=== PATIENT | female | born 1955 | race Caucasian/White ===

== ENCOUNTER → 2017-03-31 | Outpatient (CLI) | payer MEDICARE, MEDICAID ==
[~2017-03-31] MED LIST: ALBUTEROL-200 PUFFS/; CITALOPRAM20 MG PO; CLONAZEPAM0.5 M1 PO; COMPLETE MULTI1 TA1 PO; FLONASE 50 MCG16 GM; LASIX40 MG PO; LORTAB 5/500 501 TAB PO; POTASSIUM CHLO10 ME3 PO; PREDNISONE20 MG PO; ROBITUSSIN DM S10 ML PO; TYLENOL 325MG325 MG PO; TYLENOL W/CODEI1 TA2 PO; VALIUM5 MG PO; ZYPREXA 2.5MG2.5 MG PO
--- NOTE | 2017-03-31 10:07 | RADIOLOGY REPORT PS360 ---
EXAM: LUMBAR SPINE 5 VIEWS HISTORY: Low back pain following injury INJURY OF RT SHOULDER,LUMBAT PAIN,RT HIP PAIN ORDERING PHYSICIAN: Lisa ABRAHAM PATIENT AGE: 61 years COMPARISON: 08/03/2012 FINDINGS: Grade 1 spondylolisthesis L4 on L5 of 6 mm. There is moderate wedging of T12 unchanged with degenerative disc disease at T11-T12 and mild degenerative disc disease at L5-S1. Facet arthritic change with sclerosis is noted involving L2-S1. No acute fracture or dislocation. No lytic or blastic change. Incidental atherosclerotic calcification of the aorta. IMPRESSION: 1. No change with no acute finding. 2. Chronic wedging of T12 3. Lumbar spondylosis as detailed above
--- NOTE | 2017-03-31 10:08 | RADIOLOGY REPORT PS360 ---
[id number] VIEWS HISTORY: Post traumatic pain INJURY OF RT SHOULDER,LUMBAT PAIN,RT HIP PAIN ORDERING PHYSICIAN: Lisa ABRAHAM PATIENT AGE: 61 years COMPARISON: 01/16/2012 FINDINGS: No fracture or dislocation. No lytic or blastic change. There is normal mineralization. Mild osteoarthritic changes involve the glenohumeral joint. IMPRESSION: Mild osteoarthritic change glenohumeral joint, no acute fracture or dislocation apparent
--- NOTE | 2017-03-31 10:10 | RADIOLOGY REPORT PS360 ---
HIP LT 2-3V W/PELVIS IF PERFOR HISTORY: Left hip pain INJURY OF RT SHOULDER,LUMBAT PAIN,RT HIP PAIN ORDERING PHYSICIAN: Lisa ABRAHAM PATIENT AGE: 61 years COMPARISON: None FINDINGS: Minimal osteoarthritic changes are present at the left hip. No acute fracture or dislocation. No lytic or blastic change. IMPRESSION: Minimal osteoarthritic change otherwise negative
--- NOTE | 2017-03-31 10:11 | RADIOLOGY REPORT PS360 ---
[id number] VIEWS HISTORY: LT SHOULDER PAIN ORDERING PHYSICIAN: Lisa ABRAHAM PATIENT AGE: 61 years COMPARISON: None FINDINGS: No fracture or dislocation. No lytic or blastic change. There is normal mineralization. The joint spaces are well-preserved. No significant degenerative/arthritic changes. No erosive changes evident. IMPRESSION: Negative left shoulder, no acute finding
== END ==
LOC: RAD 09:06
DX: S49.91XA Unspecified injury of right shoulder and upper arm, initial encounter (principal); M54.5 Low back pain; M25.551 Pain in right hip; M25.552 Pain in left hip

== ENCOUNTER → 2017-08-16 | Outpatient (CLI) | payer MEDICARE, MEDICAID ==
[~2017-08-16] MED LIST changes: +ASPIRIN 81MG TA81 MG PO; +BREO ELLIPTA1 POW IH; +BRILINTA90 M1 PO; +CLARITIN 10MG T10 MG PO; +LEVALBUTER1.25 MG/3 IH; +LEVAQUIN750 MG PO; +LIPITOR20 MG PO; +LOPRESSOR 25MG.25 MG PO; +MELOXICAM7.5 MG PO; +PREVACID 30MG C30 M1 PO; +PROTONIX 40MG T40 MG PO; +TYLENOL325 MG PO; +ZYPREXA 5MG TAB5 MG PO
== END ==
LOC: SL 20:02
DX: G47.33 Obstructive sleep apnea (adult) (pediatric) (principal); G47.10 Hypersomnia, unspecified; R06.83 Snoring; E66.9 Obesity, unspecified

== ENCOUNTER 2017-08-25 10:07 | Inpatient (IN) | payer MEDICARE, MEDICAID ==
[2017-08-25] VITALS (7 sets, daily range): BP systolic 120–151; BP diastolic 53–82
[~2017-08-25] VITALS: Ht 170.2 cm; Wt 97.1 kg
[~2017-08-25 10:07] MED LIST changes: -ASPIRIN 81MG TA81 MG PO; -BREO ELLIPTA1 POW IH; -BRILINTA90 M1 PO; -CLARITIN 10MG T10 MG PO; -LEVALBUTER1.25 MG/3 IH; -LEVAQUIN750 MG PO; -LIPITOR20 MG PO; -LOPRESSOR 25MG.25 MG PO; -MELOXICAM7.5 MG PO; -PREVACID 30MG C30 M1 PO; -PROTONIX 40MG T40 MG PO; -TYLENOL325 MG PO; -ZYPREXA 5MG TAB5 MG PO
--- NOTE | 2017-08-25 10:40 | Emergency Room Report ---
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 N Clinical Suspician of Infection? N Mental Status: 1 - Regular (Normal Baseline) Sepsis Risk:Low Sepsis Risk Have you (or family members/close friends) recently traveled outside the [place]? N If Yes, where/when: Have you had exposure to infectious disease within the past month? TB? Other? Specify: Patient states she's been having shortness of breath for 3 weeks she states she has been having cough productive of green and yellow phlegm she denies any fevers or chills she denies any nausea or vomiting. He denies any leg swelling she states she uses home oxygen at home has a history of chronic obstructive pulmonary disease and recently over the past couple days has been having to use it during the day as well. He states he is ALLERGIC to albuterol. She states that she has chronic obstructive pulmonary disease as well as history of congestive heart failure. He denies any leg swelling. Denies headache chest pain abdominal pain denies pain of any type. Does state she has some whole body ache but states this really isn't the pain to her, has malaise and fatigue. ALLERGIES Coded Allergies: Penicillins (08/16/16) aripiprazole (From ABILIFY) (08/16/16) haloperidol (From HALDOL) (08/16/16) hydrocodone (08/16/16) hydroxyzine (08/16/16) ibuprofen (08/16/16) paroxetine (From PAXIL) (08/16/16) promethazine (From PHENERGAN) (08/16/16) risperidone (From RISPERDAL) (08/16/16) ziprasidone (From GEODON) (08/16/16) Home Medications Active Scripts Prednisone (Prednisone 20MG Tab) 20 MG PO BID #6 TAB Prov: 08/16/16 Reported Medications Acetaminophen (Tylenol 325MG) 650 MG PO PRN Olanzapine (Zyprexa 2.5MG) 2.5 MG PO QHS Dextromethorphan-Gg (Guaifenesin Dm Syrup) 10 ML PO Q6HP Furosemide (Lasix) 40 MG PO DAILY Fluticasone Propionate (Flonase 50 Mcg Nasal [place]) 1 SPRAY NA BID #1 BOT Albuterol (Albuterol-Hfa Inhaler) POTASSIUM CHL (Potassium Chloride) 595 MG PO DAILY Diazepam (Valium) 5 MG PO TID History Medical History General CAD? No Angina: No IN: No Hypertension? No Hyperlipidemia? No CHF? No DVT? No PE? No COPD? Yes Asthma? No Anemia? No GERD? No Gastric ulcers? No GI Bleed? No Hernia? No Thyroid Problems? No Hypothyroidism? No CVA? No Seizures? Yes Diabetes? No Renal Insuffiency? No End Stage Renal Disease? No UTI? No Stones? No BPH? No GB Disease: No Nephritic Syndrome? No Asplenia? No Hepatitis? No Sickle Cell Disease? No Arthritis? No Migraines? No Cataracts? No Glaucoma? No MRSA? No HIV? No TB? No Anxiety? No Depression? No Cancer? No More? Yes Additional hx: EMPHYZEMA Immunization Hx Ped.Immunizations UTD Yes DT/Tetanus UNKNOWN Flu 2015-17FSN Pneumonia Received In Past Surgical Hx Previous Surgery?Y TUBAL LIGATION Social History Smoking Hx Smoker: Current Every Day Smoker Tobacco: Yes Type Cigarettes Packs/day 1 1/2 - 2 Packs Alcohol Alcohol: No Review of Systems All Other Systems Reviewed and Negative Physical Exam Vital Signs Vital Signs Date Time Temp Pulse Resp B/P Pulse O2 O2 Flow FiO2 Ox Delivery Rate 08/25 1041 72 20 143/74 97 3 08/25 1009 97.8 76 18 120/75 78 General Appearance: Nontoxic Head: Normocephalic, without obvious abnormality, atraumatic. Eyes: conjunctiva/corneas clear ENT: Mucous membranes moist. Neck: No jugular venous distention. Cardiac: regular rate and rhythm Lungs: diminished rhonchi auscultation bilaterally Abdomen: Nontender, Nondistended, positive bowel sounds, no rebound : No CVA tenderness Extremities: no edema No Homans sign No calf tenderness No swelling in legs Musculoskeletal: No chest wall tenderness Skin: No rashes or lesions to exposed skin. Neurologic: Alert. No gross focal deficits Psychiatric: Normal affect (Satish KRUGER, Anil) General Appearance normal appearance Respiratory Status Yes: trachea midline. Cardiovascular normal exam Neurologic alert Medical Decision Making LABS/Meds/Orders Pt receiving controlled substance in ED? No Comment [id number] bnp back, call out to PMD for admission Results/Orders Laboratory Tests 08/25/17 1035: Influenza Type A Ag NOT DETECTED, Influenza Type B Ag NOT DETECTED 08/25/17 1025: Lactic Acid 0.7 08/25/17 1025: Sodium 138, Potassium 3.7, Chloride 101, Carbon Dioxide 36 H, BUN 17, Creatinine 0.8, Estimated Creat Clear 107, Estimated GFR (MDRD) 73, Glucose 98, Calcium 8.9, Total Bilirubin 0.3, AST 21, ALT 27, Alkaline Phosphatase 108, Troponin I < 0.02, B-Natriuretic Peptide 21, Total Protein 7.5, Albumin 3.5, Globulin 4.0 H, Albumin/Globulin Ratio 0.9 L, WBC 12.2 H, RBC 4.31, Hgb 13.5, Hct 41.5, MCV 96.2, RDW 13.5, Plt Count 305, MPV 7.8, Gran % 65.7, Gran # 8.0 H , Lymphocytes % 24.5, Monocytes % 5.0, Eosinophils % 4.6, Basophils % 0.2, Lymphocytes # 3.0, Monocytes # 0.6, Eosinophils # 0.6 H, Basophils # 0.0, PUBS MCHC 32.6, MCH 31.4 H Current Medication Orders Sig/Brian Start time Last Medication Dose Route Stop Time Status Admin Levofloxacin/Dextrose 150 ML ONCE ONE 08/25 1130 CKDr IV 08/25 1259 Methylprednisolone 125 MG ONCE ONE 08/25 1045 DC 08/25 Sodium Succinate IV 08/25 1046 1039 Methylprednisolone 0 .STK-MED ONE 08/25 1038 DC Sodium Succinate .ROUTE Methylprednisolone 125 MG 08/25 1030 CAN Sodium Succinate IV Sodium Chloride 10 ML PRN PRN 08/25 1030 AC IV 08/26 1019 Orders Procedure Date/time Status RESP THERAPY REQUEST (GENERAL) 08/25 1121 Active RT REQUEST ATROVENT NEB 08/25 1121 Active IV SALINE LOCK 08/25 1019 Active CULTURE, BLOOD 08/25 1019 Active LACTIC ACID 08/25 1019 Complete ARTERIAL BLOOD GAS REQUEST 08/25 1018 Active CHEST(2 VIEWS-NOT PORTABLE) 08/25 1018 Active URINALYSIS/COMPLETE 08/25 1018 Active TROPONIN I 08/25 1018 Complete INFLUENZA A&B ANTIGENS 08/25 1018 Complete CBC WITH AUTO DIFF 08/25 1018 Complete CHEM 12 PROFILE 08/25 1018 Complete BRAIN NATRIURETIC PEPTIDE 08/25 1018 Complete CM/EKG CM/medicine technologist Rhythm Normal Sinus Rhythm Rate 68 Ectopy No Comments Left axis deviation nonspecific electrocardiogram XRAY/CT/US XRAY/CT/US XRAY chest XR interpretation by reviewed by me Xray Results LEFT lower lobe infiltrate Departure Departure Time of Disposition 1123 Disposition Still a Patient Clinical Impression Primary Impression: Pneumonia Qualifiers: Pneumonia type: due to unspecified organism Laterality: left Lung location: lower lobe of lung Qualified Code: J18.1 - Lobar pneumonia, unspecified organism Secondary Impressions: Chronic obstructive pulmonary disease with (acute) exacerbation, CO2 retention Condition STABLE Referrals Lisa Carlos (Family) ED Critical Care Critical Care Yes (bipap) Time spent 30-74 min Vital system(s) involved: Respiratory Failure I was present at bedside for Coordinating pt's care, Interpreting EKGs/Strips , During my initial exam, Reviewing lab results, Reviewing old records, Discussing pt condition, For re-examinations, Examining radiographs at 1150
[2017-08-25 10:47] LABS: HEMOGLOBIN 13.5 g/dL (12.2-16.2); LYMPH % 24.5 % (10-50.0)
[2017-08-25 10:58] LABS: BUN 17 mg/dL (7-18)
[2017-08-25 11:00] LABS: GFR (ESTIMATED) 73 ML/MIN (59-)
--- NOTE | 2017-08-25 12:23 | RADIOLOGY REPORT PS360 ---
CHEST(2 VIEWS-NOT PORTABLE) HISTORY: cough ORDERING PHYSICIAN: Anil Covarrubias MD PATIENT AGE: 61 years COMPARISON: FINDINGS: Unremarkable cardiovascular structures. Patchy density is present in the left lung base and may be due to an area of atelectasis or infiltrate. Small effusion noted with blunting of posterior costophrenic sulcus which may be on the right side. No acute bony anomalies. There is mild chronic wedging involving T12 IMPRESSION: 1. Atelectasis or infiltrate in the left lung base. 2. Small right effusion
[2017-08-25 12:31] LABS: ARTERIAL ABE 6.6 MMOL/L (-2.4-+2.3); ARTERIAL PO2 79.4 MMHG (80-100); ARTERIAL TCO2 34.2 MMOL/L (23-27)
[2017-08-25 12:32] LABS: ALLEN'S TEST ACCEPTABLE; OXYGEN ROOM AIR
[2017-08-25 12:43] LABS: URINE BILIRUBIN - DIPSTICK NEGATIVE (NEG); URINE BLOOD NEGATIVE (NEG)
[2017-08-25 12:55] LABS: URINE SQUAMOUS CELLS 20-50 #/hpf (0-5)
[2017-08-25] MEDS ORDERED: MELOXICAM7.5 MG PO (14:16)
[2017-08-25] MEDS ORDERED: TYLENOL325 MG PO (14:17)
[2017-08-25] MEDS ORDERED: CLARITIN 10MG T10 MG PO (14:17)
[2017-08-25] MEDS ORDERED: ZYPREXA 5MG TAB5 MG PO (14:19)
[2017-08-25] MEDS ORDERED: LOPRESSOR 25MG.25 MG PO (14:20)
[2017-08-25] MEDS ORDERED: ASPIRIN 81MG TA81 MG PO (14:20)
[2017-08-25] MEDS ORDERED: LIPITOR20 MG PO (14:22)
[2017-08-25] MEDS ORDERED: PREVACID 30MG C30 M1 PO (14:22)
[2017-08-25] MEDS ORDERED: PROTONIX 40MG T40 MG PO (14:23)
[2017-08-25] MEDS ORDERED: BRILINTA90 M1 PO (14:23)
[2017-08-25] MEDS ORDERED: BREO ELLIPTA1 POW IH (14:24)
--- NOTE | 2017-08-25 16:19 | HISTORY AND PHYSICAL REPORT ---
Demographics: Admit date: 08/25/17 Chief complaint: Shortness of breath PRIMARY DIAGNOSIS: pneumonia Allergies: Coded Allergies: Penicillins (08/16/16) albuterol (I-RASH 08/25/17) aripiprazole (From ABILIFY) (08/16/16) haloperidol (From HALDOL) (08/16/16) hydrocodone (08/16/16) hydroxyzine (08/16/16) ibuprofen (08/16/16) ipratropium (I-RASH 08/25/17) paroxetine (From PAXIL) (08/16/16) promethazine (From PHENERGAN) (08/16/16) risperidone (From RISPERDAL) (08/16/16) ziprasidone (From GEODON) (08/16/16) History of present illness: History of present illness: 61-year-old female with congestive heart failure and chronic obstructive pulmonary disease who continues to smoke presented to the emergency department today with a 5 day history of increasing dyspnea that was requiring her to use her nocturnal oxygen 24 hours a day, cough, subjective fevers, scant sputum production. Patient presented to the emergency department and was found to have a LEFT lower lobe infiltrate and has been admitted for treatment of community- acquired pneumonia. Past medical history: Family HX Family Hx Insignificant No Diabetes Yes CAD Yes Hypertension Yes Hyperlipidemia Yes Cancer Yes TB No Immunization HX Ped.Immunizations UTD Yes DT/Tetanus UNKNOWN Flu 2015-FSN Pneumonia Received In Past TB Test in last year No General CAD? No Angina: Yes OK: No Hypertension? No Hyperlipidemia? Yes CHF? Yes DVT? No PE? No COPD? Yes Asthma? No Anemia? No GERD? Yes Gastric ulcers? No GI Bleed? No Hernia? No Thyroid Problems? No Hypothyroidism? No CVA? No Seizures? Yes Diabetes? No Renal Insuffiency? No UTI? No Stones? No BPH? No GB Disease: No Nephritic Syndrome? No Asplenia? No Hepatitis? No Sickle Cell Disease? No Arthritis? No Migraines? No Cataracts? No Glaucoma? No MRSA? No HIV? No TB? No Anxiety? No Depression? No Cancer? No More? Yes Additional hx: EMPHYZEMA STENTS X4 Past Surgical HX Previous Surgery?Y TUBAL LIGATION STENTS X4 Current home meds: Reported Medications Fluticasone Propionate (Flonase 50 Mcg Nasal [place]) 2 SPRAY NA DAILY #1 BOT Meloxicam (Meloxicam 7.5MG) 7.5 MG PO DAILY #30 Acetaminophen (Tylenol) 2 TAB PO Q6HR Loratadine (Claritin 10MG) 10 MG PO DAILY Olanzapine (Zyprexa 5MG) 2 TAB PO QHS ASPIRIN (Aspirin) 81 MG PO DAILY Metoprolol Succinate Xl (Metoprolol ER 50MG) 50 MG PO BID Atorvastatin Calcium (Lipitor 20MG) 20 MG PO QHS Lansoprazole (Prevacid) 30 MG PO DAILY Pantoprazole Sodium (Protonix 40MG TAB) 40 MG PO DAILY Ticagrelor (Brilinta) 90 MG PO BID FLUTICASONE/VILANTEROL (Breo Ellipta 100-25 Mcg INH) 1 POW IH DAILY Social Hx: Smoking HX Tobacco Yes Type Cigarettes Packs/day 1 1/2 - 2 PACKS Are you/the child exposed to second-hand smoke: No Alcohol Alcohol: No Hx of Drug Use Drug Use? No Patient's support system is fair Review of systems: Constitutional see HPI. Respiratory see HPI. Cardiovascular no symptoms reported Gastrointestinal/Abdominal no symptoms reported Genitourinary no symptoms reported. Musculoskeletal no symptoms reported. Neurological Yes: no symptoms reported. Exam: Lab data for last 24 hours: Laboratory Tests 08/25/17 1240: Urine Color DARK YELLOW, Urine Appearance Sl Cloudy, Urine pH 6.0, Ur Specific [place] 1.015, Urine Protein NEGATIVE, Urine Ketones NEGATIVE, Urine Blood NEGATIVE, Urine Nitrate NEGATIVE, Urine Bilirubin NEGATIVE, Urine Urobilinogen 0.2, Ur Leukocyte Esterase NEGATIVE, Urine RBC OCC, Urine WBC OCC, Ur Squamous Epith Cells 20-50, Urine Bacteria 1+, Urine Glucose NEGATIVE 08/25/17 1035: Influenza Type A Ag NOT DETECTED, Influenza Type B Ag NOT DETECTED 08/25/17 1030: ABG pH 7.35, ABG pCO2 (Temp Corrct 60.6 H, ABG pO2 (Temp Correct 79.4 L, ABG HCO3 32.3 H, ABG Total CO2 34.2 H, ABG O2 Sat (Calculated) 95, ABG Base Excess 6.6 H, Maik Test ACCEPTABLE, Blood Gas Comments RIGHT RADIAL 08/25/17 1025: Lactic Acid 0.7 08/25/17 1025: Sodium 138, Potassium 3.7, Chloride 101, Carbon Dioxide 36 H, BUN 17, Creatinine 0.8, Estimated Creat Clear 107, Estimated GFR (MDRD) 73, Glucose 98, Calcium 8.9, Total Bilirubin 0.3, AST 21, ALT 27, Alkaline Phosphatase 108, Troponin I < 0.02, B-Natriuretic Peptide 21, Total Protein 7.5, Albumin 3.5, Globulin 4.0 H, Albumin/Globulin Ratio 0.9 L, WBC 12.2 H, RBC 4.31, Hgb 13.5, Hct 41.5, MCV 96.2, RDW 13.5, Plt Count 305, MPV 7.8, Gran % 65.7, Gran # 8.0 H , Lymphocytes % 24.5, Monocytes % 5.0, Eosinophils % 4.6, Basophils % 0.2, Lymphocytes # 3.0, Monocytes # 0.6, Eosinophils # 0.6 H, Basophils # 0.0, PUBS MCHC 32.6, MCH 31.4 H Microbiology 08/25 1025 BLOOD: Anaerobic Blood Culture - RECD 08/25 1025 BLOOD: Aerobic Blood Culture - RECD 08/25 1025 BLOOD: Anaerobic Blood Culture - RECD 08/25 102 BLOOD: Aerobic Blood Culture - RECD Admission vital signs: 1ST Vital Signs Result Date Time Pulse Ox 78 08/25 1009 B/P 120/75 08/25 1009 Temp 97.8 08/25 1009 Pulse 76 08/25 1009 Resp 18 08/25 1009 O2 Flow Rate 3 08/25 1041 O2 Delivery OXYGEN 08/25 1427 Additional information: At present she appears in no respiratory distress and is comfortable with nasal cannula in place. Oropharynx is moist. Lungs are distant with poor aeration and expiratory wheezes only heard anteriorly. Heart has a regular rate and rhythm. Neurologically patient moves all extremities area extremities had no edema Plan: Problem List 1. CO2 retention 2. Pneumonia 3. Chronic obstructive pulmonary disease with (acute) exacerbation Plan: Admit patient for treatment of community-acquired pneumonia with Levaquin. She claims an ALLERGY to albuterol which causes rashes so we will use levalbuterol. Patient also claims an ALLERGY to ipratropium but this was used in the emergency department and she did not have any reaction. Continue home medications. No IV fluids to avoid congestive heart failure.
[2017-08-26 04:00] VITALS: BP 154/75
[2017-08-26 05:23] LABS: LYMPH # 1.4 K/mm3 (0.7-4.5); LYMPH % 9.8 % (10-50.0)
[2017-08-26 05:40] LABS: NEUTROPHILS 76 % (42-76)
--- NOTE | 2017-08-26 07:14 | ACUTE CARE PROGRESS NOTE (QUA) ---
Progress Notes Subjective Date 08/26/17 Time 0711 Note Patient is sleeping very soundly this morning. Nursing staff reports having to place a bed alarm on the patient due to noncompliance with ALLERGIC nurse when she needed to be out of bed. O2 sats with supplemental oxygen and been in the 90s. Room air sats dropped into the 80s. Patient is sleeping soundly. She is not showing any sign of respiratory distress. Nasal cannula is in place. Lungs have improved aeration since yesterday with more prominent expiratory wheezes. Heart has a regular rate and rhythm. Continue steroids and IV antibiotics. Objective Findings Last VS-Temp:97.7 B/P:154/75 Pulse:83 Resp:20 SaO2:78 OXYGEN Last weight lbs:212 oz:6 K.333 Method:Bed Scales Laboratory Tests 08/26/17 0500: Sodium 140, Potassium 4.8, Chloride 102, Carbon Dioxide 34 H, BUN 18, Creatinine 0.7, Estimated Creat Clear 130, Estimated GFR (MDRD) 85, Glucose 160 H, Calcium 8.8, WBC 14.2 H, RBC 4.47, Hgb 14.0, Hct 45.0, MCV 100.8 H, RDW 13.4, Plt Count 282, MPV 7.8, Gran % 85.8 H, Gran # 12.2 H, Total Counted 100, Lymphocytes % 9.8 L, Monocytes % 3.6, Eosinophils % 0.6, Basophils % 0.2, Neutrophils 76, Band Neutrophils 8, Lymphocytes (Manual) 15, Lymphocytes # 1.4, Monocytes (Manual) 1 L, Monocytes # 0.5, Eosinophils # 0.1, Basophils # 0.0, Platelet Estimate NORMAL, Polychromasia 1+, PUBS MCHC 31.1 L, MCH 31.4 H 08/25/17 1240: Urine Color DARK YELLOW, Urine Appearance Sl Cloudy, Urine pH 6.0, Ur Specific [place] 1.015, Urine Protein NEGATIVE, Urine Ketones NEGATIVE, Urine Blood NEGATIVE, Urine Nitrate NEGATIVE, Urine Bilirubin NEGATIVE, Urine Urobilinogen 0.2, Ur Leukocyte Esterase NEGATIVE, Urine RBC OCC, Urine WBC OCC, Ur Squamous Epith Cells 20-50, Urine Bacteria 1+, Urine Glucose NEGATIVE 08/25/17 1035: Influenza Type A Ag NOT DETECTED, Influenza Type B Ag NOT DETECTED 08/25/17 1030: ABG pH 7.35, ABG pCO2 (Temp Corrct 60.6 H, ABG pO2 (Temp Correct 79.4 L, ABG HCO3 32.3 H, ABG Total CO2 34.2 H, ABG O2 Sat (Calculated) 95, ABG Base Excess 6.6 H, Maik Test ACCEPTABLE, Blood Gas Comments RIGHT RADIAL 08/25/17 1025: Lactic Acid 0.7 08/25/17 1025: Sodium 138, Potassium 3.7, Chloride 101, Carbon Dioxide 36 H, BUN 17, Creatinine 0.8, Estimated Creat Clear 107, Estimated GFR (MDRD) 73, Glucose 98, Calcium 8.9, Total Bilirubin 0.3, AST 21, ALT 27, Alkaline Phosphatase 108, Troponin I < 0.02, B-Natriuretic Peptide 21, Total Protein 7.5, Albumin 3.5, Globulin 4.0 H, Albumin/Globulin Ratio 0.9 L, WBC 12.2 H, RBC 4.31, Hgb 13.5, Hct 41.5, MCV 96.2, RDW 13.5, Plt Count 305, MPV 7.8, Gran % 65.7, Gran # 8.0 H , Lymphocytes % 24.5, Monocytes % 5.0, Eosinophils % 4.6, Basophils % 0.2, Lymphocytes # 3.0, Monocytes # 0.6, Eosinophils # 0.6 H, Basophils # 0.0, PUBS MCHC 32.6, MCH 31.4 H Microbiology 08/25 1720 SPUTUM: Sputum Culture - RES 08/25 1720 SPUTUM: Gram Stain - RES 08/25 1025 BLOOD: Anaerobic Blood Culture - RECD 08/25 1025 BLOOD: Aerobic Blood Culture - RECD 08/25 1025 BLOOD: Anaerobic Blood Culture - RECD 08/25 1025 BLOOD: Aerobic Blood Culture - RECD Assessment/Plan Problem List 1. Pneumonia Qualifiers: Pneumonia type: due to unspecified organism Laterality: left Lung location: lower lobe of lung Qualified Code: J18.1 - Lobar pneumonia, unspecified organism 2. CO2 retention 3. Chronic obstructive pulmonary disease with (acute) exacerbation 4. Coronary artery disease 5. History of congestive heart failure 6. Obstructive sleep apnea 7. Schizophrenia Patient condition Stable This inpt stay is expected to cross 2 MNs from start of care Yes at 0714
[2017-08-26 08:12] VITALS: BP 120/66
--- NOTE | 2017-08-26 11:31 | PHARMACY CLINIC NOTE ---
Patient Demographics Patient Demographics Admission date: 08/25/17 Date: 08/26/17 Time: 1130 Allergies Coded Allergies: Penicillins (08/16/16) albuterol (I-RASH 08/25/17) aripiprazole (From ABILIFY) (08/16/16) haloperidol (From HALDOL) (08/16/16) hydrocodone (08/16/16) hydroxyzine (08/16/16) ibuprofen (08/16/16) ipratropium (I-RASH 08/25/17) paroxetine (From PAXIL) (08/16/16) promethazine (From PHENERGAN) (08/16/16) risperidone (From RISPERDAL) (08/16/16) ziprasidone (From GEODON) (08/16/16) HEIGHT- FT: 5 IN: 7.00 K.125 VTE General Information Labs: Laboratory Tests 08/26 0500 Hematology Hgb (12.2 - 16.2 g/dL) 14.0 Hct (37.0 - 47.0 %) 45.0 Plt Count (142 - 424 K/mm3) 282 Disclaimer The following section includes nursing documentation that has been pulled in for pharmacy review. Patient's VTE score: 5 Patient's VTE Risk: LOW RISK Clinical trial participant? No VTE prophylaxis [id number] VTE prophylaxis ordered? Yes Type of prophylaxis/treatment: BETH at 1130
[2017-08-26 12:26] VITALS: BP 136/62
[2017-08-26 15:38] VITALS: BP 142/59
[2017-08-26 19:31] VITALS: BP 134/77
[2017-08-26 21:15] VITALS: BP 134/77
[2017-08-27 00:37] VITALS: BP 126/76
[2017-08-27 04:14] VITALS: BP 112/66
[2017-08-27 07:00] VITALS: BP 150/80
[2017-08-27 07:34] VITALS: BP 150/80
--- NOTE | 2017-08-27 08:03 | ACUTE CARE PROGRESS NOTE (QUA) ---
Progress Notes Subjective Date 08/27/17 Time 0801 Note Patient complains of hallucinations. She has schizophrenia and is aware that hallucinations or component of this. Staff reports that she saw Hortencia Madrigal yesterday evening. In regards to her respiratory status the patient reports improvement in her shortness of breath. Energy level is better. Cough is better. Patient looks well and is sitting up in bed eating breakfast. Lungs have improved aeration. I do not hear rales in the lung bases. Heart has a regular rate and rhythm. Abdomen is soft. Patient will be discharged home today. She will have to use oxygen 24 hours per day which she is aware of. She will continue antibiotics and steroids as an outpatient. Xopenex nebs will be continued to be used. Assessment/Plan Problem List 1. Pneumonia Qualifiers: Pneumonia type: due to unspecified organism Laterality: left Lung location: lower lobe of lung Qualified Code: J18.1 - Lobar pneumonia, unspecified organism 2. CO2 retention 3. Chronic obstructive pulmonary disease with (acute) exacerbation 4. Coronary artery disease 5. History of congestive heart failure 6. Obstructive sleep apnea 7. Schizophrenia Patient condition Improving Plan: initiate discharge plan This inpt stay is expected to cross 2 MNs from start of care Yes at 0804
[2017-08-27] MEDS ORDERED: LEVAQUIN750 MG PO (08:07)
--- NOTE | 2017-08-27 08:07 | Discharge Summary ---
Demographics Admit date: 08/25/17 Discharge date: 08/27/17 Discharge diagnoses Problem List 1. Pneumonia 2. CO2 retention 3. Chronic obstructive pulmonary disease with (acute) exacerbation 4. Coronary artery disease 5. History of congestive heart failure 6. Obstructive sleep apnea 7. Schizophrenia History of present illness History of present illness 61-year-old female with congestive heart failure and chronic obstructive pulmonary disease who continues to smoke presented to the emergency department today with a 5 day history of increasing dyspnea that was requiring her to use her nocturnal oxygen 24 hours a day, cough, subjective fevers, scant sputum production. Patient presented to the emergency department and was found to have a LEFT lower lobe infiltrate and has been admitted for treatment of community- acquired pneumonia. Patient was initially admitted on BiPAP but only required BiPAP for a few hours and was transitioned to nasal cannula oxygen at 3 L/m which was then weaned to 2 L/m with in 24 hours of her hospitalization. Patient uses oxygen at night at home. Room air sats would drop down into the mid 80s during the day if oxygen was not in use. Patient's cough improved. She was started on steroids in addition to antibiotics as she was having a concurrent chronic obstructive pulmonary disease exacerbation. Lung exam revealed rather tight lungs with poor aeration initially but over the course of 48 hours aeration improved and wheezing became present and then resolved. On August 27 patient was still requiring supplemental oxygen via nasal cannula at 2 L/m but felt improvement in strength and was eating well. Discussion was had about safety at home and she felt safe and strong enough. Patient was discharged home. She will continue oxygen use 24 hours per day. Finish a course of antibiotics and steroids. Patient claims an ALLERGY to albuterol also was given Xopenex nebs during hospitalization which she tolerated without problem and this will be continued at discharge as well. Medications Medications: Discharge meds are as noted. Follow up Follow up in office in: 2 WEEKS with: Lisa Carlos at 0806
[2017-08-27] MEDS ORDERED: PREDNISONE20 MG PO (08:08)
[2017-08-27] MEDS ORDERED: LEVALBUTER1.25 MG/3 IH (08:09)
[2017-08-27 11:31] VITALS: BP 149/73
== END 2017-08-27 11:55 | disposition home or self-care (01) | DRG 190 ==
LOC: ER 10:07 → 2ND 12:09
PROVIDERS: Emergency Medicine; Family Medicine
DX: J44.1 Chronic obstructive pulmonary disease with (acute) exacerbation (principal); J18.9 Pneumonia, unspecified organism; I50.9 Heart failure, unspecified; F20.89 Other schizophrenia; Z72.0 Tobacco use; Z95.5 Presence of coronary angioplasty implant and graft; Z99.81 Dependence on supplemental oxygen; G47.33 Obstructive sleep apnea (adult) (pediatric); I25.10 Atherosclerotic heart disease of native coronary artery without angina pectoris; R44.1 Visual hallucinations

== ENCOUNTER 2017-09-13 11:23 | Emergency (ER) | payer MEDICARE, MEDICAID ==
[~2017-09-13] VITALS: Ht 170.2 cm; Wt 99.8 kg
[~2017-09-13 11:23] MED LIST changes: +ASPIRIN 81MG TA81 MG PO; +BREO ELLIPTA1 POW IH; +BRILINTA90 M1 PO; +CLARITIN 10MG T10 MG PO; +LEVALBUTER1.25 MG/3 IH; +LEVAQUIN750 MG PO; +LIPITOR20 MG PO; +LOPRESSOR 25MG.25 MG PO; +MELOXICAM7.5 MG PO; +PREVACID 30MG C30 M1 PO; +PROTONIX 40MG T40 MG PO; +TYLENOL325 MG PO; +ZYPREXA 5MG TAB5 MG PO
--- NOTE | 2017-09-13 11:40 | Emergency Room Report ---
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 N Clinical Suspician of Infection? N Mental Status: 1 - Regular (Normal Baseline) Sepsis Risk:Low Sepsis Risk Have you (or family members/close friends) recently traveled outside the [place]? N If Yes, where/when: Have you had exposure to infectious disease within the past month? N TB? Other? Specify: Comment The patient complains of LEFT lower back pain going into her LEFT lower quadrant since Monday 3 days ago. Pain increases with movement, but she recalls no injury. She says that yesterday she had numerous bowel movements, initially formed but then becoming watery. A small amount of blood when she wiped, but no blood in the stool. Denies fever or vomiting. She says that she started Levaquin yesterday, which was called in by her primary care provider for bronchitis. She says she has a prior history of diverticulitis and is concerned because she ate dill pickles on Monday. Just finished steroids for bronchitis on Monday 3 days ago. ALLERGIES Coded Allergies: Penicillins (08/16/16) albuterol (I-RASH 08/25/17) aripiprazole (From ABILIFY) (08/16/16) haloperidol (From HALDOL) (08/16/16) hydrocodone (08/16/16) hydroxyzine (08/16/16) ibuprofen (08/16/16) ipratropium (I-RASH 08/25/17) paroxetine (From PAXIL) (08/16/16) promethazine (From PHENERGAN) (08/16/16) risperidone (From RISPERDAL) (08/16/16) ziprasidone (From GEODON) (08/16/16) Home Medications Active Scripts Levofloxacin (Levaquin 750MG Tab) 750 MG PO DAILY #5 TAB Prov: 08/27/17 Prednisone (Prednisone 20MG Tab) 20 MG PO DAILY #21 TAB Prov: 08/27/17 Levalbuterol Hydrochloride (Levalbuterol 1.25MG/3ML) 1.25 MG IH TID #60 NEB Ref 1 Prov: 08/27/17 Reported Medications Fluticasone Propionate (Flonase 50 Mcg Nasal [place]) 2 SPRAY NA DAILY #1 BOT Meloxicam (Meloxicam 7.5MG) 7.5 MG PO DAILY #30 TAB Acetaminophen (Tylenol) 650 MG PO Q6HP PRN MILD PAIN/FEVER Loratadine (Claritin 10MG) 10 MG PO DAILY Olanzapine (Zyprexa 5MG) 5 MG PO QHS ASPIRIN (Aspirin) 81 MG PO DAILY Metoprolol Tartrate (Lopressor) 25 MG PO BID Atorvastatin Calcium (Lipitor 20MG) 20 MG PO QHS Lansoprazole (Prevacid) 30 MG PO DAILY Pantoprazole Sodium (Protonix 40MG TAB) 40 MG PO DAILY Ticagrelor (Brilinta) 90 MG PO BID FLUTICASONE/VILANTEROL (Breo Ellipta 100-25 Mcg INH) 1 POW IH DAILY History Medical History General CAD? No Angina: Yes [place]: No Hypertension? No Hyperlipidemia? Yes CHF? Yes DVT? No PE? No COPD? Yes Asthma? No Anemia? No GERD? Yes Gastric ulcers? No GI Bleed? No Hernia? No Thyroid Problems? No Hypothyroidism? No CVA? No Seizures? Yes Diabetes? No Renal Insuffiency? No End Stage Renal Disease? No UTI? No Stones? No BPH? No GB Disease: No Nephritic Syndrome? No Asplenia? No Hepatitis? No Sickle Cell Disease? No Arthritis? No Migraines? No Cataracts? No Glaucoma? No MRSA? No HIV? No TB? No Anxiety? No Depression? No Cancer? No More? Yes Additional hx: EMPHYZEMA STENTS X4 Immunization Hx DT/Tetanus UNKNOWN Flu Refused Pneumonia Received In Past Surgical Hx Previous Surgery?Y TUBAL LIGATION STENTS X4 Family History Family Hx Diabetes Yes CAD Yes Hypertension Yes Hyperlipidemia Yes Cancer Yes TB No Social History Smoking Hx Smoker: Current Every Day Smoker Tobacco: Yes Type Cigarettes Packs/day 1 1/2 - 2 Packs Alcohol Alcohol: No Review of Systems All Other Systems Reviewed and Negative Constitutional denies fever Gastrointestinal abdominal pain, diarrhea, denies vomiting Genitourinary denies: dysuria, frequency. Musculoskeletal back pain Physical Exam Vital Signs Vital Signs Date Time Temp Pulse Resp B/P Pulse O2 O2 Flow FiO2 Ox Delivery Rate 09/13 1401 97.9 78 20 127/62 97 09/13 1334 97.9 78 20 127/62 97 09/13 1130 97.9 78 20 127/53 97 General Appearance no apparent distress, sitting in chair Eye Exam - bilateral eye normal exam, bilateral eye PERRL, bilateral eye EOMI Ear, Nose, Throat hearing grossly normal, normal ENT inspection Neck normal inspection, non-tender, supple, full range of motion Respiratory Status Yes: trachea midline, chest symmetrical, non tender chest. No: respiratory distress. Lung Sounds bilateral: normal breath sounds, lungs clear. Cardiovascular normal exam, regular rate/rhythm, no peripheral edema, no gallop, no JVD, no murmur, no rub, normal peripheral pulses Peripheral Pulses Pulses normal Yes Gastrointestinal normal bowel sounds, soft, no organomegaly, no guarding, no rebound, tenderness (mild LLQ), obese. Very soft. Umbilical hernia, very soft and reducible, not tender. Back normal inspection, no CVA tenderness, no vertebral tenderness Extremities non-tender, normal range of motion, normal inspection Neurologic alert Mental status normal mood/affect Skin intact, normal color, warm/dry Medical Decision Making LABS/Meds/Orders Pt receiving controlled substance in ED? No Cesar was queried for this patient? Yes Comment [id number] 2 rxs. last rx 18 percocet 7.5mg on 07/04/17. Results/Orders Laboratory Tests 09/13/17 1230: Urine Color YELLOW, Urine Appearance CLEAR, Urine pH 7.0, Ur Specific Dugger <= 1.005, Urine Protein NEGATIVE, Urine Ketones NEGATIVE, Urine Blood NEGATIVE, Urine Nitrate NEGATIVE, Urine Bilirubin NEGATIVE, Urine Urobilinogen 0.2, Ur Leukocyte Esterase NEGATIVE, Urine RBC NONE, Urine WBC NONE, Ur Squamous Epith Cells OCC, Urine Bacteria NONE, Urine Glucose NEGATIVE 09/13/17 1150: Lipase 133 09/13/17 1150: Sodium 136, Potassium 3.7, Chloride 100, Carbon Dioxide 29, BUN 14, Creatinine 0.8, Estimated Creat Clear 118, Estimated GFR (MDRD) 73, Glucose 91, Calcium 8.7 , Total Bilirubin 0.4, AST 43 H, ALT 50, Alkaline Phosphatase 84, Total Protein 6.7, Albumin 3.3 L, Globulin 3.4 H, Albumin/Globulin Ratio 1.0 L, WBC 14.7 H , RBC 4.42, Hgb 13.9, Hct 43.4, MCV 98.3 H, RDW 14.6, Plt Count 305, MPV 7.5, Gran % 74.6, Gran # 11.0 H, Lymphocytes % 16.1, Monocytes % 3.3, Eosinophils % 5.8, Basophils % 0.2, Lymphocytes # 2.4, Monocytes # 0.5, Eosinophils # 0.9 H, Basophils # 0.0, PUBS MCHC 31.9, MCH 31.4 H Current Medication Orders Sig/Brian Start time Last Medication Dose Route Stop Time Status Admin Sodium Chloride 10 ML PRN PRN 09/13 1145 DCD IV 09/14 1144 Orders Procedure Date/time Status DIET-NOTHING BY MOUTH 09/[address] ABD/PELVIS REQ 09/13 1157 Active LIPASE 09/13 1157 Complete IV SALINE LOCK 09/13 1144 Active URINALYSIS/COMPLETE 09/13 1144 Complete CBC WITH AUTO DIFF 09/13 1144 Complete CHEM 12 PROFILE 09/13 1144 Complete Progress - 1:50 PM: Discussed results with patient. She says she has been taking Tylenol for pain and it does not help, she requests something stronger for pain. Departure Departure Disposition DC Home or Self Care(routine) Clinical Impression Primary Impression: Flank pain Condition STABLE Referrals Ignacio Tai MD (PCP/Family) Patient Instructions DI for Flank Pain Additional Instructions Additional instructions for BACK PAIN: See your physician as soon as possible for further evaluation. Return immediately if back pain becomes intolerable, or if fever, numbness or weakness of your legs, loss of control of your bowels or bladder. Prescriptions Current Visit Scripts ACETAMINOPHEN WITH CODEINE (Tylenol With Codeine #3 Tablet) 1 TAB PO Q4HP PRN pain #10 TAB ED Critical Care Critical Care No at 1557
[2017-09-13 12:01] LABS: HEMOGLOBIN 13.9 g/dL (12.2-16.2); LYMPH # 2.4 K/mm3 (0.7-4.5); LYMPH % 16.1 % (10-50.0)
--- OUTSIDE RECORDS SUMMARY | 2017-09-13 12:24 | External Medical Summary Rpt | Continuity of Care Document ---
Author Author Organization Address Unknown Phone Unavailable Care Team Providers Care Sales Apprentice Name Role Phone , Unavailable Unavailable EMS Current Medications Section EMS Allergies and Adverse Reactions EMS Past Medical History Medications Administered Section EMS Procedures Performed EMS Vital Signs EMS Patient Care Report Narrative [facility] UN[facility] AND ALS UNIT 20 WAS DISPATCHED TO ADDRESS ABOVE FOR A 61 Y/O F PT C/O SOA. UPON EMS ARRIVAL PT WAS FOUND UP WALKING PT STATED THAT SHE HAD BEEN SICK FOR ABOUT A MONTH HAD BEEN TREATED AT DR OFFICE FOR BRONCHITIS WITH MEDS NOT WORKING. PT STATED SHE HAD FELT BETTER THEN SUN PT STARTED TO GET SICK AGAIN. PT STATED SHE HAD A DR APPT THIS DATE BUT WAS UNABLE TO GET A RIDE. PT STATED THAT SHE WAS HAVING SOA. DIAMOND FINISHING SUPERVISOR AYANA DID AN ALS ASSESSMENT ON THE PT AND FELT THE PT CONDITION WAS STABLE TO BE TRANSPORTED TO [facility]. PT VITALS WERE MONITORED WHILE EN ROUTE AND WERE NOTED IN ABOVE REPORT. PT WAS PLACED ON O2 @ 4 LPM VIA N/C AFTER A SPO2 OF 87% PT SPO2 AFTER O2 THEN CAME UP TO 97%. PT HAD NO OTHER COMPLAINTS WHILE EN ROUTE. PT WAS TRANSPORTED TO [facility] WITHOUT INCIDENT AND CARE OF PT WAS TRANSFERRED OVER TO THE NURSING STAFF. END REPORT [facility] [id number].......................
--- OUTSIDE RECORDS SUMMARY | 2017-09-13 12:24 | External Medical Summary Rpt | Continuity of Care Document ---
Author Author Organization Address Unknown Phone Unavailable Care Team Providers Care Fish Conservationist Name Role Phone , Unavailable Unavailable EMS [...] PT STATED THAT SHE WAS HAVING SOA. CARDIAC REHABILITATION PROGRAM DIRECTOR AYANA DID AN ALS ASSESSMENT ON THE PT AND FELT THE PT CONDITION WAS STABLE TO BE TRANSPORTED TO [facility]. PT VITALS WERE MONITORED WHILE EN ROUTE AND WERE NOTED IN ABOVE REPORT. PT WAS PLACED ON O2 @ 4 LPM VIA N/C AFTER A SPO2 OF 87% PT SPO2 AFTER O2 THEN CAME UP TO 97%. PT HAD NO OTHER COMPLAINTS WHILE EN ROUTE. PT WAS TRANSPORTED TO [facility] WITHOUT INCIDENT AND CARE OF PT WAS TRANSFERRED OVER TO THE NURSING STAFF. END REPORT [facility] [id number].......................
--- OUTSIDE RECORDS SUMMARY | 2017-09-13 12:24 | External Medical Summary Rpt | Continuity of Care Document ---
Author Author Organization Address Unknown Phone Unavailable Care Team Providers Care Dehydration Unit Operator Name Role Phone , Unavailable Unavailable EMS [...] PT STATED THAT SHE WAS HAVING SOA. SECURITY CHECKER AYANA DID AN ALS ASSESSMENT ON THE PT AND FELT THE PT CONDITION WAS STABLE TO BE TRANSPORTED TO [facility]. PT VITALS WERE MONITORED WHILE EN ROUTE AND WERE NOTED IN ABOVE REPORT. PT WAS PLACED ON O2 @ 4 LPM VIA N/C AFTER A SPO2 OF 87% PT SPO2 AFTER O2 THEN CAME UP TO 97%. PT HAD NO OTHER COMPLAINTS WHILE EN ROUTE. PT WAS TRANSPORTED TO [facility] WITHOUT INCIDENT AND CARE OF PT WAS TRANSFERRED OVER TO THE NURSING STAFF. END REPORT [facility] [id number].......................
--- OUTSIDE RECORDS SUMMARY | 2017-09-13 12:24 | External Medical Summary Rpt | Continuity of Care Document ---
Author Author Organization Address Unknown Phone Unavailable Care Team Providers Care Teacher [employer] Name Role Phone , Unavailable Unavailable EMS [...] PT STATED THAT SHE WAS HAVING SOA. SPECIAL INSPECTOR AYANA DID AN ALS ASSESSMENT ON THE PT AND FELT THE PT CONDITION WAS STABLE TO BE TRANSPORTED TO [facility]. PT VITALS WERE MONITORED WHILE EN ROUTE AND WERE NOTED IN ABOVE REPORT. PT WAS PLACED ON O2 @ 4 LPM VIA N/C AFTER A SPO2 OF 87% PT SPO2 AFTER O2 THEN CAME UP TO 97%. PT HAD NO OTHER COMPLAINTS WHILE EN ROUTE. PT WAS TRANSPORTED TO [facility] WITHOUT INCIDENT AND CARE OF PT WAS TRANSFERRED OVER TO THE NURSING STAFF. END REPORT [facility] [id number].......................
--- OUTSIDE RECORDS SUMMARY | 2017-09-13 12:32 | External Medical Summary Rpt | CCD ---
Author Author , ERNA Goldsmith ERNA Address Unknown Phone [email or web address] Providers Care Back End Engineer Name Role Phone A Yobany FONG MD PSC, Ritchie Unavailable Unavailable Yobany FONG MD PSC MEÑO WILDER JR, JR Unavailable Unavailable BEINEKE, BEINEKE Unavailable Unavailable [facility] Unavailable Unavailable [facility], [facility] VIVIEN, VIVIEN Unavailable Unavailable [facility] Unavailable Unavailable EMS ANDRE JERRI, ANDRE Unavailable Unavailable [facility] Unavailable Unavailable THE [facility], [facility], [facility] Unavailable Unavailable INC, [facility] Unavailable Unavailable INC, [facility] KELY CASPER, Unavailable Unavailable KELY CASPER GAGE, Unavailable Unavailable COURTADE GAGE COURTADE GAGE, Unavailable Unavailable COURTADE GAGE SARAHI, SARAHI Unavailable Unavailable MACHO, MACHO Unavailable Unavailable MACHO LORETTA, Unavailable Unavailable MACHO LORETTA MACHO LORETTA, Unavailable Unavailable MACHO LORETTA [facility] # [id number], Unavailable Unavailable [facility] # [id number] [id number], Unavailable Unavailable [id number], JOHANN Unavailable Unavailable 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 KIR, DOERGER Unavailable Unavailable KIR DOERGER KIR, DOERGER Unavailable Unavailable KIR JAZ L.P., JAZ L.P. Unavailable Unavailable JAZ L.P., JAZ L.P. Unavailable Unavailable JONAH JOLIE, JONAH Unavailable Unavailable JOLIE SARGENT, SARGENT Unavailable Unavailable HEART EMMANUEL, HEART EMMANUEL Unavailable Unavailable HEART EMMANUEL, HEART EMMANUEL Unavailable Unavailable BRAXTON ZARATE E, Unavailable Unavailable ELLIOT, BRAXTON E [facility] Un[facility] Unavailable INC, [facility] Unavailable Unavailable HOSPITAL P, [facility] HOSPITAL P [facility], Unavailable Unavailable [facility] MARIA DEL CARMEN SHELBY, Unavailable Unavailable MARIA DEL CARMEN SHELBY HURST JERRI, HURST JERRI Unavailable Unavailable JARKANI HERNESTO, JARKANI Unavailable Unavailable HERNESTO JARKANI HERNESTO, JARKANI Unavailable Unavailable HERNESTO EVARISTO MICHELLE, LOERA, Unavailable Unavailable MICHELLE TABBY, YVONNE, Unavailable Unavailable TABBY, YVONNE [facility] Unavailable Unavailable [facility], [facility] YAP NIV, YAP NIV Unavailable Unavailable KUPER LENA, KUPER LENA Unavailable Unavailable KUPER LENA, KUPER LENA Unavailable Unavailable KUSHMAN MARIVEL, KUSHMAN Unavailable Unavailable MARIVEL KUSHMAN MARIVEL, KUSHMAN Unavailable Unavailable MARIVEL [facility], Unavailable Unavailable [facility] LAIB EMANI, LAIB EMANI Unavailable Unavailable LAIB EMANI, LAIB EMANI Unavailable Unavailable RAMÍREZ, RAMÍREZ Unavailable Unavailable DOUGLAS JR DWI, DOUGLAS Unavailable Unavailable JR DWI [facility] Unavailable Unavailable [facility], [facility] Unavailable Unavailable 9, [facility] 9 [facility] Unavailable Unavailable SERVICES, [facility] JONAH, JAYRO, Unavailable Unavailable JONAH, JAYRO [facility] Unavailable Unavailable MEDICAL, [facility] Unavailable Unavailable [facility]ENTER, [facility] MCNULTY DAYANA, MCNULTY Unavailable Unavailable DAYANA MCNULTY DAYANA, MCNULTY Unavailable Unavailable DAYANA JOAO, MILTON, JOAO, Unavailable Unavailable MILTON MARSH ZAID, MARSH ZAID Unavailable Unavailable MARSH ZAID, MARSH ZAID Unavailable Unavailable [facility] Unavailable [facility] Unavailable [facility]available [facility], [facility]available Unavailable [id number], Unavailable Unavailable [id number] CARMELINA SCHWARTZ JR, Unavailable Unavailable CARMELINA SCHWARTZ JR [facility] Unavailable Unavailable [facility], [facility] Unavailable [facility]available [facility], [facility] CYNTHIA JOLIE, CYNTHIA Unavailable Unavailable JOLIE CYNTHIA JOLIE, CYNTHIA Unavailable Unavailable JOLIE SHARP GIOVANNA, SHARP GIOVANNA Unavailable Unavailable ANJALI, ANJALI Unavailable Unavailable [facility] Unavailable Unavailable [facility], [facility] Unavailable Unavailable [facility], [facility] SOWDEN MARIANNA, SOWDEN Unavailable Unavailable MARIANNA ALEGRE, Unavailable Unavailable [facility] Unavailable Unavailable PHYSICIANS, DAMIAN NAVARRETE, Unavailable Unavailable DAMIAN VIEIRA JEFFREY C, Unavailable Unavailable LUBNA JIMENEZ, Unavailable Unavailable SOLITARIO STACY, Unavailable Unavailable SOLITARIO LYON, NOELLE Unavailable Unavailable SONALI WEHRMAN III SUZAN, Unavailable Unavailable WEHRMAN III SUZAN WEHRMAN III SUZAN, Unavailable Unavailable WEHRMAN III SUZAN SU HEL, SU HEL Unavailable Unavailable SU HEL, SU HEL Unavailable Unavailable ALYSSA DE LA TORRE, Unavailable Unavailable ALYSSA DE LA TORRE [facility], Unavailable [facility], Unavailable Unavailable [facility] Purpose Continuity of Care Document - 12-27-2007 through 2016 Problems Code Diagnosis DOS Provider Status [id number] [facility] 07-05-2017 [facility] CORONARY PHYSICIANS ARTERY W/O GROUP ANGINA PECTORIS [id number] ASHD L[place]TT[place] 07-05-2017 [facility] W/UNS INC ANGINA PECTORIS I6502 OCCLUSION 07-05-2017 [facility] STENOSIS OF INC LEFT VERTEBRAL ARTERY I6521 OCCLUSION 07-05-2017 [facility] STENOSIS OF INC RIGHT CAROTID ARTERY I6529 OCCLUSION & 07-05-2017 [facility] STENOSIS PHYSICIANS UNSPECIFIED GROUP CAROTID ARTERY I700 ATHEROSCLER 07-05-2017 [facility] OSIS OF [facility] AORTA INC [id number] ATHEROSCLER 07-05-2017 [facility] [place] ART [facility] EXT INC INTERMIT ABDOUL BILAT R0989 OT SPEC SX 07-05-2017 [facility] & SIGNS PHYSICIANS INVLV THE GROUP CIRC & RESP SYS R9439 ABNORMAL 07-05-2017 [facility] RESULT OT PHYSICIANS CARDIOVASCU GROUP LR FUNCTION STUDY Z720 TOBACCO USE 07-05-2017 [facility] INC 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 EQUIPME E785 HYPERLIPIDE 06-29-2017 [facility] ELIER PHYSICIANS UNSPECIFIED GROUP G4733 OBSTRUCTIVE 06-29-2017 [facility] SLEEP PHYSICIANS APNEA ADULT GROUP PEDIATRIC I10 ESSENTIAL 06-29-2017 [facility] PRIMARY PHYSICIANS HYPERTENSIO GROUP N I208 OTHER FORMS 06-29-2017 [facility] OF ANGINA PHYSICIANS PECTORIS GROUP I209 ANGINA 06-29-2017 [facility] PECTORIS PHYSICIANS UNSPECIFIED GROUP I6523 OCCLUSION & 06-29-2017 [facility] STENOSIS [facility] BILATERAL INC CAROTID ARTERIES R002 PALPITATION 06-29-2017 [facility] S [facility] INC [id number] ENCOUNTER 06-29-2017 [facility] FOR OTHER [facility] PREPROCEDUR INC AL EXAMINATION R69 ILLNESS 06-26-2017 [place] UNSPECIFIED [facility] 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 E069 THYROIDITIS 06-15-2017 [facility] PHYSICIANS UNSPECIFIED GROUP R221 LOCALIZED 06-12-2017 [facility] LUMP NECK R609 EDEMA 06-12-2017 [facility] UNSPECIFIED PHYSICIANS GROUP L089 LOCAL INF 06-02-2017 A Yobany FONG [facility] SUBCUTANEOU S TISSUE UNS E46418 OTHER 06-02-2017 A Yobany FONG MUSCLE [facility] SPASM D649 ANEMIA 06-01-2017 [facility] UNSPECIFIED PHYSICIANS GROUP R1310 DYSPHAGIA 06-01-2017 [facility] UNSPECIFIED PHYSICIANS GROUP K439 VENTRAL 05-22-2017 [facility] HERNIA PHYSICIANS WITHOUT GROUP OBSTRUCTION OR GANGRENE K429 UMBILICAL 05-19-2017 [place] [facility] MEDICAL WITHOUT IMAGING ASS OBSTRUCTION OR GANGRENE K469 UNS 05-19-2017 [facility] ABDOMINAL [facility] HERNIA W/O INC OBSTRUCTION OR GANGRENE K6389 OTHER 05-19-2017 [place] SPECIFIED MEDICAL DISEASES OF IMAGING ASS INTESTINE E538 DEFICIENCY 04-27-2017 A Yobany FONG OF OTHER [facility] SPECIFIED B GROUP VITAMINS K279 PEPTIC ULCR 04-27-2017 A Yobany FONG SITE UNS [facility] UNS AC/CHRN W/O HEM/PERF B370 CANDIDAL 04-13-2017 A Yobany FONG STOMATITIS [facility] J029 ACUTE 04-13-2017 A Yobany FONG PHARYNGITIS [facility] UNSPECIFIED M545 LOW BACK 04-13-2017 A Yobany FONG PAIN [facility] M1612 UNILATERAL 03-31-2017 [place] PRIMARY [facility]ICAL OSTEOARTHRI IMAGING ASS TIS LEFT HIP D08545 PRIMARY 03-31-2017 [place] OSTEOARTHRI MEDICAL TIS RIGHT IMAGING ASS SHOULDER Z85014 PAIN IN 03-31-2017 [place] RIGHT MEDICAL SHOULDER IMAGING ASS M93868 PAIN IN 03-31-2017 [place] LEFT MEDICAL SHOULDER IMAGING ASS X63154 PAIN IN 03-31-2017 [facility] RIGHT HIP [facility] INC Z29888 PAIN IN 03-31-2017 [place] LEFT HIP MEDICAL IMAGING ASS H92364 SPONDYLOSIS 03-31-2017 [place] W/O MEDICAL MYELOPATH/R IMAGING ASS ADICULOPATH Y LUMB RGN D3386DG UNSPECIFIED 03-31-2017 [place] INJURY MEDICAL LOWER BACK IMAGING ASS INITIAL ENCOUNTER N2780JT UNS INJURY 03-31-2017 [place] RT SHOULDER [facility] UPPER ARM INC INITIAL ENCNTR J0100 ACUTE 03-13-2017 A Yobany FONG MAXILLARY PSC SINUSITIS UNSPECIFIED J440 COPD WITH 03-13-2017 A Yobany FONG ACUTE LOWER PSC RESPIRATORY INFECTION B9689 OTH SPEC 10-19-2016 BACTERIAL [facility] AGNT CAUSE PHYSICIANS DZ CLASSIFIED ELSW E119 TYPE 2 10-19-2016 [facility]US PHYSICIANS WITHOUT COMPLICATIO NS J0190 ACUTE 10-19-2016 SINUSITIS [facility] UNSPECIFIED PHYSICIANS R05 COUGH 10-19-2016 [facility] PHYSICIANS Z6832 BODY MASS 10-19-2016 INDEX BMI [facility] 32.0-32.9 PHYSICIANS ADULT R0602 SHORTNESS 09-23-2016 [facility] OF BREATH CO [facility] R0789 OTHER CHEST 09-23-2016 [place] [facility]IN [facility] R079 CHEST PAIN 09-23-2016 [facility] UNSPECIFIED CO AMBULANCE [facility]AX[facility] J441 CHRONIC 08-16-2016 [facility] P DZ W/EXACERBAT ION 496 CHRONIC 08-17-2015 [facility] NEC 64764 08-17-2015 [facility] CAC INC REGION 9 V061 NEED PROPH 04-30-2015 ST VAC W/COMB [facility] DIPHTH-TETA PHYSICIANS NUS-PERTUSS VAC 2724 OTHER AND 10-04-2013 [place] JOLIE UNSPECIFIED HYPERLIPIDE [place] 26618 ESOPHAGEAL 10-04-2013 [place] JOLIE REFLUX 7851 PALPITATION 10-04-2013 [place] JOLEI S 37710 OBSTRUCTIVE 03-21-2013 LILIBETH HERNESTO CHRONIC BRONCHITIS WITH EXACERBATIO N 4659 ACUTE URIS 03-19-2013 SU HEL OF UNSPECIFIED SITE 486 PNEUMONIA, 03-19-2013 SU HEL ORGANISM UNSPECIFIED 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 SANDHYA MARIVEL HAGEAL FISTULA 7804 DIZZINESS 03-19-2013 [facility] AND CO GIDDINESS [facility]ANCE [facility] 74921 SHORTNESS 03-19-2013 DOERGER KIR OF BREATH 96793 OTHER 03-19-2013 SU HEL DYSPNEA AND RESPIRATORY ABNORMALITI ES V1259 PERS HX, 03-19-2013 LILIBETH HERNESTO OTHER DISEASES OF CIRCULATORY SYSTEM 7993 UNSPECIFIED 12-25-2012 [facility] 89549 CORONARY 12-18-2012 COURT[facility] KATHLEEN MUSA [place] CORONARY ARTERY 94544 UNSPECIFIED 12-18-2012 [facility] OF ARTHROPATHY [place]THER[place] SITE [place] UNSPECIFIED 7226 DEGENERATIO 12-17-2012 LAIB EMANI N INTERVERTEB RAL DISC SITE UNSPEC 84092 CHEST PAIN 12-17-2012 MCNULTY DAYANA UNSPECIFIED 67117 OTH 12-17-2012 LAIB EMANI NONSPECIFIC ABNORM CV SYSTEM FUNCTION STUDY 5225 PERIAPICAL 12-15-2012 KUPER LENA ABSCESS WITHOUT SINUS 30881 LEUKOCYTOSI 12-14-2012 SHARP GIOVANNA S UNSPECIFIED 5259 UNSPECIFIED 12-14-2012 SHARP GIOVANNA DISORDER TEETH&SUPPO RTING STRUCTURES 7212 THORACIC 08-10-2012 [facility] SPONDYLOSIS DON WITHOUT MYELOPATHY 7242 LUMBAGO 08-10-2012 J[facility] DON 83071 DEGEN 08-03-2012 MACHO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 7245 UNSPECIFIED 08-03-2012 [facility] BACKACHE CO AMBULANCE TAXIN 68817 PATHOLOGIC 08-03-2012 WEHRMAN III FRACTURE OF SUZAN VERTEBRAE 82949 GASTR ULCR 07-23-2012 [facility] UNS ACUT/CHRN W/O HEMOR PERF/OBST 54279 ABDOMINAL 07-23-2012 [facility] PAIN RIGHT UPPER QUADRANT 16384 ABDOMINAL 07-23-2012 [facility] PAIN, LEFT [facility]OS[facility] UPPER INC QUADRANT 95503 ABDOMINAL 07-23-2012 MARSH ZAID PAIN, LEFT LOWER QUADRANT 2114 BENIGN 07-09-2012 [facility] 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 66907 ACUTE 07-09-2012 [facility] GASTRITIS WITHOUT MENTION OF HEMORRHAGE 54125 DUODENITIS 07-09-2012 [facility] WITHOUT MENTION OF HEMORRHAGE 5589 OTH&UNSPEC 07-09-2012 [facility] Z[facility] NONINFECTIO US GASTROENTER ITIS&COLITI S 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 INC 5690 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 [facility] RECTAL POLYP 83104 ABDOMINAL 07-09-2012 COMMUNITY PAIN, ANESTH OF UNSPECIFIED THE BLUE SITE V160 FM HX 07-09-2012 [facility]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 V7651 SPECIAL 07-09-2012 [facility] SCREENING FOR MALIGNANT NEOPLASMS COLON 01644 OVERWEIGHT 06-05-2012 J[facility]Z DON 7823 EDEMA 06-05-2012 J[facility] DON V5869 LONG-TERM 06-05-2012 [facility] (CURRENT) [facility] USE OF INC OTHER MEDICATIONS 5758 OTHER 05-23-2012 [facility] SPECIFIED [facility] DISORDER OF INC GALLBLADDER 7934 NONSPECIFIC 05-21-2012 [facility] ABN FINDING RAD & OTH EXAM GI TRACT 4011 ESSENTIAL 03-30-2012 [facility] HYPERTENSIO DON N, BENIGN 2768 HYPOPOTASSE 03-16-2012 [facility] INC 82633 OTHER CHEST 03-16-2012 [facility] PAIN DON V7231 ROUTINE 02-28-2012 [facility] GYNECOLOGIC DON AL EXAMINATION V7612 OTHER 02-28-2012 [facility] SCREENING [facility]OS[facility] MAMMOGRAM INC V5832 ENCOUNTER 02-15-2012 J[facility] FOR REMOVAL DON OF SUTURES 88735 OTHER 02-14-2012 M[facility] SPECIFIED [place] DISORDER OF INTESTINES 5920 CALCULUS OF 02-14-2012 [facility] KIDNEY [place] 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 UNSPECIFIED 58261 PAINFUL 07-07-2011 [facility] 96270 ABDOMINAL 07-07-2011 [facility] TENDERNESS, [facility] P 44495 ABNORMAL 08-20-2009 [facility] U SMEAR OF CERVIX 55782 PAP SMER 08-20-2009 [facility] W/ATYPICAL MEDICALCENT SQUAMOUS ER CELLS UNDET 2599 UNSPECIFIED 06-11-2009 [facility] 29116 FLUSHING 05-14-2009 [facility] 94766 HYPOXEMIA 10-22-2008 [facility] INC 4019 UNSPECIFIED 10-18-2008 [facility] OF ESSENTIAL [facility] HYPERTENSIO INC N 61307 ACUTE 10-18-2008 [facility] OF RESPIRATORY [facility] FAILURE INC 81645 ATRIAL 10-15-2008 [facility] INC 5070 PNEUMONITIS 10-15-2008 [facility] DUE TO [facility]HALATION [facility]OC[facility], OF FOOD OR INC. VOMITUS 9779 POISONING 10-15-2008 [facility] UNSPECIFIED [facility]ULMON[facility] ASSOCIATES, DRUG/MEDICI INC. NAL SUBSTANCE 7931 NONSPEC 10-14-2008 [facility] FIND RAD L RADIOLOGY OTH EXAM INC. BODY STRUCT LUNG FIELD V5881 FITTING AND 10-14-2008 PROFESSION[facility] ADJUSTMENT L RADIOLOGY OF INC. VASCULAR CATHETER V5882 ENCOUNTER 10-14-2008 PROFESSION[facility] FITTING&ADJ L RADIOLOGY INC. NON-VASCULA R CATHETER NEC 5641 IRRITABLE 12-27-2007 [facility] SYNDROME 7291 UNSPECIFIED 12-27-2007 [facility], [employer]. 7808 GENERALIZED 12-27-2007 [facility] HYPERHIDROS FAMILY IS [employer], [employer]. E01.0 IODINE-DEFI CIENCY RELATED DIFFUSE (ENDEMIC) GOITER E87.2 ACIDOSIS F41.9 ANXIETY DISORDER, UNSPECIFIED I20.0 UNSTABLE ANGINA I20.9 ANGINA PECTORIS, UNSPECIFIED I65.23 OCCLUSION AND STENOSIS OF BILATERAL CAROTID ARTERIES J18.9 PNEUMONIA, UNSPECIFIED ORGANISM J44.1 CHRONIC OBSTRUCTIVE PULMONARY DISEASE W (ACUTE) EXACERBATIO N R06.00 DYSPNEA, UNSPECIFIED R42 DIZZINESS AND GIDDINESS Allergies, Adverse Reactions, Alerts Clinical Alert Notifications Alert Diabetes: no A1C in the last 6 months Diabetes: no eye exam in the last 365 days Diabetes: no influenza vaccine in the last 365 days Diabetes: no lipid panel in the last 365 days Diabetes: no urine protein screening in the last 365 days Medications Na ND Rx Da Fi Fi Am Da Di Ph RX Ph St me C No te ll ll ou ys ag ar # ys at rm s nt no ma ic us Or Da si cy ia de te s n re d RA 11 08 06 24 30 00 RI Ac 82 -0 -0 0. 00 TE ti AT 23 4- 6- 00 01 ve HE 17 20 20 0 19 AI NO 64 17 17 78 D L 0 05 PH 32 AR 5 MA MG CY TA #3 BL 93 ET 8 RA 11 09 24 30 00 RI Ac 82 -0 -0 0. 00 TE ti AT 23 4- 8- 00 01 ve HE 17 20 20 0 18 AI NO 64 17 17 23 D L 0 36 PH 32 AR 5 MA MG CY TA #3 BL 93 ET 8 RA 11 08 24 30 00 RI Ac 82 -3 -0 0. 00 TE ti AT 23 0- 4- 00 01 ve HE 17 20 20 0 18 AI NO 64 17 17 23 D L 0 36 PH 32 AR 5 MA MG CY TA #3 BL 93 ET 8 RA 11 07 24 30 00 RI Ac 82 -0 -0 0. 00 TE ti AT 23 2- 7- 00 01 ve HE 17 20 20 0 18 AI NO 64 17 17 23 D L 0 36 PH 32 AR 5 MA MG CY TA #3 BL 93 ET 8 RA 11 04 01 24 30 00 RI Ac 82 -0 -0 0. 00 TE ti AT 23 4- 9- 00 01 ve HE 17 20 20 0 18 AI NO 64 17 17 23 D L 0 36 PH 32 AR 5 MA MG CY TA #3 BL 93 ET 8 CV 50 04 05 24 30 00 KE Ac S 42 -0 -0 0. 00 NT ti AC 83 3- 5- 00 00 UC ve ET 01 20 20 0 87 [place] AM 42 17 17 60 IN 4 36 CV OP S HE PH N AR 32 MA 5 CY MG LL TA C, B DB A CV S PH AR MA CY #0 54 37 CV 50 03 04 24 30 00 KE Ac S 42 -0 -0 0. 00 NT ti AC 83 3- 7- 00 00 UC ve ET 01 20 20 0 87 [place] AM 42 17 17 60 IN 4 36 CV OP S HE PH N AR 32 MA 5 CY MG LL TA C, B DB A CV S PH AR MA CY #0 54 37 CV 50 02 03 12 30 00 KE Ac S 42 -0 -1 0. 00 NT ti AC 83 3- 0- 00 00 UC ve ET 01 20 20 0 80 [place] AM 42 17 17 51 IN 4 97 CV OP S HE PH N AR 32 MA 5 CY MG LL TA C, B DB A CV S PH AR MA CY #0 54 37 CV 50 01 02 12 30 00 KE Ac S 42 -0 -0 0. 00 NT ti AC 83 2- 3- 00 00 UC ve ET 01 20 20 0 80 [place] AM 42 17 17 51 IN 4 97 CV OP S HE PH N AR 32 MA 5 CY MG LL TA C, B DB A CV S PH AR MA CY #0 54 37 CV 50 12 01 12 30 00 KE Ac S 42 -0 -0 0. 00 NT ti AC 83 2- 9- 00 00 UC ve ET 01 20 20 0 80 [place] AM 42 16 17 51 IN 4 97 CV OP S HE PH N AR 32 MA 5 CY MG LL TA C, B DB A CV S PH AR MA CY #0 54 37 ZY 00 08 10 3 30 30 CV 58 GR Ac OK 00 -0 -1 .0 S 03 OS ti EX 24 8- 3- 00 PH 64 S ve A 11 20 20 AR LA 2. 23 11 11 MA RR 5 0 CY Y MG # TA 05 BL 43 ET 7 CI 13 08 10 3 45 30 CV 58 GR Ac TA 66 -0 -0 .0 S 03 OS ti LO 80 8- 6- 00 PH 60 S ve OK 01 20 20 AR LA AM 10 11 11 MA RR 5 CY Y HB # R 40 05 43 MG 7 TA BL ET CL 00 08 10 3 30 30 CV 58 GR Ac ON 09 -0 -0 .0 S 03 OS ti AZ 30 8- 6- 00 PH 62 S ve EP 83 20 20 AR LA AM 20 11 11 MA RR 1 CY Y 0. # 5 MG 05 43 TA 7 BL ET ZY 00 08 09 3 30 30 CV 58 GR Ac OK 00 -0 -1 .0 S 03 OS ti EX 24 8- 2- 00 PH 64 S ve A 11 20 20 AR LA 2. 23 11 11 MA RR 5 0 CY Y MG # TA 05 BL 43 ET 7 CI 13 08 09 3 45 30 CV 58 GR Ac TA 66 -0 -0 .0 S 03 OS ti LO 80 8- 7- 00 PH 60 S ve OK 01 20 20 AR LA AM 10 11 11 MA RR 5 CY Y HB # R 40 05 43 MG 7 TA BL ET CL 00 08 09 3 30 30 CV 58 GR Ac ON 09 -0 -0 .0 S 03 OS ti AZ 30 8- 7- 00 PH 62 S ve EP 83 20 20 AR LA AM 20 11 11 MA RR 1 CY Y 0. # 5 MG 05 43 TA 7 BL ET ZY 00 06 08 2 30 30 CV 57 GR Ac OK 00 -1 -1 .0 S 49 OS ti EX 24 3- 5- 00 PH 67 S ve A 11 20 20 AR LA 2. 23 11 11 MA RR 5 0 CY Y MG # TA 05 BL 43 ET 7 CI 13 08 08 3 45 30 CV 58 GR Ac TA 66 -0 -0 .0 S 03 OS ti LO 80 8- 8- 00 PH 60 S ve OK 01 20 20 AR LA AM 10 11 11 MA RR 5 CY Y HB # R 40 05 43 MG 7 TA BL ET CL 00 08 08 3 30 30 CV 58 GR Ac ON 09 -0 -0 .0 S 03 OS ti AZ 30 8- 8- 00 PH 62 S ve EP 83 20 20 AR LA AM 20 11 11 MA RR 1 CY Y 0. # 5 MG 05 43 TA 7 BL ET ZY 00 06 07 2 30 30 CV 57 GR Ac OK 00 -1 -1 .0 S 49 OS ti EX 24 3- 4- 00 PH 67 S ve A 11 20 20 AR LA 2. 23 11 11 MA RR 5 0 CY Y MG # TA 05 BL 43 ET 7 CI 13 03 07 3 45 30 CV 56 GR Ac TA 66 -1 -0 .0 S 51 OS ti LO 80 4- 7- 00 PH 38 S ve OK 01 20 20 AR LA AM 10 11 11 MA RR 5 CY Y HB # R 40 05 43 MG 7 TA BL ET CL 00 03 07 3 30 30 CV 56 GR Ac ON 09 -1 -0 .0 S 51 OS ti AZ 30 4- 7- 00 PH 40 S ve EP 83 20 20 AR LA AM 20 11 11 MA RR 1 CY Y 0. # 5 MG 05 43 TA 7 BL ET ZY 00 06 06 2 30 30 CV 57 GR Ac OK 00 -1 -1 .0 S 49 OS ti EX 24 3- 6- 00 PH 67 S ve A 11 20 20 AR LA 2. 23 11 11 MA RR 5 0 CY Y MG # TA 05 BL 43 ET 7 CI 13 03 06 3 45 30 CV 56 GR Ac TA 66 -1 -0 .0 S 51 OS ti LO 80 4- 8- 00 PH 38 S ve OK 01 20 20 AR LA AM 10 11 11 MA RR 5 CY Y HB # R 40 05 43 MG 7 TA BL ET CL 00 03 06 3 30 30 CV 56 GR Ac ON 09 -1 -0 .0 S 51 OS ti AZ 30 4- 8- 00 PH 40 S ve EP 83 20 20 AR LA AM 20 11 11 MA RR 1 CY Y 0. # 5 MG 05 43 TA 7 BL ET ZY 00 03 05 3 30 30 CV 56 GR Ac OK 00 -1 -2 .0 S 51 OS ti EX 24 4- 0- 00 PH 39 S ve A 11 20 20 AR LA 5 53 11 11 MA RR MG 0 CY Y # TA BL 05 ET 43 7 CI 13 03 05 3 45 30 CV 56 GR Ac TA 66 -1 -0 .0 S 51 OS ti LO 80 4- 8- 00 PH 38 S ve OK 01 20 20 AR LA AM 10 11 11 MA RR 5 CY Y HB # R 40 05 43 MG 7 TA BL ET CL 00 03 05 3 30 30 CV 56 GR Ac ON 09 -1 -0 .0 S 51 OS ti AZ 30 4- 8- 00 PH 40 S ve EP 83 20 20 AR LA AM 20 11 11 MA RR 1 CY Y 0. # 5 MG 05 43 TA 7 BL ET ZY 00 03 04 3 30 30 CV 56 GR Ac OK 00 -1 -1 .0 S 51 OS ti EX 24 4- 9- 00 PH 39 S ve A 11 20 20 AR LA 5 53 11 11 MA RR MG 0 CY Y # TA BL 05 ET 43 7 00 04 04 0 15 4 CV 56 VE Ac 40 -1 -1 .0 S 85 RA ti 60 8- 8- 00 PH 69 X ve 35 20 20 AR II 80 11 11 MA I 5 CY WI # LL IA 05 M 43 J 7 CL 63 04 04 0 21 7 CV 56 VE Ac IN 30 -1 -1 .0 S 85 RA ti DA 40 8- 8- 00 PH 70 X ve MY 69 20 20 AR II CI 30 11 11 MA I N 1 CY WI HC # LL L IA 30 05 M 0 43 J MG 7 CA PS UL E CI 13 03 04 3 45 30 CV 56 GR Ac TA 66 -1 -0 .0 S 51 OS ti LO 80 4- 8- 00 PH 38 S ve OK 01 20 20 AR LA AM 10 11 11 MA RR 5 CY Y HB # R 40 05 43 MG 7 TA BL ET CL 00 03 04 3 30 30 CV 56 GR Ac ON 09 -1 -0 .0 S 51 OS ti AZ 30 4- 8- 00 PH 40 S ve EP 83 20 20 AR LA AM 20 11 11 MA RR 1 CY Y 0. # 5 MG 05 43 TA 7 BL ET ZY 00 01 03 2 30 30 CV 55 GR Ac OK 00 -1 -2 .0 S 67 OS ti EX 24 0- 1- 00 PH 78 S ve A 11 20 20 AR LA 5 53 11 11 MA RR MG 0 CY Y # TA BL 05 ET 43 7 CI 13 01 03 2 45 30 CV 55 GR Ac TA 66 -1 -1 .0 S 67 OS ti LO 80 0- 0- 00 PH 76 S ve OK 01 20 20 AR LA AM 10 11 11 MA RR 5 CY Y HB # R 40 05 43 MG 7 TA BL ET CL 00 01 03 2 30 30 CV 55 GR Ac ON 09 -1 -1 .0 S 67 OS ti AZ 30 0- 0- 00 PH 77 S ve EP 83 20 20 AR LA AM 20 11 11 MA RR 1 CY Y 0. # 5 MG 05 43 TA 7 BL ET ZY 00 01 02 2 30 30 CV 55 GR Ac OK 00 -1 -1 .0 S 67 OS ti EX 24 0- 7- 00 PH 78 S ve A 11 20 20 AR LA 5 53 11 11 MA RR MG 0 CY Y # TA BL 05 ET 43 7 CI 13 01 02 2 45 30 CV 55 GR Ac TA 66 -1 -0 .0 S 67 OS ti LO 80 0- 9- 00 PH 76 S ve OK 01 20 20 AR LA AM 10 11 11 MA RR 5 CY Y HB # R 40 05 43 MG 7 TA BL ET CL 00 01 02 2 30 30 CV 55 GR Ac ON 09 -1 -0 .0 S 67 OS ti AZ 30 0- 9- 00 PH 77 S ve EP 83 20 20 AR LA AM 20 11 11 MA RR 1 CY Y 0. # 5 MG 05 43 TA 7 BL ET ZY 00 11 01 2 30 30 CV 55 GR Ac OK 00 -0 -1 .0 S 12 OS ti EX 24 8- 7- 00 PH 39 S ve A 11 20 20 AR LA 5 53 10 11 MA RR MG 0 CY Y # TA BL 05 ET 43 7 CI 13 01 01 2 45 30 CV 55 GR Ac TA 66 -1 -1 .0 S 67 OS ti LO 80 0- 0- 00 PH 76 S ve OK 01 20 20 AR LA AM 10 11 11 MA RR 5 CY Y HB # R 40 05 43 MG 7 TA BL ET CL 00 01 01 2 30 30 CV 55 GR Ac ON 09 -1 -1 .0 S 67 OS ti AZ 30 0- 0- 00 PH 77 S ve EP 83 20 20 AR LA AM 20 11 11 MA RR 1 CY Y 0. # 5 MG 05 43 TA 7 BL ET ZY 00 11 12 2 30 30 CV 55 GR Ac OK 00 -0 -1 .0 S 12 OS ti EX 24 8- 8- 00 PH 39 S ve A 11 20 20 AR LA 5 53 10 10 MA RR MG 0 CY Y # TA BL 05 ET 43 7 CI 13 11 12 2 45 30 CV 54 GR Ac TA 66 -0 -0 .0 S 96 OS ti LO 80 8- 7- 00 PH 49 S ve OK 01 20 20 AR LA AM 10 10 10 MA RR 5 CY Y HB # R 40 05 43 MG 7 TA BL ET CL 00 11 12 2 30 30 CV 54 GR Ac ON 09 -0 -0 .0 S 96 OS ti AZ 30 8- 7- 00 PH 52 S ve EP 83 20 20 AR LA AM 20 10 10 MA RR 1 CY Y 0. # 5 MG 05 43 TA 7 BL ET ZY 00 11 11 2 30 30 CV 55 GR Ac OK 00 -0 -2 .0 S 12 OS ti EX 24 8- 0- 00 PH 39 S ve A 11 20 20 AR LA 5 53 10 10 MA RR MG 0 CY Y # TA BL 05 ET 43 7 CI 13 11 11 2 45 30 CV 54 GR Ac TA 66 -0 -0 .0 S 96 OS ti LO 80 8- 8- 00 PH 49 S ve OK 01 20 20 AR LA AM 10 10 10 MA RR 5 CY Y HB # R 40 05 43 MG 7 TA BL ET CL 00 11 11 2 30 30 CV 54 GR Ac ON 09 -0 -0 .0 S 96 OS ti AZ 30 8- 8- 00 PH 52 S ve EP 83 20 20 AR LA AM 20 10 10 MA RR 1 CY Y 0. # 5 MG 05 43 TA 7 BL ET ZY 00 09 10 2 30 30 CV 54 GR Ac OK 00 -1 -1 .0 S 35 OS ti EX 24 3- 1- 00 PH 72 S ve A 11 20 20 AR LA 2. 23 10 10 MA RR 5 0 CY Y MG # TA 05 BL 43 ET 7 CI 13 09 10 2 45 30 CV 54 GR Ac TA 66 -1 -1 .0 S 35 OS ti LO 80 3- 1- 00 PH 71 S ve OK 01 20 20 AR LA AM 10 10 10 MA RR 5 CY Y HB # R 40 05 43 MG 7 TA BL ET CL 00 09 09 2 30 30 CV 54 GR Ac ON 09 -1 -1 .0 S 35 OS ti AZ 30 3- 3- 00 PH 70 S ve EP 83 20 20 AR LA AM 20 10 10 MA RR 1 CY Y 0. # 5 MG 05 43 TA 7 BL ET CI 13 09 09 2 45 30 CV 54 GR Ac TA 66 -1 -1 .0 S 35 OS ti LO 80 3- 3- 00 PH 71 S ve OK 01 20 20 AR LA AM 10 10 10 MA RR 5 CY Y HB # R 40 05 43 MG 7 TA BL ET ZY 00 09 09 2 30 30 CV 54 GR Ac OK 00 -1 -1 .0 S 35 OS ti EX 24 3- 3- 00 PH 72 S ve A 11 20 20 AR LA 2. 23 10 10 MA RR 5 0 CY Y MG # TA 05 BL 43 ET 7 CL 00 07 08 2 30 30 CV 53 GR Ac ON 09 -1 -1 .0 S 72 OS ti AZ 30 2- 2- 00 PH 65 S ve EP 83 20 20 AR LA AM 20 10 10 MA RR 1 CY Y 0. # 5 MG 05 43 TA 7 BL ET CI 13 07 08 2 45 30 CV 53 GR Ac TA 66 -1 -1 .0 S 72 OS ti LO 80 2- 2- 00 PH 96 S ve OK 01 20 20 AR LA AM 10 10 10 MA RR 5 CY Y HB # R 40 05 43 MG 7 TA BL ET ZY 00 07 08 2 30 30 CV 53 GR Ac OK 00 -1 -1 .0 S 72 OS ti EX 24 2- 2- 00 PH 97 S ve A 11 20 20 AR LA 5 53 10 10 MA RR MG 0 CY Y # TA BL 05 ET 43 7 CI 13 05 07 2 45 30 CV 53 GR Ac TA 66 -1 -1 .0 S 42 OS ti LO 80 0- 2- 00 PH 90 S ve OK 01 20 20 AR LA AM 10 10 10 MA RR 5 CY Y HB # R 40 05 43 MG 7 TA BL ET ZY 00 05 07 2 30 30 CV 53 GR Ac OK 00 -1 -1 .0 S 42 OS ti EX 24 0- 2- 00 PH 91 S ve A 11 20 20 AR LA 5 53 10 10 MA RR MG 0 CY Y # TA BL 05 ET 43 7 CL 00 07 07 2 30 30 CV 53 GR Ac ON 09 -1 -1 .0 S 72 OS ti AZ 30 2- 2- 00 PH 65 S ve EP 83 20 20 AR LA AM 20 10 10 MA RR 1 CY Y 0. # 5 MG 05 43 TA 7 BL ET CI 13 05 06 2 45 30 CV 53 GR Ac TA 66 -1 -1 .0 S 42 OS ti LO 80 0- 2- 00 PH 90 S ve OK 01 20 20 AR LA AM 10 10 10 MA RR 5 CY Y HB # R 40 05 43 MG 7 TA BL ET ZY 00 05 06 2 30 30 CV 53 GR Ac OK 00 -1 -1 .0 S 42 OS ti EX 24 0- 2- 00 PH 91 S ve A 11 20 20 AR LA 5 53 10 10 MA RR MG 0 CY Y # TA BL 05 ET 43 7 CL 00 05 06 2 45 30 CV 53 GR Ac ON -1 .0 S 42 OS ti AZ 30 0- 2- 00 PH 92 S ve EP 83 20 20 AR LA AM 30 10 10 MA RR 1 1 CY Y # MG 05 TA 43 BL 7 ET CL 00 04 05 1 45 30 CV 52 GR Ac ON -1 .0 S 78 OS ti AZ 30 2- 2- 00 PH 29 S ve EP 83 20 20 AR LA AM 30 10 10 MA RR 1 1 CY Y # MG 05 TA 43 BL 7 ET ZY 00 04 05 1 30 30 CV 52 GR Ac OK 00 -1 -1 .0 S 78 OS ti EX 24 2- 2- 00 PH 30 S ve A 11 20 20 AR LA 5 53 10 10 MA RR MG 0 CY Y # TA BL 05 ET 43 7 CI 00 04 05 1 45 30 CV 52 GR Ac TA 90 -1 -1 .0 S 78 OS ti LO 46 2- 2- 00 PH 31 S ve OK 08 20 20 AR LA AM 66 10 10 MA RR 1 CY Y HB # R 40 05 43 MG 7 TA BL ET CL 00 04 04 1 45 30 CV 52 GR Ac ON -1 .0 S 78 OS ti AZ 30 2- 2- 00 PH 29 S ve EP 83 20 20 AR LA AM 30 10 10 MA RR 1 1 CY Y # MG 05 TA 43 BL 7 ET ZY 00 04 04 1 30 30 CV 52 GR Ac OK 00 -1 -1 .0 S 78 OS ti EX 24 2- 2- 00 PH 30 S ve A 11 20 20 AR LA 5 53 10 10 MA RR MG 0 CY Y # TA BL 05 ET 43 7 CI 13 04 04 1 45 30 CV 52 GR Ac TA 66 -1 -1 .0 S 78 OS ti LO 80 2- 2- 00 PH 31 S ve OK 01 20 20 AR LA AM 10 10 10 MA RR 5 CY Y HB # R 40 05 43 MG 7 TA BL ET ZY 00 02 03 2 30 30 CV 52 GR Ac OK 00 -0 -1 .0 S 13 OS ti EX 24 8- 1- 00 PH 27 S ve A 11 20 20 AR LA 5 53 10 10 MA RR MG 0 CY Y # TA BL 05 ET 43 7 CI 13 02 03 2 45 30 CV 52 GR Ac TA 66 -0 -1 .0 S 45 OS ti LO 80 8- 1- 00 PH 16 S ve OK 01 20 20 AR LA AM 10 10 10 MA RR 5 CY Y HB # R 40 05 43 MG 7 TA BL ET CL 00 02 03 2 60 30 CV 52 GR Ac ON 09 -0 -1 .0 S 45 OS ti AZ 30 8- 1- 00 PH 17 S ve EP 83 20 20 AR LA AM 30 10 10 MA RR 1 1 CY Y # MG 05 TA 43 BL 7 ET CI 13 01 02 01 45 30 CV 51 No Ac TA 66 -1 -2 .0 S 82 t ti LO 80 1- 6- 00 PH 78 Av ve OK 01 20 20 AR ai AM 10 10 10 MA la 5 CY bl HB e R #5 40 43 7 MG TA BL ET CL 00 01 02 01 60 30 CV 51 No Ac ON 09 -1 -2 .0 S 82 t ti AZ 30 1- 6- 00 PH 77 Av ve EP 83 20 20 AR ai AM 30 10 10 MA la 1 1 CY bl e MG #5 43 TA 7 BL ET ZY 00 02 02 00 30 30 CV 52 No Ac OK 00 -0 -2 .0 S 13 t ti EX 24 8- 6- 00 PH 27 Av ve A 11 20 20 AR ai 5 53 10 10 MA la MG 0 CY bl e TA #5 BL 43 ET 7 CI 13 01 01 00 45 30 CV 51 No Ac TA 66 -1 -2 .0 S 82 t ti LO 80 1- 8- 00 PH 78 Av ve OK 01 20 20 AR ai AM 10 10 10 MA la 5 CY bl HB e R #5 40 43 7 MG TA BL ET CL 00 01 01 00 60 30 CV 51 No Ac ON 09 -1 -2 .0 S 82 t ti AZ 30 1- 8- 00 PH 77 Av ve EP 83 20 20 AR ai AM 30 10 10 MA la 1 1 CY bl e MG #5 43 TA 7 BL ET CL 00 10 12 02 60 30 CV 50 No Ac ON 09 -1 -3 .0 S 89 t ti AZ 30 3- 1- 00 PH 10 Av ve EP 83 20 20 AR ai AM 30 09 09 MA la 1 1 CY bl e MG #5 43 TA 7 BL ET CI 13 10 12 02 45 30 CV 50 No Ac TA 66 -1 -3 .0 S 89 t ti LO 80 3- 1- 00 PH 04 Av ve OK 01 20 20 AR ai AM 10 09 09 MA la 5 CY bl HB e R #5 40 43 7 MG TA BL ET NO 00 10 12 02 30 30 CV 50 No Ac RT -1 .0 S 89 t ti RI 30 3- 7- 00 PH 11 Av ve PT 81 20 20 AR ai YL 10 09 09 MA la IN 1 CY bl E e HC #5 L 43 25 7 MG CA P CL 00 10 11 01 60 30 CV 50 No Ac ON -1 .0 S 89 t ti AZ 30 3- 9- 00 PH 10 Av ve EP 83 20 20 AR ai AM 30 09 09 MA la 1 1 CY bl e MG #5 43 TA 7 BL ET CI 13 10 11 01 45 30 CV 50 No Ac TA 66 -1 -1 .0 S 89 t ti LO 80 3- 9- 00 PH 04 Av ve OK 01 20 20 AR ai AM 10 09 09 MA la 5 CY bl HB e R #5 40 43 7 MG TA BL ET NO 00 10 11 01 30 30 CV 50 No Ac RT -1 -1 .0 S 89 t ti RI 30 3- 9- 00 PH 11 Av ve PT 81 20 20 AR ai YL 10 09 09 MA la IN 1 CY bl E e HC #5 L 43 25 7 MG CA P CL 00 10 10 00 60 30 CV 50 No Ac ON 09 -1 -2 .0 S 89 t ti AZ 30 3- 2- 00 PH 10 Av ve EP 83 20 20 AR ai AM 30 09 09 MA la 1 1 CY bl e MG #5 43 TA 7 BL ET CI 13 10 10 00 45 30 CV 50 No Ac TA 66 -1 -2 .0 S 89 t ti LO 80 3- 2- 00 PH 04 Av ve OK 01 20 20 AR ai AM 10 09 09 MA la 5 CY bl HB e R #5 40 43 7 MG TA BL ET NO 00 10 10 00 30 30 CV 50 No Ac RT 09 -1 -2 .0 S 89 t ti RI 30 3- 2- 00 PH 11 Av ve PT 81 20 20 AR ai YL 10 09 09 MA la IN 1 CY bl E e HC #5 L 43 25 7 MG CA P CI 13 07 10 02 30 20 CV 50 GE Ac TA 66 -0 -0 .0 S 21 NT ti LO 80 6- 8- 00 PH 21 RY ve OK 01 20 20 AR AM 10 09 09 MA LI 5 CY ND HB A R #5 40 43 7 MG TA BL ET CL 00 09 09 00 60 30 CV 50 No Ac ON 09 -1 -2 .0 S 56 t ti AZ 30 4- 4- 00 PH 85 Av ve EP 83 20 20 AR ai AM 30 09 09 MA la 1 1 CY bl e MG #5 43 TA 7 BL ET 00 07 09 01 28 28 CV 50 CELIO Ac 04 -1 -2 .0 S 21 NE ti 60 6- 4- 00 PH 20 S ve 93 20 20 AR JI 81 09 09 MA LL 8 CY S #5 43 7 CI 13 07 09 01 30 20 CV 50 GE Ac TA 66 -0 -1 .0 S 21 NT ti LO 80 6- 0- 00 PH 21 RY ve OK 01 20 20 AR AM 10 09 09 MA LI 5 CY ND HB A R #5 40 43 7 MG TA BL ET 00 07 08 00 28 28 CV 50 CELIO Ac 04 -1 -2 .0 S 21 NE ti 60 6- 7- 00 PH 20 S ve 93 20 20 AR JI 81 09 09 MA LL 8 CY S #5 43 7 CI 13 07 08 00 30 20 CV 50 GE Ac TA 66 -0 -2 .0 S 21 NT ti LO 80 6- 7- 00 PH 21 RY ve OK 01 20 20 AR AM 10 09 09 MA LI 5 CY ND HB A R #5 40 43 7 MG TA BL ET CL 00 07 08 01 60 30 CV 49 No Ac ON 09 -0 -1 .0 S 92 t ti AZ 30 2- 3- 00 PH 22 Av ve EP 83 20 20 AR ai AM 30 09 09 MA la 1 1 CY bl e MG #5 43 TA 7 BL ET 00 06 07 01 28 28 CV 49 CELIO Ac 04 -1 -3 .0 S 72 NE ti 60 8- 0- 00 PH 50 S ve 93 20 20 AR JI 80 09 09 MA LL 9 CY S #5 43 7 CI 13 07 07 00 30 30 CV 49 GE Ac TA 66 -0 -1 .0 S 92 NT ti LO 80 9- 6- 00 PH 07 RY ve OK 01 20 20 AR AM 10 09 09 MA LI 5 CY ND HB A R #5 40 43 7 MG TA BL ET CL 00 07 07 00 60 30 CV 49 No Ac ON 09 -0 -1 .0 S 92 t ti AZ 30 2- 6- 00 PH 22 Av ve EP 83 20 20 AR ai AM 30 09 09 MA la 1 1 CY bl e MG #5 43 TA 7 BL ET 00 06 07 00 28 28 CV 49 CELIO Ac 04 -1 -0 .0 S 72 NE ti 60 8- 2- 00 PH 50 S ve 93 20 20 AR JI 80 09 09 MA LL 9 CY S #5 43 7 CI 13 06 06 00 30 30 CV 49 GE Ac TA 66 -0 -1 .0 S 59 NT ti LO 80 5- 8- 00 PH 88 RY ve OK 01 20 20 AR AM 10 09 09 MA LI 5 CY ND HB A R #5 40 43 7 MG TA BL ET CL 00 06 06 00 60 30 CV 49 No Ac ON 09 -1 -1 .0 S 67 t ti AZ 30 2- 8- 00 PH 32 Av ve EP 83 20 20 AR ai AM 30 09 09 MA la 1 1 CY bl e MG #5 43 TA 7 BL ET CI 13 05 05 00 15 30 CV 49 GE Ac TA 66 -1 -2 .0 S 39 NT ti LO 80 5- 1- 00 PH 52 RY ve OK 01 20 20 AR AM 10 09 09 MA LI 5 CY ND HB A R #5 40 43 7 MG TA BL ET CL 00 05 05 00 60 30 CV 49 No Ac ON 09 -1 -2 .0 S 39 t ti AZ 30 5- 1- 00 PH 56 Av ve EP 83 20 20 AR ai AM 30 09 09 MA la 1 1 CY bl e MG #5 43 TA 7 BL ET CL 00 04 05 00 60 30 DE 40 No Ac ON 09 -2 -0 .0 AN 58 t ti AZ 30 1- 7- 00 S 60 Av ve EP 83 20 20 PH 4 ai AM 30 09 09 AR la 1 1 MA bl CY e MG TA BL ET CL 00 03 04 00 60 30 DE 40 No Ac ON 09 -2 -0 .0 AN 58 t ti AZ 30 4- 9- 00 S 43 Av ve EP 83 20 20 PH 3 ai AM 20 09 09 AR la 1 MA bl 0. CY e 5 MG TA BL ET CL 00 03 03 00 30 30 DE 40 No Ac ON 09 -0 -1 .0 AN 58 t ti AZ 30 3- 2- 00 S 29 Av ve EP 83 20 20 PH 6 ai AM 20 09 09 AR la 1 MA bl 0. CY e 5 MG TA BL ET 49 01 02 01 30 30 DE 63 No Ac 88 -0 -1 .0 AN 75 t ti 40 6- 2- 00 S 11 Av ve 16 20 20 PH 0 ai 50 09 09 AR la 1 MA bl CY e RI 50 02 02 00 30 30 DE 63 No Ac SP 45 -0 -1 .0 AN 76 t ti ER 80 3- 2- 00 S 02 Av ve ID 59 20 20 PH 5 ai ON 26 09 09 AR la E 0 MA bl 1 CY e MG TA BL ET 49 01 01 00 30 30 DE 63 No Ac 88 -0 -1 .0 AN 75 t ti 40 6- 5- 00 S 11 Av ve 16 20 20 PH 0 ai 50 09 09 AR la 1 MA bl CY e RI 55 12 01 01 30 30 DE 63 No Ac SP 11 -0 -1 .0 AN 74 t ti ER 10 9- 5- 00 S 02 Av ve ID 20 20 20 PH 1 ai ON 66 08 09 AR la E 0 MA bl 4 CY e MG TA BL ET RI 50 12 12 00 30 30 DE 63 No Ac SP 45 -0 -1 .0 AN 74 t ti ER 80 9- 8- 00 S 02 Av ve DA 35 20 20 PH 1 ai L 00 08 08 AR la 4 6 MA bl MG CY e TA BL ET SE 00 07 07 00 30 30 DE 63 No Ac RO 31 -0 -1 .0 AN 68 t ti QU 00 8- 7- 00 S 06 Av ve EL 27 20 20 PH 8 ai 51 08 08 AR la 25 0 MA bl CY e MG TA BL ET BU 00 07 07 00 30 30 DE 63 No Ac SP 59 -0 -1 .0 AN 68 t ti IR 10 8- 7- 00 S 06 Av ve ON 65 20 20 PH 7 ai E 70 08 08 AR la HC 1 MA bl L CY e 5 MG TA BL ET SE 00 04 06 01 30 30 DE 63 No Ac RO 31 -0 -1 .0 AN 65 t ti QU 00 8- 2- 00 S 72 Av ve EL 27 20 20 PH 9 ai 51 08 08 AR la 25 0 MA bl CY e MG TA BL ET CI 55 04 06 01 15 30 DE 63 No Ac TA 11 -0 -1 .0 AN 65 t ti LO 10 8- 2- 00 S 73 Av ve OK 34 20 20 PH 0 ai AM 40 08 08 AR la 1 MA bl HB CY e R 40 MG TA BL ET CI 55 04 05 00 15 30 DE 63 No Ac TA 11 -0 -2 .0 AN 65 t ti LO 10 8- 2- 00 S 73 Av ve OK 34 20 20 PH 0 ai AM 40 08 08 AR la 1 MA bl HB CY e R 40 MG TA BL ET SE 00 04 05 00 30 30 DE 63 No Ac RO 31 -0 -2 .0 AN 65 t ti QU 00 8- 2- 00 S 72 Av ve EL 27 20 20 PH 9 ai 51 08 08 AR la 25 0 MA bl CY e MG TA BL ET CE 00 03 04 00 20 10 DE 63 No Ac PH 09 -1 -1 .0 AN 62 t ti AL 33 4- 7- 00 S 92 Av ve EX 14 20 20 PH 7 ai IN 70 08 08 AR la 5 MA bl 50 CY e 0 MG CA PS UL E CI 60 01 04 01 30 30 RI 59 No Ac TA 50 -1 -1 .0 TE 39 t ti LO 52 0- 0- 00 89 Av ve OK 52 20 20 AI ai AM 00 08 08 D la 1 PH bl HB AR e R M 40 #3 92 MG 0 TA BL ET DI 00 01 04 00 90 25 RI 59 No Ac CY 37 -3 -0 .0 TE 40 t ti CL 81 1- 7- 00 24 Av ve OM 61 20 20 AI ai IN 00 08 08 D la E 1 PH bl 10 AR e M MG #3 92 CA 0 PS UL E SE 00 01 04 00 60 30 RI 59 No Ac RO 31 -1 -0 .0 TE 39 t ti QU 00 0- 7- 00 88 Av ve EL 27 20 20 AI ai 51 08 08 D la 25 0 PH bl AR e MG M #3 TA 92 BL 0 ET CI 60 01 04 00 30 30 RI 59 No Ac TA 50 -1 -0 .0 TE 39 t ti LO 52 0- 7- 00 89 Av ve OK 52 20 20 AI ai AM 00 08 08 D la 1 PH bl HB AR e R M 40 #3 92 MG 0 TA BL ET SE 00 10 03 01 64 32 RI 58 No Ac RO 31 -0 -2 .0 TE 12 t ti QU 00 4- 6- 00 28 Av ve EL 27 20 20 AI ai 51 07 08 D la 25 0 PH bl AR e MG M #3 TA 92 BL 0 ET DI 00 01 03 00 90 23 DE 63 No Ac CY 59 -3 -2 .0 AN 60 t ti CL 10 1- 6- 00 S 55 Av ve OM 79 20 20 PH 4 ai IN 40 08 08 AR la E 1 MA bl 10 CY e MG CA PS UL E CI 60 11 03 01 45 30 RI 58 No Ac TA 50 -1 -2 .0 TE 12 t ti LO 52 5- 5- 00 27 Av ve OK 52 20 20 AI ai AM 00 07 08 D la 1 PH bl HB AR e R M 40 #3 92 MG 0 TA BL ET DI 00 11 03 01 90 30 RI 57 No Ac CY 37 -0 -2 .0 TE 89 t ti CL 81 8- 4- 00 17 Av ve OM 61 20 20 AI ai IN 00 07 08 D la E 1 PH bl 10 AR e M MG #3 92 CA 0 PS UL E Immunization Name Date Rout CVX Reac Dose Comm Prov Is Faci e tion ent ider Refu lity Give sed n TDAP 06-[address] 4-20 AMELIA ELO VACC 15 JOLIE ABET INE H 7 PHYS YRS/ ICIA > IM NS Results Labs Lab Lab Date Result Refere Interp Status Commen Order Detail nces retati t Range on Differential panel, method unspecified - (08-26-2017 05:00) LYMPH 15 % 10% - Normal complet 017 50% ed 05:00 Platele NORMAL complet ts 017 ed [Presen 05:00 ce] in Blood by Light microsc opy Polychr 1+ complet omasia 017 ed [Presen 05:00 ce] in Blood by Light microsc opy Urinalysis dipstick W Reflex Microscopic panel in Urine (08-25-2017 12:40) Bacteri 1+ O complet a 017 ed [Presen 12:40 ce] in Urine sedimen t by Light microsc opy Erythro OCC 0 complet cytes 017 ed [Presen 12:40 ce] in Urine sedimen t by Light microsc opy Epithel 20-50 0#/hp complet ial 017 f - ed cells.s 12:40 5#/hp quamous f [Presen ce] in Urine sedimen t by Microsc opy high power field Urinalysis dipstick W Reflex Microscopic panel in Urine (08-25-2017 12:40) Appeara Sl CLEAR complet nce of 017 Cloudy ed Urine 12:40 Bilirub NEGATIV NEG complet in 017 E ed [Presen 12:40 ce] in Urine by Test strip Erythro NEGATIV NEG complet cytes 017 E ed [Presen 12:40 ce] in Urine Color DARK YELLOW complet of 017 YELLOW ed Urine 12:40 Ketones NEGATIV NEG complet 017 E ed [Presen 12:40 ce] in Urine by Automat ed test strip Mucus NEGATIV NEG complet [Presen 017 E ed ce] in 12:40 Urine sedimen t by Light microsc opy Nitrite NEGATIV NEG complet 017 E ed [Presen 12:40 ce] in Urine by Test strip Urobili 0.2 NEG complet nogen 017 ed [Presen 12:40 ce] in Urine by Test strip Influenza virus A+B Ag [Presence] in Unspecified specimen (08-25-2017 10:35) Influen NOT NOT complet za 017 DETECTE DETECTD ed virus A 10:35 D Ag [Presen ce] in Unspeci fied specime n Influen NOT NOT complet za 017 DETECTE DETECTD ed virus B 10:35 D Ag [Presen ce] in Unspeci fied specime n Gas panel in Arterial blood (08-25-2017 10:30) Arteria ACCEPTA complet l 017 BLE ed patency 10:30 Wrist artery --pre arteria l punctur e SOURCE RIGHT complet 017 RADIAL ed 10:30 Procedures Procedure DOS Code Location Performer Comment CLOSURE [id number] HIREN MARADIAGA DEVICE 7 [facility] VASCULAR INC INC INTRDUCR/ C1894 HIREN MARADIAGA SHEATH 7 [facility] NOT GUID INC INC INTRACARD EP NON-LASR SLCTV 16624 HIREN MARADIAGA CATH 7 [facility] VERTEBRAL INC INC ART ANGIO VERTEBRAL ARTERY SLCTV [address] [facility] CATHJ EA 7 PHYSICIAN 1ST ORD S GROUP ABDL PEL/LXTR ART BRNCH REVSC 08950 [facility] ANJALI OPN/PRQ 7 PHYSICIAN FEM/POP S GROUP W/STNT/AN GIOP SM VSL OPEN/PERQ 29592 [facility] ANJALI 7 PHYSICIAN PLACEMENT S GROUP INTRAVASC ULAR STENT INITIAL AORTOGRAP 94979 [facility] 7 PHYSICIAN ABDOMINAL S GROUP SERIALOGR APHY RS&I INJECTION J0153 HIREN MARADIAGA 7 [facility] ADENOSINE INC INC 1 MG BLOOD 16623 HIREN MARADIAGA COUNT 7 [facility] COMPLETE INC INC AUTO&AUTO DIFRNTL WBC MOD SED 53873 HIREN MARADIAGA SAME 7 [facility] PHYS/QHP INC INC INITIAL 15 MINS <5 YRS INTRDUCR/ C1766 HIREN MARADIAGA SHEATH 7 [facility] GUID INC INC INTRACARD EP NOT [place] CATHETER C1725 HIREN MARADIAGA TRANSLUMI 7 [facility] NAL INC INC ANGIOPLAS TY NON-LASER GUIDE C1769 HIREN MARADIAGA WIRE 7 [facility] INC INC STENT C1876 HIREN MARADIAGA NON-COATE 7 [facility] D/NON-COV INC INC ERED W/DELIVER Y SYSTEM ANGIOGRAP 68534 [facility] HY PELVIC 7 PHYSICIAN PHYSICIAN S GROUP S GROUP SLCTV/SUP RASLCTV RS&I BASIC 22847 HIREN MARADIAGA METABOLIC 7 [facility] PANEL INC INC CALCIUM TOTAL CATH PLMT 50652 HIREN Garcia HRT & [address] [facility] ARTS INC INC W/NJX & ANGIO IMG S&I IV DOP 48213 HIREN MARADIAGA EUGENIA&/OR [address] [facility] PRESS INC INC C/JOSE RSRV NYDIA 1ST VSL INJECTION J1644 HIREN MARADIAGA HEPARIN [address] [facility] SODIUM INC INC PER 1000 UNITS SLCTV 27875 HIREN MARADIAGA CATH [address] [facility] INTRNL INC INC CAROTID ART ANGIO INTRCRNL ART REVSC 72278 HIREN MARADIAGA OPN/PRQ [address] [facility] ILIAC ART INC INC W/STNT PLMT & ANGIOPLST Y LOCM Q9966 HIREN MARADIAGA [phone] [facility] MG/ML INC INC IODINE CONCENTRA TION PER ML LOCM Q9967 HIREN MARADIAGA [phone] 7 [facility] MG/ML INC INC IODINE CONCENTRA TION PER ML PRQ 04769 HIREN MARADIAGA TRLUML [address] [facility] CORONARY INC INC STENT W/ANGIO ONE ART/BRNCH COAGULATI 31401 HIREN MARADIAGA ON TIME [address] [facility] ACTIVATED INC INC O2 CONC 1 E1390 PRIYANKA MATHEW DEL PORT 7 HOME HOME 85%/>02 MEDICAL MEDICAL CONC AT EQUIPME EQUIPME PRSC FLW RATE PRTBLE E0431 PRIYANKA MATHEW GASEOUS 7 HOME HOME O2 SYS MEDICAL MEDICAL RENT; EQUIPME EQUIPME FLWMTR HUMIDFR&M ASK ECHO 44804 HIREN MARADIAGA TTHRC R-T 7 [facility] 2D INC INC W/WOM-MOD E COMPL SPEC&COLR D MYOCARDIA 32969 HIREN Garcia SPECT [address] [facility] MULTIPLE INC INC STUDIES CT HEART 66395 HIREN MARADIAGA NO [address] [facility] [facility] CONTRAST INC INC QUANT EVAL CORONRY CALCIUM CV STRS 49401 HIREN MARADIAGA TST [address] [facility] XERS&/OR INC INC RX CONT ECG TRCG ONLY INJECTION J2785 HIREN MARADIAGA 7 [facility] REGADENOS INC INC ON 0.1 MG TECHNETIU A9502 HIREN Francisco TC-99M 7 [facility] TETROFOSM INC INC IN DX PER STUDY DOSE DUPLEX 92330 HIREN MARADIAGA SCAN 7 [facility] EXTRACRAN INC INC IAL ART COMPL BI STUDY NONEMERG A0120 [facility]NSPRT: [facility]OTH SYS NONEMERG A0120 [facility] TRNSPRT: [facility] ARE[facility]/OTH SYS NONEMERG A0120 [facility] TRNSPRT: [facility]OTH SYS ECG 40995 HIREN MARADIAGA ROUTINE 7 [facility] ECG INC INC W/LEAST 12 LDS TRCG ONLY W/O I&R NATRIURET 43283 HIREN MARADIAGA IC 7 [facility] PEPTIDE INC INC XTRNL ECG 63828 HIREN MARADIAGA & 48 HR 7 [facility] RECORDING INC INC COLLECTIO 92099 HIREN MARADIAGA N VENOUS 7 [facility] BLOOD INC INC VENIPUNCT URE BASIC 24420 HIREN MARADIAGA METABOLIC 7 [facility] PANEL INC INC CALCIUM TOTAL US SOFT 60270 HIREN MARADIAGA TISSUE 7 [facility] HEAD & INC INC NECK REAL TIME IMGE DOCM COLLECTIO 98820 Ritchie SARGENT N VENOUS 7 [facility] BLOOD PSC VENIPUNCT URE NONEMERG A0120 [place] TRNSPRT: 7 [facility] MTN ACT ACT AREA/OTH SYS NONEMERG A0120 [place] TRNSPRT: [facility] ACT AREA/OTH SYS NONEMERG A0120 [facility] TRNSPRT: [facility] ACT AREA/OTH SYS NONEMERG A0120 [facility] TRNSPRT: [facility] [address] HUSSEIN MACHO ABDOMEN & 7 MEDICAL PELVIS IMAGING W/CONTRAS ASS T MATERIAL COLLECTIO 76382 HIREN MARADIAGA N VENOUS 7 [facility] BLOOD INC INC VENIPUNCT URE CREATININ 19029 HIREN MARADIAGA E BLOOD 7 [facility] INC INC LOCM Q9967 HIREN MARADIAGA [phone] 7 [facility] MG/ML INC INC [place] [address] HIREN MARADIAGA UREA 7 [facility] NITROGEN INC INC QUANTITAT KAYLAH NONEMERG A0120 [facility] [facility] TRNSPRT: [facility]OTH SYS NONEMERG A0120 [place] TRNSPRT: 7 [facility] MTN ACT ACT AREA/OTH SYS NONEMERG A0120 [facility] TRNSPRT: [facility]OTH SYS NONEMERG A0120 [facility] TRNSPRT: [facility]/OTH SYS PRTBLE E0431 PRIYANKA MATHEW GASEOUS 7 HOME HOME O2 SYS MEDICAL MED[facility] RENT; [facility]M ASK O2 CONC 1 E1390 PRIYANKA JEAN PORT 7 HOME HOME 85%/>02 MEDICAL MEDICAL CONC AT [facility] FLW RATE THERAPEUT 34562 Ritchie SARGENT IC 7 [facility] PROPHYLAC PSC TIC/DX INJECTION SUBQ/IM INJECTION J3420 Ritchie SARGENT VIT B-12 7 [facility] PSC CYANOCOBA SHAVON TO 1000 MCG NONEMERG A0120 [facility]NS[facility] SYS NONEMERG A0120 LICKING LICK[facility] TRNSPRT: [facility]OTH SYS NONEMERG A0120 LICKING LICKING TRNSPRT: 7 [facility] MTN ACT ACT AREA/OTH SYS INJECTION J3420 Ritchie C A C VIT B-12 7 AJIT FONG MD PSC PSC CYANOCOBA SHAVON TO 1000 MCG THERAPEUT 12084 Ritchie SARGENT IC 7 AJIT KRUGER PROPHYLAC PSC TIC/DX INJECTION SUBQ/IM RADEX 16827 HIREN HIREN SPINE 7 [facility] LUMBOSACR INC INC AL MINIMUM 4 VIEWS NONEMERG A0120 LICKING LICKING TRNSPRT: 7 [facility] MTN ACT ACT AREA/OTH SYS RADEX 78531 HIREN HIREN SHOULDER 7 [facility] COMPLETE INC INC MINIMUM 2 VIEWS RADEX HIP 21369 HIREN MARADIAGA 7 [facility] UNILATERA INC INC L WITH PELVIS 2-3 VIEWS PRTBLE E0431 PRIYANKA MATHEW GASEOUS 7 HOME HOME O2 SYS MEDICAL MEDICAL RENT; EQUIPME EQUIPME FLWMTR HUMIDFR&M ASK O2 CONC 1 E1390 PRIYANKA ENGLISHRELL DEL PORT 7 HOME HOME 85%/>02 MEDICAL MEDICAL CONC AT EQUIPSC EQUIPSC PRS FLW RATE IPRATROPI J7644 YOUR YOUR UM 7 PHARMACY PHARMACY BROMIDE [employer] INHAL NON-CP U DOSE PER MG ADMN SET A7005 YOUR YOUR W/SM VOL 7 PHARMACY PHARMACY NONFILTR [employer] NEBULIZR NON-DISPB L PRTBLE E0431 PRIYANKA MATHEW GASEOUS 7 HOME HOME O2 SYS MEDICAL MEDICAL RENT; EQUIPME EQUIPME FLWMTR HUMIDFR&M ASK O2 CONC 1 E1390 PRIYANKA ENGLSIHRELL DEL PORT 7 HOME HOME 85%/>02 MEDICAL MEDICAL CONC AT EQUIPME EQUIPME PRSC FLW RATE NONEMERGE A0100 LKLP CAC BENNETTS NCY 7 INC TRANSPORT TRANSPORT REGION 9 ATION CO ATION; L TAXI O2 CONC 1 E1390 PRIYANKA ENGLISHRELL DEL PORT 7 HOME HOME 85%/>02 MEDICAL MEDICAL CONC AT EQUIPME EQUIPME PRSC FLW RATE PRTBLE E0431 PRIYANKA PRIYANKA GASEOUS 7 HOME HOME O2 SYS MEDICAL MEDICAL RENT; EQUIPME EQUIPME FLWMTR HUMIDFR&M ASK NONEMERGE A0100 LKLP CAC BENNETTS NCY 7 INC TRANSPORT TRANSPORT REGION 9 ATION CO ATION; L TAXI O2 CONC 1 E1390 PRIYANKA MATHEW DEL PORT 7 HOME HOME 85%/>02 MEDICAL MEDICAL CONC AT EQUIPME EQUIPME PRSC FLW RATE PRTBLE E0431 PRIYANKA ENGLISHRELL GASEOUS 7 HOME HOME O2 SYS MEDICAL MEDICAL RENT; EQUIPME EQUIPME FLWMTR HUMIDFR&M ASK PRTBLE E0431 PRIYANKA PRIYANKA GASEOUS 7 HOME HOME O2 SYS MEDICAL MEDICAL RENT; EQUIPME EQUIPME FLWMTR HUMIDFR&M ASK O2 CONC 1 E1390 PRIYANKA MATHEW DEL PORT 7 HOME HOME 85%/>02 MEDICAL MEDICAL CONC AT EQUIPME EQUIPME PRSC FLW RATE NONEMERGE A0100 LKLP CAC BENNETTS NCY 6 INC TRANSPORT TRANSPORT REGION 9 ATION CO ATION; L TAXI NONEMERGE A0100 LKLP CAC BENNETTS NCY 6 INC TRANSPORT TRANSPORT REGION 9 ATION CO ATION; L TAXI US SOFT 43077 RADIOLOGY SARAHI TISSUE 6 HEAD & ASSOCIATE NECK REAL S OF NOTH TIME IMGE DOCM O2 CONC 1 E1390 PRIYANKA MATHEW DEL PORT 6 HOME HOME 85%/>02 MEDICAL MEDICAL CONC AT EQUIPME EQUIPME PRSC FLW RATE PRTBLE E0431 PRIYANKA MATHEW GASEOUS 6 HOME HOME O2 SYS MEDICAL MEDICAL RENT; EQUIPME EQUIPME FLWMTR HUMIDFR&M ASK INJECTION J1030 ST VIVIEN 6 ADA METHYLPRE DNISOLONE PHYSICIAN ACETATE S [address] VIVIEN IC 6 ADA PROPHYLAC TIC/DX PHYSICIAN INJECTION S SUBQ/IM NONEMERGE A0100 LKLP CAC BENNETTS NCY 6 INC TRANSPORT TRANSPORT REGION 9 ATION CO ATION; L TAXI O2 CONC 1 E1390 PRIYANKA MATHEW DEL PORT 6 HOME HOME 85%/>02 MEDICAL MEDICAL CONC AT EQUIPME EQUIPME PRSC FLW RATE PRTBLE E0431 PRIYANKA PRIYANKA GASEOUS 6 HOME HOME O2 SYS MEDICAL MEDICAL RENT; EQUIPME EQUIPME FLWMTR HUMIDFR&M ASK GROUND A0425 REBECCA REBECCA MILEAGE 6 CO CO PER AMBULANCE AMBULANCE STATUTE TAXIN TAXIN MILE RADIOLOGI 60776 [place] [facility] 6 MEDICAL EXAMINATI IMAGING ON CHEST ASS SINGLE VIEW FRONTAL AMB A0427 REBECCA REBECCA SERVICE 6 CO CO ALS AMBULANCE AMBULANCE EMERGENCY TAXIN TAXIN TRANSPORT LEVEL 1 NONEMERGE A0100 LKLP CAC BENNETTS NCY 6 INC TRANSPORT TRANSPORT REGION 9 ATION CO ATION; L TAXI NONEMERGE A0100 LKLP CAC BENNETTS NCY 6 INC TRANSPORT TRANSPORT REGION 9 ATION CO ATION; L TAXI O2 CONC 1 E1390 PRIYANKA MATHEW DEL PORT 6 HOME HOME 85%/>02 MEDICAL MEDICAL CONC AT EQUIPME EQUIPME PRSC FLW RATE PRTBLE E0431 PRIYANKA ENGLISHRELL GASEOUS 6 HOME HOME O2 SYS MEDICAL MEDICAL RENT; EQUIPME EQUIPME FLWMTR HUMIDFR&M ASK ECG 51793 HIREN COLE JR ROUTINE 6 [facility] W/LEAST P 12 LDS I&R ONLY PRESSURIZ 95449 HIREN MARADIAGA ED/NONPRE 6 [facility] SSURIZED INC INC INHALATIO N TREATMENT RADIOLOGI 14829 HIREN MARADIAGA C EXAM 6 [facility] CHEST 2 INC INC VIEWS FRONTAL&L ATERAL GROUND A0425 REBECCA REBECCA MILEAGE 6 CO CO PER AMBULANCE AMBULANCE [place] [address] HIREN MARADIAGA TROPONIN 6 [facility] QUANTITAT INC INC KAYLAH BLOOD 93786 HIREN MARADAIGA COUNT 6 [facility] COMPLETE INC INC AUTO&AUTO DIFRNTL WBC ECG 96917 HIREN MARADIAGA ROUTINE 6 [facility] ECG INC INC W/LEAST 12 LDS TRCG ONLY W/O I&R AMB A0427 REBECCA CAVAZOSLETON SERVICE 6 CO CO ALS AMBULANCE AMBULANCE EMERGENCY TAXIN TAXIN TRANSPORT LEVEL 1 COMPREHEN 06009 HIREN MARADIAGA SIVE 6 [facility] METABOLIC INC INC PANEL THER 38815 HIREN MARADIAGA PROPH/DX 6 [facility] NJX IV INC INC PUSH SINGLE/1S T SBST/DRUG NONEMERGE A0100 LKLP CAC [facility]ENNETTS NCY 6 INC TRANSPORT TRANSPORT REGION 9 ATION CO ATION; L TAXI NONEMERGE A0100 LKLP CAC [facility]EN[place]TS NCY 6 INC TRANSPORT TRANSPORT REGION 9 ATION CO ATION; L TAXI O2 CONC 1 E1390 PRIYANKA ENGLISHRELL DEL PORT 6 HOME HOME 85%/>02 MEDICAL MEDICAL CONC AT EQUIPME EQUIPME PRSC FLW RATE PRTBLE E0431 PRIYANKA PRIYANKA GASEOUS 6 HOME HOME O2 SYS MEDICAL MEDICAL RENT; EQUIPME EQUIPME FLWMTR HUMIDFR&M ASK NONEMERGE A0100 LKLP CAC [facility]ENNETTS NCY 6 INC TRANSPORT TRANSPORT REGION 9 ATION CO ATION; L TAXI ALBUTEROL J7620 YOUR ANDRE TO 2.5 6 [facility]ARM[facility]Y [facility] IPRATROPI UM BROM TO 0.5 MG PHRM Q0513 YOUR ANDRE DISPENSIN 6 [facility]ARMACY [facility] INHALATIO N RX; PER 30 DAYS ADMN SET A7005 YOUR ANDRE W/SM VOL 6 PHARMACY JERRI NONFILTR LLC NEBULIZR NON-DISPB L NONEMERGE A0100 LKLP CAC BENNETTS NCY 6 INC TRANSPORT TRANSPORT REGION 9 ATION CO ATION; L TAXI O2 CONC 1 E1390 PRIYANKA SOWDEN DEL PORT 6 HOME MARIANNA 85%/>02 MEDICAL CONC AT EQUIPME PRSC FLW RATE PRTBLE E0431 PRIYANKA SOWDEN GASEOUS 6 HOME MARIANNA O2 SYS MEDICAL RENT; EQUIPME FLWMTR HUMIDFR&M ASK NONEMERGE A0100 LKLP CAC BENNETTS NCY 6 INC TRANSPORT TRANSPORT REGION 9 ATION CO ATION; L TAXI NONEMERGE A0100 LKLP CAC BENNETTS NCY 6 INC TRANSPORT TRANSPORT REGION 9 ATION CO ATION; L TAXI O2 CONC 1 E1390 PRIYANKA MATHEW DEL PORT 6 HOME HOME 85%/>02 MEDICAL MEDICAL CONC AT EQUIPME EQUIPME PRSC FLW RATE PRTBLE E0431 PRIYANKA PRIYANKA GASEOUS 6 HOME HOME O2 SYS MEDICAL MEDICAL RENT; EQUIPME EQUIPME FLWMTR HUMIDFR&M ASK NONEMERGE A0100 LKLP CAC BENNETTS NCY 6 INC TRANSPORT TRANSPORT REGION 9 ATION CO ATION; L TAXI NONEMERGE A0100 LKLP CAC BENNETTS NCY 6 INC TRANSPORT TRANSPORT REGION 9 ATION CO ATION; L TAXI NONEMERGE A0100 LKLP CAC BENNETTS NCY 6 INC TRANSPORT TRANSPORT REGION 9 ATION CO ATION; L TAXI O2 CONC 1 E1390 PRIYANKA MATHEW DEL PORT 6 HOME HOME 85%/>02 MEDICAL MEDICAL CONC AT EQUIPME EQUIPME PRSC FLW RATE PRTBLE E0431 PRIYANKAMANUEL MATHEW GASEOUS 6 HOME HOME O2 SYS MEDICAL MEDICAL RENT; EQUIPME EQUIPME FLWSCR HUMIDFR&M ASK NONEMERGE A0100 LKLP CAC BENNETTS NCY 6 INC TRANSPORT TRANSPORT REGION 9 ATION CO ATION; L TAXI ALBUTEROL J7620 YOUR YOUR TO 2.5 6 PHARMACY PHARMACY [facility] [employer] LLC IPRATROPI UM BROM TO 0.5 MG PHRM Q0513 YOUR YOUR DISPENSIN 6 PHARMACY PHARMACY [facility] LLC INHALATIO N RX; PER 30 DAYS NONEMERGE A0100 LKLP CAC BENNETTS NCY 6 INC TRANSPORT TRANSPORT REGION 9 ATION CO ATION; L TAXI NONEMERGE A0100 LKLP CAC BENNETTS NCY 6 INC TRANSPORT TRANSPORT REGION 9 ATION CO ATION; L TAXI NEBULIZER E0570 PRIYANKA ENGLISHRELL WITH 6 HOME HOME COMPRESSO MEDICAL MEDICAL R EQUIPME EQUIPME O2 CONC 1 E1390 PRIYANKA JEAN PORT 6 HOME HOME 85%/>02 MEDICAL MEDICAL CONC AT EQUIPME EQUIPME PRSC FLW RATE PRTBLE E0431 PRIYANKA MATHEW GASEOUS 6 HOME HOME O2 SYS MEDICAL MEDICAL RENT; EQUIPME EQUIPME FLWMTR HUMIDFR&M ASK PRTBLE E0431 PRIYANKA MATHEW GASEOUS 6 HOME HOME O2 SYS MEDICAL MEDICAL RENT; EQUIPME EQUIPME FLWMTR HUMIDFR&M ASK O2 CONC 1 E1390 PRIYANKA JEAN PORT 6 HOME HOME 85%/>02 MEDICAL MEDICAL CONC AT EQUIPME EQUIPME PRSC FLW RATE O2 CONC 1 E1390 PRIYANKA JEAN PORT 6 HOME HOME 85%/>02 MEDICAL MEDICAL CONC AT EQUIPME EQUIPME PRSC FLW RATE PRTBLE E0431 PRIYANKA MATHEW GASEOUS 6 HOME HOME O2 SYS MEDICAL MEDICAL RENT; EQUIPME EQUIPME FLWMTR HUMIDFR&M ASK PRTBLE E0431 PRIYANKA MATHEW GASEOUS 6 HOME HOME O2 SYS MEDICAL MEDICAL RENT; EQUIPME EQUIPME FLWMTR HUMIDFR&M ASK O2 CONC 1 E1390 PRIYANKA JEAN PORT 6 HOME HOME 85%/>02 MEDICAL MEDICAL CONC AT EQUIPME EQUIPME PRSC FLW RATE NONEMERGE A0100 LKLP CAC KAROLINES NCY 6 [facility] TRANSPORT TRANSPORT REGION 9 ATION CO ATION; L TAXI PHRM Q0513 YOUR YOUR DISPENSIN 6 PHARMACY PHARMACY G FEE [employer] INHALATIO N RX; PER 30 DAYS ADMN SET A7005 YOUR YOUR W/SM VOL 6 PHARMACY PHARMACY NONFILTR [employer] NEBULIZR NON-DISPB L PRTBLE E0431 PRIYANKA MATHEW GASEOUS 6 HOME HOME O2 SYS MEDICAL MEDICAL RENT; EQUIPME EQUIPME FLWMTR HUMIDFR&M ASK O2 CONC 1 E1390 PRIYANKA JEAN PORT 6 HOME HOME 85%/>02 MEDICAL MEDICAL CONC AT EQUIPME EQUIPME PRSC FLW RATE NONEMERGE A0100 LKLP CAC BENNETTS NCY 5 INC TRANSPORT TRANSPORT REGION 9 ATION CO ATION; L TAXI O2 CONC 1 E1390 PRIYANKA MATHEW DEL PORT 5 HOME HOME 85%/>02 MEDICAL MEDICAL CONC AT EQUIPME EQUIPME PRSC FLW RATE PRTBLE E0431 PRIYANKA PRIYANKA GASEOUS 5 HOME HOME O2 SYS MEDICAL MEDICAL RENT; EQUIPME EQUIPME FLWMTR HUMIDFR&M ASK IPRATROPI J7644 YOUR YOUR UM 5 PHARMACY PHARMACY [facility] LLC INHAL NON-CP U DOSE PER MG PHRM Q0513 YOUR YOUR DISPENSIN 5 PHARMACY PHARMACY G [facility]EE LLC LLC INHALATIO N RX; PER 30 DAYS ALBUTEROL J7613 YOUR YOUR INHAL 5 PHARMACY PHARMACY NON-CP LLC LLC PROD THRU DME U DOSE 1 MG O2 CONC 1 E1390 PRIYANKA MATHEW DEL PORT 5 HOME HOME 85%/>02 MEDICAL MEDICAL CONC AT EQUIPME EQUIPME PRSC FLW RATE PRTBLE E0431 PRIYANKA PRIYANKA GASEOUS 5 HOME HOME O2 SYS MEDICAL MEDICAL RENT; EQUIPME EQUIPME FLWMTR HUMIDFR&M ASK IPRATROPI J7644 YOUR YOUR UM 5 PHARMACY PHARMACY [employer] [facility] LLC INHAL NON-CP U DOSE PER MG PHRM Q0513 YOUR YOUR DISPENSIN 5 PHARMACY PHARMACY G [facility] LLC LLC INHALATIO N RX; PER 30 DAYS ALBUTEROL J7613 YOUR YOUR INHAL 5 PHARMACY PHARMACY NON-CP LLC LLC PROD THRU DME U DOSE 1 MG ALBUTEROL J7613 YOUR YOUR INHAL 5 PHARMACY PHARMACY NON-CP LLC LLC PROD THRU DME U DOSE 1 MG NONEMERGE A0100 LKLP CAC [employer]S NCY 5 INC TRANSPORT TRANSPORT REGION 9 ATION CO ATION; L TAXI PHRM Q0513 YOUR YOUR DISPENSIN 5 PHARMACY PHARMACY [facility] LLC INHALATIO N RX; PER 30 DAYS IPRATROPI J7644 YOUR YOUR UM 5 PHARMACY PHARMACY [employer] LLC INHAL NON-CP U DOSE PER MG NONEMERGE A0100 LKLP CAC BENNETTS NCY 5 INC TRANSPORT TRANSPORT REGION 9 ATION CO ATION; L TAXI ALBUTEROL J7613 YOUR YOUR INHAL 5 PHARMACY PHARMACY NON-CP LLC LLC PROD THRU DME U DOSE 1 MG IPRATROPI J7644 YOUR YOUR UM 5 PHARMACY PHARMACY [employer] LLC INHAL NON-CP U DOSE PER MG PHRM Q0513 YOUR YOUR DISPENSIN 5 PHARMACY PHARMACY G [facility] LLC LLC INHALATIO N RX; PER 30 DAYS NONEMERGE A0100 LKLP CAC BENNETTS NCY 5 INC TRANSPORT TRANSPORT REGION 9 ATION CO ATION; L TAXI O2 CONC 1 E1390 PRIYANKA MATHEW DEL PORT 5 HOME HOME 85%/>02 MEDICAL MEDICAL CONC AT EQUIPME EQUIPME PRSC FLW RATE PRTBLE E0431 PRIYANKA PRIYANKA GASEOUS 5 HOME HOME O2 SYS MEDICAL MEDICAL RENT; EQUIPME EQUIPME FLWMTR HUMIDFR&M ASK NONEMERGE A0100 LKLP CAC BENNETTS NCY 5 INC TRANSPORT TRANSPORT REGION 9 ATION CO ATION; L TAXI ALBUTEROL J7613 YOUR YOUR INHAL 5 PHARMACY PHARMACY NON-CP LLC LLC PROD THRU DME U DOSE 1 MG PHARM G0333 YOUR YOUR DISPEN 5 PHARMACY PHARMACY FEE INHAL LLC LLC RX; INITIAL 30-DAY SUPPLY IPRATROPI J7644 YOUR YOUR UM 5 PHARMACY PHARMACY [facility] LLC INHAL NON-CP U DOSE PER MG TDAP 33281 [facility] 7 5 ADA JOLIE YRS/> IM PHYSICIAN S NONEMERGE A0100 LKLP CAC BENNETTS NCY 5 INC TRANSPORT TRANSPORT REGION 9 ATION CO ATION; L TAXI NONEMERGE A0100 LKLP CAC BENNETTS NCY 5 INC TRANSPORT TRANSPORT REGION 9 ATION CO ATION; L TAXI NONEMERGE A0100 LKLP CAC BENNETTS NCY 4 INC TRANSPORT TRANSPORT REGION 9 ATION CO ATION; L TAXI ECG 53258 [facility] ROUTINE 3 JOLIE JOLIE ECG W/LEAST 12 LDS [facility] 81818 JARKANI JARKANI DISCHARGE 3 HERNESTO HERNESTO DAY MANAGEMEN T 30 MIN/< SBSQ 43754 [facility] 3 HERNESTO HERNESTO CARE/DAY 25 MINUTES AMB A0427 REBECCA REBECCA SERVICE 3 CO CO ALS AMBULANCE AMBULANCE EMERGENCY TAXIN TAXIN TRANSPORT LEVEL 1 INITIAL 60837 [facility] 3 HERNESTO HERNESTO CARE/DAY 50 MINUTES GROUND A0425 REBECCA REBECCA MILEAGE 3 CO CO PER AMBULANCE AMBULANCE STATUTE TAXIN TAXIN MILE RADIOLOGI 47905 DOERGER DOERGER C EXAM 3 KIR KIR CHEST 2 VIEWS FRONTAL&L ATERAL SEAT E0156 [facility] ATTACHMEN 3 SERVICES SERVICES [place] WALKER [employer] WALKER E0143 [facility] FOLDING 3 SERVICES SERVICES WHEELED [employer] ADJUSTABL E/FIXED HEIGHT AMB A0426 [facility] SERVICE 3 [facility] NCY TRANSPORT LEVEL 1 [address] 3 GAGE ALMONTE & ODN CORONARY ART ANGIO IMG S&I HOSPITAL 00659 LAIB EMANI LAIB EMANI DISCHARGE 3 DAY MANAGEMEN T > 30 MIN [address]UMIN [address] AL 3 GAGE ALMONTE CORONARY IVUS OCT I&R INITIAL VESSEL GROUND A0425 [facility] MILEAGE 3 [facility] MILE ALS A0398 [facility] R[facility]INE 3 [facility] SUPPLIES CV STRS 61013 [facility] TST 3 SHELBY SHELBY XERS&/OR RX CONT ECG W/O I&R MYOCARDIA 53811 PRICILA Garcia SPECT 3 DAYANA DAYANA MULTIPLE STUDIES SBSQ 83433 [facility] 3 SHELBY SHELBY CARE/DAY 25 MINUTES CATH PLMT 99441 MARIA DEL CARMEN MARIA DEL CARMEN L HRT & 3 SHELBY SHELBY ARTS W/NJX & ANGIO IMG S&I CV STRS 49734 [facility] TST 3 SHELBY SHELBY XERS&/OR RX CONT ECG I&R ONLY INITIAL 49938 MARIA DEL CARMEN JOYCE INPATIENT 3 SHELBY SHELBY CONSULT NEW/ESTAB PT 80 MIN SBSQ 23248 [facility] 3 CARE/DAY 25 MINUTES INITIAL 11920 [facility] 3 CARE/DAY 70 MINUTES ECG 40877 YAP NIV YAP NIV ROUTINE 3 ECG W/LEAST 12 LDS I&R ONLY ECG 09213 YAP NIV YAP NIV ROUTINE 3 ECG W/LEAST 12 LDS I&R ONLY RADIOLOGI 99420 HURST JERRI HURST JERRI C 3 EXAMINATI ON CHEST SINGLE VIEW FRONTAL INJ J0702 CYNTHIA MARIE BETAMETHA 2 JOLIE JOLIE SONE ACETATE & PHOSPHATE 3 MG THERAPEUT 27324 CYNTHIA MARIE IC 2 JOLIE JOLIE PROPHYLAC TIC/DX INJECTION SUBQ/IM RADEX 25272 HIREN MARADIAGA SPINE [address] [facility] LUMBOSACR INC INC AL MINIMUM 4 VIEWS AMBULANCE A0429 REBECCA REBECCA SERVICE 2 CO CO BLS AMBULANCE AMBULANCE EMERGENCY TAXIN TAXIN TRANSPORT GROUND A0425 REBECCA REBECCA MILEAGE 2 CO CO PER AMBULANCE AMBULANCE STATUTE TAXIN TAXIN MILE URNLS DIP [address] [facility] STICK/TAB INC INC LET REAGENT AUTO MICROSCOP Y URNLS DIP [address] [facility] STICK/TAB INC INC LET REAGENT AUTO MICROSCOP Y COLONOSCO 52552 MARSH ZAID MARSH ZAID PY 2 W/BIOPSY SINGLE/MU LTIPLE EGD 54070 MARSH ZAID MARSH ZAID TRANSORAL 2 BIOPSY SINGLE/[place] [address] HIREN MARADIAGA INFUSION [address] [facility] THERAPY/P INC INC ROPHYLAXI S /DX 1ST TO 1 [place] [address] HIREN MARADIAGA INFUSION 2 [facility] THERAPY INC INC PROPHYLAX IS/DX EA HOUR ANES 91879 [facility] 2 ANESTH SONALI INTESTINE OF THE BLUE ENDOSCOPY DISTAL DUODENUM RENAL 55487 HIREN MARADIAGA FUNCTION [address] [facility] PANEL INC INC LIPID 88784 HIREN MARADIAGA PANEL [address] [facility] INC INC BLOOD 87837 HIREN MARADIAGA COUNT 2 [facility] COMPLETE INC INC AUTO&AUTO DIFRNTL WBC TECHNETIU A9537 HIREN MARADIAGA M TC-99M 2 [facility]OS[facility] MEBROFENI INC INC N DX UP TO 15 MCI HEPATOBIL 58115 [place] MACHO SYST 2 MEDICAL [place] IMAG INC IMAGING GB ASS W/[place] [address] HIREN MARADIAGA LIPASE 2 [facility] INC INC COMPREHEN 74421 HIREN MARADIAGA SIVE 2 [facility] METABOLIC INC INC PANEL BASIC 84343 HIREN MARADIAGA METABOLIC 2 [facility] PANEL INC INC CALCIUM TOTAL RADIOLOGI 29092 JEREZ JEREZ C 2 DON DON EXAMINATI ON CHEST SINGLE VIEW FRONTAL ECG 26332 JEREZ JEREZ ROUTINE 2 DON DON ECG W/LEAST 12 LDS W/I&R COMPUTER- 82564 HIREN MARADIAGA AIDED 2 [facility]OS[facility] DETECTION INC INC SCREENING MAMMOGRAP HY CYTP C/V 05585 [facility] AUTO THIN 2 DIAGNOSTI DIAGNOSTI LYR CS CS PREPJ SCR MNL RESCR PHYS BLOOD 00055 JEREZ JEREZ OCCULT 2 DON DON PEROXIDAS E ACTV QUAL FECES 1 DETER SCREENING G0202 HIREN MARADIAGA 2 [facility] MAMMOGRAP INC INC HY STEPHANIE INCL CAD WHEN PERFORMD GROUND A0425 REBECCA REBECCA MILEAGE 2 CO CO PER AMBULANCE AMBULANCE STATUTE TAXIN TAXIN MILE AMBULANCE A0429 REBECCA RBEECCA SERVICE 2 CO CO BLS AMBULANCE AMBULANCE EMERGENCY TAXIN TAXIN TRANSPORT BLOOD 65859 HIREN MARADIAGA COUNT [address] [facility] COMPLETE INC INC AUTO&[place] [address] HIREN MARADIAGA TROPONIN 2 [facility] QUANTITAT INC INC KAYLAH ECG 30592 HIREN MARADIAGA ROUTINE [address] [facility] ECG INC INC W/LEAST 12 LDS TRCG ONLY W/O I&[place] [address] MACHO MACHO ABDOMEN & 2 [place] PELVIS W/CONTRAS T MATERIAL ECG 24927 GINA MCKENZIE ROUTINE 2 EMERGENCY JOLIE ECG SERVICES W/LEAST 12 LDS I&[place] [address] HIREN MARADIAGA INFUSION 2 [facility] THERAPY/P INC INC ROPHYLAXI S /DX 1ST TO 1 HR THERAPEUT 40133 HIREN MARADIAGA IC 2 [facility] INJECTION INC INC IV PUSH EACH NEW DRUG 3D 53207 HIREN MARADIAGA RENDERING 2 [facility] INC INC W/INTERP& POSTPROC DIFF WORK STATION COMPREHEN 10392 HIREN MARADIAGA SIVE 2 [facility] [place] [address] HIREN MARADIAGA AMYLASE [address] [facility] INC INC CREATINE 56749 HIREN HIREN KINASE MB 2 [facility] [place] [address] [address]IP[address] [facility] INC INC INJECTION J0595 HIREN MARADIAGA 2 [facility] BUTORPHAN INC INC OL TARTRATE 1 MG CREATINE 83684 HIREN HIREN KINASE 2 [facility] [place] [address] HIREN MARADIAGA INFUSION 2 [facility] HYDRATION INC INC EACH ADDITIONA L HOUR INJECTION J2405 HIREN MARADIAGA 2 [facility] ONDANSETR INC INC ON HCL PER 1 MG SLINGS A4565 JAZ L.P. JAZ L.P. 2 RADEX 70987 MACHO MACHO HUMERUS 2 [place] MINIMUM 2 VIEWS RADEX 59780 MACHO MACHO SHOULDER 2 [place] COMPLETE MINIMUM 2 [place] [address] HUSSEIN MACHO ABDOMINAL 2 [facility] [place] REAL IMAGING TIME ASS W/IMAGE LIMITED RADIOLOGI 36009 JEREZROCKY JEREZ C 2 DON DON EXAMINATI ON CHEST SINGLE VIEW FRONTAL CREATINE 47466 HIREN MARADIAGA KINASE 1 [facility] TOTAL INC INC CREATINE 76717 HIREN MARADIAGA KINASE MB 1 [facility] FRACTION INC INC ONLY COMPREHEN 60703 HIREN MARADIAGA SIVE 1 [facility]OS[facility] METABOLIC INC INC PANEL ECG 52708 GINA CHRISTIAN ROUTINE 1 EMERGENCY III SUZAN ECG SERVICES W/LEAST 12 LDS I&R ONLY RADIOLOGI 58637 HIREN MARADIAGA C EXAM 1 [facility] CHEST 2 INC INC VIEWS FRONTAL&L ATERAL ECG 21753 HIREN MARADIAGA ROUTINE 1 [facility] ECG INC INC W/LEAST 12 LDS TRCG ONLY W/O I&[place] [address] HIREN MARADIAGA TROPONIN 1 [facility]OS[facility] QUANTITAT INC INC KAYLAH BLOOD 78894 HIREN MARADIAGA COUNT 1 [facility] COMPLETE INC INC AUTO&AUTO DIFRNTL WBC URNLS DIP 46147 HIREN MARADIAGA 1 [facility] STICK/TAB INC INC LET REAGENT AUTO MICROSCOP Y CULTURE 85734 HIREN MARADIAGA BACTERIAL 1 [facility] INC INC QUANTTATI VE COLONY COUNT URINE RENAL 95317 MEADOWVIE MEADOWVIE FUNCTION 1 W W [facility] LIPID 93222 MEADOWVIE MEADOWVIE PANEL 1 W W [facility] COLLECTIO 48658 MEADOWVIE MEADOWVIE N VENOUS 1 W W BLOOD [facility] URE RENAL 41674 HIREN HIREN FUNCTION 0 [facility]OS[facility] PANEL INC INC RENAL 32348 MEADOWVIE MEADOWVIE FUNCTION 0 W W [facility] CENTER COLLECTIO 97251 MEADOWVIE MEADOWVIE N VENOUS 0 W W BLOOD [facility]ENTER CENTER CYTP C/V [address] AUTO THIN 9 ADAOLIVER CABALLERO LYR PREPJ SCR MEDICALCE MEDICALCE MNL NTER NTER RESCR PHYS BLOOD [address] COUNT 9 ADA ADA COMPLETE AUTO&AUTO MEDICALCE MEDICALCE DIFRNTL NTER NTER WBC IADNA [address] [place] 9 [facility] MEDICALCE MEDICALCE AMPLIFIED NTER NTER PROBE TQ CYTP C/V [address] [facility] 9 [facility] L[facility] PREPJ SCR MEDICALCE MEDICALCE MNL NTER NTER RESCR PHYS DEHYDROEP [address] IANDROSTE 9 ADA ADA RONA-SULF [place]E [place] [address] TESTOSTER 9 ADA ADA ONE TOTAL MEDICALCE MEDICALCE NTER NTER COLLECTIO 35634 ST LOERA, N VENOUS 9 LAFOURCHE, [facility] BLOOD MED CTR VENIPUNCT URE BILIRUBIN [address] DIRECT 9 ADA ADA MEDICALCE MEDICALCE NTER NTER GONADOTRO [address] PIN 9 ADA ADA LUTEINIZI NG MEDICALCE [place] [address] PHOSPHORU 9 ADA ADA S INORGANIC MEDICALCE MEDICALCE NTER NTER COMPREHEN [address] SIVE 9 [facility] PANEL [place] [address] PROGESTER 9 ADA ADA [place] [address] ESTRADIOL 9 ADA ADA MEDICALCE MEDICALCE NTER NTER GONADOTRO [address] PIN 9 ADA ADA FOLLICLE STIMULATI MEDICALCE [place]ICAL[place] [address] THYROID 9 ADA ADA STIMULATI NG MEDICALCE MEDICALCE HORMONE NTER NTER TSH SBSQ [address]/DAY HETAL ER M 25 INC MINUTES SBSQ 13121 [facility] C[facility]/DAY HETAL 25 INC MINUTES SBSQ 38157 [facility] CARE/DAY HETAL 25 INC MINUTES RADIOLOGI 27915 Yobany WORRELL 8 NAL LUBNA EXAMINATI RADIOLOGY C ON CHEST INC. SINGLE VIEW FRONTAL SBSQ [address] CARE/DAY PULMONARY 35 MINUTES ASSOCIATE S, INC. RADIOLOGI 10475 Yobany SAMANIEGO 8 NAL KELY Up EXAMINATI RADIOLOGY ON CHEST INC. SINGLE VIEW FRONTAL CRITICAL 33743 [facility] 8 [facility] ILL/INJUR PULMONARY ED PATIENT ASSOCIATE INIT S, INC. 30-74 MIN CRITICAL 98888 [facility] ILL/INJUR PULMONARY ED PATIENT ASSOCIATE INIT S, INC. 30-74 MIN RADIOLOGI 90411 Yobany BERNARD 8 NAL [place] EXAMINATI RADIOLOGY ON CHEST INC. SINGLE VIEW FRONTAL DOP 88944 [facility] [place] JONAH, ECHOCARD 8 [facility] W/SPECTRA INC L F-UP/LMTD STD ECHO 01390 [facility] [place] J[facility], TRANSTHOR 8 [facility] AC R-T 2D VASCULAR W/WO CENTER M-MODE INC REC COMP DOP 84317 [facility] [place] [facility], ECHOCARD 8 [facility] COLOR VASCULAR FLOW CENTER VELOCITY INC MAPPING RADIOLOGI 18045 Yobany GUILLEN JR 8 NAL CARMELINA EXAMINATI RADIOLOGY ON CHEST INC. SINGLE VIEW FRONTAL BASIC 99491 [facility] METABOLIC 8 [facility] PANEL CALCIUM TOTAL GONADOTRO 91693 [facility] PIN 8 [facility] [place] [address] [facility] THYROID 8 [facility] [place] [address] [facility] MAGNESIUM 8 [facility] GONADOTRO 48324 [facility] PIN 8 [facility] LUTEINIZI NG HORMONE COLLECTIO 14301 [facility] V[facility] 8 [place] [place] [facility] SEDIMENTA 35183 [facility] TION RATE 8 [facility] RBC AUTOMATED BLOOD 67953 [facility] COUNT 8 [facility] COMPLETE AUTO&AUTO DIFRNTL WBC Encounters Encounter Start End Date Code Location Performer Type Date HOSPITAL HIREN - 7 7 [facility] OUTPATIEN [facility] HIREN - 7 7 [facility] OUTPATIEN [facility] T OFFICE 72566 [facility] ANJALI OUTPATIEN 7 7 PHYSICIAN T VISIT S GROUP 40 MINUTES OFFICE 75752 [facility] RAMÍREZ OUTPATIBIANKA 7 7 PHYSICIAN T VISIT S GROUP 15 MINUTES HOSPITAL HIREN - 7 7 [facility] OUTPATIEN [facility] T OFFICE 08668 [facility] SRIVASTAV OUTPATIEN 7 7 PHYSICIAN A T NEW 60 S GROUP MINUTES OFFICE 83938 Ritchie SARGENT OUTPATIEN 7 7 AJIT KRUGER T VISIT PSC 15 MINUTES OFFICE 39908 [facility] DARRELL OUTMATRIN 7 7 PHYSICIAN T NEW 10 S GROUP MINUTES OFFICE 67213 [facility] MEÑO JR OUTPATIEN 7 7 PHYSICIAN T NEW 20 S GROUP MINUTES HOSPITAL HIREN - 7 7 [facility] OUTPATIEN [facility] T OFFICE 91908 Ritchie MONSALVE 7 7 AJIT KRUGER T VISIT PSC 15 MINUTES OFFICE 78357 Ritchie MONSALVE 7 7 AJIT KRUGER T VISIT PSC 15 MINUTES HOSPITAL HIREN - 7 7 [facility] OUTPATIEN [facility] T OFFICE 63893 A Yobany SARGENT OUTPATIEN 7 7 AJIT KRUGER T NEW 30 PSC MINUTES OFFICE [address]890 [facility] OUTPATIEN 6 6 ADA T VISIT 15 PHYSICIAN MINUTES [facility] HIREN - 6 6 [facility] T EMERGENCY [address]IR[address] [facility] DEPARTMEN INC T VISIT MODERATE SEVERITY OFFICE 06476 SU HEL SU HEL OUTPATIEN 3 3 T VISIT 15 MINUTES EMERGENCY 40788 SANDHYA LAMBSHMAN DEPT 3 3 MARIVEL MARIVEL VISIT HIGH SEVERITY& THREAT FUN EMERGENCY 63602 CARLOS HEREDIA DEPT 3 3 VISIT HIGH SEVERITY& THREAT FUN OFFICE 40200 CYNTHIA COREAFER OUTPATIEN 2 2 JOLIE JOLIE T VISIT 15 MINUTES OFFICE 54390 SOLITARIO JEREZ OUTPATIEN 2 2 DON DON T VISIT 15 MINUTES EMERGENCY [address] [facility] DEPARTMEN [facility] T VISIT LOW/MODER SEVERITY EMERGENCY 87114 ANAHI CHRISTIAN 2 2 III SUZAN III [facility] T VISIT HIGH/URGE NT SEVERITY HOSPITAL HIREN - 2 2 [facility] HIREN - 2 2 [facility] T OFFICE 30405 MARSH ZAID MARSH ZAID OUTPATIEN 2 2 T VISIT 15 MINUTES HOSPITAL HIREN - 2 2 [facility] HIREN - 2 2 [facility] INC T OFFICE 54571 SOLITARIO JEREZ OUTPATIEN 2 2 DON DON T VISIT 15 MINUTES HOSPITAL HIREN - 2 2 [facility] OUTPATIEN INC T OFFICE 41656 MARSH ZAID MARSH ZA[facility] CONSULTAT 2 2 ION NEW/ESTAB PATIENT 80 MIN OFFICE 43417 SOLITARIO HARRISS OUTPATIEN 2 2 DON DON T VISIT 15 MINUTES OFFICE 09639 SOLITARIO HARRISS OUTPATIEN 2 2 DON DON T VISIT 25 MINUTES HOSPITAL HIREN - [address] [facility] [facility]EN - 2 2 [facility] OUT[facility]IEN INC T PERIODIC [id number] JEREZ PREVENTIV 2 2 DON E MED EST PATIENT 40-64YRS OFFICE 26491 SOLITARIO HARRISS OUTPATIEN 2 2 DON DON T VISIT 15 MINUTES HOSPITAL HIREN - [address] [facility]PATIEN [facility] EMERGENCY 38661 GINA MCKENZIE DEPT 2 2 EMERGENCY JOLIE VISIT SERVICES HIGH SEVERITY& THREAT FUNJ EMERGENCY [address] [facility] T VISIT HIGH/URGE NT SEVERITY EMERGENCY 96274 HIREN CULP CO [address] [facility] EMS [facility] T VISIT [facility]OW/MODER SEVERITY HOSPITAL HIREN - [address] [facility] 02744 HEART EMMANUEL HEART EMMANUEL 2 2 [facility] T VISIT MODERATE SEVERITY HOSPITAL HIREN - [address] [facility] OUTPATIEN [facility] OFFICE 43872 JEREZ JEREZ OUTPATIEN 2 2 DON DON T VISIT 15 MINUTES OFFICE 04393 SOLITARIO HARRISS OUTPATIEN 2 2 DON DON T VISIT 25 MINUTES EMERGENCY [address] [facility] T VISIT MODERATE [facility]VERITY HOSPITAL HIREN - [address] [facility] OUTPATIEN INC T EMERGENCY 72232 GINA CHRISTIAN DEPT 1 1 EMERGENCY III SUZAN VISIT SERVICES HIGH SEVERITY& THREAT [facility] JUS - 1 1 [facility] 0 [facility] JUS - 0 0 W [facility] ST - 9 9 [facility] OFF[facility] 27585 GRICEL MCKINNEY 9 9 [facility] 10 MINUTES OFFICE 23118 GRICEL MCKINNEY 9 9 [facility] 10 MINUTES OFFICE 61939 GRICEL MCKINNEY 9 9 [facility] [address] LOER[facility] PREVENTIV 9 9 ADA MARTINE[facility] E [facility] MEDICINE NEW PATIENT 40-64YRS [facility] - [address] [facility] ARUN NTER OFFICE 83558 [facility] GRICEL ZARATE 8 8 [place] T VISIT FAMILY [address] [place] [address], [facility]
--- OUTSIDE RECORDS SUMMARY | 2017-09-13 12:32 | External Medical Summary Rpt | CCD ---
Author Author , ERNA Goldsmith ERNA Address Unknown Phone [email or web address] Care Team Providers Care Textile Converter Name Role Phone A Yobany FONG MD PSC, Ritchie Unavailable Unavailable Yobany FONG MD PSC MEÑO WILDER JR, JR Unavailable Unavailable BEINEKE, BEINEKE Unavailable Unavailable [facility] Unavailable Unavailable [facility], [facility] VIVIEN, VIVIEN Unavailable Unavailable [facility] Unavailable Unavailable EMS ANDRE JERRI, ANDRE Unavailable Unavailable [facility] Unavailable Unavailable THE [facility], [facility] Unavailable Unavailable INC, [facility] Unavailable Unavailable INC, [facility] KELY CASPER, Unavailable Unavailable KELY CASPER GAGE, Unavailable Unavailable COURTADE GAGE COURTADE GAGE, Unavailable Unavailable COURTADE GAGE SARAHI, SARAHI Unavailable Unavailable MACHO, MACHO Unavailable Unavailable MACHO LORETTA, Unavailable Unavailable MACHO LORETTA MACHO LORETTA, Unavailable Unavailable MACHO LORETTA [id number], Unavailable Unavailable [facility] # [id number] [id number], Unavailable Unavailable [id number], [facility]ANN Unavailable Unavailable 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 KIR, [...] Unavailable Unavailable INC, [facility] Un[facility] P, [facility], Unavailable Unavailable [facility] MARIA DEL CARMEN SHELBY, Unavailable Unavailable MARIA DEL CARMEN SHELBY HURST JERRI, HURST JERRI Unavailable Unavailable JARKANI HERNESTO, JARKANI Unavailable Unavailable HERNESTO JARKANI HERNESTO, JARKANI Unavailable Unavailable HERNESTO EVARISTO MICHELLE, LOERA, Unavailable Unavailable MICHELLE TABBY, YVONNE, Unavailable Unavailable TABBY, YVONNE [facility] Un[facility] Un[facility], [facility] YAP NIV, YAP NIV Unavailable Unavailable KUPER LENA, KUPER LENA Unavailable Unavailable KUPER LENA, KUPER LENA Unavailable Unavailable KUSHMAN MARIVEL, KUSHMAN Unavailable Unavailable MARIVEL KUSHMAN MARIVEL, KUSHMAN Unavailable Unavailable MARIVEL [facility], Unavailable Unavailable [facility] LAIB EMANI, LAIB EMANI Unavailable Unavailable LAIB EMANI, LAIB EMANI Unavailable Unavailable RAMÍREZ, RAMÍREZ Unavailable Unavailable DOUGLAS JR DWI, DOUGLAS Unavailable Unavailable JR DWI [place] Unavailable Unavailable [facility], [facility] Unavailable Unavailable 9, [facility] 9 [facility] Unavailable Unavailable SERVICES, [facility] JONAH, JAYRO, Unavailable Unavailable JONAH, JAYRO [facility] Unavailable Unavailable MEDICAL, [facility] Unavailable Unavailable [facility], [facility] MCNULTY DAYANA, MCNULTY Unavailable Unavailable DAYANA MCNULTY [...] #[id number], Unavailable Unavailable [id number] ACRMELINA SCHWARTZ JR, Unavailable Unavailable CARMELINA SCHWARTZ JR [facility] Unavailable Unavailable [facility] Unavailable Unavailable [facility], [facility] CYNTHIA JOLIE, CYNTHIA Unavailable Unavailable JOLIE CYNTHIA [...] Problems Code Diagnosis DOS Provider Status [id number] [facility] [place] 07-05-2017 [facility] CORONARY PHYSICIANS ARTERY W/O GROUP ANGINA PECTORIS [id number] ASHD [place] 07-05-2017 [facility] W/UNS INC ANGINA PECTORIS I6502 OCCLUSION 07-05-2017 [facility] STENOSIS OF INC LEFT VERTEBRAL ARTERY I6521 OCCLUSION 07-05-2017 [facility] STENOSIS OF INC RIGHT CAROTID ARTERY I6529 OCCLUSION & 07-05-2017 [facility] STENOSIS PHYSICIANS UNSPECIFIED GROUP CAROTID ARTERY I700 ATHEROSCLER 07-05-2017 [facility] OSIS OF [facility] AORTA INC [id number] ATHEROSCLER 07-05-2017 [facility] [place] ART [facility] EXT INC INTERMIT ABDOUL BILAT R0989 OT SPEC SX 07-05-2017 [facility] & SIGNS PHYSICIANS INVLV THE GROUP CIRC & RESP SYS R9439 ABNORMAL 07-05-2017 [facility] RESULT OT PHYSICIANS CARDIOVASCU GROUP LR FUNCTION STUDY Z720 TOBACCO USE 07-05-2017 [facility] INC 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 EQUIPME E785 HYPERLIPIDE 06-29-2017 [facility] ELIER PHYSICIANS UNSPECIFIED GROUP G4733 OBSTRUCTIVE 06-29-2017 [facility] SLEEP PHYSICIANS APNEA ADULT GROUP PEDIATRIC I10 ESSENTIAL 06-29-2017 [facility] PRIMARY PHYSICIANS HYPERTENSIO GROUP N I208 OTHER FORMS 06-29-2017 [facility] OF ANGINA PHYSICIANS PECTORIS GROUP I209 ANGINA 06-29-2017 [facility] PECTORIS PHYSICIANS UNSPECIFIED GROUP I6523 OCCLUSION & 06-29-2017 [facility] STENOSIS [facility] BILATERAL INC CAROTID ARTERIES R002 PALPITATION 06-29-2017 [facility] S [facility] INC U58074 ENCOUNTER 06-29-2017 [facility] FOR OTHER [facility] PREPROCEDUR INC AL EXAMINATION R69 ILLNESS 06-26-2017 [place] UNSPECIFIED [facility] 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 E069 THYROIDITIS 06-15-2017 [facility] PHYSICIANS UNSPECIFIED GROUP R221 LOCALIZED 06-12-2017 [place] S[facility]LLING [facility]ICAL MASS AND IMAGING ASS LUMP NECK R609 EDEMA 06-12-2017 [facility] UNSPECIFIED PHYSICIANS GROUP L089 LOCAL INF 06-02-2017 A Yobany FONG THE SKIN & [facility] SUBCUTANEOU S TISSUE UNS A42823 OTHER 06-02-2017 A Yobany FONG MUSCLE [facility] SPASM D649 ANEMIA 06-01-2017 [facility] UNSPECIFIED PHYSICIANS GROUP R1310 DYSPHAGIA 06-01-2017 [facility] UNSPECIFIED PHYSICIANS GROUP K439 VENTRAL 05-22-2017 [facility] HERNIA PHYSICIANS WITHOUT GROUP OBSTRUCTION OR GANGRENE K429 UMBILICAL 05-19-2017 [place] HERNIA MEDICAL WITHOUT IMAGING ASS OBSTRUCTION OR GANGRENE K469 UNS 05-19-2017 [facility] ABDOMINAL [facility] HERNIA W/O INC OBSTRUCTION OR GANGRENE K6389 OTHER 05-19-2017 [place] SPECIFIED MEDICAL DISEASES OF IMAGING ASS INTESTINE E538 DEFICIENCY 04-27-2017 A Yobany FONG OF OTHER [facility] SPECIFIED B GROUP VITAMINS K279 PEPTIC ULCR 04-27-2017 A Yobany FONG SITE UNS [facility] UNS AC/CHRN W/O HEM/PERF B370 CANDIDAL 04-13-2017 A Yobany FONG STOMATITIS [facility] J029 ACUTE 04-13-2017 A Yobany FONG PHARYNGITIS [facility] UNSPECIFIED M545 LOW BACK 04-13-2017 A Yobany FONG PAIN [facility] M1612 UNILATERAL 03-31-2017 [place] PRIMARY MEDICAL OSTEOARTHRI IMAGING ASS TIS LEFT HIP D81246 PRIMARY 03-31-2017 [place] OSTEOARTHRI MEDICAL TIS RIGHT IMAGING ASS SHOULDER G66645 PAIN IN 03-31-2017 [place] RIGHT MEDICAL SHOULDER IMAGING ASS P36043 PAIN IN 03-31-2017 [place] LEFT MEDICAL SHOULDER IMAGING ASS T30851 PAIN IN 03-31-2017 [facility] RIGHT HIP [facility] INC Z69357 PAIN IN 03-31-2017 [place] LEFT HIP MEDICAL IMAGING ASS C08389 SPONDYLOSIS 03-31-2017 [place] W/O MEDICAL MYELOPATH/R IMAGING ASS ADICULOPATH Y LUMB RGN L9201CP UNSPECIFIED 03-31-2017 [place] INJURY MEDICAL LOWER BACK IMAGING ASS INITIAL ENCOUNTER Z5106GA UNS INJURY 03-31-2017 [place] RT SHOULDER [facility] UPPER ARM INC INITIAL ENCNTR J0100 ACUTE 03-13-2017 A Yobany FONG MAXILLARY PSC SINUSITIS UNSPECIFIED J440 COPD WITH 03-13-2017 A Yobany FONG ACUTE LOWER PSC RESPIRATORY INFECTION B9689 OTH SPEC 10-19-2016 BACTERIAL ADA AGNT CAUSE PHYSICIANS DZ CLASSIFIED ELSW E119 TYPE 2 10-19-2016 DIABETES DWARF MELLITUS PHYSICIANS WITHOUT COMPLICATIO NS J0190 ACUTE 10-19-2016 SINUSITIS ADA UNSPECIFIED PHYSICIANS R05 COUGH 10-19-2016 ADA PHYSICIANS Z6832 BODY MASS 10-19-2016 INDEX BMI ADA 32.0-32.9 PHYSICIANS ADULT R0602 SHORTNESS 09-23-2016 [facility] OF BREATH CO AMBULANCE TAXIN R0789 OTHER CHEST 09-23-2016 [place] PAIN MEDICAL IMAGING ASS R079 CHEST PAIN 09-23-2016 [facility] UNSPECIFIED CO AMBULANCE TAXIN J441 CHRONIC 08-16-2016 [facility] P DZ W/EXACERBAT ION 496 CHRONIC 08-17-2015 [facility] NEC 74534 08-17-2015 [facility] CAC INC REGION 9 V061 NEED PROPH 04-30-2015 ST VAC W/COMB ADA DIPHTH-TETA PHYSICIANS NUS-PERTUSS VAC 2724 OTHER AND 10-04-2013 CYN[place]IA JOLIE UNSPECIFIED HYPERLIPIDE [place] 77937 ESOPHAGEAL 10-04-2013 [place] JOLIE REFLUX 7851 PALPITATION 10-04-2013 [place] JOLIE S 07086 OBSTRUCTIVE 03-21-2013 LILIBETH HERNESTO CHRONIC BRONCHITIS WITH EXACERBATIO N 4659 ACUTE URIS 03-19-2013 [facility] OF UNSPECIFIED SITE 486 PNEUMONIA, 03-19-2013 [facility] ORGANISM UNSPECIFIED 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 HAGEAL FISTULA 7804 DIZZINESS 03-19-2013 [facility] AND CO GIDDINESS AMBULANCE TAXIN 39934 SHORTNESS 03-19-2013 DOERGER KIR OF BREATH 95465 OTHER 03-19-2013 SU HEL DYSPNEA AND RESPIRATORY ABNORMALITI ES V1259 PERS HX, 03-19-2013 LILIBETH HERNESTO OTHER DISEASES OF CIRCULATORY SYSTEM 7993 UNSPECIFIED 12-25-2012 [facility] 00553 CORONARY 12-18-2012 [facility] KATHLEEN MUSA [place] CORONARY ARTERY 59276 UNSPECIFIED 12-18-2012 [facility] OF [facility]THROPATHY [place] UNSPECIFIED 7226 DEGENERATIO 12-17-2012 LAIB EMANI N INTERVERTEB RAL DISC SITE UNSPEC 73177 CHEST PAIN 12-17-2012 MCNULTY DAYANA UNSPECIFIED 08871 OTH 12-17-2012 LAIB EMANI NONSPECIFIC ABNORM CV SYSTEM FUNCTION STUDY 5225 PERIAPICAL 12-15-2012 KUPER LENA ABSCESS WITHOUT SINUS 54083 LEUKOCYTOSI 12-14-2012 [facility] UNSPECIFIED 5259 UNSPECIFIED 12-14-2012 [facility] DISORDER TEETH&SUPPO RTING STRUCTURES 7212 THORACIC 08-10-2012 [facility] SPONDYLOSIS DON WITHOUT MYELOPATHY 7242 LUMBAGO 08-10-2012 [facility] DON 04507 DEGEN 08-03-2012 [facility]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 7245 UNSPECIFIED 08-03-2012 [facility] BACKACHE CO AMBULANCE TAXIN 49496 PATHOLOGIC 08-03-2012 WEHRMAN III FRACTURE OF SUZAN VERTEBRAE 05741 GASTR ULCR 07-23-2012 [facility] UNS ACUT/CHRN W/O HEMOR PERF/OBST 63234 ABDOMINAL 07-23-2012 [facility] PAIN RIGHT UPPER QUADRANT 23190 ABDOMINAL 07-23-2012 [facility] PAIN, LEFT [facility] UPPER INC QUADRANT 45285 ABDOMINAL 07-23-2012 [facility] PAIN, LEFT LOWER QUADRANT 2114 BENIGN 07-09-2012 [facility] 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 00309 ACUTE 07-09-2012 [facility] GASTRITIS WITHOUT MENTION OF HEMORRHAGE 22057 DUODENITIS 07-09-2012 [facility] WITHOUT MENTION OF HEMORRHAGE 5589 OTH&UNSPEC 07-09-2012 [facility] NONINFECTIO US GASTROENTER ITIS&COLITI S 12751 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 INC 5690 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 [facility] RECTAL POLYP 19691 ABDOMINAL 07-09-2012 COMMUNITY PAIN, ANESTH OF UNSPECIFIED THE BLUE SITE V160 FM HX 07-09-2012 [facility]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 V7651 SPECIAL 07-09-2012 [facility] SCREENING FOR MALIGNANT NEOPLASMS COLON 22407 OVERWEIGHT 06-05-2012 [facility] DON 7823 EDEMA 06-05-2012 [facility] DON V5869 LONG-TERM 06-05-2012 [facility] (CURRENT) [facility] USE OF INC OTHER MEDICATIONS 5758 OTHER 05-23-2012 [facility] SPECIFIED [facility] DISORDER OF INC GALLBLADDER 7934 NONSPECIFIC 05-21-2012 [facility] ABN FINDING RAD & OTH EXAM GI TRACT 4011 ESSENTIAL 03-30-2012 [facility] HYPERTENSIO DON N, BENIGN 2768 HYPOPOTASSE 03-16-2012 [facility] EL[facility] INC 72790 OTHER CHEST 03-16-2012 [facility] PAIN DON V7231 ROUTINE 02-28-2012 [facility] GYNECOLOGIC DON AL EXAMINATION V7612 OTHER 02-28-2012 [facility] SCREENING [facility]OS[facility] MAMMOGRAM INC V5832 ENCOUNTER 02-15-2012 [facility] FOR REMOVAL DON OF SUTURES 46464 OTHER 02-14-2012 [facility] SPECIFIED [place] DISORDER OF INTESTINES 5920 CALCULUS OF 02-14-2012 [facility] KIDNEY [place] 5932 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 UNSPECIFIED 06634 PAINFUL 07-07-2011 [facility] 75080 ABDOMINAL 07-07-2011 [facility] TENDERNESS, [facility] P 64335 ABNORMAL 08-20-2009 [facility] U SMEAR OF CERVIX 40785 PAP SMER 08-20-2009 [facility] SQUAMOUS ER CELLS UNDET 2599 UNSPECIFIED 06-11-2009 [facility] 60388 FLUSHING 05-14-2009 [facility] CTR 03166 HYPOXEMIA 10-22-2008 [facility] INC 4019 UNSPECIFIED 10-18-2008 [facility] HYPERTENSIO INC N 63406 ACUTE 10-18-2008 [facility] FAILURE INC 57770 ATRIAL 10-15-2008 [facility] INC 5070 [...] NEC 5641 IRRITABLE 12-27-2007 [facility] SYNDROME 7291 UNSPECIFIED 12-27-2007 [facility], [employer]. 7808 GENERALIZED 12-27-2007 [facility] HYPERHIDROS FAMILY IS [facility], [employer]. E01.0 IODINE-DEFI CIENCY RELATED DIFFUSE (ENDEMIC) GOITER [...] 3 30 30 CV 58 GR Ac MT 00 -0 -1 .0 S 03 OS [...] 8- 6- 00 PH 60 S ve MT 01 20 20 AR LA AM 10 [...] 3 30 30 CV 58 GR Ac MT 00 -0 -1 .0 S 03 OS [...] 8- 7- 00 PH 60 S ve MT 01 20 20 AR LA AM 10 [...] 2 30 30 CV 57 GR Ac MT 00 -1 -1 .0 S 49 OS [...] 8- 8- 00 PH 60 S ve MT 01 20 20 AR LA AM 10 [...] 2 30 30 CV 57 GR Ac MT 00 -1 -1 .0 S 49 OS [...] 4- 7- 00 PH 38 S ve MT 01 20 20 AR LA AM 10 [...] 2 30 30 CV 57 GR Ac MT 00 -1 -1 .0 S 49 OS [...] 4- 8- 00 PH 38 S ve MT 01 20 20 AR LA AM 10 [...] 3 30 30 CV 56 GR Ac MT 00 -1 -2 .0 S 51 OS [...] 4- 8- 00 PH 38 S ve MT 01 20 20 AR LA AM 10 [...] 3 30 30 CV 56 GR Ac MT 00 -1 -1 .0 S 51 OS [...] 4- 8- 00 PH 38 S ve MT 01 20 20 AR LA AM 10 [...] 2 30 30 CV 55 GR Ac MT 00 -1 -2 .0 S 67 OS [...] 0- 0- 00 PH 76 S ve MT 01 20 20 AR LA AM 10 [...] 2 30 30 CV 55 GR Ac MT 00 -1 -1 .0 S 67 OS [...] 0- 9- 00 PH 76 S ve MT 01 20 20 AR LA AM 10 [...] 2 30 30 CV 55 GR Ac MT 00 -0 -1 .0 S 12 OS [...] 0- 0- 00 PH 76 S ve MT 01 20 20 AR LA AM 10 [...] 2 30 30 CV 55 GR Ac MT 00 -0 -1 .0 S 12 OS [...] 8- 7- 00 PH 49 S ve MT 01 20 20 AR LA AM 10 [...] 2 30 30 CV 55 GR Ac MT 00 -0 -2 .0 S 12 OS [...] 8- 8- 00 PH 49 S ve MT 01 20 20 AR LA AM 10 [...] 2 30 30 CV 54 GR Ac MT 00 -1 -1 .0 S 35 OS [...] 3- 1- 00 PH 71 S ve MT 01 20 20 AR LA AM 10 [...] 3- 3- 00 PH 71 S ve MT 01 20 20 AR LA AM 10 10 10 MA RR 5 CY Y HB # R 40 05 43 MG 7 TA BL ET ZY 00 09 09 2 30 30 CV 54 GR Ac MT 00 -1 -1 .0 S 35 OS [...] 2- 2- 00 PH 96 S ve MT 01 20 20 AR LA AM 10 10 10 MA RR 5 CY Y HB # R 40 05 43 MG 7 TA BL ET ZY 00 07 08 2 30 30 CV 53 GR Ac MT 00 -1 -1 .0 S 72 OS [...] 0- 2- 00 PH 90 S ve MT 01 20 20 AR LA AM 10 10 10 MA RR 5 CY Y HB # R 40 05 43 MG 7 TA BL ET ZY 00 05 07 2 30 30 CV 53 GR Ac MT 00 -1 -1 .0 S 42 OS [...] 0- 2- 00 PH 90 S ve MT 01 20 20 AR LA AM 10 10 10 MA RR 5 CY Y HB # R 40 05 43 MG 7 TA BL ET ZY 00 05 06 2 30 30 CV 53 GR Ac MT 00 -1 -1 .0 S 42 OS [...] 1 30 30 CV 52 GR Ac MT 00 -1 -1 .0 S 78 OS [...] 2- 2- 00 PH 31 S ve MT 08 20 20 AR LA AM 66 [...] 1 30 30 CV 52 GR Ac MT 00 -1 -1 .0 S 78 OS [...] 2- 2- 00 PH 31 S ve MT 01 20 20 AR LA AM 10 10 10 MA RR 5 CY Y HB # R 40 05 43 MG 7 TA BL ET ZY 00 02 03 2 30 30 CV 52 GR Ac MT 00 -0 -1 .0 S 13 OS [...] 8- 1- 00 PH 16 S ve MT 01 20 20 AR LA AM 10 [...] 1- 6- 00 PH 78 Av ve MT 01 20 20 AR ai AM 10 [...] 00 30 30 CV 52 No Ac MT 00 -0 -2 .0 S 13 t [...] 1- 8- 00 PH 78 Av ve MT 01 20 20 AR ai AM 10 [...] 3- 1- 00 PH 04 Av ve MT 01 20 20 AR ai AM 10 [...] 3- 9- 00 PH 04 Av ve MT 01 20 20 AR ai AM 10 [...] 3- 2- 00 PH 04 Av ve MT 01 20 20 AR ai AM 10 [...] 6- 8- 00 PH 21 RY ve MT 01 20 20 AR AM 10 09 [...] 6- 0- 00 PH 21 RY ve MT 01 20 20 AR AM 10 09 [...] 6- 7- 00 PH 21 RY ve MT 01 20 20 AR AM 10 09 [...] 9- 6- 00 PH 07 RY ve MT 01 20 20 AR AM 10 09 [...] 5- 8- 00 PH 88 RY ve MT 01 20 20 AR AM 10 09 [...] 5- 1- 00 PH 52 RY ve MT 01 20 20 AR AM 10 09 [...] 8- 2- 00 S 73 Av ve MT 34 20 20 PH 0 ai AM 40 08 08 AR la 1 MA bl HB CY e R 40 MG TA BL ET CI 55 04 05 00 15 30 DE 63 No Ac TA 11 -0 -2 .0 AN 65 t ti LO 10 8- 2- 00 S 73 Av ve MT 34 20 20 PH 0 ai AM [...] 52 0- 0- 00 89 Av ve MT 52 20 20 AI ai AM 00 [...] 52 0- 7- 00 89 Av ve MT 52 20 20 AI ai AM 00 [...] 52 5- 5- 00 27 Av ve MT 52 20 20 AI ai AM 00 [...] Comment CLOSURE C1760 [facility] MAR[facility] DEVICE 7 [facility] VASCULAR INC INC INTRDUCR/ C1894 [facility] SHEATH 7 [facility] NOT GUID INC INC INTRACARD EP NON-LASR SLCTV 50720 [facility] CATH 7 [facility] VERTEBRAL INC INC ART ANGIO VERTEBRAL ARTERY SLCTV 61406 [facility] CATHJ EA 7 PHYSICIAN 1ST ORD S GROUP ABDL PEL/LXTR ART BRNCH REVSC 42938 [facility] ANJALI OPN/PRQ 7 PHYSICIAN FEM/POP S GROUP W/STNT/AN GIOP SM VSL OPEN/PERQ 17484 [facility] ANJALI 7 PHYSICIAN PLACEMENT S GROUP INTRAVASC ULAR STENT INITIAL AORTOGRAP 68398 [facility] 7 PHYSICIAN ABDOMINAL S GROUP SERIALOGR APHY RS&I INJECTION J0153 [facility] MARADIAGA 7 [facility] ADENOSINE INC INC 1 MG BLOOD 60463 [facility] MAR[facility] COUNT 7 [facility]OS[facility] COMPLETE INC INC AUTO&AUTO DIFRNTL W[place] 07485 [facility] SAME 7 [facility] PHYS/QHP INC INC INITIAL 15 MINS <5 YRS INTRDUCR/ C1766 [facility] MARADIAGA SHEATH 7 [facility]OS[facility] GUID INC INC INTRACARD EP NOT PEEL-AWAY CATHETER C1725 [facility] MARADIAGA TRANSLUMI 7 [facility] NAL INC INC ANGIOPLAS TY NON-LASER GUIDE C1769 [facility] MAR[facility] WIRE 7 [facility] INC INC STENT C1876 [facility] NON-COATE 7 [facility] D/NON-COV INC INC ERED W/DELIVER Y SYSTEM ANGIOGRAP 34373 [facility] PELVIC 7 PHYSICIAN PHYSICIAN S GROUP S GROUP SLCTV/SUP RASLCTV RS&I BASIC 17213 [facility] MAR[facility] METABOLIC 7 [facility] PANEL INC INC CALCIUM TOTAL CATH PLMT 70402 [facility] Garcia HRT & 7 MEM H[facility] ARTS INC INC W/NJX & ANGIO IMG S&I IV DOP 50873 [facility] EUGENIA&/OR 7 [facility] PRESS INC INC C/JOSE RSRV NYDIA 1ST VSL INJECTION J1644 [facility] HEPARIN 7 [facility] SODIUM INC INC PER 1000 UNITS SLCTV 67750 [facility] MARADIAGA CATH 7 [facility] INTRNL INC INC CAROTID ART ANGIO INTRCRNL ART REVSC 90560 [facility] OPN/PRQ 7 [facility] ILIAC ART INC INC W/STNT PLMT & ANGIOPLST Y LOCM Q9966 [facility] MARADIAGA [phone] [facility]OS[facility] MG/ML INC INC IODINE CONCENTRA TION PER ML LOCM Q9967 [facility] MARADIAGA [phone] MEM HOSP [facility]OS[facility] MG/ML INC INC IODINE CONCENTRA TION PER ML PRQ 79373 [facility] TRLUML 7 [facility] CORONARY INC INC STENT W/ANGIO ONE ART/BRNCH COAGULATI 29211 [facility] MARADIAGA ON TIME 7 [facility] ACTIVATED INC INC O2 CONC 1 E1390 PRIYANKA MATHEW DEL PORT 7 HOME HOME 85%/>02 MEDICAL MEDICAL CONC AT EQUIPME EQUIPME PRSC FLW RATE PRTBLE E0431 PRIYANKA MATHEW GASEOUS 7 HOME HOME O2 SYS MEDICAL MEDICAL RENT; EQUIPME EQUIPME FLWMTR HUMIDFR&M ASK ECHO 77176 [facility] MARADI[facility] TTHRC R-T 7 [facility] 2D INC INC W/WOM-MOD E COMPL SPEC&COLR D MYOCARDIA 23898 [facility] Garcia SPECT 7 MEM H[facility] MULTIPLE INC INC STUDIES CT HEART 52635 [facility] MARADIAGA NO 7 [facility] CONTRAST INC INC QUANT EVAL CORONRY CALCIUM CV STRS 08203 [facility] TST 7 [facility] XERS&/OR INC INC RX CONT ECG TRCG ONLY INJECTION J2785 [facility] MARADIAGA 7 [facility] REGADENOS INC INC ON 0.1 MG TECHNETIU A9502 [facility] Francisco TC-99M 7 [facility] TETROFOSM INC INC IN DX PER STUDY DOSE DUPLEX 21515 [facility] SCAN 7 [facility] EXTRACRAN INC INC IAL ART COMPL BI STUDY NONEMERG A0120 [facility] TRNSPRT: [facility]OTH SYS NONEMERG A0120 [facility]NSPRT: [facility]/OTH SYS NONEMERG A0120 [facility] TRNSPRT: [facility] S[facility] ECG 04176 HIREN MARADIAGA ROUTINE 7 [facility] ECG INC INC W/LEAST 12 LDS TRCG ONLY W/O I&R NATRIURET 16856 HIREN [facility] IC 7 [facility] PEPTIDE INC INC XTRNL ECG 35874 HIREN MARADIAGA & 48 HR 7 [facility] RECORDING INC INC COLLECTIO 42632 HIREN [facility]AD[facility] N VENOUS 7 [facility] BLOOD INC INC VENIPUNCT URE BASIC 46362 HIREN MARADI[facility] METABOLIC 7 [facility] PANEL INC INC CALCIUM TOTAL US SOFT 54380 HIREN [facility] TISSUE 7 [facility] HEAD & INC INC NECK REAL TIME IMGE DOCM COLLECTIO 35061 Ritchie SARGENT N VENOUS 7 AJIT KRUGER BLOOD PSC VENIPUNCT URE NONEMERG A0120 LICKING LICKING TRNSPRT: 7 [facility] MTN ACT ACT AREA/OTH SYS NONEMERG A0120 LICKING LICKING TRNSPRT: [facility]OTH SYS NONEMERG A0120 LICKING LICKING TRNSPRT: [facility]OTH SYS NONEMERG A0120 LICKING LICKING TRNSPRT: [facility] [address] HUSSEIN MACHO ABDOMEN & 7 MEDICAL PELVIS IMAGING W/CONTRAS ASS T MATERIAL COLLECTIO 61219 HIREN MARADIAGA N VENOUS 7 [facility] BLOOD INC INC VENIPUNCT URE CREATININ 79808 HIREN MARADIAGA E BLOOD 7 [facility] INC INC LOCM Q9967 HIREN MARADIAGA [phone] 7 [facility] MG/ML INC INC [place] [address] HIREN MARADIAGA UREA 7 [facility] NITROGEN INC INC QUANTITAT KAYLAH NONEMERG A0120 LICKING LICKING TRNSPRT: [facility]OTH SYS NONEMERG A0120 LICKING LICKING TRNSPRT: 7 [facility] MTN ACT ACT AREA/OTH SYS NONEMERG A0120 LICKING LICKING TRNSPRT: 7 [facility]OTH SYS NONEMERG A0120 LICKING LICKING TRNSPRT: [facility]OTH SYS PRTBLE [id number] PRIYANKA MATHEW GASEOUS 7 HOME HOME O2 SYS MEDICAL MED[facility] RENT; [facility]M ASK O2 CONC 1 [id number] PRIYANKA JEAN PORT 7 HOME HOME 85%/>02 [facility] TH[facility] 86128 Ritchie SARGENT IC 7 [facility]IT KRUGER PROPHYLAC PSC TIC/DX INJECTION SUBQ/IM INJECTION J3420 Ritchie SARGENT VIT B-12 7 AJIT KRUGER PSC CYANOCOBA SHAVON TO 1000 MCG NONEMERG A0120 LICKING LICKING TRNSPRT: [facility]OTH SYS NONEMERG A0120 LICKING LICKING TRNSPRT: [facility]OTH SYS NONEMERG A0120 LICKING LICKING TRNSPRT: 7 [facility] MTN ACT ACT AREA/OTH SYS INJECTION J3420 Ritchie C A C VIT B-12 7 AJIT FONG MD PSC PSC CYANOCOBA SHAVON TO 1000 MCG THERAPEUT 65667 Ritchie SARGENT IC 7 AJIT KRUGER PROPHYLAC PSC TIC/DX INJECTION SUBQ/IM RADEX 67035 HIREN HIREN SPINE 7 [facility] LUMBOSACR INC INC AL MINIMUM 4 VIEWS NONEMERG A0120 LICKING LICKING TRNSPRT: 7 [facility] MTN ACT ACT AREA/OTH SYS RADEX 43821 HIREN HIREN SHOULDER 7 [facility] COMPLETE INC INC MINIMUM 2 VIEWS RADEX HIP 13097 HIREN [facility]ADIAGA 7 [facility] INC INC L WITH PELVIS 2-3 VIEWS PRTBLE E0431 PRIYANKA MATHEW GASEOUS 7 HOME HOME O2 SYS MEDICAL MEDICAL RENT; EQUIPME EQUIPME FLWMTR HUMIDFR&M ASK O2 CONC 1 E1390 PRIYANKA EGNLISHRELL DEL PORT 7 HOME HOME 85%/>02 MEDICAL MEDICAL CONC AT EQUIPND EQUIPND PRS FLW RATE IPRATROPI J7644 YOUR YOUR UM 7 PHARMACY PHARMACY BROMIDE [employer] INHAL NON-CP U DOSE PER MG ADMN SET A7005 YOUR YOUR W/SM VOL 7 PHARMACY PHARMACY NONFILTR [employer] NEBULIZR NON-DISPB L PRTBLE E0431 PRIYANKA [...] ATION CO ATION; L TAXI US SOFT 54519 RADIOLOGY SARAHI TISSUE 6 HEAD & ASSOCIATE [...] DNISOLONE PHYSICIAN ACETATE S [address] VIVIEN IC 6 ADA PROPHYLAC TIC/DX [...] AMBULANCE AMBULANCE STATUTE TAXIN TAXIN MILE RADIOLOGI 91410 [place] [facility] C 6 MEDICAL EXAMINATI IMAGING ON [...] RENT; EQUIPME EQUIPME FLWMTR HUMIDFR&M ASK ECG 56346 HIREN COLE JR ROUTINE 6 [facility] W/LEAST P 12 LDS I&R ONLY PRESSURIZ 57149 HIREN MARADIAGA ED/NONPRE 6 [facility] SSURIZED INC INC INHALATIO N TREATMENT RADIOLOGI 54287 HIREN MARADIAGA C EXAM 6 [facility] CHEST 2 INC INC VIEWS FRONTAL&L ATERAL GROUND A0425 REBECCA REBECCA MILEAGE 6 CO CO PER AMBULANCE AMBULANCE [place] [address] HIREN MARADIAGA TROPONIN 6 [facility] QUANTITAT INC INC KAYLAH BLOOD 47453 HIREN MARADIAGA COUNT 6 [facility] COMPLETE INC INC AUTO&AUTO DIFRNTL WBC ECG 16941 HIREN MARADIAGA ROUTINE 6 [facility] ECG INC INC W/LEAST 12 LDS TRCG ONLY W/O I&R AMB A0427 REBECCA CAVAZOSLETON SERVICE 6 CO CO ALS AMBULANCE AMBULANCE EMERGENCY TAXIN TAXIN TRANSPORT LEVEL 1 COMPREHEN 75430 HIREN MARADIAGA SIVE 6 [facility] METABOLIC INC INC PANEL THER 17892 HIREN MARADIAGA PROPH/DX 6 [facility] MEM [...] NONEMERGE A0100 LKLP CAC KAROLINES NCY 6 [facility] TRANSPORT TRANSPORT REGION 9 ATION CO ATION; L TAXI PHRM Q0513 YOUR YOUR DISPENSIN 6 PHARMACY PHARMACY G FEE [employer] INHALATIO N RX; PER 30 DAYS ADMN SET A7005 YOUR YOUR W/SM VOL 6 PHARMACY PHARMACY NONFILTR [employer] NEBULIZR NON-DISPB L PRTBLE E0431 PRIYANKA [...] DOSE 1 MG NONEMERGE A0100 LKLP CAC BENStratoscaleS NCY 5 INC TRANSPORT TRANSPORT REGION 9 [...] INHAL NON-CP U DOSE PER MG TDAP 55214 [facility] VACCINE 7 5 ADA JOLIE YRS/> IM PHYSICIAN S NONEMERGE A0100 LKLP CAC BENNETTS NCY 5 INC TRANSPORT TRANSPORT REGION 9 ATION CO ATION; L TAXI NONEMERGE A0100 LKLP CAC BENNETTS NCY 5 INC TRANSPORT TRANSPORT REGION 9 ATION CO ATION; L TAXI NONEMERGE A0100 LKLP CAC BENNETTS NCY 4 INC TRANSPORT TRANSPORT REGION 9 ATION CO ATION; L TAXI ECG 13010 [facility] ROUTINE 3 JOLIE JOLIE ECG W/LEAST 12 LDS [facility] 49164 JARKANI JARKANI DISCHARGE 3 HERNESTO HERNESTO DAY MANAGEMEN T 30 MIN/< SBSQ 86320 [facility] 3 HERNESTO HERNESTO CARE/DAY 25 MINUTES AMB A0427 REBECCA REBECCA SERVICE 3 CO CO ALS AMBULANCE AMBULANCE EMERGENCY TAXIN TAXIN TRANSPORT LEVEL 1 INITIAL 50936 [facility] 3 HERNESTO HERNESTO CARE/DAY 50 MINUTES GROUND A0425 REBECCA REBECCA MILEAGE 3 CO CO PER AMBULANCE AMBULANCE STATUTE TAXIN TAXIN MILE RADIOLOGI 42986 DOERGER DOERGER C EXAM 3 KIR KIR CHEST 2 VIEWS FRONTAL&L ATERAL SEAT E0156 [facility] ATTACHMEN 3 SERVICES SERVICES [employer] WALKER [employer] WALKER E0143 [facility] FOLDING 3 SERVICES SERVICES WHEELED [employer] ADJUSTABL E/FIXED HEIGHT AMB A0426 [facility] SERVICE 3 [facility] NCY TRANSPORT LEVEL 1 CATH [address] PLACEMENT 3 GAGE ALMONTE & DON CORONARY ART ANGIO IMG S&I HOSPITAL 19945 LAIB EMANI LAIB EMANI DISCHARGE 3 DAY MANAGEMEN T > 30 MIN ENDOLUMIN 29933 [address] COURTADE AL 3 GAGE ALMONTE CORONARY IVUS OCT I&R INITIAL VESSEL GROUND A0425 RURAL RURAL MILEAGE 3 [facility] MILE ALS A0398 [facility] ROUTINE 3 [facility] SUPPLIES CV STRS 59469 [facility] TST 3 SHELBY SHELBY XERS&/OR RX CONT ECG W/O I&R MYOCARDIA 29657 PRICILA Garcia SPECT 3 DAYANA DAYANA MULTIPLE STUDIES SBSQ 32667 [facility] 3 SHELBY SHELBY CARE/DAY 25 MINUTES CATH PLMT 47028 MARIA DEL CARMEN MARIA DEL CARMEN L HRT & 3 SHELBY SHELBY ARTS W/NJX & ANGIO IMG S&I CV STRS 76805 [facility] TST 3 SHELBY SHELBY XERS&/OR RX CONT ECG I&R ONLY INITIAL 87252 MARIA DEL CARMEN JOYCE INPATIENT 3 SHELBY SHELBY CONSULT NEW/ESTAB PT 80 MIN SBSQ [address] [facility] 3 CARE/DAY 25 MINUTES INITIAL [address] [facility] 3 CARE/DAY 70 MINUTES ECG 58754 YAP NIV YAP NIV ROUTINE 3 ECG W/LEAST 12 LDS I&R ONLY ECG 54322 YAP NIV YAP NIV ROUTINE 3 ECG W/LEAST 12 LDS I&R ONLY RADIOLOGI 70374 HURST JERRI HURST JERRI C 3 EXAMINATI ON CHEST SINGLE VIEW FRONTAL INJ J0702 CYNTHIA MARIE BETAMETHA 2 JOLIE JOLIE SONE ACETATE & PHOSPHATE 3 MG THERAPEUT 79394 CYNTHIA MARIE IC 2 JOLIE JOLIE PROPHYLAC TIC/DX INJECTION SUBQ/IM RADEX 74161 HIREN MARADIAGA SPINE 2 [facility] LUMBOSACR INC INC AL MINIMUM 4 VIEWS AMBULANCE A0429 REBECCA REBECCA SERVICE 2 CO CO BLS AMBULANCE AMBULANCE EMERGENCY TAXIN TAXIN TRANSPORT GROUND A0425 REBECCA REBECCA MILEAGE 2 CO CO PER AMBULANCE AMBULANCE STATUTE TAXIN TAXIN MILE URNLS DIP 62951 HIREN MARADIAGA 2 [facility] STICK/TAB INC INC LET REAGENT AUTO MICROSCOP Y URNLS DIP 80233 HIREN MARADIAGA 2 [facility] STICK/TAB INC INC LET REAGENT AUTO MICROSCOP Y COLONOSCO 36988 MARSH ZAID MARSH ZAID PY 2 W/BIOPSY SINGLE/MU LTIPLE EGD 44035 MARSH ZAID MARSH ZAID TRANSORAL 2 BIOPSY SINGLE/[place] [address] HIREN MARADIAGA INFUSION 2 [facility] THERAPY/P INC INC ROPHYLAXI S /DX 1ST TO 1 [place] [address] HIREN MARADIAGA INFUSION 2 [facility] THERAPY INC INC PROPHYLAX IS/DX EA HOUR ANES 88187 [facility] 2 ANESTH SONALI INTESTINE OF THE BLUE ENDOSCOPY DISTAL DUODENUM RENAL 75739 HIREN MARADIAGA FUNCTION 2 [facility] PANEL INC INC LIPID 36843 HIREN MARADIAGA PANEL 2 [facility] INC INC BLOOD 67215 HIREN MARADIAGA COUNT 2 [facility] COMPLETE INC INC AUTO&AUTO DIFRNTL WBC TECHNETIU A9537 HIREN MARADIAGA M TC-99M 2 [facility] MEBROFENI INC INC N DX UP TO 15 MCI HEPATOBIL 60296 [place] MACHO SYST 2 [facility] [place] IMAG INC IMAGING GB [place] [address] HIREN MARADIAGA LIPASE 2 [facility] INC INC COMPREHEN 50179 HIREN MARADIAGA SIVE 2 [facility] METABOLIC INC INC PANEL BASIC 96279 HIREN MARADIAGA METABOLIC 2 [facility] PANEL INC INC CALCIUM TOTAL RADIOLOGI 15028 JEREZ JEREZ C 2 DON DON EXAMINATI ON CHEST SINGLE VIEW FRONTAL ECG 10768 JEREZ JEREZ ROUTINE 2 DON DON ECG W/LEAST 12 LDS W/I&R COMPUTER- 11334 HIREN MARADIAGA AIDED 2 [facility]OSP DETECTION INC INC SCREENING MAMMOGRAP HY CYTP C/V 47386 [facility] AUTO THIN 2 DIAGNOSTI DIAGNOSTI LYR CS CS PREPJ SCR MNL RESCR PHYS BLOOD 50778 JEREZ JEREZ OCCULT 2 DON DON PEROXIDAS E ACTV QUAL FECES 1 DETER SCREENING G0202 HIREN MARADIAGA 2 [facility] MAMMOGRAP INC INC HY STEPHANIE INCL CAD WHEN PERFORMD GROUND A0425 REBECCA REBECCA MILEAGE 2 CO CO PER AMBULANCE AMBULANCE STATUTE TAXIN TAXIN MILE AMBULANCE A0429 REBECCA REBECCA SERVICE 2 CO CO BLS AMBULANCE AMBULANCE EMERGENCY TAXIN TAXIN TRANSPORT BLOOD 90896 HIREN MARADIAGA COUNT 2 [facility] COMPLETE INC INC AUTO&[place] [address] HIREN MARADIAGA TROPONIN 2 [facility] QUANTITAT INC INC KAYLAH ECG 69068 HIREN MARADIAGA ROUTINE 2 [facility] ECG INC INC W/LEAST 12 LDS TRCG ONLY W/O I&[place] [address] MACHO MACHO ABDOMEN & 2 [place] PELVIS W/CONTRAS T MATERIAL ECG 69941 GINA MCKENZIE ROUTINE 2 EMERGENCY JOLIE ECG SERVICES W/LEAST 12 LDS [place] [address] HIREN MARADIAGA INFUSION 2 [facility] THERAPY/P INC INC ROPHYLAXI S /DX 1ST TO 1 HR THERAPEUT 72934 HIREN MARADIAGA IC 2 [facility]OSP INJECTION INC INC IV PUSH EACH NEW DRUG 3D 10718 HIREN MARADIAGA RENDERING 2 [facility] INC INC W/INTERP& POSTPROC DIFF WORK STATION COMPREHEN 18930 HIREN MARADIAGA SIVE 2 [facility] HOSP [place] [address] HIREN MARADIAGA AMYLASE 2 [facility] INC INC CREATINE 92821 HIREN HIREN KINASE MB 2 [facility] [place] [address] HIREN HIREN LIPASE 2 [facility] INC INC INJECTION J0595 HIREN MARADIAGA 2 [facility] BUTORPHAN INC INC OL TARTRATE 1 MG CREATINE 29962 HIREN HIREN KINASE 2 [facility] [place] [address] HIREN MARADIAGA INFUSION 2 [facility] HYDRATION INC INC EACH ADDITIONA L HOUR INJECTION J2405 HIREN MARADIAGA 2 [facility] ONDANSETR INC INC ON HCL PER 1 MG SLINGS A4565 JAZ L.P. JAZ L.P. 2 RADEX 68195 MACHO MACHO HUMERUS 2 [place] MINIMUM 2 VIEWS RADEX 89807 MACHO MACHO SHOULDER 2 [place] COMPLETE MINIMUM 2 [place] [address] HUSSEIN MACHO ABDOMINAL 2 [facility] [place] REAL IMAGING TIME ASS W/IMAGE LIMITED RADIOLOGI 21407 JEREZROCKY JEREZ C 2 DON DON EXAMINATI ON CHEST SINGLE VIEW FRONTAL CREATINE 65492 HIREN MARADIAGA KINASE 1 [facility] TOTAL INC INC CREATINE 45459 HIREN MARADIAGA KINASE MB 1 [facility] FRACTION INC INC ONLY COMPREHEN 69612 HIREN MARADIAGA SIVE 1 [facility] METABOLIC INC INC PANEL ECG 31078 GINA CHRISTIAN ROUTINE 1 EMERGENCY III SUZAN ECG SERVICES W/LEAST 12 LDS I&R ONLY RADIOLOGI 61034 HIREN MARADIAGA C EXAM 1 [facility] CHEST 2 INC INC VIEWS FRONTAL&L ATERAL ECG 41384 HIREN MARADIAGA ROUTINE 1 [facility] ECG INC INC W/LEAST 12 LDS TRCG ONLY W/O I&[place] [address] HIREN MARADIAGA TROPONIN 1 [facility] QUANTITAT INC INC KAYLAH BLOOD 53376 HIREN MARADIAGA COUNT 1 [facility] COMPLETE INC INC AUTO&AUTO DIFRNTL WBC URNLS DIP 85790 HIREN MARADIAGA 1 [facility] STICK/TAB INC INC LET REAGENT AUTO MICROSCOP Y CULTURE 67939 HIREN MARADIAGA BACTERIAL 1 [facility] INC INC QUANTTATI VE COLONY COUNT URINE RENAL 16456 MEADOWVIE MEADOWVIE FUNCTION 1 W W [facility] LIP[facility] 36331 MEADOWVIE MEADOWVIE PANEL 1 W W [facility] COLLECTIO 47421 MEADOWVIE MEADOWVIE N VENOUS 1 W W BLOOD [facility] URE RENAL 74926 HIREN HIREN FUNCTION 0 [facility] PANEL INC INC RENAL 29181 MEADOWVIE MEADOWVIE FUNCTION 0 W W [facility] COLLECTIO 12669 MEADOWVIE MEADOWVIE N VENOUS 0 W W BLOOD [facility] URE CENTER CENTER CYTP C/V [address] AUTO THIN 9 ADAOLIVER CABALLERO LYR PREPJ SCR MEDICALCE MEDICALCE MNL NTER NTER RESCR PHYS BLOOD [address] COUNT 9 ADA ADA COMPLETE AUTO&AUTO MEDICALCE MEDICALCE DIFRNTL NTER NTER WBC IADNA [address] [facility] [facility] AMPLIFIED NTER NTER PROBE TQ CYTP C/V [address] [facility] L[facility] PREPJ SCR MEDICALCE MEDICALCE MNL NTER NTER RESCR PHYS DEHYDROEP [address] IANDROSTE 9 ADA ADA RONA-SULF ATE [place] [address] TESTOSTER 9 ADA ADA ONE TOTAL MEDICALCE MEDICALCE NTER NTER COLLECTIO [address]08[address] ST LOERA, N VENOUS [address] [facility] BLOOD MED CTR VENIPUNCT URE BILIRUBIN [address] DIRECT 9 ADA ADA MEDICALCE MEDICALCE NTER NTER GONADOTRO [address] PIN 9 ADA ADA LUTEINIZI NG MEDICALCE [place] [address] PHOSPHORU 9 ADA ADA S INORGANIC MEDICALCE MEDICALCE NTER NTER COMPREHEN [address] SIVE 9 [facility] PANEL [place] [address] PROGESTER 9 ADA ADA [place] [address] ESTRADIOL 9 ADA ADA MEDICALCE MEDICALCE NTER NTER GONADOTRO [address] PIN 9 ADA ADA FOLLICLE STIMULATI MEDICALCE [place]ICAL[place] [address] THYROID 9 ADA ADA STIMULATI NG MEDICALCE MEDICALCE HORMONE NTER NTER TSH SBSQ [address]/DAY HETAL ER M 25 INC MINUTES SBSQ 32078 [facility] [address] [facility] CARE/DAY HETAL 25 INC MINUTES SBSQ 65727 [facility] [address] [facility] CARE/DAY HETAL 25 INC MINUTES RADIOLOGI 18546 Yobany WORRELL 8 NAL LUBNA EXAMINATI RADIOLOGY C ON CHEST INC. SINGLE VIEW FRONTAL SBSQ [address] CARE/DAY PULMONARY 35 MINUTES ASSOCIATE S, INC. RADIOLOGI 17499 Yobany SAMANIEGO 8 NAL KELY Up EXAMINATI RADIOLOGY ON CHEST INC. SINGLE VIEW FRONTAL CRITICAL 45090 [facility] 8 [facility] ILL/INJUR PULMONARY ED PATIENT ASSOCIATE INIT S, INC. 30-74 MIN CRITICAL 73756 [facility]-[address] ILL/INJUR PULMONARY ED PATIENT ASSOCIATE INIT S, INC. 30-74 MIN RADIOLOGI 23220 Yobany BERNARD 8 NAL MILTON EXAMINATI RADIOLOGY ON CHEST INC. SINGLE VIEW FRONTAL DOP 77871 [facility] [place], ECHOCARD [facility] W/SPECTRA INC L F-UP/LMTD STD ECHO 38964 [facility] [place], TRANSTHOR 8 [facility] AC R-T 2D VASCULAR W/WO CENTER M-MODE INC REC COMP DOP 62915 [facility] [place] [facility], ECHOCARD 8 [facility] COLOR VASCULAR FLOW CENTER VELOCITY INC MAPPING RADIOLOGI 51864 Yobany GUILLEN JR 8 NAL CARMELINA EXAMINATI RADIOLOGY ON CHEST INC. SINGLE VIEW FRONTAL BASIC 13388 [facility] METABOLIC 8 [facility] PANEL CALCIUM TOTAL GONADOTRO 85389 [facility] PIN 8 [facility] INC [place] [address] [facility] THYROID 8 [facility] [place] [address] [facility] MAGNESIUM 8 [facility] GONADOTRO 89477 [facility] PIN 8 [facility] LUTEINIZI NG HORMONE COLLECTIO 28459 [facility] BERUMEN VENOUS 8 [place] Webber BLOOD [facility] INC. SEDIMENTA 82095 [facility] TION RATE 8 [facility] RBC AUTOMATED BLOOD 93069 [facility] COUNT 8 [facility] COMPLETE AUTO&AUTO DIFRNTL WBC Encounters Encounter Start End Date Code Location Performer Type Date HOSPITAL HIREN - 7 [address] [facility] T [facility] HIREN - 7 [address] [facility] [address] T OFFICE 82303 [facility] ANJALI OUTPATIEN 7 7 PHYSICIAN T VISIT S GROUP 40 MINUTES OFFICE 17887 [facility] RAMÍREZ OUTPATIBIANKA 7 7 PHYSICIAN T VISIT S GROUP 15 MINUTES HOSPITAL HIREN - 7 [address] [facility] [address] [facility] T OFFICE 94674 [facility] SRIVASTAV OUTPATIEN 7 7 PHYSICIAN A T NEW 60 S GROUP MINUTES OFFICE 36897 Ritchie SARGENT OUTPATIEN 7 7 AJIT KRUGER T VISIT PSC 15 MINUTES OFFICE 73014 [facility] DARRELL OUTMARTIN 7 7 PHYSICIAN T NEW 10 S GROUP MINUTES OFFICE 72010 [facility] MEÑO JR OUTPATIEN 7 7 PHYSICIAN T NEW 20 S GROUP MINUTES HOSPITAL HIREN - 7 [address] [facility] [address] [facility] T OFFICE 39282 Ritchie MONSALVE 7 7 AJIT KRUGER T VISIT PSC 15 MINUTES OFFICE 84582 Ritchie MONSALVE 7 7 AJIT KRUGER T VISIT PSC 15 MINUTES HOSPITAL HIREN - 7 [address] [facility] [address] [facility] T OFFICE 01350 A Yobany SARGENT OUTPATIEN 7 7 AJIT KRUGER T NEW 30 PSC MINUTES OFFICE 51909 [facility] OUT[facility]IEN 6 6 ADA T VISIT 15 PHYSICIAN MINUTES [facility] HIREN - 6 6 [facility] OUTPATIEN INC T EMERGENCY 58907 HIREN 6 6 [facility] DEPARTMEN INC T VISIT MODERATE SEVERITY OFFICE 91798 SU HEL SU HEL OUTPATIEN 3 3 T VISIT 15 MINUTES EMERGENCY 80546 SANDHYA LAMBSHMAN DEPT 3 3 MARIVEL MARIVEL VISIT HIGH SEVERITY& THREAT FUN EMERGENCY 17739 CARLOS HEREDIA DEPT 3 3 VISIT HIGH SEVERITY& THREAT FUN OFFICE 75700 CYNTHIA COREAFER OUTPATIEN 2 2 JOLIE JOLIE T VISIT 15 MINUTES OFFICE 07830 SOLITARIO JEREZ OUTPATIEN 2 2 DON DON T VISIT 15 MINUTES EMERGENCY 74595 HIREN 2 2 [facility] DEPARTMEN [facility] T VISIT LOW/MODER SEVERITY EMERGENCY 49529 ANAHI CHRISTIAN 2 2 III SUZAN III [facility] T VISIT HIGH/URGE NT SEVERITY HOSPITAL HIREN - 2 2 [facility] OUTPATIEN [facility] HIREN - [address] [facility] T OFFICE 76926 MARSH ZAID MARSH ZAID OUTPATIEN 2 2 T VISIT 15 MINUTES HOSPITAL HIREN - 2 2 [facility] OUTPATIEN [facility] HIREN - 2 2 [facility] OUTPATIEN INC T OFFICE 23109 SOLITARIO JEREZ OUTPATIEN 2 2 DON DON T VISIT 15 MINUTES HOSPITAL HIREN - 2 2 [facility] OUTPATIEN INC T OFFICE 74898 MARSH ZAID MARSH ZAID CONSULTAT 2 2 ION NEW/ESTAB PATIENT 80 MIN OFFICE 89692 SOLITARIO HARRISS OUTPATIEN 2 2 DON DON T VISIT 15 MINUTES OFFICE 91584 SOLITARIO HARRISS OUTPATIEN 2 2 DON DON T VISIT 25 MINUTES HOSPITAL HIREN - 2 2 [facility] OUTPATIEN [facility] HIREN - 2 2 [facility] OUTPATIEN INC T PERIODIC 61820 JEREZ PREVENTIV 2 2 DON E MED EST PATIENT 40-64YRS OFFICE 23145 SOLITARIO HARRISS OUTPATIEN 2 2 DON DON T VISIT 15 MINUTES HOSPITAL HIREN - 2 2 [facility] OUTPATIEN [facility] EMERGENCY 52536 GINA MCKENZIE DEPT 2 2 EMERGENCY JOLIE VISIT SERVICES HIGH SEVERITY& THREAT FUNJ EMERGENCY 41976 HIREN 2 2 [facility] T VISIT HIGH/URGE NT SEVERITY EMERGENCY 78751 HIREN CULP CO 2 2 [facility] EMS [facility] T VISIT LOW/MODER SEVERITY HOSPITAL HIREN - 2 2 [facility] EMERGENCY 84332 HEART EMMANUEL HEART EMMANUEL 2 2 [facility] T VISIT MODERATE SEVERITY HOSPITAL HIREN - 2 2 [facility] OUTPATIEN [facility] OFFICE 67773 JEREZ JEREZ OUTPATIEN 2 2 DON DON T VISIT 15 MINUTES OFFICE 30526 SOLITARIO HARRISS OUTPATIEN 2 2 DON DON T VISIT 25 MINUTES EMERGENCY 57694 HIREN 1 1 [facility] T VISIT MODERATE SEVERITY HOSPITAL HIREN - 1 1 [facility] OUTPATIEN INC T EMERGENCY 22564 GINA CHRISTIAN DEPT 1 1 EMERGENCY III SUZAN VISIT SERVICES HIGH SEVERITY& THREAT [facility] JUS - 1 1 W [facility] HIREN - [address] [facility] JUS - 0 0 W [facility] - [address] [facility] ARUN NTER OFFICE 33562 GRICLE MCKINNEY 9 9 ADA Saeed VISIT MED CTR 10 MINUTES OFFICE 41997 GRICEL MCKINNEY 9 9 ADA Saeed VISIT MED CTR 10 MINUTES OFFICE 21700 GRICEL MCKINNEY 9 9 ADA Saeed VISIT MED [facility] [address] [facility] PREVENTIV 9 9 ADA MARTINEZ E MED CTR MEDICINE NEW PATIENT 40-64YRS [facility] ST - 9 9 ADA [facility] ARUN NTER OFFICE 86874 [facility] GRICEL ZARATE 8 8 [place] Webber T VISIT FAMILY [address] [place] [address], [facility]
--- OUTSIDE RECORDS SUMMARY | 2017-09-13 12:41 | External Medical Summary Rpt | CCD ---
Author Author , ERNA Goldsmith ERNA Address Unknown Phone [email or web address] [employer] Care Team Providers Care General Machine Operator Name Role Phone A Yobany FONG MD PSC, Ritchie Unavailable Unavailable Yobany FONG MD PSC MEÑO MAGANA, MEÑO MAGANA Unavailable Unavailable BEINEKE, BEINEKE Unavailable Unavailable [facility] Unavailable [facility] BESSON USMAN, BESSON Unavailable Unavailable USMAN VIVIEN, VIVIEN Unavailable Unavailable MACEDO, MACEDO Unavailable Unavailable MACEDO ALL, MACEDO ALL Unavailable Unavailable [facility] Unavailable Unavailable [facility] ANDRE JERRI, ANDRE Unavailable Unavailable [facility] Un[facility] Unavailable Unavailable INC, [facility] Unavailable Unavailable INC, [facility] KELY CASPER, Unavailable Unavailable KELY CASPER GAGE, Unavailable Unavailable COURTADE GAGE COURTADE GAGE, Unavailable Unavailable COURTADE GAGE SARAHI, SARAHI Unavailable Unavailable MACHO, MACHO Unavailable Unavailable MACHO LORETTA, Unavailable Unavailable MACHO LORETTA MACHO LORETTA, Unavailable Unavailable MACHO LORETTA [id number], Unavailable Unavailable [facility] # [id number] [id number] Unavailable Unavailable [id number] Unavailable Unavailable 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 KIR, DOERGER Unavailable Unavailable KIR DOERGER KIR, DOERGER Unavailable Unavailable KIR JAZ L.P., JAZ L.P. Unavailable Unavailable JAZ L.P., JAZ L.P. Unavailable Unavailable JONAH JOLIE, JONAH Unavailable Unavailable JOLIE SARGENT, SARGENT Unavailable Unavailable HEART EMMANUEL, HEART EMMANUEL Unavailable Unavailable HEART EMMANUEL, HEART EMMANUEL Unavailable Unavailable ELLIOT, BRAXTON E, Unavailable Unavailable ELLIOT, BRAXTON E [facility], [facility] Unavailable Unavailable HOSPITAL P, [facility] P [facility], Unavailable Unavailable [facility] MARIA DEL CARMEN SHELBY, Unavailable Unavailable MARIA DEL CARMEN SHELBY HURST JERRI, HURST JERRI Unavailable Unavailable JARKANI HERNESTO, JARKANI Unavailable Unavailable HERNESTO JARKANI HERNESTO, JARKANI Unavailable Unavailable HERNESTO LOERA, MICHELLE, LOERA, Unavailable Unavailable MICHELLE TABBY, YVONNE, Unavailable Unavailable TABBY, YVONNE [facility] YAP NIV, YAP NIV Unavailable Unavailable KUPER LENA, KUPER LENA Unavailable Unavailable KUPER LENA, KUPER LENA Unavailable Unavailable KUSHMAN MARIVEL, KUSHMAN Unavailable Unavailable MARIVEL KUSHMAN MARIVEL, KUSHMAN Unavailable Unavailable MARIVEL [facility], Unavailable Unavailable [facility] LAIB EMANI, LAIB EMANI Unavailable Unavailable LAIB EMANI, LAIB EMANI Unavailable Unavailable RAMÍREZ, RAMÍREZ Unavailable Unavailable DOUGLAS JR DWI, DOUGLAS Unavailable Unavailable JR DWI [facility] Unavailable Unavailable 9, [facility] 9 [facility] Unavailable Unavailable SERVICES, [facility] JONAH, JAYRO, Unavailable Unavailable JONAH, JAYRO [facility] Unavailable Unavailable MED[facility], [facility] Unavailable Unavailable [facility], [facility] MCNULTY DAYANA, MCNULTY Unavailable Unavailable DAYANA MCNULTY DAYANA, MCNULTY Unavailable Unavailable DAYANA MARSH ZAID, MARSH ZAID Unavailable Unavailable MARSH ZAID, MARSH ZAID Unavailable Unavailable [facility] Unavailable Un[facility], Unavailable Unavailable [id number], Unavailable Unavailable [id number] CARMELINA SCHWARTZ JR, Unavailable Unavailable CARMELINA SCHWARTZ JR [facility] Un[facility]available [facility]available [facility], [facility] CYNTHIA JOLIE, CYNTHIA Unavailable Unavailable JOLIE [...] [facility] DAMIAN VIEIRA, Unavailable Unavailable DAMIAN VIEIRA JEFFREY C, Unavailable Unavailable LUBNA JIMENEZ, Unavailable Unavailable SOLITARIO STACY, Unavailable Unavailable SOLITARIO LYON, NOELLE Unavailable Unavailable ADA ZAMORA, Unavailable Unavailable ADA QUINONES WEHRMAN III SUZAN, Unavailable Unavailable WEHRMAN III [...] Problems Code Diagnosis DOS Provider Status [id number] [facility] TYONEK 07-05-2017 [facility] CORONARY PHYSICIANS ARTERY W/O GROUP ANGINA PECTORIS [id number] ASHD TYONEK 07-05-2017 [facility] W/UNS INC ANGINA PECTORIS I6502 OCCLUSION 07-05-2017 [facility] STENOSIS OF INC LEFT VERTEBRAL ARTERY I6521 OCCLUSION 07-05-2017 [facility] STENOSIS OF INC RIGHT CAROTID ARTERY I6529 OCCLUSION & 07-05-2017 [facility] STENOSIS PHYSICIANS UNSPECIFIED GROUP CAROTID ARTERY I700 ATHEROSCLER 07-05-2017 [facility] OSIS OF [facility] AORTA INC [id number] ATHEROSCLER 07-05-2017 [facility] ART [facility] EXT INC INTERMIT ABDOUL BILAT R0989 OT SPEC SX 07-05-2017 [facility] & SIGNS PHYSICIANS INVLV THE GROUP CIRC & RESP SYS R9439 ABNORMAL 07-05-2017 [facility] RESULT OT PHYSICIANS CARDIOVASCU GROUP LR FUNCTION STUDY Z720 TOBACCO USE 07-05-2017 [facility] INC 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 EQUIPME E785 HYPERLIPIDE 06-29-2017 [facility] ELIER PHYSICIANS UNSPECIFIED GROUP G4733 OBSTRUCTIVE 06-29-2017 [facility] SLEEP PHYSICIANS APNEA ADULT GROUP PEDIATRIC I10 ESSENTIAL 06-29-2017 [facility] PRIMARY PHYSICIANS HYPERTENSIO GROUP N I208 OTHER FORMS 06-29-2017 [facility] OF ANGINA PHYSICIANS PECTORIS GROUP I209 ANGINA 06-29-2017 [facility] PECTORIS PHYSICIANS UNSPECIFIED GROUP I6523 OCCLUSION & 06-29-2017 [facility] STENOSIS [facility] BILATERAL INC CAROTID ARTERIES R002 PALPITATION 06-29-2017 [facility] S [facility] INC C97003 ENCOUNTER 06-29-2017 [facility] FOR OTHER [facility] PREPROCEDUR INC AL EXAMINATION R69 ILLNESS 06-26-2017 [place] [facility]PECIFIED [facility] 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 E069 THYROIDITIS 06-15-2017 [facility] PHYSICIANS UNSPECIFIED GROUP R221 LOCALIZED 06-12-2017 [place] [facility] LUMP NECK R609 EDEMA 06-12-2017 [facility] UNSPECIFIED PHYSICIANS GROUP L089 LOCAL INF 06-02-2017 A Yobany FONG [facility] SUBCUTANEOU S TISSUE UNS K18338 OTHER 06-02-2017 A Yobany FONG MUSCLE [facility] SPASM D649 ANEMIA 06-01-2017 [facility] UNSPECIFIED PHYSICIANS GROUP R1310 DYSPHAGIA 06-01-2017 [facility] UNSPECIFIED PHYSICIANS GROUP K439 VENTRAL 05-22-2017 [facility] HERNIA PHYSICIANS WITHOUT GROUP OBSTRUCTION OR GANGRENE K429 UMBILICAL 05-19-2017 [place] [facility] MEDICAL WITHOUT IMAGING ASS OBSTRUCTION OR GANGRENE K469 UNS 05-19-2017 [facility]BDOMINAL [facility] HERNIA W/O INC OBSTRUCTION OR GANGRENE K6389 OTHER 05-19-2017 [place] SPECIFIED MEDICAL DISEASES OF IMAGING ASS INTESTINE E538 DEFICIENCY 04-27-2017 A Yobany FNOG OF [facility] SPECIFIED B GROUP VITAMINS K279 PEPTIC ULCR 04-27-2017 A Yobany FONG SITE UNS [facility] UNS AC/CHRN W/O HEM/PERF B370 CANDIDAL 04-13-2017 A Yobany FONG STOMATITIS [facility] J029 ACUTE 04-13-2017 A Yobany FONG PHARYNGITIS [facility] UNSPECIFIED M545 LOW BACK 04-13-2017 A Yobany FONG PAIN [facility] M1612 UNILATERAL 03-31-2017 [place] PRIMARY [facility]ICAL OSTEOARTHRI IMAGING ASS TIS LEFT HIP U01018 PRIMARY 03-31-2017 [place] OSTEOARTHRI MEDICAL TIS RIGHT IMAGING ASS SHOULDER T82788 PAIN IN 03-31-2017 [place] RIGHT MEDICAL SHOULDER IMAGING ASS B86881 PAIN IN 03-31-2017 [place] LEFT MEDICAL SHOULDER IMAGING ASS A82470 PAIN IN 03-31-2017 [facility] RIGHT HIP [facility] INC X75628 PAIN IN 03-31-2017 [place] LEFT HIP MEDICAL IMAGING ASS T25004 SPONDYLOSIS 03-31-2017 [place] W/O MEDICAL MYELOPATH/R IMAGING ASS ADICULOPATH Y LUMB RGN M5847PB UNSPECIFIED 03-31-2017 [place] INJURY MEDICAL LOWER BACK IMAGING ASS INITIAL ENCOUNTER J2642MP UNS INJURY 03-31-2017 [place] RT SH[facility]ER [facility] UPPER ARM INC INITIAL ENCNTR J0100 ACUTE 03-13-2017 A Yobany FONG MAXILLARY PSC SINUSITIS UNSPECIFIED J440 COPD WITH 03-13-2017 A Yobany FONG ACUTE LOWER PSC RESPIRATORY INFECTION B9689 OTH SPEC 10-19-2016 BACTERIAL [facility] AGNT CAUSE PHYSICIANS DZ CLASSIFIED ELSW E119 TYPE 2 10-19-2016 DIABETES [facility] MELLITUS PHYSICIANS WITHOUT COMPLICATIO NS J0190 ACUTE 10-19-2016 [facility]INUSITIS [facility] UNSPECIFIED PHYSICIANS R05 COUGH 10-19-2016 [facility] PHYSICIANS Z6832 BODY MASS 10-19-2016 INDEX BMI ADA 32.0-32.9 PHYSICIANS ADULT R0602 SHORTNESS 09-23-2016 [facility] OF BREATH CO [facility] R0789 OTHER CHEST 09-23-2016 [place] [facility]IN [facility]ICAL [facility] ASS R079 CHEST PAIN 09-23-2016 [facility] UNSPECIFIED CO AMBULANCE TAXIN J441 CHRONIC 08-16-2016 [facility] P DZ W/EXACERBAT ION 496 CHRONIC 08-17-2015 [facility] NEC 41840 08-17-2015 [facility] 9 V061 NEED PROPH 04-30-2015 ST VAC W/COMB ADA DIPHTH-TETA PHYSICIANS NUS-PERTUSS VAC 2724 OTHER AND 10-04-2013 [place] JOLIE UNSPECIFIED HYPERLIPIDE [place] 88574 ESOPHAGEAL 10-04-2013 [place] JOLIE REFLUX 7851 PALPITATION 10-04-2013 [place] JOLIE S 93878 OBSTRUCTIVE 03-21-2013 JARKANI HERNESTO CHRONIC BRONCHITIS WITH EXACERBATIO N 4659 ACUTE URIS 03-19-2013 SU [facility] OF UNSPECIFIED SITE 486 PNEUMONIA, 03-19-2013 [facility] ORGANISM UNSPECIFIED 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 7804 DIZZINESS 03-19-2013 [facility] AND CO GIDDINESS [facility] 77892 SHORTNESS 03-19-2013 DOERGER KIR OF BREATH 02656 OTHER 03-19-2013 SU HEL DYSPNEA AND RESPIRATORY ABNORMALITI ES V1259 PERS HX, 03-19-2013 JARKANI HERNESTO OTHER DISEASES OF CIRCULATORY SYSTEM 7993 UNSPECIFIED 12-25-2012 [facility] 77811 CORONARY 12-18-2012 [facility] KATHLEEN MUSA [facility]K CORONARY ARTERY 53935 UNSPECIFIED 12-18-2012 [facility] OF [place] [place] UNSPECIFIED 7226 DEGENERATIO 12-17-2012 LAIB EMANI N INTERVERTEB RAL DISC SITE UNSPEC 46948 CHEST PAIN 12-17-2012 MCNULTY DAYANA UNSPECIFIED 80891 OTH 12-17-2012 LAIB EMANI NONSPECIFIC ABNORM CV SYSTEM FUNCTION STUDY 5225 PERIAPICAL 12-15-2012 KUPER LENA ABSCESS WITHOUT SINUS 39135 LEUKOCYTOSI 12-14-2012 [facility] UNSPECIFIED 5259 UNSPECIFIED 12-14-2012 [facility] DISORDER TEETH&SUPPO RTING STRUCTURES 7212 THORACIC 08-10-2012 [facility] SPONDYLOSIS DON WITHOUT MYELOPATHY 7242 LUMBAGO 08-10-2012 [facility] DON 05295 DEGEN 08-03-2012 [facility]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 7245 UNSPECIFIED 08-03-2012 [facility] BACKACHE CO [facility] 47025 PATHOLOGIC 08-03-2012 WEHRMAN III FRACTURE OF SUZAN VERTEBRAE 59559 GASTR ULCR 07-23-2012 [facility] UNS ACUT/CHRN W/O HEMOR PERF/OBST 24402 ABDOMINAL 07-23-2012 [facility] PAIN RIGHT UPPER QUADRANT 49736 ABDOMINAL 07-23-2012 [facility] PAIN, LEFT [facility] UPPER INC QUADRANT 70555 ABDOMINAL 07-23-2012 [facility] PAIN, LEFT LOWER QUADRANT 2114 BENIGN 07-09-2012 [facility] 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 06610 ACUTE 07-09-2012 [facility] GASTRITIS WITHOUT MENTION OF HEMORRHAGE 34138 DUODENITIS 07-09-2012 [facility] WITHOUT MENTION OF HEMORRHAGE 5589 OTH&UNSPEC 07-09-2012 [facility] NONINFECTIO US GASTROENTER ITIS&COLITI S 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 5690 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 [facility] RECTAL POLYP 43399 ABDOMINAL 07-09-2012 COMMUNITY PAIN, ANESTH OF UNSPECIFIED THE BLUE SITE V160 FM HX 07-09-2012 [facility]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 V7651 SPECIAL 07-09-2012 [facility] SCREENING FOR MALIGNANT NEOPLASMS COLON 47947 OVERWEIGHT 06-05-2012 [facility] DON 7823 EDEMA 06-05-2012 [facility] DON V5869 LONG-TERM 06-05-2012 [facility] (CURRENT) [facility] USE OF INC OTHER MEDICATIONS 5758 OTHER 05-23-2012 [facility] SPECIFIED [facility] DISORDER OF INC GALLBLADDER 7934 NONSPECIFIC 05-21-2012 [facility] ABN FINDING RAD & OTH EXAM GI TRACT 4011 ESSENTIAL 03-30-2012 [facility] HYPERTENSIO DON N, BENIGN 2768 HYPOPOTASSE 03-16-2012 [facility] INC 58596 OTHER CHEST 03-16-2012 [facility] PAIN DON V7231 ROUTINE 02-28-2012 [facility] GYNECOLOGIC DON AL EXAMINATION V7612 OTHER 02-28-2012 [facility] SCREENING [facility] MAMMOGRAM INC V5832 ENCOUNTER 02-15-2012 [facility] FOR REMOVAL DON OF SUTURES 43102 OTHER 02-14-2012 [facility] SPECIFIED [place] DISORDER OF INTESTINES 5920 CALCULUS OF 02-14-2012 [facility] KIDNEY [place] 5932 ACQUIRED 02-14-2012 [facility] CYST OF [place] KIDNEY 62785 ABDOMINAL 02-14-2012 [facility] PAIN, [facility] P 58729 PAIN IN 01-18-2012 [facility] L[facility]P. 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 UNSPECIFIED 28405 PAINFUL 07-07-2011 [facility] 35046 ABDOMINAL 07-07-2011 [facility] TENDERNESS, [facility] P 47667 ABNORMAL 08-20-2009 [facility] SMEAR OF CERVIX 71976 PAP SMER 08-20-2009 [facility] W/ATYPICAL [facility]CENT SQUAMOUS ER CELLS UNDET 2599 UNSPECIFIED 06-11-2009 [facility] 79070 FLUSHING 05-14-2009 [facility] 73812 HYPOXEMIA 10-22-2008 [facility] AL HETAL INC 4019 UNSPECIFIED 10-18-2008 [facility] HYPERTENSIO INC N 16032 ACUTE 10-18-2008 [facility] FAILURE INC 98087 ATRIAL 10-15-2008 [facility] INC [...] NEC 5641 IRRITABLE 12-27-2007 [facility] SYNDROME 7291 UNSPECIFIED 12-27-2007 [facility] 7808 GENERALIZED 12-27-2007 [facility] Medications Na ND Rx Da Fi Fi Am Da Di Ph RX Ph St me C No te ll ll ou ys ag ar # ys at rm s nt no ma ic us Or Da si cy ia de te s n re d RA 30 00 RI Ac 82 -0 -0 0. 00 TE ti AT 23 4- 6- 00 01 ve HE 17 20 20 0 19 AI NO 64 17 17 78 D L 0 05 PH 32 AR 5 MA MG CY TA #3 BL 93 ET 8 RA 10 04 09 24 30 00 RI Ac 82 -0 -0 0. 00 TE ti AT 23 4- 8- 00 01 ve HE 17 20 20 0 18 AI NO 64 17 17 23 D L 0 36 PH 32 AR 5 MA MG CY TA #3 BL 93 ET 8 RA 11 05 04 24 30 00 RI Ac 82 -3 -0 0. 00 TE ti AT 23 0- 4- 00 01 ve HE 17 20 20 0 18 AI NO 64 17 17 23 D L 0 36 PH 32 AR 5 MA MG CY TA #3 BL 93 ET 8 RA 11 06 07 24 30 00 RI Ac 82 -0 -0 0. 00 TE ti AT 23 2- 7- 00 01 ve HE 17 20 20 0 18 AI NO 64 17 17 23 D L 0 36 PH 32 AR 5 MA MG CY TA #3 BL 93 ET 8 RA 11 05 06 24 30 00 RI Ac 82 [...] 3 30 30 CV 58 GR Ac CO 00 -0 -1 .0 S 03 OS [...] 8- 6- 00 PH 60 S ve CO 01 20 20 AR LA AM 10 [...] 3 30 30 CV 58 GR Ac CO 00 -0 -1 .0 S 03 OS ti EX 24 8- 2- 00 PH 64 S ve A 11 20 20 AR LA 2. 23 11 11 MA RR 5 0 CY Y MG # TA 05 BL 43 ET 7 CL 00 08 09 3 30 30 CV 58 GR Ac ON 09 -0 -0 .0 S 03 OS ti AZ 30 8- 7- 00 PH 62 S ve EP 83 20 20 AR LA AM 20 11 11 MA RR 1 CY Y 0. # 5 MG 05 43 TA 7 BL ET CI 13 08 09 3 45 30 CV 58 GR Ac TA 66 -0 -0 .0 S 03 OS ti LO 80 8- 7- 00 PH 60 S ve CO 01 20 20 AR LA AM 10 11 11 MA RR 5 CY Y HB # R 40 05 43 MG 7 TA BL ET ZY 00 06 08 2 30 30 CV 57 GR Ac CO 00 -1 -1 .0 S 49 OS [...] 8- 8- 00 PH 60 S ve CO 01 20 20 AR LA AM 10 [...] 2 30 30 CV 57 GR Ac CO 00 -1 -1 .0 S 49 OS ti EX 24 3- 4- 00 PH 67 S ve A 11 20 20 AR LA 2. 23 11 11 MA RR 5 0 CY Y MG # TA 05 BL 43 ET 7 CL 00 03 07 3 30 30 CV 56 GR Ac ON 09 -1 -0 .0 S 51 OS ti AZ 30 4- 7- 00 PH 40 S ve EP 83 20 20 AR LA AM 20 11 11 MA RR 1 CY Y 0. # 5 MG 05 43 TA 7 BL ET CI 13 03 07 3 45 30 CV 56 GR Ac TA 66 -1 -0 .0 S 51 OS ti LO 80 4- 7- 00 PH 38 S ve CO 01 20 20 AR LA AM 10 11 11 MA RR 5 CY Y HB # R 40 05 43 MG 7 TA BL ET ZY 00 06 06 2 30 30 CV 57 GR Ac CO 00 -1 -1 .0 S 49 OS [...] 4- 8- 00 PH 38 S ve CO 01 20 20 AR LA AM 10 [...] 3 30 30 CV 56 GR Ac CO 00 -1 -2 .0 S 51 OS ti EX 24 4- 0- 00 PH 39 S ve A 11 20 20 AR LA 5 53 11 11 MA RR MG 0 CY Y # TA BL 05 ET 43 7 CL 00 03 05 3 30 30 CV 56 GR Ac ON 09 -1 -0 .0 S 51 OS ti AZ 30 4- 8- 00 PH 40 S ve EP 83 20 20 AR LA AM 20 11 11 MA RR 1 CY Y 0. # 5 MG 05 43 TA 7 BL ET CI 13 03 05 3 45 30 CV 56 GR Ac TA 66 -1 -0 .0 S 51 OS ti LO 80 4- 8- 00 PH 38 S ve CO 01 20 20 AR LA AM 10 11 11 MA RR 5 CY Y HB # R 40 05 43 MG 7 TA BL ET ZY 00 03 04 3 30 30 CV 56 GR Ac CO 00 -1 -1 .0 S 51 OS [...] 4- 8- 00 PH 38 S ve CO 01 20 20 AR LA AM 10 [...] 2 30 30 CV 55 GR Ac CO 00 -1 -2 .0 S 67 OS ti EX 24 0- 1- 00 PH 78 S ve A 11 20 20 AR LA 5 53 11 11 MA RR MG 0 CY Y # TA BL 05 ET 43 7 CL 00 01 03 2 30 30 CV 55 GR Ac ON 09 -1 -1 .0 S 67 OS ti AZ 30 0- 0- 00 PH 77 S ve EP 83 20 20 AR LA AM 20 11 11 MA RR 1 CY Y 0. # 5 MG 05 43 TA 7 BL ET CI 13 01 03 2 45 30 CV 55 GR Ac TA 66 -1 -1 .0 S 67 OS ti LO 80 0- 0- 00 PH 76 S ve CO 01 20 20 AR LA AM 10 11 11 MA RR 5 CY Y HB # R 40 05 43 MG 7 TA BL ET ZY 00 01 02 2 30 30 CV 55 GR Ac CO 00 -1 -1 .0 S 67 OS [...] 0- 9- 00 PH 76 S ve CO 01 20 20 AR LA AM 10 [...] 2 30 30 CV 55 GR Ac CO 00 -0 -1 .0 S 12 OS [...] 0- 0- 00 PH 76 S ve CO 01 20 20 AR LA AM 10 [...] 2 30 30 CV 55 GR Ac CO 00 -0 -1 .0 S 12 OS [...] 8- 7- 00 PH 49 S ve CO 01 20 20 AR LA AM 10 [...] 2 30 30 CV 55 GR Ac CO 00 -0 -2 .0 S 12 OS ti EX 24 8- 0- 00 PH 39 S ve A 11 20 20 AR LA 5 53 10 10 MA RR MG 0 CY Y # TA BL 05 ET 43 7 CL 00 11 11 2 30 30 CV 54 GR Ac ON 09 -0 -0 .0 S 96 OS ti AZ 30 8- 8- 00 PH 52 S ve EP 83 20 20 AR LA AM 20 10 10 MA RR 1 CY Y 0. # 5 MG 05 43 TA 7 BL ET CI 13 11 11 2 45 30 CV 54 GR Ac TA 66 -0 -0 .0 S 96 OS ti LO 80 8- 8- 00 PH 49 S ve CO 01 20 20 AR LA AM 10 10 10 MA RR 5 CY Y HB # R 40 05 43 MG 7 TA BL ET CI 13 09 10 2 45 30 CV 54 GR Ac TA 66 -1 -1 .0 S 35 OS ti LO 80 3- 1- 00 PH 71 S ve CO 01 20 20 AR LA AM 10 10 10 MA RR 5 CY Y HB # R 40 05 43 MG 7 TA BL ET ZY 00 09 10 2 30 30 CV 54 GR Ac CO 00 -1 -1 .0 S 35 OS ti EX 24 3- 1- 00 PH 72 S ve A 11 20 20 AR LA 2. 23 10 10 MA RR 5 0 CY Y MG # TA 05 BL 43 ET 7 CL 00 09 09 2 30 30 [...] 3- 3- 00 PH 71 S ve CO 01 20 20 AR LA AM 10 10 10 MA RR 5 CY Y HB # R 40 05 43 MG 7 TA BL ET ZY 00 09 09 2 30 30 CV 54 GR Ac CO 00 -1 -1 .0 S 35 OS [...] 2- 2- 00 PH 96 S ve CO 01 20 20 AR LA AM 10 10 10 MA RR 5 CY Y HB # R 40 05 43 MG 7 TA BL ET ZY 00 07 08 2 30 30 CV 53 GR Ac CO 00 -1 -1 .0 S 72 OS [...] 0- 2- 00 PH 90 S ve CO 01 20 20 AR LA AM 10 10 10 MA RR 5 CY Y HB # R 40 05 43 MG 7 TA BL ET ZY 00 05 07 2 30 30 CV 53 GR Ac CO 00 -1 -1 .0 S 42 OS [...] 0- 2- 00 PH 90 S ve CO 01 20 20 AR LA AM 10 10 10 MA RR 5 CY Y HB # R 40 05 43 MG 7 TA BL ET ZY 00 05 06 2 30 30 CV 53 GR Ac CO 00 -1 -1 .0 S 42 OS ti EX 24 0- 2- 00 PH 91 S ve A 11 20 20 AR LA 5 53 10 10 MA RR MG 0 CY Y # TA BL 05 ET 43 7 CL 00 05 06 2 45 30 CV 53 GR Ac ON 1 -1 .0 S 42 OS ti AZ [...] 1 30 30 CV 52 GR Ac CO 00 -1 -1 .0 S 78 OS [...] 2- 2- 00 PH 31 S ve CO 08 20 20 AR LA AM 66 10 10 MA RR 1 CY Y HB # R 40 05 43 MG 7 TA BL ET CL 00 04 04 1 45 30 CV 52 GR Ac ON 09 -1 -1 .0 S 78 OS ti AZ 30 2- 2- 00 PH 29 S ve EP 83 20 20 AR LA AM 30 10 10 MA RR 1 1 CY Y # MG 05 TA 43 BL 7 ET ZY 00 04 04 1 30 30 CV 52 GR Ac CO 00 -1 -1 .0 S 78 OS [...] 2- 2- 00 PH 31 S ve CO 01 20 20 AR LA AM 10 10 10 MA RR 5 CY Y HB # R 40 05 43 MG 7 TA BL ET ZY 00 02 03 2 30 30 CV 52 GR Ac CO 00 -0 -1 .0 S 13 OS [...] 8- 1- 00 PH 16 S ve CO 01 20 20 AR LA AM 10 [...] TA 43 BL 7 ET ZY 00 02 02 00 30 30 CV 52 No Ac CO 00 -0 -2 .0 S 13 t ti EX 24 8- 6- 00 PH 27 Av ve A 11 20 20 AR ai 5 53 10 10 MA la MG 0 CY bl e TA #5 BL 43 ET 7 CI 13 01 02 01 45 30 CV 51 No Ac TA 66 -1 -2 .0 S 82 t ti LO 80 1- 6- 00 PH 78 Av ve CO 01 20 20 AR ai AM 10 [...] 43 TA 7 BL ET CL 00 01 01 00 60 30 CV 51 No Ac ON 09 -1 -2 .0 S 82 t ti AZ 30 1- 8- PH 77 Av ve EP 83 20 20 AR ai AM 30 10 10 MA la 1 1 CY bl e MG #5 43 TA 7 BL ET CI 13 01 01 00 45 30 CV 51 No Ac TA 66 -1 -2 .0 S 82 t ti LO 80 1- 8- 00 PH 78 Av ve CO 01 20 20 AR ai AM 10 10 10 MA la 5 CY bl HB e R #5 40 43 7 MG TA BL ET CI 13 10 12 02 45 30 CV 50 No Ac TA 66 -1 -3 .0 S 89 t ti LO 80 3- 1- 00 PH 04 Av ve CO 01 20 20 AR ai AM 10 09 09 MA la 5 CY bl HB e R #5 40 43 7 MG TA BL ET CL 00 10 12 02 60 30 CV 50 No Ac ON -3 .0 S 89 t ti AZ 30 3- 1- 00 PH 10 Av ve EP 83 20 20 AR ai AM 30 09 09 MA la 1 1 CY bl e MG #5 43 TA 7 BL ET NO 00 10 12 02 30 30 CV 50 No Ac RT -1 .0 S 89 t ti RI 30 3- 7- 00 PH 11 Av ve PT 81 20 20 AR ai YL 10 09 09 MA la IN 1 CY bl E e HC #5 L 43 25 7 MG CA P NO 00 10 11 01 30 30 [...] 3- 9- 00 PH 04 Av ve CO 01 20 20 AR ai AM 10 09 09 MA la 5 CY bl HB e R #5 40 43 7 MG TA BL ET CI 13 10 10 00 45 30 CV 50 No Ac TA 66 -1 -2 .0 S 89 t ti LO 80 3- 2- 00 PH 04 Av ve CO 01 20 20 AR ai AM 10 09 09 MA la 5 CY bl HB e R #5 40 43 7 MG TA BL ET NO 00 10 10 00 30 30 CV 50 No Ac RT -2 .0 S 89 t ti RI 30 3- 2- 00 PH 11 Av ve PT 81 20 20 AR ai YL 10 09 09 MA la IN 1 CY bl E e HC #5 L 43 25 7 MG CA P CL 00 10 10 00 60 30 CV 50 No Ac ON -2 .0 S 89 t ti AZ 30 3- 2- 00 PH 10 Av ve EP 83 20 20 AR ai AM 30 09 09 MA la 1 1 CY bl e MG #5 43 TA 7 BL ET CI 13 07 10 02 30 20 CV 50 GE Ac TA 66 -0 -0 .0 S 21 NT ti LO 80 6- 8- 00 PH 21 RY ve CO 01 20 20 AR AM 10 09 09 MA LI 5 CY ND HB A R #5 40 43 7 MG TA BL ET 00 07 09 01 28 28 CV 50 CELIO Ac 04 -1 -2 .0 S 21 NE ti 60 6- 4- 00 PH 20 S ve 93 20 20 AR JI 81 09 09 MA LL 8 CY S #5 43 7 CL 00 09 09 00 60 30 CV 50 No Ac ON 09 -1 -2 .0 S 56 t ti AZ 30 4- 4- 00 PH 85 Av ve EP 83 20 20 AR ai AM 30 09 09 MA la 1 1 CY bl e MG #5 43 TA 7 BL ET CI 13 07 09 01 30 20 CV 50 GE Ac TA 66 -0 -1 .0 S 21 NT ti LO 80 6- 0- 00 PH 21 RY ve CO 01 20 20 AR AM 10 09 [...] 6- 7- 00 PH 21 RY ve CO 01 20 20 AR AM 10 09 [...] 9- 6- 00 PH 07 RY ve CO 01 20 20 AR AM 10 09 [...] 5- 8- 00 PH 88 RY ve CO 01 20 20 AR AM 10 09 [...] 43 TA 7 BL ET CL 00 05 05 00 [...] 5- 1- 00 PH 52 RY ve CO 01 20 20 AR AM 10 09 09 MA LI 5 CY ND HB A R #5 40 43 7 MG TA BL ET CL 00 04 05 00 [...] CY e 5 MG TA BL ET RI 50 02 02 00 30 30 DE 63 No Ac SP 45 -0 -1 .0 AN 76 t ti ER 80 3- 2- 00 S 02 Av ve ID 59 20 20 PH 5 ai ON 26 09 09 AR la E 0 MA bl 1 CY e MG TA BL ET 49 01 02 01 30 30 DE 63 No Ac 88 -0 -1 .0 AN 75 t ti 40 6- 2- 00 S 11 Av ve 16 20 20 PH 0 ai 50 09 09 AR la 1 MA bl CY e 49 01 01 00 30 30 DE [...] CY e 5 MG TA BL ET CI 55 04 06 01 15 30 DE 63 No Ac TA 11 -0 -1 .0 AN 65 t ti LO 10 8- 2- 00 S 73 Av ve CO 34 20 20 PH 0 ai AM [...] 8- 2- 00 S 73 Av ve CO 34 20 20 PH 0 ai AM [...] 52 0- 0- 00 89 Av ve CO 52 20 20 AI ai AM 00 [...] #3 92 CA 0 PS UL E CI 60 01 04 00 30 30 RI 59 No Ac TA 50 -1 -0 .0 TE 39 t ti LO 52 0- 7- 00 89 Av ve CO 52 20 20 AI ai AM 00 08 08 D la 1 PH bl HB AR e R M 40 #3 92 MG 0 TA BL ET SE 00 01 04 00 60 30 RI 59 No Ac RO 31 -1 -0 .0 TE 39 t ti QU 00 0- 7- 00 88 Av ve EL 27 20 20 AI ai 51 08 08 D la 25 0 PH bl AR e MG M #3 TA 92 BL 0 ET SE 00 10 03 01 64 [...] 52 5- 5- 00 27 Av ve CO 52 20 20 AI ai AM 00 [...] 7 PHYS YRS/ ICIA > IM NS Procedures Procedure DOS Code Location Performer Comment IV DOP [address]35 [facility] EUGENIA&/OR 7 PHYSICIAN PHYSICIAN PRESS S GROUP S GROUP C/JOSE [place] 1ST [place] [address] [facility] ANJALI TRLUML 7 PHYSICIAN CORONARY S GROUP STENT W/ANGIO ONE ART/BRNCH INJECTION [id number] [facility]AGA HEPARIN 7 [facility] [employer] PER 1000 UNITS ANGIOGRAP [id number] [facility] HY PELVIC 7 PHYSICIAN PHYSICIAN S GROUP S GROUP SLCTV/SUP RASLCTV RS&I CATH PLMT 60498 [facility] L HRT & 7 PHYSICIAN PHYSICIAN ARTS S GROUP S GROUP W/NJX & ANGIO IMG S&I INTRDUCR/ C1766 HIREN MARADIAGA SHEATH 7 [facility] GUID INC INC INTRACARD EP NOT PEEL-AWAY CATHETER C1725 HIREN MARADIAGA TRANSLUMI 7 [facility] NAL INC INC ANGIOPLAS TY NON-LASER GUIDE C1769 HIREN MARADIAGA WIRE 7 [facility] INC INC STENT C1876 HIREN MARADIAGA NON-COATE 7 [facility] D/NON-COV INC INC ERED W/DELIVER Y SYSTEM BASIC 16823 HIREN MARADIAGA METABOLIC 7 [facility] PANEL INC INC CALCIUM TOTAL COAGULATI 12321 HIREN MARADIAGA ON TIME 7 [facility] ACTIVATED INC INC SLCTV 57774 HIREN MARADIAGA CATH 7 [facility] INTRNL INC INC CAROTID ART ANGIO INTRCRNL ART REVSC 27977 [facility] OPN/PRQ 7 PHYSICIAN ILIAC ART S GROUP W/STNT PLMT & ANGIOPLST Y AORTOGRAP 59248 [facility] HY 7 PHYSICIAN ABDOMINAL S GROUP SERIALOGR APHY RS&I LOCM Q9966 HIREN MARADIAGA [phone] [facility] MG/ML INC INC IODINE CONCENTRA TION PER ML LOCM Q9967 HIREN MARADIAGA [phone] 7 [facility] MG/ML INC INC IODINE CONCENTRA TION PER ML INJECTION J0153 HIREN MARADIAGA 7 [facility] ADENOSINE INC INC 1 MG BLOOD 33340 HIREN MARADIAGA COUNT 7 [facility] COMPLETE INC INC AUTO&AUTO DIFRNTL WBC SLCTV 16882 HIREN MARADIAGA CATH 7 [facility] VERTEBRAL INC INC ART ANGIO VERTEBRAL ARTERY SLCTV 93303 [facility] CATHJ EA 7 PHYSICIAN 1ST ORD S GROUP ABDL PEL/LXTR ART BRNCH REVSC 29573 [facility] OPN/PRQ 7 PHYSICIAN FEM/POP S GROUP W/STNT/AN GIOP SM VSL OPEN/PERQ 14793 [facility] 7 PHYSICIAN PLACEMENT S GROUP INTRAVASC ULAR STENT INITIAL CLOSURE C1760 HIREN MARADIAGA DEVICE 7 [facility] VASCULAR INC INC INTRDUCR/ C1894 HIREN MARADIAGA SHEATH 7 [facility] NOT GUID INC INC INTRACARD EP NON-LASR MOD SED 71273 HIREN MARADIAGA SAME 7 [facility] PHYS/QHP INC INC INITIAL 15 MINS <5 YRS O2 CONC 1 E1390 PRIYANKA PRIYANKA DEL PORT 7 HOME HOME 85%/>02 MEDICAL MEDICAL CONC AT EQUIPME EQUIPME PRSC FLW RATE PRTBLE E0431 PRIYANKA PRIYANKA GASEOUS 7 HOME HOME O2 SYS MEDICAL MEDICAL RENT; EQUIPME EQUIPME FLWMTR HUMIDFR&M ASK INJECTION J2785 HIREN MARADIAGA 7 [facility] REGADENOS INC INC ON 0.1 MG DUPLEX 55382 [facility] SCAN 7 MEDICAL EXTRACRAN IMAGING IAL ART ASS COMPL BI STUDY CV STRS 06004 HIREN MARADIAGA TST 7 [facility] XERS&/OR INC INC RX CONT ECG TRCG ONLY TECHNETIU A9502 HIREN Francisco TC-99M 7 [facility] TETROFOSM INC INC IN DX PER STUDY DOSE MYOCARDIA 94050 HIREN MARADIAGA L SPECT 7 [facility] MULTIPLE INC INC STUDIES ECHO 52958 HIREN MARADIAGA TTHRC R-T 7 [facility] 2D INC INC W/WOM-MOD E COMPL SPEC&COLR D CT HEART 93973 HIREN MARADIAGA NO 7 [facility] CONTRAST INC INC QUANT EVAL CORONRY CALCIUM NONEMERG A0120 [facility] LICK[facility] TRNSPRT: 7 [facility] MTN ACT ACT AREA/OTH SYS NONEMERG A0120 [facility] LICKING TRNSPRT: 7 [facility] SYS NONEMERG A0120 [facility] LICK[facility] TRNSPRT: 7 [facility]OTH SYS NATRIURET 41531 HIREN MARADIAGA IC 7 [facility] PEPTIDE INC INC COLLECTIO 04397 HIREN MARADIAGA N VENOUS 7 [facility] BLOOD INC INC VENIPUNCT URE XTRNL ECG 16611 HIREN MARADIAGA & 48 HR 7 [facility] RECORDING INC INC ECG 85072 HIREN MARADIAGA ROUTINE 7 [facility] ECG INC INC W/LEAST 12 LDS TRCG ONLY W/O I&R US SOFT 14329 HIREN MARADIAGA TISSUE 7 [facility] HEAD & INC INC NECK REAL TIME IMGE DOCM BASIC 89600 HIREN MARADIAGA METABOLIC 7 [facility] PANEL INC INC CALCIUM TOTAL COLLECTIO 96111 Ritchie SARGENT N VENOUS 7 AJIT KRUGER BLOOD PSC VENIPUNCT URE NONEMERG A0120 [place] LICK[place] TRNSPRT: 7 [facility] MTN ACT ACT AREA/OTH SYS NONEMERG A0120 [place] LICK[place] TRNSPRT: 7 [facility]/OTH SYS NONEMERG A0120 [place] LICKING TRNSPRT: 7 [facility] AREA/OTH SYS NONEMERG A0120 [place] LICKING TRNSPRT: 7 [facility]/OTH SYS COLLECTIO 98231 HIREN MARADIAGA N VENOUS 7 [facility] [place] [address] HIREN MARADIAGA ABDOMEN & 7 [facility] PELVIS INC INC W/CONTRAS T MATERIAL LOCM Q9967 HIREN MARADIAGA [phone] 7 [facility] MG/ML INC INC IOD[place] [address] HIREN MARADIAGA UREA 7 [facility] NITROGEN INC INC QUANTITAT KAYLAH CREATININ 75620 HIREN BURGESSON E BLOOD 7 [facility] INC INC NONEMERG A0120 [place] LICKING TRNSPRT: 7 [facility] MTN ACT ACT AREA/OTH SYS NONEMERG A0120 LICKING LICKING TRNSPRT: 7 [facility] MTN ACT ACT AREA/OTH SYS NONEMERG A0120 LICKING LICKING TRNSPRT: 7 [facility]/OTH SYS NONEMERG A0120 LICKING LICKING TRNSPRT: 7 [facility]/OTH SYS PRTBLE E0431 PRIYANKA MATHEW GASEOUS 7 HOME HOME O2 SYS MEDICAL MEDICAL RENT; EQUIPME EQUIPME FLWMTR HUMIDFR&M ASK O2 CONC 1 E1390 PRIYANKA MATHEW DEL PORT 7 HOME HOME 85%/>02 MEDICAL MEDICAL CONC AT EQUIPME EQUIPME PRS FLW RATE INJECTION J3420 Ritchie SARGENT VIT B-12 7 AJIT KRUGER PSC CYANOCOBA SHAVON TO 1000 MCG THERAPEUT 19857 Ritchie SARGENT IC 7 AJIT KRUGER PROPHYLAC PSC TIC/DX INJECTION SUBQ/IM NONEMERG A0120 LICKING LICKING TRNSPRT: 7 [facility] MTN ACT ACT AREA/OTH SYS NONEMERG A0120 LICKING LICKING TRNSPRT: 7 [facility] MTN ACT ACT AREA/OTH SYS NONEMERG A0120 LICKING LICKING TRNSPRT: 7 [facility] MTN ACT ACT AREA/OTH SYS THERAPEUT 64054 Ritchie SARGENT IC 7 AJIT KRUGER PROPHYLAC PSC TIC/DX INJECTION SUBQ/IM INJECTION J3420 A Yobany Haywood VIT B-12 7 AJIT FONG MD PSC PSC CYANOCOBA SHAVON TO 1000 MCG RADEX 74871 HIREN MARADIAGA SPINE 7 [facility] LUMBOSACR INC INC AL MINIMUM 4 VIEWS NONEMERG A0120 LICKING LICKING TRNSPRT: 7 [facility]OTH SYS RADEX 30370 [place] [facility] 7 MEDICAL COMPLETE IMAGING MINIMUM 2 ASS VIEWS RADEX HIP 09279 HIREN MARADIAGA 7 [facility] UNILATERA INC INC L WITH PELVIS 2-3 VIEWS O2 CONC 1 E1390 PRIYANKA JEAN PORT 7 HOME HOME 85%/>02 MEDICAL MEDICAL CONC AT EQUIPME EQUIPME [facility] FLW RATE PRTBLE E0431 PRIYANKA MATHEW GASEOUS 7 HOME HOME O2 SYS MEDICAL MEDICAL RENT; EQUIPME EQUIPME FLWMTR HUMIDFR&M ASK ADMN SET A7005 YOUR YOUR W/SM VOL 7 PHARMACY PHARMACY NONFILTR [facility] NEBULIZR NON-DISPB L IPRATROPI J7644 YOUR YOUR UM 7 PHARMACY PHARMACY [employer] LLC INHAL NON-CP U DOSE PER MG O2 CONC 1 E1390 PRIYANKA JEAN PORT 7 HOME HOME 85%/>02 MEDICAL MEDICAL CONC AT EQUIPME EQUIPME PRSC FLW RATE PRTBLE E0431 PRIYANKA PRIYANKA GASEOUS 7 HOME HOME O2 SYS MEDICAL MEDICAL RENT; EQUIPME EQUIPME FLWMTR HUMIDFR&M ASK NONEMERGE A0100 LKLP CAC [facility]TS NCY 7 INC TRANSPORT TRANSPORT REGION 9 ATION CO ATION; L TAXI O2 CONC 1 E1390 PRIYANKA JEAN PORT 7 HOME HOME 85%/>02 MEDICAL MEDICAL CONC AT EQUIPME EQUIPME PRSC FLW RATE PRTBLE E0431 PRIYANKA MATHEW GASEOUS 7 HOME HOME O2 SYS MEDICAL MEDICAL RENT; EQUIPME EQUIPME FLWMTR HUMIDFR&M ASK NONEMERGE A0100 LKLP CAC [place] NCY 7 INC TRANSPORT TRANSPORT REGION 9 ATION CO ATION; L TAXI O2 CONC 1 E1390 PRIYANKA JEAN PORT 7 HOME HOME 85%/>02 MEDICAL MEDICAL CONC AT EQUIPME EQUIPME PRSC FLW RATE PRTBLE E0431 PRIYANKA MATHEW GASEOUS 7 HOME HOME O2 SYS MEDICAL MEDICAL RENT; EQUIPME EQUIPME FLWMTR HUMIDFR&M ASK PRTBLE E0431 PRIYANKA ENGLISHRELL GASEOUS 7 HOME [...] ATION CO ATION; L TAXI US SOFT 12697 RADIOLOGY SARAHI TISSUE 6 HEAD & ASSOCIATE NECK REAL S OF NOTH TIME IMGE DOCM O2 CONC 1 E1390 PRIYANKA MATHEW DEL PORT 6 HOME HOME 85%/>02 MEDICAL MEDICAL CONC AT EQUIPME EQUIPME PRSC FLW RATE PRTBLE E0431 PRIYANKA PRIYANKA GASEOUS 6 HOME HOME O2 SYS MEDICAL MEDICAL RENT; EQUIPME EQUIPME FLWMTR HUMIDFR&M ASK THERAPEUT [address]10 [facility] IC 6 ADA PROPHYLAC TIC/DX PHYSICIAN INJECTION S SUBQ/IM INJECTION J1030 ST [facility] 6 ADA METHYLPRE DNISOLONE PHYSICIAN ACETATE S 40 MG NONEMERGE A0100 LKLP CAC [facility] NCY 6 [facility]; L T[facility] O2 CONC 1 E1390 PRIYANKA PRIYANKA DEL PORT 6 HOME HOME 85%/>02 MEDICAL MEDICAL CONC AT EQUIPME EQUIPME PRS FLW RATE PRTBLE E0431 PRIYANKA PRIYANKA GASEOUS 6 HOME HOME O2 SYS MEDICAL MEDICAL RENT; EQUIPME EQUIPME FLWALR HUMIDFR&M ASK RADIOLOGI 10968 [facility] 6 MEDICAL EXAMINATI IMAGING ON CHEST ASS SINGLE VIEW FRONTAL AMB A0427 REBECCA REBECCA SERVICE 6 CO CO ALS AMBULANCE AMBULANCE EMERGENCY TAXIN TAXIN TRANSPORT LEVEL 1 GROUND A0425 REBECCA REBECCA MILEAGE 6 CO CO PER AMBULANCE AMBULANCE STATUTE TAXIN TAXIN MILE NONEMERGE A0100 LKLP CAC [facility] NCY 6 INC TRANSPORT [facility]; L TAXI NONEMERGE A0100 LKLP CAC [facility] NCY 6 INC TRANSPORT TRANSPORT REGION 9 ATION CO ATION; L TAXI O2 CONC 1 E1390 PRIYANKA MATHEW DEL PORT 6 HOME HOME 85%/>02 MEDICAL MEDICAL CONC AT EQUIPME EQUIPME PRSC FLW RATE PRTBLE E0431 PIRYANKAMANUEL MATHEW GASEOUS 6 HOME HOME O2 SYS MEDICAL MEDICAL RENT; EQUIPME EQUIPME FLWMTR HUMIDFR&M ASK THER 45550 HIREN MARADIAGA PROPH/DX 6 [facility] NJX IV INC INC PUSH SINGLE/1S T SBST/DRUG ECG 58906 HIREN HIREN ROUTINE 6 [facility] ECG INC INC W/LEAST 12 LDS TRCG ONLY W/O I&R RADIOLOGI 82843 [place] [facility] ALL C EXAM 6 MEDICAL CHEST 2 IMAGING VIEWS ASS FRONTAL&L ATERAL COMPREHEN 06226 HIREN BURGESSON SIVE 6 [facility] METABOLIC INC INC PANEL ECG 60941 HIREN COLE JR ROUTINE [address] [facility] W/LEAST P 12 LDS I&R ONLY PRESSURIZ 43709 HIREN MARADIAGA ED/NONPRE 6 [facility] SSURIZED INC INC INHALATIO N TREATMENT GROUND A0425 REBECCA REBECCA MILEAGE 6 CO CO PER AMBULANCE AMBULANCE STATUTE TAXIN TAXIN MILE AMB A0427 RBEECCA REBECCA SERVICE 6 CO CO ALS AMBULANCE AMBULANCE EMERGENCY TAXIN TAXIN TRAN[place]ORT [place] 1 [place] [address] HIREN BURGESSON TROPONIN 6 [facility] QUANTITAT INC INC KAYLAH BLOOD 86447 HIREN MARADIAGA COUNT 6 [facility] COMPLETE INC INC AUTO&AUTO DIFRNTL WBC NONEMERGE A0100 LKLP CAC [facility] NCY 6 [...] REGION 9 ATION CO ATION; L TAXI ADMN SET A7005 YOUR ANDRE W/SM VOL 6 PHARMACY JERRI NONFILTR LLC NEBULIZR NON-DISPB L ALBUTEROL J7620 YOUR ANDRE TO 2.5 6 PHARMACY [facility] IPRATROPI UM BROM TO 0.5 MG PHRM Q0513 YOUR ANDRE DISPENSIN 6 PHARMACY [facility]ERRI [facility] INHALATIO N RX; PER 30 DAYS NONEMERGE A0100 LKLP CAC [facility] NCY 6 INC TRANSPORT TRANSPORT REGION 9 ATION CO ATION; L TAXI O2 CONC 1 E1390 PRIYANKA HWANG DEL PORT 6 HOME MARIANNA 85%/>02 MEDICAL CONC AT EQUIPME PRSC FLW RATE PRTBLE E0431 PRIYANKA HWANG GASEOUS 6 HOME MARIANNA O2 SYS MEDICAL [...] L TAXI O2 CONC 1 E1390 PRIYANKA PRIYANKA DEL PORT 6 HOME HOME 85%/>02 MEDICAL MEDICAL CONC AT EQUIPME EQUIPME PRSC FLW RATE PRTBLE E0431 PRIYANKA PRIYANKA GASEOUS 6 HOME HOME O2 SYS MEDICAL MEDICAL RENT; EQUIPME EQUIPME FLWMTR HUMIDFR&M ASK NONEMERGE A0100 LKLP CAC DORINANETTS NCY 6 INC TRANSPORT TRANSPORT REGION 9 [...] CO ATION; L TAXI NEBULIZER E0570 PRIYANKA MATHEW WITH 6 HOME HOME COMPRESSO MEDICAL MEDICAL R EQUIPME EQUIPME O2 CONC 1 E1390 PRIYANKA MATHEW DEL [...] FLW RATE O2 CONC 1 E1390 PRIYANKA MATHEW DEL [...] PRSC FLW RATE NONEMERGE A0100 [facility] INC TRANSPORT TRANSPORT REGION 9 ATION CO ATION; L TAXI ADMN SET A7005 YOUR YOUR W/SM VOL 6 PHARMACY PHARMACY NONFILTR LLC LLC NEBULIZR NON-DISPB L PHRM Q0513 YOUR YOUR DISPENSIN 6 PHARMACY PHARMACY [facility] LLC INHALATIO N RX; PER 30 DAYS PRTBLE E0431 PRIYANKA PRIYANKA GASEOUS 6 HOME HOME O2 SYS MEDICAL MEDICAL RENT; EQUIPME EQUIPME FLWMTR HUMIDFR&M ASK O2 CONC 1 E1390 PRIYANKAMANUEL MATHEW DEL PORT 6 HOME HOME 85%/>02 MEDICAL MEDICAL CONC AT EQUIPME EQUIPME PRSC FLW RATE NONEMERGE A0100 LKLP UMM CHANEL PRY 5 INC TRANSPORT TRANSPORT REGION 9 ATION CO ATION; L TAXI O2 CONC 1 E1390 PRIYANKA PRIYANKA DEL PORT 5 HOME HOME 85%/>02 MEDICAL MEDICAL CONC AT EQUIPME EQUIPME PRSC FLW RATE PRTBLE E0431 PRIYANKA PRIYANKA GASEOUS 5 HOME HOME O2 SYS MEDICAL MEDICAL RENT; EQUIPME EQUIPME FLWMTR HUMIDFR&M ASK PHRM Q0513 YOUR YOUR DISPENSIN 5 PHARMACY PHARMACY [facility] LLC INHALATIO N RX; PER 30 DAYS ALBUTEROL J7613 YOUR YOUR INHAL 5 PHARMACY PHARMACY NON-CP LLC LLC PROD THRU DME U DOSE 1 MG IPRATROPI J7644 YOUR YOUR UM 5 PHARMACY PHARMACY [facility] INHAL NON-CP U DOSE PER MG O2 CONC 1 E1390 PRIYANKA PRIYANKA DEL PORT 5 HOME HOME 85%/>02 MEDICAL MEDICAL CONC AT EQUIPME EQUIPME PRSC FLW RATE PRTBLE E0431 PRIYANKA PRIYANKA GASEOUS 5 HOME HOME O2 SYS MEDICAL MEDICAL RENT; EQUIPME EQUIPME FLWMTR HUMIDFR&M ASK PHRM Q0513 YOUR YOUR DISPENSIN 5 PHARMACY PHARMACY [facility] LLC INHALATIO N RX; PER 30 DAYS ALBUTEROL J7613 YOUR YOUR INHAL 5 PHARMACY PHARMACY NON-CP LLC LLC PROD THRU DME U DOSE 1 MG IPRATROPI J7644 YOUR YOUR UM 5 PHARMACY PHARMACY [facility] INHAL NON-CP U DOSE PER MG IPRATROPI J7644 YOUR YOUR UM 5 PHARMACY PHARMACY [facility] INHAL NON-CP U DOSE PER MG NONEMERGE A0100 LKLP CAC BENNETTS PRY 5 INC TRANSPORT TRANSPORT REGION 9 ATION CO ATION; L TAXI ALBUTEROL J7613 YOUR YOUR INHAL 5 PHARMACY PHARMACY NON-CP LLC LLC PROD THRU DME U DOSE 1 MG PHRM Q0513 YOUR YOUR DISPENSIN 5 PHARMACY PHARMACY [facility] INHALATIO N RX; PER 30 DAYS NONEMERGE A0100 LKLP CAC [employer] PRY 5 INC TRANSPORT TRANSPORT REGION 9 ATION CO ATION; L TAXI IPRATROPI J7644 YOUR YOUR UM 5 PHARMACY PHARMACY [facility] INHAL NON-CP U DOSE PER MG ALBUTEROL J7613 YOUR YOUR INHAL 5 PHARMACY PHARMACY NON-CP LLC LLC PROD THRU DME U DOSE 1 MG PHRM Q0513 YOUR YOUR DISPENSIN 5 PHARMACY PHARMACY [facility] INHALATIO N RX; PER 30 DAYS NONEMERGE A0100 LKLP CAC [employer] PRY 5 INC TRANSPORT TRANSPORT REGION 9 ATION CO ATION; L TAXI O2 CONC 1 E1390 PRIYANKA MATHEW DEL PORT 5 HOME HOME 85%/>02 MEDICAL MEDICAL CONC AT EQUIPME EQUIPME PRSC FLW RATE PRTBLE E0431 PRIYANKA PRIYANKA GASEOUS 5 HOME HOME O2 SYS MEDICAL MEDICAL RENT; EQUIPME EQUIPME FLWMTR HUMIDFR&M ASK NONEMERGE A0100 LKLP CAC [employer] PRY 5 INC TRANSPORT TRANSPORT REGION 9 ATION CO ATION; L TAXI IPRATROPI J7644 YOUR YOUR UM 5 PHARMACY PHARMACY [facility] INHAL NON-CP U DOSE PER MG PHARM G0333 YOUR YOUR DISPEN 5 PHARMACY PHARMACY [facility]EE [facility] LLC LLC RX; INITIAL 30-DAY SUPPLY ALBUTEROL J7613 YOUR YOUR INHAL 5 PHARMACY PHARMACY NON- [employer] PROD THRU DME U DOSE [address] MARIE VACCINE 7 5 ADA JOLIE YRS/> IM PHYSICIAN S NONEMERGE A0100 LKLP CAC [facility] NCY 5 INC TRANSPORT TRANSPORT REGION 9 ATION CO ATION; L TAXI NONEMERGE A0100 LKLP CAC [facility] NCY 5 INC TRANSPORT TRANSPORT REGION 9 ATION CO ATION; L TAXI NONEMERGE A0100 LKLP CAC [facility] NCY 4 INC TRANSPORT TRANSPORT REGION 9 ATION CO ATION; L TAXI ECG 48496 CYNTHIA CYNTHIA ROUTINE 3 JOLIE JOLIE ECG W/LEAST 12 LDS [facility] 02225 [facility] DISCHARGE 3 HERNESTO HERNESTO DAY MANAGEMEN T 30 MIN/< SBSQ 15738 [facility] 3 HERNESTO HERNESTO CARE/DAY 25 MINUTES RADIOLOGI 18517 DOERGER DOERGER C EXAM 3 KIR KIR CHEST 2 VIEWS FRONTAL&L ATERAL AMB A0427 REBECCA REBECCA SERVICE 3 CO CO ALS AMBULANCE AMBULANCE EMERGENCY TAXIN TAXIN TRANSPORT LEVEL 1 INITIAL 82724 [facility] 3 HERNESTO HERNESTO CARE/DAY 50 MINUTES GROUND A0425 REBECCA REBECCA MILEAGE 3 CO CO PER AMBULANCE AMBULANCE STATUTE TAXIN TAXIN MILE SEAT E0156 [facility] ATTACHMEN 3 SERVICES SERVICES Backpack WALKER [employer] WALKER E0143 [facility] FOLDING 3 SERVICES SERVICES WHEELED INC INC ADJUSTABL E/FIXED HEIGHT AMB A0426 [facility] 3 [facility] TRANSPORT LEVEL 1 [facility] A0398 RURAL RURAL ROUTINE 3 MET[place] OF [facility] OF [facility] 58452 LAIB EMANI LAIB EMANI DISCHARGE 3 DAY MANAGEMEN T > 30 MIN [address] 3 GAGE GAGE & NJX CORONARY ART ANGIO IMG S&I ENDOLUMIN [address] 3 GAGE ALMONTE CORONARY IVUS OCT I&R INITIAL VESSEL GROUND A0425 RURAL RURAL MILEAGE 3 [facility] MI[facility] CATH [facility]MT 96135 MARIA DEL CARMEN MARIA DEL CARMEN L HRT & 3 SHELBY SHELBY ARTS W/NJX & ANGIO IMG S&I CV STRS 37193 MARIA DEL CARMEN SANCHEZULIHAN TST 3 SHELBY SHELBY XERS&/OR RX CONT ECG W/O I&R CV STRS 61384 MARIA DEL CARMEN JOYCE TST 3 SHELBY SHELBY XERS&/OR RX CONT ECG I&R ONLY SBSQ 82536 [facility] 3 CARE/DAY 25 MINUTES MYOCARDIA 84740 PRICILA Garcia SPECT 3 DAYANA DAYANA MULTIPLE STUDIES INITIAL 21401 MARIA DEL CARMEN MARIA DEL CARMEN INPATIENT 3 SHELBY SHELBY CONSULT NEW/ESTAB PT 80 MIN SBSQ 35930 [facility] 3 CARE/DAY 25 MINUTES INITIAL 70243 [facility] 3 CARE/DAY 70 MINUTES ECG 60182 YAP NIV YAP NIV ROUTINE 3 ECG W/LEAST 12 LDS I&R ONLY ECG 29213 YAP NIV YAP NIV ROUTINE 3 ECG W/LEAST 12 LDS I&R ONLY RADIOLOGI 85550 HURST JERRI HURST JERRI C 3 EXAMINATI ON CHEST SINGLE VIEW FRONTAL INJ J0702 CYNTHIA CYNTHIA BETAMETHA 2 JOLIE JOLIE SONE ACETATE & PHOSPHATE 3 MG THERAPEUT 71158 CYNTHIA CYNTHIA IC 2 JOLIE JOLEI PROPHYLAC TIC/DX INJECTION SUBQ/IM RADEX 94496 MACHO MACHO SPINE 2 LORETTA LORETTA LUMBOSACR AL MINIMUM 4 VIEWS URNLS DIP 49965 HIREN MARADIAGA 2 [facility] STICK/TAB INC INC LET REAGENT AUTO MICROSCOP Y GROUND A0425 REBECCA REBECCA MILEAGE 2 CO CO PER AMBULANCE AMBULANCE STATUTE TAXIN TAXIN MILE AMBULANCE A0429 REBECCA REBECCA SERVICE 2 CO CO BLS AMBULANCE AMBULANCE EMERGENCY TAXIN TAXIN TRANSPORT URNLS DIP 07460 HIREN MARADIAGA 2 [facility] STICK/TAB INC INC LET REAGENT AUTO MICROSCOP Y EGD 49178 HIREN MARADIAGA TRANSORAL 2 [facility] BIOPSY INC INC SINGLE/[place] [address] HIREN MARADIAGA INFUSION 2 [facility] THERAPY/P INC INC ROPHYLAXI S /DX 1ST TO 1 [place] [address] HIREN MARADIAGA INFUSION 2 [facility] THERAPY INC INC PROPHYLAX IS/DX EA HOUR ANES 49280 [facility] 2 ANESTH SONALI INTESTINE OF THE BLUE ENDOSCOPY DISTAL DUODENUM COLONOSCO 87301 MARSH ZAID MARSH ZAID PY 2 W/BIOPSY SINGLE/MU LTIPLE RENAL 97214 HIREN MARADIAGA FUNCTION 2 [facility] PANEL INC INC LIPID 96863 HIREN MARADIAGA PANEL 2 [facility] INC INC BLOOD 36849 HIRNE MARADIAGA COUNT 2 [facility] COMPLETE INC INC AUTO&AUTO DIFRNTL WBC COMPREHEN 31024 HIREN MARADIAGA SIVE 2 [facility] METABOLIC INC INC PANEL HEPATOBIL 31406 HIREN MARADIAGA SYST 2 [facility] IMAG INC INC INC GB W/[place] [address] HIREN MARADIAGA LIPASE 2 [facility] INC INC TECHNETIU A9537 HIREN MARADIAGA M TC-99M 2 [facility] MEBROFENI INC INC N DX UP TO 15 MCI RADIOLOGI 57816 SOLITARIO JEREZ C 2 DON DON EXAMINATI ON CHEST SINGLE VIEW FRONTAL ECG 35055 SOLITARIO JEREZ ROUTINE 2 DON DON ECG W/LEAST 12 LDS W/I&R BASIC 92777 HIREN MARADIAGA METABOLIC 2 [facility] PANEL INC INC CALCIUM TOTAL COMPUTER- 43256 HIREN MARADIAGA AIDED 2 [facility] DETECTION INC INC SCREENING MAMMOGRAP HY CYTP C/V 80209 [facility] AUTO THIN 2 DIAGNOSTI DIAGNOSTI LYR CS CS PREPJ SCR MNL RESCR PHYS SCREENING G0202 HIREN MARADIAGA 2 [facility] MAMMOGRAP INC INC HY STEPHANIE INCL CAD WHEN PERFORMD BLOOD 01135 JEREZ JEREZ OCCULT 2 DON DON PEROXIDAS E ACTV QUAL FECES 1 [place] [address] HIREN MARADIAGA TROPONIN 2 [facility] QUANTITAT INC INC KAYLAH BLOOD 71025 HIREN MARADIAGA COUNT 2 [facility] COMPLETE INC INC AUTO&AUTO DIFRNTL WBC AMBULANCE A0429 REBECCA REBECCA SERVICE 2 CO CO BLS AMBULANCE AMBULANCE EMERGENCY TAXIN TAXIN TRANSPORT GROUND A0425 REBECCA REBECCA MILEAGE 2 CO CO PER AMBULANCE AMBULANCE STATUTE TAXIN TAXIN MILE COMPREHEN 78429 HIREN MARADIAGA SIVE 2 [facility] [place] [address] MACHO MACHO ABDOMEN & 2 [place] PELVIS W/CONTRAS T MATERIAL THERAPEUT 89011 HIREN MARADIAGA IC 2 [facility] INJECTION INC [place] [address] HIREN MARADIAGA INFUSION 2 [facility] THERAPY/P INC INC ROPHYLAXI S /DX 1ST TO 1 HR ECG 87995 HIREN MARADIAGA ROUTINE 2 [facility] W/LEAST P P 12 LDS I&R ONLY 3D 01842 HIREN MARADIAGA RENDERING 2 [facility] INC INC W/INTERP& POSTPROC DIFF WORK STATION ECG 63115 HIREN MARADIAGA ROUTINE 2 [facility] ECG INC INC W/LEAST 12 LDS TRCG ONLY W/O I&[place] [address] HIREN MARADIAGA INFUSION 2 [facility] HYDRATION INC INC EACH ADDITIONA L HOUR INJECTION J2405 HIREN MARADIAGA 2 [facility] ONDANSETR INC INC ON HCL PER 1 [place] [address] HIREN MARADIAGA AMYLASE 2 [facility] INC INC CREATINE 28260 HIREN MARADIAGA KINASE MB 2 [facility] FRACTION INC INC ONLY INJECTION J0595 HIREN HIREN 2 [facility] BUTORPHAN INC INC OL TARTRATE 1 MG CREATINE 47278 HIREN HIREN KINASE 2 [facility] [place] [address] HIREN MARADIAGA LIPASE 2 [facility] INC INC SLINGS A4565 JAZ L.P. JAZ L.P. 2 RADEX 14174 MACHO MACHO SHOULDER 2 [place] COMPLETE MINIMUM 2 VIEWS RADEX 25817 MACHO MACHO HUMERUS 2 [place] MINIMUM 2 [place] [address] [facility] MACHO ABDOMINAL 2 [facility] [place] REAL IMAGING TIME ASS W/IMAGE LIMITED RADIOLOGI 00163 JEREZ JEREZ C 2 DON DON EXAMINATI ON CHEST SINGLE VIEW FRONTAL CREATINE 32476 HIREN MARADIAGA KINASE 1 [facility] TOTAL INC INC ECG 52005 HIREN MARADIAGA ROUTINE 1 [facility] ECG INC INC W/LEAST 12 LDS TRCG ONLY W/O I&R CREATINE 04035 HIREN MARADIAGA KINASE MB 1 [facility] FRACTION INC INC ONLY CULTURE 28984 HIREN MARADIAGA BACTERIAL 1 [facility] INC INC QUANTTATI VE COLONY COUNT URINE BLOOD 57858 HIREN MARADIAGA COUNT 1 [facility] COMPLETE INC INC AUTO&[place] [address] HIREN MARADIAGA TROPONIN 1 [facility] QUANTITAT INC INC KAYLAH URNLS DIP 53994 HIREN BURGESSON 1 [facility] STICK/TAB INC INC LET REAGENT AUTO MICROSCOP Y RADIOLOGI 03414 HUSSEIN VALENTINEUTCHER C EXAM 1 [facility] [place] CHEST 2 IMAGING VIEWS ASS FRONTAL&L ATERAL COMPREHEN 47753 HIREN MARADIAGA SIVE 1 [facility] METABOLIC INC INC PANEL ECG 62812 HIREN PARKER ROUTINE 1 [facility] W/LEAST P 12 LDS I&R ONLY COLLECTIO 77884 DAWOODWFAITH SEAYWFAITH N VENOUS 1 W W BLOOD [facility] VENIPUNCT MEDICAL MEDICAL URE LIPID 01452 DAWOODWFAITH MEADOWVIE PANEL 1 W W [facility] RENAL 58263 MEADOWVIE MEADOWVIE FUNCTION 1 W W [facility] RENAL 23325 HIREN MARADIAGA FUNCTION 0 [facility] PANEL INC INC RENAL 92119 MEADOWVIE MEADOWVIE FUNCTION 0 W W PANEL [facility] COLLECTIO 40089 JUS SEAYWVIE N VENOUS 0 W W BLOOD [facility] VENIPCAPE [facility] C[facility] CYTP C/V [address] AUTO THIN 9 ADA ADA LYR PREPJ SCR MEDICALCE MEDICALCE MNL NTER NTER RESCR PHYS CYTP C/V [address] AUTO THIN 9 ADA ADA LYR PREPJ SCR MEDICALCE MEDICALCE M[place] [address] PROGESTER 9 ADA ADA [place] [address] THYROID 9 ADA ADA STIMULATI NG MEDICALCE MEDICALCE HORMONE NTER NTER TSH COLLECTIO [address] [facility], N VENOUS 9 [facility] BLOOD MED CTR VENIPUNCT URE GONADOTRO [address] PIN 9 ADA ADA LUTEINIZI NG MEDICALCE MEDICALCE HORMONE NTER NTER BILIRUBIN [address] DIRECT 9 ADA [place] [address] PHOSPHORU 9 ADA ADA S INORGANIC MEDICALCE MEDICALCE NTER NTER IADNA [address] PAPILLOMA 9 [facility] VIR[facility] HUMAN MEDICALCE MEDICALCE [place] [address] ESTRADIOL 9 ADA AAD MEDICALCE MEDICALCE NTER NTER GONADOTRO [address] PIN 9 ADA ADA FOLLICLE STIMULATI MEDICALCE MEDICALCE NG NTER NTER HORMONE COMPREHEN [address] SIVE 9 [facility] METABOLIC PANEL MEDICALCE MEDICALCE NTER NTER DEHYDROEP [address] IANDROSTE 9 [facility] RONA-SULF ATE [place] [address] TESTOSTER 9 [facility] ONE TOTAL MEDICALCE MEDICALCE NTER NTER BLOOD [address] COUNT [facility] AUT[facility]&AUTO MEDICALCE MEDICALCE DIFRNTL NTER NTER WBC SBSQ [address]/DAY [place] [facility] M 25 INC MINUTES SBSQ [address]/DAY [place] 25 INC MINUTES SBSQ [address]/[facility] 25 INC MINUTES RADIOLOGI 76099 Yobany WORRELL 8 NAL LUBNA PAULINOINATI RADIOLOGY C ON CHEST INC. SINGLE VIEW FRONTAL SBSQ [address]/DAY PULMONARY 35 MINUTES ASSOCIATE S, INC. RADIOLOGI 13039 Yobany SAMANIEGO 8 NAL KELY Up EXAMINATI RADIOLOGY ON CHEST INC. [place] FRONTAL CRITICAL [address] ILL/INJUR PULMONARY ED PATIENT ASSOCIATE INIT S, INC. 30-74 MIN CRITICAL 21625 [facility] ILL/INJUR PULMONARY ED PATIENT ASSOCIATE INIT S, INC. 30-74 MIN RADIOLOGI 86395 Yobany BLUM 8 NAL ADA EXAMINATI RADIOLOGY A ON CHEST INC. SING[place] FRONTAL DOP 50996 [facility] [place] [facility] MCKENZIE 8 HEART & [facility] PULSE VASCULAR WAVE CENTER W/SPECTRA INC L F-UP/LMTD STD ECHO 88972 [facility] [place] JONAH TRANSTHOR 8 HEART & JAYRO AC R-T 2D VASCULAR W/WO CENTER M-MODE INC REC COMP DOP 88063 [facility] [place] [facility] ECHOCARD 8 HEART & [facility] COLOR VASCULAR FLOW [place] [facility] MAPPING RADIOLOGI 13417 Yobany GUILLEN JR 8 [place] COSME EXAMINATI RADIOLOGY ON CHEST INC. SINGLE VIEW FRONTAL GONADOTRO 13950 [facility] PIN 8 [facility] [place] [address] [facility] MAGNESIUM 8 [facility] GONADOTRO 71798 [facility] PIN 8 [facility] LUTEINIZI NG HORMONE BASIC 04733 [facility] METABOLIC 8 [facility] PANEL CALCIUM TOTAL COLLECTIO 31419 [facility], [facility]ENOUS 8 [facility] VENIPFORMERLY [facility] [place] [address] [facility] THYROID 8 [facility] STIMULATI NG HORMONE TSH SEDIMENTA 52383 [facility] TION RATE 8 [facility] RBC AUTOMATED BLOOD 15077 [facility] COUNT 8 [facility] COMPLETE AUTO&AUTO DIFRNTL WBC Encounters Encounter Start End Date Code Location Performer Type Date [facility] - 7 7 [facility] OUTPATIEN [facility] T OFFICE 23381 [facility] ANJALI OUTPATIEN 7 7 PHYSICIAN T VISIT S GROUP 40 MINUTES HOSPITAL HIREN - 7 7 [facility] T OFFICE 14780 [facility] RAMÍREZ OUTPATIEN 7 7 PHYSICIAN T VISIT S GROUP 15 MINUTES HOSPITAL HIREN - 7 7 [facility] T OFFICE 76534 [facility] SRIVASTAV OUTPATIEN 7 7 PHYSICIAN A T NEW 60 S GROUP MINUTES OFFICE 39064 A Yobany SARGENT OUTPATIEN 7 7 AJIT KRUGER T VISIT PSC 15 MINUTES OFFICE 94199 [facility] RAMÍREZ OUTPATIEN 7 7 PHYSICIAN T NEW 10 S GROUP MINUTES OFFICE 44494 [facility] MEÑO JR OUTPATIEN 7 7 PHYSICIAN T NEW 20 S GROUP MINUTES HOSPITAL HIREN - 7 7 [facility] OUTPATIEN INC T OFFICE 75968 A Yobany SAGRENT OUTPATIEN 7 7 AJIT KRUGER T VISIT PSC 15 MINUTES OFFICE 21034 A Yobany SARGENT OUTPATIEN 7 7 AJIT KRUGER T VISIT PSC 15 MINUTES HOSPITAL HIREN - 7 7 [facility] OUTPATIEN INC T OFFICE 25664 A Yobany SARGENT OUTPATIEN 7 7 AJIT KRUGER T NEW 30 PSC MINUTES OFFICE 62321 [facility] OUTPATIEN 6 6 ADA T VISIT 15 PHYSICIAN MINUTES S [facility] - 6 6 [facility] OUTPATIEN INC T EMERGENCY 96397 HIREN 6 6 [facility] DEPARTMEN INC T VISIT MODERATE SEVERITY OFFICE 92908 SU HEL SU HEL OUTPATIEN 3 3 T VISIT 15 MINUTES EMERGENCY 95766 SANDHYA ARTHUR DEPT 3 3 MARIVEL MARIVEL VISIT HIGH SEVERITY& THREAT FUNCJ EMERGENCY 86040 CARLOS HEREDIA DEPT 3 3 VISIT HIGH SEVERITY& THREAT FUNCJ OFFICE 62560 CYNTHIA MARIE OUTPATIEN 2 2 JOLIE JOLIE T VISIT 15 MINUTES OFFICE 27513 [facility] KELLERHENS OUTPATIEN 2 2 DON DON T VISIT 15 MINUTES EMERGENCY 16960 ANAHI CHRISTIAN 2 2 III SUZAN III SUZAN DEPARTMEN T VISIT HIGH/URGE NT SEVERITY [facility]OSPITAL [facility] - 2 2 [facility] 98402 HIREN [address] [facility] VISIT LOW/MODER SEVERITY OFFICE 03833 MARSH ZAID MARSH ZAID OUTPATIEN 2 2 T VISIT 15 MINUTES HOSPITAL HIREN - 2 2 [facility] HIREN - 2 2 [facility] HIREN - 2 2 [facility] OFFICE 41598 JEREZ JEREZ OUTPATIEN 2 2 DON DON T VISIT 15 MINUTES HOSPITAL HIREN - 2 2 [facility] OFFICE 31458 MARSH ZAID MARSH ZAID CONSULTAT 2 2 ION NEW/ESTAB PATIENT 80 MIN OFFICE 02401 JEREZ JEREZ OUTPATIEN 2 2 DON DON T VISIT 15 MINUTES OFFICE 65272 JEREZ JEREZ OUTPATIEN 2 2 DON DON T VISIT 25 MINUTES HOSPITAL HIREN - 2 2 [facility] HIREN - 2 2 [facility] PERIODIC 44483 JEREZ PREVENTIV 2 2 DON E MED EST PATIENT 40-64YRS OFFICE 29978 JEREZ JEREZ OUTPATIEN 2 2 DON DON T VISIT 15 MINUTES EMERGENCY 01097 HIREN [address] [facility] VISIT HIGH/URGE NT SEVERITY HOSPITAL HIREN - 2 2 [facility] 36775 GINA MCKENZIE DEPT 2 2 EMERGENCY JOLIE VISIT SERVICES HIGH SEVERITY& THREAT FUN EMERGENCY 48023 HEART EMMANUEL HEART EMMANUEL 2 2 DEPARTMEN T VISIT MODERATE SEVERITY EMERGENCY 72659 HIREN CULP CO 2 2 [facility] T VISIT LOW/MODER [facility]VERITY HOSPITAL HIREN - 2 2 [facility] 2 2 [facility] OFF[facility] 97401 SOLITARIO JEREZ OUTPATIEN 2 2 DON DON T VISIT 15 MINUTES OFFICE 25099 SOLITARIO JEREZ OUTPATIEN 2 2 DON DON T VISIT 25 MINUTES HOSPITAL HIREN - 1 1 [facility] 17397 HIREN [address] [facility] VISIT MODERATE SEVERITY EMERGENCY 82023 GINA CHRISTIAN DEPT 1 1 EMERGENCY III SUZAN VISIT SERVICES HIGH SEVERITY& THREAT [facility] JUS - 1 1 [facility] HIREN [facility] 0 0 [facility] GIRMAVIE - 0 0 W [facility] ST - 9 9 [facility] [address] [facility] [place] OUTPATIEN 9 9 ADASAMI MARTINEZ T VISIT MED CTR [address]ES [address] [facility] OUTPATIEN 9 9 ADASAMI MARTINEZ T [facility]ISIT [facility] [address]ES [address] [facility] OUTPATIEN 9 9 ADA MICHELLE T VISIT MED [facility] [address] [facility] PREVENTIV 9 9 ADASAMI MARTINEZ E MED CTR MEDICINE NEW PATIENT 40-64YRS [facility] - 9 9 [facility] NTER OFF[facility] 39455 [facility] 8 8 [place] Saeed VISIT FAMILY 25 CARE, MINUTES INC.
--- OUTSIDE RECORDS SUMMARY | 2017-09-13 12:41 | External Medical Summary Rpt | CCD ---
Author Author , ERNA Goldsmith ERNA Address Unknown Phone [email or web address] Care Team Providers Care Board Of Education Secretary Name Role Phone A Yobany FONG MD [...] [facility] OF Unavailable Unavailable [facility] Unavailable Unavailable INC, [facility] Unavailable Unavailable INC, [facility] KELY CASPER, Unavailable Unavailable KELY CASPER GAGE, Unavailable Unavailable COURTADE GAGE COURTADE GAGE, Unavailable Unavailable COURTADE GAGE SARAHI, SARAHI Unavailable Unavailable MACHO, MACHO Unavailable Unavailable MACHO LORETTA, Unavailable Unavailable MACHO LORETTA MACHO LORETTA, Unavailable Unavailable MACHO LORETTA [facility] # [id number], Unavailable Unavailable [facility] # [id number] [id number], Unavailable Unavailable [id number]OHANN Unavailable Unavailable 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 [...] Unavailable Unavailable INC, [facility] Unavailable Unavailable HOSPITAL P, [facility] HOSPITAL P [facility], Unavailable Unavailable [facility] MARIA DEL CARMEN SHELBY, Unavailable Unavailable MARIA DEL CARMEN SHELBY HURST JERRI, HURST JERRI Unavailable Unavailable JARKANI HERNESTO, JARKANI Unavailable Unavailable HERNESTO JARKANI HERNESTO, JARKANI Unavailable Unavailable HERNESTO LOERA, MICHELLE, LOERA, Unavailable Unavailable MICHELLE TABBY, YVONNE, Unavailable Unavailable TABBY, YVONNE [facility] Un[facility] Un[facility] YAP NIV, YAP NIV Unavailable Unavailable KUPER LENA, KUPER LENA Unavailable Unavailable KUPER LENA, KUPER LENA Unavailable Unavailable KUSHMAN MARIVEL, KUSHMAN Unavailable Unavailable MARIVEL KUSHMAN MARIVEL, KUSHMAN Unavailable Unavailable MARIVEL [facility], Unavailable Unavailable [facility] LAIB EMANI, LAIB EMANI Unavailable Unavailable LAIB EMANI, LAIB EMANI Unavailable Unavailable RAMÍREZ, RAMÍREZ Unavailable Unavailable DOUGLAS JR DWI, DOUGLAS Unavailable Unavailable JR DWI [facility] Un[facility], [facility] Unavailable Unavailable 9, [facility] 9 [facility] Unavailable Unavailable SERVICES, [facility] JONAH, JAYRO, Unavailable Unavailable JONAH, JAYRO [facility] Unavailable Unavailable MEDICAL, [facility] Unavailable [facility], [facility] DAYANA, MCNULTY Unavailable Unavailable DAYANA [facility] [...] SCHWARTZ JR [facility] Unavailable Unavailable [facility] Un[facility], [facility] CYNTHIA JOLIE, CYNTHIA Unavailable Unavailable JOLIE [...] Problems Code Diagnosis DOS Provider Status [id number] [facility] 07-05-2017 [facility] CORONARY PHYSICIANS ARTERY W/O GROUP ANGINA PECTORIS [id number] [facility] [place] 07-05-2017 [facility]REY [facility] W/UNS INC ANGINA PECTORIS I6502 OCCLUSION 07-05-2017 [facility] STENOSIS OF INC LEFT VERTEBRAL ARTERY I6521 OCCLUSION 07-05-2017 [facility] STENOS[facility] OF INC RIGHT CAROTID ARTERY I6529 OCCLUSION & 07-05-2017 [facility] STENOSIS PHYSICIANS UNSPECIFIED GROUP CAROTID ARTERY I700 ATHEROSCLER 07-05-2017 [facility] OSIS OF [facility] AORTA INC Q38488 ATHEROSCLER 07-05-2017 [facility] [place] ART [facility] EXT INC INTERMIT ABDOUL BILAT R0989 OT SPEC SX 07-05-2017 [facility] & SIGNS PHYSICIANS INVLV THE GROUP CIRC & RESP SYS R9439 ABNORMAL 07-05-2017 [facility] RESULT OT PHYSICIANS CARDIOVASCU GROUP LR FUNCTION STUDY Z720 TOBACCO USE 07-05-2017 [facility] INC 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 EQUIPME E785 HYPERLIPIDE 06-29-2017 [facility] ELIER PHYSICIANS UNSPECIFIED GROUP G4733 OBSTRUCTIVE 06-29-2017 [facility] SLEEP PHYSICIANS APNEA ADULT GROUP PEDIATRIC I10 ESSENTIAL 06-29-2017 [facility] PRIMARY PHYSICIANS HYPERTENSIO GROUP N I208 OTHER FORMS 06-29-2017 [facility] OF ANGINA PHYSICIANS PECTORIS GROUP I209 ANGINA 06-29-2017 [facility] PECTORIS PHYSICIANS UNSPECIFIED GROUP I6523 OCCLUSION & 06-29-2017 [facility] STENOSIS [facility] BILATERAL INC CAROTID ARTERIES R002 PALPITATION 06-29-2017 [facility] S [facility] INC S18461 ENCOUNTER 06-29-2017 [facility] FOR OTHER [facility] PREPROCEDUR INC AL EXAMINATION R69 ILLNESS 06-26-2017 [facility]PECIFIED [facility] 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 E069 THYROIDITIS 06-15-2017 [facility] PHYSICIANS UNSPECIFIED GROUP R221 LOCALIZED 06-12-2017 [place] [facility]AGING ASS LUMP NECK R609 EDEMA 06-12-2017 [facility] UNSPECIFIED PHYSICIANS GROUP L089 LOCAL INF 06-02-2017 A Yobany FONG [facility] SUBCUTANEOU S TISSUE UNS U29660 OTHER 06-02-2017 A Yobany FONG MUSCLE [facility] SPASM D649 ANEMIA 06-01-2017 [facility] UNSPECIFIED PHYSICIANS GROUP R1310 DYSPHAGIA 06-01-2017 [facility] UNSPECIFIED PHYSICIANS GROUP K439 VENTRAL 05-22-2017 [facility] HERNIA PHYSICIANS WITHOUT GROUP OBSTRUCTION OR GANGRENE K429 UMBILICAL 05-19-2017 [place] HERNIA MEDICAL WITHOUT IMAGING ASS OBSTRUCTION OR GANGRENE K469 UNS 05-19-2017 [facility] ABDOMINAL [facility] HERNIA W/O INC OBSTRUCTION OR GANGRENE K6389 OTHER 05-19-2017 [place] SPECIFIED MEDICAL DISEASES OF IMAGING ASS INTESTINE E538 DEFICIENCY 04-27-2017 A Yobany FONG OF [facility]I [facility] SPECIFIED B GROUP VITAMINS K279 PEPTIC ULCR 04-27-2017 A Yobany FONG SITE UNS [facility] UNS AC/CHRN W/O HEM/PERF B370 CANDIDAL 04-13-2017 A Yobany FONG STOMATITIS [facility] J029 ACUTE 04-13-2017 A Yobany FONG PHARYNGITIS [facility] UNSPECIFIED M545 LOW BACK 04-13-2017 A Yobany FONG PAIN [facility] M1612 UNILATERAL 03-31-2017 [place] PRIMARY MEDICAL OSTEOARTHRI IMAGING ASS TIS LEFT HIP B22289 PRIMARY 03-31-2017 [place] OSTEOARTHRI MEDICAL TIS RIGHT IMAGING ASS SHOULDER E89183 PAIN IN 03-31-2017 [place] RIGHT MEDICAL SHOULDER IMAGING ASS R06182 PAIN IN 03-31-2017 [place] LEFT MEDICAL SHOULDER IMAGING ASS D50139 PAIN IN 03-31-2017 [facility] RIGHT HIP [facility] INC N59863 PAIN IN 03-31-2017 [place] LEFT HIP MEDICAL IMAGING ASS J30710 SPONDYLOSIS 03-31-2017 [place] W/O MEDICAL MYELOPATH/R IMAGING ASS ADICULOPATH Y LUMB RGN [id number] UNSPECIFIED 03-31-2017 [place] INJURY MEDICAL LOWER BACK IMAGING ASS INITIAL ENCOUNTER E9567AG UNS INJURY 03-31-2017 [facility] RT [facility]ER [facility] UPPER ARM INC [...] AMBULANCE TAXIN R0789 OTHER CHEST 09-23-2016 [place] PAIN MEDICAL IMAGING ASS R079 CHEST PAIN 09-23-2016 [facility] UNSPECIFIED CO AMBULANCE TAXIN J441 CHRONIC 08-16-2016 [facility] P DZ W/EXACERBAT ION 496 CHRONIC 08-17-2015 [facility] NEC 14095 08-17-2015 [facility] REGION 9 V061 NEED PROPH 04-30-2015 ST V[facility] W/COMB ADA DIPHTH-TETA PHYSICIANS NUS-PERTUSS VAC 2724 OTHER AND 10-04-2013 CYNTHIA JOLIE UNSPECIFIED HYPERLIPIDE [place] 30080 ESOPHAGEAL 10-04-2013 [place] JOLIE REFLUX 7851 PALPITATION 10-04-2013 CYN[place] JOLIE S 64336 OBSTRUCTIVE 03-21-2013 JARKANI HERNESTO CHRONIC BRONCHITIS WITH EXACERBATIO N 4659 ACUTE URIS 03-19-2013 [facility] OF UNSPECIFIED SITE 486 PNEUMONIA, 03-19-2013 [facility] ORGANISM UNSPECIFIED 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 FISTULA 7804 DIZZINESS 03-19-2013 [facility] AND CO GIDDINESS AMBULANCE TAXIN 36655 SHORTNESS 03-19-2013 DOERGER KIR OF BREATH 28617 OTHER 03-19-2013 [facility] DYSPNEA AND RESPIRATORY ABNORMALITI ES V1259 PERS HX, 03-19-2013 JARKANI HERNESTO OTHER DISEASES OF CIRCULATORY SYSTEM 7993 UNSPECIFIED 12-25-2012 [facility] 33006 CORONARY 12-18-2012 [facility] KATHLEEN MUSA [place] CORONARY ARTERY 24570 UNSPECIFIED 12-18-2012 [facility] OF ARTHROPATHY [place] UNSPECIFIED 7226 DEGENERATIO 12-17-2012 LAIB EMANI N INTERVERTEB RAL DISC SITE UNSPEC 13719 CHEST PAIN 12-17-2012 MCNULTY DAYANA UNSPECIFIED 10520 OTH 12-17-2012 LAIB EMANI NONSPECIFIC ABNORM CV SYSTEM FUNCTION STUDY 5225 PERIAPICAL 12-15-2012 KUPER LENA ABSCESS WITHOUT SINUS 86996 LEUKOCYTOSI 12-14-2012 [facility] UNSPECIFIED 5259 UNSPECIFIED 12-14-2012 [facility] DISORDER TEETH&SUPPO RTING STRUCTURES 7212 THORACIC 08-10-2012 [facility] SPONDYLOSIS DON WITHOUT MYELOPATHY 7242 LUMBAGO 08-10-2012 [facility] DON 66156 DEGEN 08-03-2012 [facility]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 7245 UNSPECIFIED 08-03-2012 [facility] BACKACHE CO AMBULANCE TAXIN 99157 PATHOLOGIC 08-03-2012 WEHRMAN III FRACTURE OF SUZAN VERTEBRAE 52837 GASTR ULCR 07-23-2012 [facility] UNS ACUT/CHRN W/O HEMOR PERF/OBST 28743 ABDOMINAL 07-23-2012 [facility] PAIN RIGHT UPPER QUADRANT 02969 ABDOMINAL 07-23-2012 [facility] PAIN, LEFT [facility] UPPER INC QUADRANT 26513 ABDOMINAL 07-23-2012 [facility] PAIN, LEFT LOWER QUADRANT 2114 BENIGN 07-09-2012 [facility] 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 59683 ACUTE 07-09-2012 [facility] GASTRITIS WITHOUT MENTION OF HEMORRHAGE 79085 DUODENITIS 07-09-2012 [facility] WITHOUT MENTION OF HEMORRHAGE 5589 OTH&UNSPEC 07-09-2012 [facility] NONINFECTIO US GASTROENTER ITIS&COLITI S 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 5690 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 [facility] RECTAL POLYP 23202 ABDOMINAL 07-09-2012 COMMUNITY PAIN, ANESTH OF UNSPECIFIED THE BLUE SITE V160 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 07-09-2012 [facility]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 V7651 SPECIAL 07-09-2012 [facility] SCREENING FOR MALIGNANT NEOPLASMS COLON 48033 OVERWEIGHT 06-05-2012 [facility] DON 7823 EDEMA 06-05-2012 [facility] DON V5869 LONG-TERM 06-05-2012 [facility] (CURRENT) [facility] USE OF INC OTHER MEDICATIONS 5758 OTHER 05-23-2012 [facility] SPECIFIED [facility] DISORDER OF INC GALLBLADDER 7934 NONSPECIFIC 05-21-2012 [facility] ABN FINDING RAD & OTH EXAM GI TRACT 4011 ESSENTIAL 03-30-2012 [facility] HYPERTENSIO DON N, BENIGN 2768 HYPOPOTASSE 03-16-2012 [facility] INC 48456 OTHER CHEST 03-16-2012 [facility] PAIN DON V7231 ROUTINE 02-28-2012 [facility] GYNECOLOGIC DON AL EXAMINATION V7612 OTHER 02-28-2012 [facility] SCREENING [facility] MAMMOGRAM INC V5832 ENCOUNTER 02-15-2012 [facility] FOR REMOVAL DON OF SUTURES 35743 OTHER 02-14-2012 [facility] SPECIFIED [place] DISORDER OF INTESTINES 5920 CALCULUS OF 02-14-2012 [facility] KIDNEY [place] 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 UNSPECIFIED 92092 PAINFUL 07-07-2011 [facility] 30270 ABDOMINAL 07-07-2011 [facility] TENDERNESS, [facility] P 16540 ABNORMAL 08-20-2009 [facility] SMEAR OF CERVIX 11414 PAP SMER 08-20-2009 [facility] [place] W/ATYPICAL [facility]ENT SQUAMOUS ER CELLS UNDET 2599 UNSPECIFIED 06-11-2009 [facility] 21193 FLUSHING 05-14-2009 [facility] 79176 HYPOXEMIA 10-22-2008 [facility] 4019 UNSPECIFIED 10-18-2008 [facility] HYPERTENSIO INC N 19864 ACUTE 10-18-2008 [facility] FAILURE INC 29010 ATRIAL 10-15-2008 [facility] INC 5070 [...] NEC 5641 IRRITABLE 12-27-2007 [facility] SYNDROME 7291 UNSPECIFIED 12-27-2007 HEALTH [...] 3 30 30 CV 58 GR Ac DC 00 -0 -1 .0 S 03 OS [...] 8- 6- 00 PH 60 S ve DC 01 20 20 AR LA AM 10 [...] 3 30 30 CV 58 GR Ac DC 00 -0 -1 .0 S 03 OS [...] 8- 7- 00 PH 60 S ve DC 01 20 20 AR LA AM 10 11 11 MA RR 5 CY Y HB # R 40 05 43 MG 7 TA BL ET ZY 00 06 08 2 30 30 CV 57 GR Ac DC 00 -1 -1 .0 S 49 OS [...] 8- 8- 00 PH 60 S ve DC 01 20 20 AR LA AM 10 [...] 2 30 30 CV 57 GR Ac DC 00 -1 -1 .0 S 49 OS [...] 4- 7- 00 PH 38 S ve DC 01 20 20 AR LA AM 10 11 11 MA RR 5 CY Y HB # R 40 05 43 MG 7 TA BL ET ZY 00 06 06 2 30 30 CV 57 GR Ac DC 00 -1 -1 .0 S 49 OS [...] 4- 8- 00 PH 38 S ve DC 01 20 20 AR LA AM 10 [...] 3 30 30 CV 56 GR Ac DC 00 -1 -2 .0 S 51 OS [...] 4- 8- 00 PH 38 S ve DC 01 20 20 AR LA AM 10 11 11 MA RR 5 CY Y HB # R 40 05 43 MG 7 TA BL ET ZY 00 03 04 3 30 30 CV 56 GR Ac DC 00 -1 -1 .0 S 51 OS [...] 4- 8- 00 PH 38 S ve DC 01 20 20 AR LA AM 10 [...] 2 30 30 CV 55 GR Ac DC 00 -1 -2 .0 S 67 OS [...] 0- 0- 00 PH 76 S ve DC 01 20 20 AR LA AM 10 11 11 MA RR 5 CY Y HB # R 40 05 43 MG 7 TA BL ET ZY 00 01 02 2 30 30 CV 55 GR Ac DC 00 -1 -1 .0 S 67 OS [...] 0- 9- 00 PH 76 S ve DC 01 20 20 AR LA AM 10 [...] 2 30 30 CV 55 GR Ac DC 00 -0 -1 .0 S 12 OS [...] 0- 0- 00 PH 76 S ve DC 01 20 20 AR LA AM 10 [...] 2 30 30 CV 55 GR Ac DC 00 -0 -1 .0 S 12 OS [...] 8- 7- 00 PH 49 S ve DC 01 20 20 AR LA AM 10 [...] 2 30 30 CV 55 GR Ac DC 00 -0 -2 .0 S 12 OS [...] 8- 8- 00 PH 49 S ve DC 01 20 20 AR LA AM 10 10 10 MA RR 5 CY Y HB # R 40 05 43 MG 7 TA BL ET CI 13 09 10 2 45 30 CV 54 GR Ac TA 66 -1 -1 .0 S 35 OS ti LO 80 3- 1- 00 PH 71 S ve DC 01 20 20 AR LA AM 10 10 10 MA RR 5 CY Y HB # R 40 05 43 MG 7 TA BL ET ZY 00 09 10 2 30 30 CV 54 GR Ac DC 00 -1 -1 .0 S 35 OS [...] 3- 3- 00 PH 71 S ve DC 01 20 20 AR LA AM 10 10 10 MA RR 5 CY Y HB # R 40 05 43 MG 7 TA BL ET ZY 00 09 09 2 30 30 CV 54 GR Ac DC 00 -1 -1 .0 S 35 OS [...] 2- 2- 00 PH 96 S ve DC 01 20 20 AR LA AM 10 10 10 MA RR 5 CY Y HB # R 40 05 43 MG 7 TA BL ET ZY 00 07 08 2 30 30 CV 53 GR Ac DC 00 -1 -1 .0 S 72 OS [...] 0- 2- 00 PH 90 S ve DC 01 20 20 AR LA AM 10 10 10 MA RR 5 CY Y HB # R 40 05 43 MG 7 TA BL ET ZY 00 05 07 2 30 30 CV 53 GR Ac DC 00 -1 -1 .0 S 42 OS [...] 0- 2- 00 PH 90 S ve DC 01 20 20 AR LA AM 10 10 10 MA RR 5 CY Y HB # R 40 05 43 MG 7 TA BL ET ZY 00 05 06 2 30 30 CV 53 GR Ac DC 00 -1 -1 .0 S 42 OS [...] 1 30 30 CV 52 GR Ac DC 00 -1 -1 .0 S 78 OS [...] 2- 2- 00 PH 31 S ve DC 08 20 20 AR LA AM 66 [...] 1 30 30 CV 52 GR Ac DC 00 -1 -1 .0 S 78 OS [...] 2- 2- 00 PH 31 S ve DC 01 20 20 AR LA AM 10 10 10 MA RR 5 CY Y HB # R 40 05 43 MG 7 TA BL ET ZY 00 02 03 2 30 30 CV 52 GR Ac DC 00 -0 -1 .0 S 13 OS [...] 8- 1- 00 PH 16 S ve DC 01 20 20 AR LA AM 10 [...] 00 30 30 CV 52 No Ac DC 00 -0 -2 .0 S 13 t [...] 1- 6- 00 PH 78 Av ve DC 01 20 20 AR ai AM 10 [...] 1- 8- 00 PH 78 Av ve DC 01 20 20 AR ai AM 10 10 10 MA la 5 CY bl HB e R #5 40 43 7 MG TA BL ET CI 13 10 12 02 45 30 CV 50 No Ac TA 66 -1 -3 .0 S 89 t ti LO 80 3- 1- 00 PH 04 Av ve DC 01 20 20 AR ai AM 10 [...] 3- 9- 00 PH 04 Av ve DC 01 20 20 AR ai AM 10 09 09 MA la 5 CY bl HB e R #5 40 43 7 MG TA BL ET CI 13 10 10 00 45 30 CV 50 No Ac TA 66 -1 -2 .0 S 89 t ti LO 80 3- 2- 00 PH 04 Av ve DC 01 20 20 AR ai AM 10 [...] 6- 8- 00 PH 21 RY ve DC 01 20 20 AR AM 10 09 [...] 6- 0- 00 PH 21 RY ve DC 01 20 20 AR AM 10 09 [...] 6- 7- 00 PH 21 RY ve DC 01 20 20 AR AM 10 09 [...] 9- 6- 00 PH 07 RY ve DC 01 20 20 AR AM 10 09 [...] 5- 8- 00 PH 88 RY ve DC 01 20 20 AR AM 10 09 [...] 5- 1- 00 PH 52 RY ve DC 01 20 20 AR AM 10 09 [...] 8- 2- 00 S 73 Av ve DC 34 20 20 PH 0 ai AM [...] 8- 2- 00 S 73 Av ve DC 34 20 20 PH 0 ai AM [...] 52 0- 0- 00 89 Av ve DC 52 20 20 AI ai AM 00 [...] 52 0- 7- 00 89 Av ve DC 52 20 20 AI ai AM 00 [...] 52 5- 5- 00 27 Av ve DC 52 20 20 AI ai AM 00 [...] DOS Code Location Performer Comment IV DOP [address] [facility] EUGENIA&/OR 7 PHYSICIAN PHYSICIAN PRESS S GROUP S GROUP C/JOSE RSRV NYDIA 1ST [place] PRQ [address] [facility] ANJALI TRLUML 7 PHYSICIAN CORONARY S GROUP STENT W/ANGIO ONE ART/BRNCH INJECTION J1644 [facility] HEPARIN 7 [facility] SODIUM INC INC PER 1000 UNITS ANGIOGRAP 76612 [facility] HY PELVIC 7 PHYSICIAN PHYSICIAN S GROUP S GROUP SLCTV/SUP RASLCTV RS&I CATH PLMT 02508 [facility] L HRT & 7 PHYSICIAN PHYSICIAN ARTS S GROUP S GROUP W/NJX & ANGIO IMG S&I INTRDUCR/ C1766 [facility] SHEATH 7 [facility] GUID INC INC INTRACARD EP NOT PEEL-AWAY CATHETER C1725 [facility] TRANSLUMI 7 [facility] NAL INC INC ANGIOPLAS TY NON-LASER GUIDE C1769 [facility] WIRE 7 [facility] INC INC STENT C1876 [facility] NON-COATE 7 [facility] D/NON-COV INC INC ERED W/DELIVER Y SYSTEM BASIC 49708 [facility] METABOLIC 7 [facility] PANEL INC INC CALCIUM TOTAL COAGULATI 01352 [facility] ON TIME 7 [facility] H[facility] ACTIVATED INC INC SLCTV 16136 [facility] CATH 7 [facility] INTRNL INC INC CAROTID ART ANGIO INTRCRNL ART REVSC 12668 [facility] OPN/PRQ 7 PHYSICIAN ILIAC ART S GROUP W/STNT PLMT & ANGIOPLST Y AORTOGRAP 94809 [facility] HY 7 PHYSICIAN ABDOMINAL S GROUP SERIALOGR APHY RS&I LOCM Q9966 [facility] [phone] 7 [facility] MG/ML INC INC IODINE CONCENTRA TION PER ML LOCM Q9967 [facility] [phone] [facility] MG/ML INC INC IODINE CONCENTRA TION PER ML INJECTION J0153 [facility] MARADIAGA 7 [facility] ADENOSINE INC INC 1 MG BLOOD 56322 [facility] COUNT 7 [facility] COMPLETE INC INC AUTO&AUTO DIFRNTL WBC SLCTV 99541 [facility] CATH 7 [facility] VERTEBRAL INC INC ART ANGIO VERTEBRAL ARTERY SLCTV 78399 [facility] CATHJ EA 7 PHYSICIAN 1ST ORD S GROUP ABDL PEL/LXTR ART BRNCH REVSC 95928 [facility] OPN/PRQ 7 PHYSICIAN FEM/POP S GROUP W/STNT/AN GIOP SM VSL OPEN/PERQ 88619 [facility] 7 PHYSICIAN PLACEMENT S GROUP INTRAVASC ULAR STENT INITIAL CLOSURE C1760 [facility] DEVICE 7 [facility] VASCULAR INC INC INTRDUCR/ C1894 [facility] SHEATH 7 [facility] NOT GUID INC INC INTRACARD EP NON-LASR MOD SED 77774 [facility] SAME 7 [facility] PHYS/QHP INC INC INITIAL 15 MINS [...] REGADENOS INC INC ON 0.1 MG DUPLEX 16199 [facility] SCAN 7 MEDICAL EXTRACRAN IMAGING IAL ART ASS COMPL BI STUDY CV STRS 43090 [facility] TST 7 [facility] XERS&/OR INC INC RX CONT ECG TRCG ONLY TECHNETIU A9502 [facility] [place] TC-99M 7 [facility] TETROFOSM INC INC IN DX PER STUDY DOSE MYOCARDIA 94126 [facility] L SPECT 7 [facility] MULTIPLE INC INC STUDIES ECHO 93008 [facility] TTHRC R-T 7 [facility] 2D INC INC W/WOM-MOD E COMPL SPEC&COLR D CT HEART 90074 [facility] NO 7 [facility] CONTRAST INC INC QUANT EVAL CORONRY CALCIUM NONEMERG A0120 [facility] TRNSPRT: 7 [facility] MTN ACT ACT AREA/OTH SYS NONEMERG A0120 [facility] TRNSPRT: 7 [facility] ACT ACT AREA/OTH SYS NONEMERG A0120 [facility] TRNSPRT: 7 [facility] ACT ACT AREA/OTH SYS NATRIURET 65724 [facility] IC 7 [facility] PEPTIDE INC INC COLLECTIO 46380 [facility] N VENOUS 7 [facility] BLOOD INC INC VENIPUNCT URE XTRNL ECG 67640 HIREN MARADIAGA & 48 HR 7 [facility] RECORDING INC INC ECG 46399 HIREN MARADIAGA ROUTINE 7 [facility] ECG INC INC W/LEAST 12 LDS TRCG ONLY W/O I&R US SOFT 75002 HIREN [facility] TISSUE 7 [facility] HEAD & INC INC NECK REAL TIME IMGE DOCM BASIC 67815 HIREN MARADIAGA METABOLIC 7 [facility] PANEL INC INC CALCIUM TOTAL COLLECTIO 30772 Ritchie SARGENT N VENOUS 7 AJIT KRUGER BLOOD PSC VENIPUNCT URE NONEMERG A0120 LICKING LICKING TRNSPRT: 7 [facility] MTN ACT ACT AREA/OTH SYS NONEMERG A0120 LICKING LICKING TRNSPRT: 7 [facility] ACT ACT AREA/OTH SYS NONEMERG A0120 LICKING LICKING TRNSPRT: 7 [facility] ACT ACT AREA/OTH SYS NONEMERG A0120 LICKING LICKING TRNSPRT: 7 [facility] ACT ACT AREA/OTH SYS COLLECTIO 57731 HIREN MARADIAGA N VENOUS 7 [facility] [place] [address] HIREN MARADIAGA ABDOMEN & 7 [facility] PELVIS INC INC W/CONTRAS T MATERIAL LOCM Q9967 HIREN MARADIAGA [phone] [facility] MG/ML INC INC I[place] [address] HIREN MARADIAGA UREA 7 [facility] NITROGEN INC INC QUANTITAT KAYLAH CREATININ 38843 HIREN BURGESSON E BLOOD 7 [facility] INC INC NONEMERG A0120 LICKING LICKING TRNSPRT: 7 [facility] MTN ACT ACT AREA/OTH SYS NONEMERG A0120 LICKING LICKING TRNSPRT: 7 [facility] MTN ACT ACT AREA/OTH SYS NONEMERG A0120 LICKING LICKING TRNSPRT: 7 [facility] ACT ACT AREA/OTH SYS NONEMERG A0120 LICKING LICKING TRNSPRT: 7 [facility] ACT ACT AREA/OTH SYS PRTBLE E0431 PRIYANKA MATHEW GASEOUS 7 HOME HOME O2 SYS MEDICAL MEDICAL RENT; EQUIPME EQUIPME FLWMTR HUMIDFR&M ASK O2 CONC 1 E1390 PRIYANKA MATHEW DEL PORT 7 HOME HOME 85%/>02 MEDICAL MEDICAL CONC AT EQUIPME EQUIPME PRS FLW RATE INJECTION J3420 Ritchie SAREGNT VIT B-12 7 AJIT KRUGER PSC CYANOCOBA SHAVON TO 1000 MCG THERAPEUT 80825 Ritchie SARGENT IC 7 AJIT KRUGER PROPHYLAC PSC TIC/DX INJECTION SUBQ/IM NONEMERG A0120 LICKING LICKING TRNSPRT: 7 [facility] MTN ACT ACT AREA/OTH SYS NONEMERG A0120 LICKING LICKING TRNSPRT: 7 [facility] MTN ACT ACT AREA/OTH SYS NONEMERG A0120 LICKING LICKING TRNSPRT: 7 [facility] MTN ACT ACT AREA/OTH SYS THERAPEUT 35032 Ritchie SARGENT IC 7 AJIT KRUGER PROPHYLAC PSC TIC/DX INJECTION SUBQ/IM INJECTION J3420 A Yobany Haywood VIT B-12 7 AJIT FONG MD PSC PSC CYANOCOBA SHAVON TO 1000 MCG RADEX 84050 HIREN MARADIAGA SPINE 7 [facility] LUMBOSACR INC INC AL MINIMUM 4 VIEWS NONEMERG A0120 LICKING LICKING TRNSPRT: 7 [facility] ACT ACT AREA/OTH SYS RADEX 24129 [place] [employer] 7 MEDICAL COMPLETE IMAGING MINIMUM 2 ASS VIEWS RADEX HIP 59466 HIREN MARADIAGA 7 [facility] UNILATERA INC INC L WITH PELVIS 2-3 VIEWS O2 CONC 1 E1390 PRIYANKA JEAN PORT 7 HOME HOME 85%/>02 MEDICAL MEDICAL CONC AT EQUIPME EQUIPME RUST FLW RATE PRTBLE E0431 PRIYANKA MATHEW GASEOUS 7 HOME HOME O2 SYS MEDICAL MEDICAL RENT; EQUIPME EQUIPME FLWMTR HUMIDFR&M ASK ADMN SET A7005 YOUR YOUR W/SM VOL 7 PHARMACY PHARMACY NONFILTR [employer] NEBULIZR NON-DISPB L IPRATROPI J7644 YOUR [...] ATION CO ATION; L TAXI US SOFT 43699 RADIOLOGY SARAHI TISSUE 6 HEAD & ASSOCIATE NECK REAL S OF NOTH TIME IMGE DOCM O2 CONC 1 E1390 PRIYANKA MATHEW DEL PORT 6 HOME HOME 85%/>02 MEDICAL MEDICAL CONC AT EQUIPME EQUIPME PRSC FLW RATE PRTBLE E0431 PRIYANKA PRIYANKA GASEOUS 6 HOME HOME O2 SYS MEDICAL MEDICAL RENT; EQUIPME EQUIPME FLWMTR HUMIDFR&M ASK THERAPEUT [address] ST VIVIEN IC 6 ADA PROPHYLAC TIC/DX PHYSICIAN INJECTION S SUBQ/IM INJECTION J1030 ST VIVIEN 6 ADA METHYLPRE DNISOLONE PHYSICIAN ACETATE S 40 MG NONEMERGE A0100 LKLP CAC BENNETTS NCY 6 INC [facility]; L TAXI O2 CONC 1 E1390 PRIYANKA PRIYANKA DEL PORT 6 HOME HOME 85%/>02 MEDICAL MEDICAL CONC AT EQUIPME EQUIPME PRS FLW RATE PRTBLE E0431 PRIYANKA PRIYANKA GASEOUS 6 HOME HOME O2 SYS MEDICAL MEDICAL RENT; EQUIPME EQUIPME FLWNYR HUMIDFR&M ASK RADIOLOGI 05138 [facility] 6 MEDICAL EXAMINATI IMAGING ON CHEST ASS SINGLE VIEW FRONTAL AMB A0427 REBECCA REBECCA SERVICE 6 CO CO ALS AMBULANCE AMBULANCE EMERGENCY TAXIN TAXIN TRANSPORT LEVEL 1 GROUND A0425 REBECCA REBECCA MILEAGE 6 CO CO PER AMBULANCE AMBULANCE STATUTE TAXIN TAXIN MILE NONEMERGE A0100 LKLP CAC BENNETTS NCY 6 INC [facility]SPORT [facility]SP[facility] AT[facility] L TAXI NONEMERGE A0100 LKLP CAC BENNETTS NCY 6 INC TRANSPORT TRANSPORT REGION 9 ATION CO ATION; L TAXI O2 CONC 1 E1390 PRIYANKA MATHEW DEL PORT 6 HOME HOME 85%/>02 MEDICAL MEDICAL CONC AT EQUIPME EQUIPME PRSC FLW RATE PRTBLE E0431 PRIYANKAMANUEL MATHEW GASEOUS 6 HOME HOME O2 SYS MEDICAL MEDICAL RENT; EQUIPME EQUIPME FLWMTR HUMIDFR&M ASK THER 90094 HIREN MARADIAGA PROPH/DX 6 [facility] NJX IV INC INC PUSH SINGLE/1S T SBST/DRUG ECG 49453 HIREN HIREN ROUTINE 6 [facility] ECG INC INC W/LEAST 12 LDS TRCG ONLY W/O I&R RADIOLOGI 85678 [place] ALL C EXAM 6 MEDICAL CHEST 2 IMAGING VIEWS ASS FRONTAL&L ATERAL COMPREHEN 68787 HIREN BURGESSON SIVE 6 [facility] METABOLIC INC INC PANEL ECG 82745 HIREN COLE JR ROUTINE [address] [facility] W/LEAST P 12 LDS I&R ONLY PRESSURIZ 19790 HIREN MARADIAGA ED/NONPRE 6 [facility] SSURIZED INC INC INHALATIO N TREATMENT GROUND A0425 REBECCA REBECCA MILEAGE 6 CO CO PER AMBULANCE AMBULANCE STATUTE TAXIN TAXIN MILE AMB A0427 REBECCA REBECCA SERVICE 6 CO CO ALS AMBULANCE AMBULANCE EMERGENCY TAXIN TAXIN TRANSPORT [place]EL 1 [place] [address] HIREN BURGESSON TROPONIN 6 [facility]OS[facility] QUANTITAT INC INC KAYLAH BLOOD 04241 HIREN MARADIAGA COUNT 6 [facility] COMPLETE INC INC AUTO&AUTO DIFRNTL WBC [...] PRSC FLW RATE NONEMERGE A0100 LKLP [facility] INC TRANSPORT TRANSPORT REGION 9 ATION [...] FLW RATE NONEMERGE A0100 LKLP UMM CHANEL AZY 5 INC TRANSPORT TRANSPORT REGION 9 ATION [...] PER MG NONEMERGE A0100 LKLP CAC BENNETTS AZY 5 INC TRANSPORT TRANSPORT REGION 9 ATION CO ATION; L TAXI ALBUTEROL J7613 YOUR YOUR INHAL 5 PHARMACY PHARMACY NON-CP LLC LLC PROD THRU DME U DOSE 1 MG PHRM Q0513 YOUR YOUR DISPENSIN 5 PHARMACY PHARMACY G FEE LLC LLC INHALATIO N RX; PER 30 DAYS NONEMERGE A0100 LKLP CAC Branch MetricsS AZY 5 INC TRANSPORT TRANSPORT REGION 9 ATION [...] PER 30 DAYS NONEMERGE A0100 LKLP CAC Branch MetricsS AZY 5 INC TRANSPORT TRANSPORT REGION 9 ATION CO ATION; L TAXI O2 CONC 1 E1390 PRIYANKA MATHEW DEL PORT 5 HOME HOME 85%/>02 MEDICAL MEDICAL CONC AT EQUIPME EQUIPME PRSC FLW RATE PRTBLE E0431 PRIYANKA PRIYANKA GASEOUS 5 HOME HOME O2 SYS MEDICAL MEDICAL RENT; EQUIPME EQUIPME FLWMTR HUMIDFR&M ASK NONEMERGE A0100 LKLP CAC Branch MetricsS AZY 5 INC TRANSPORT TRANSPORT REGION 9 ATION CO ATION; L TAXI IPRATROPI J7644 YOUR YOUR UM 5 PHARMACY PHARMACY [facility] LLC LLC INHAL NON-CP U DOSE PER MG PHARM G0333 YOUR YOUR DISPEN 5 PHARMACY PHARMACY FEE INHAL LLC LLC RX; INITIAL 30-DAY SUPPLY ALBUTEROL J7613 YOUR YOUR INHAL 5 PHARMACY PHARMACY NON- Box Jump PROD THRU DME U DOSE [address] MARIE VACCINE 7 5 ADA JOLIE YRS/> IM PHYSICIAN S NONEMERGE A0100 LKLP CAC BENNETTS NCY 5 INC TRANSPORT TRANSPORT REGION 9 ATION CO ATION; L TAXI NONEMERGE A0100 LKLP CAC BENNETTS NCY 5 INC TRANSPORT TRANSPORT REGION 9 ATION CO ATION; L TAXI NONEMERGE A0100 LKLP CAC BENNETTS NCY 4 INC TRANSPORT TRANSPORT REGION 9 ATION CO ATION; L TAXI ECG 74194 CYNTHIA CYNTHIA ROUTINE 3 JOLIE JOLIE ECG W/LEAST 12 LDS [facility] 32618 [facility] DISCHARGE 3 HERNESTO HERNESTO DAY MANAGEMEN T 30 MIN/< SBSQ 07022 [facility] 3 HERNESTO HERNESTO CARE/DAY 25 MINUTES RADIOLOGI 21259 DOERGER DOERGER C EXAM 3 KIR KIR CHEST 2 VIEWS FRONTAL&L ATERAL AMB A0427 REBECCA REBECCA SERVICE 3 CO CO ALS AMBULANCE AMBULANCE EMERGENCY TAXIN TAXIN TRANSPORT LEVEL 1 INITIAL 42387 [facility] 3 HERNESTO HERNESTO CARE/DAY 50 MINUTES GROUND A0425 REBECCA REBECCA MILEAGE 3 CO CO PER AMBULANCE AMBULANCE STATUTE TAXIN TAXIN MILE SEAT E0156 [facility] ATTACHMEN 3 SERVICES SERVICES [employer] WALKER [employer] WALKER E0143 [facility] FOLDING 3 SERVICES SERVICES WHEELED INC INC ADJUSTABL E/FIXED HEIGHT AMB A0426 [facility]ICE 3 [facility] TRANSPORT LEVEL [address] [facility] A0398 RURAL RURAL ROUTINE 3 [facility] 03423 LAIB EMANI LAIB EMANI DISCHARGE 3 DAY MANAGEMEN T > 30 MIN CATH [address] 3 GAGE GAGE & NJX CORONARY ART ANGIO IMG S&I ENDOLUMIN [address] 3 GAGE ALMONTE CORONARY IVUS OCT I&R INITIAL VESSEL GROUND A0425 RURAL RURAL MILEAGE 3 [facility] MILE CATH PLMT 64541 MARIA DEL CARMEN MARIA DEL CARMEN L HRT & 3 SHELBY SHELBY ARTS W/NJX & ANGIO IMG S&I CV STRS 42604 MARIA DEL CARMEN SANCHEZULIHAN TST 3 SHELBY SHELBY XERS&/OR RX CONT ECG W/O I&R CV STRS 17966 MARIA DEL CARMEN JOYCE TST 3 SHELBY SHELBY XERS&/OR RX CONT ECG I&R ONLY SBSQ 97693 [facility] 3 CARE/DAY 25 MINUTES MYOCARDIA 57079 PRICILA Garcia SPECT 3 DAYANA DAYANA MULTIPLE STUDIES INITIAL 89281 MARIA DEL CARMEN MARIA DEL CARMEN INPATIENT 3 SHELBY SHELBY CONSULT NEW/ESTAB PT 80 MIN SBSQ 52665 [facility] 3 CARE/DAY 25 MINUTES INITIAL 96744 [facility] 3 CARE/DAY 70 MINUTES ECG 07090 YAP NIV YAP NIV ROUTINE 3 ECG W/LEAST 12 LDS I&R ONLY ECG 99452 YAP NIV YAP NIV ROUTINE 3 ECG W/LEAST 12 LDS I&R ONLY RADIOLOGI 49418 HURST JERRI HURST JERRI C 3 EXAMINATI ON CHEST SINGLE VIEW FRONTAL INJ J0702 CYNTHIA CYNTHIA BETAMETHA 2 JOLIE JOLIE SONE ACETATE & PHOSPHATE 3 MG THERAPEUT 17233 CYNTHIA CYNTHIA IC 2 JOLIE JOLIE PROPHYLAC TIC/DX INJECTION SUBQ/IM RADEX 85452 MACHO MACHO SPINE 2 [place] LUMBOSACR AL MINIMUM 4 VIEWS URNLS DIP 53939 HIREN MARADIAGA 2 [facility] STICK/TAB INC INC LET REAGENT AUTO MICROSCOP Y GROUND A0425 REBECCA REBECCA MILEAGE 2 CO CO PER AMBULANCE AMBULANCE STATUTE TAXIN TAXIN MILE AMBULANCE A0429 REBECCA REBECCA SERVICE 2 CO CO BLS AMBULANCE AMBULANCE EMERGENCY TAXIN TAXIN TRANSPORT URNLS DIP 24079 HIREN MARADIAGA 2 [facility] STICK/TAB INC INC LET REAGENT AUTO MICROSCOP Y EGD 70905 HIREN MARADIAGA TRANSORAL 2 [facility] BIOPSY INC INC SINGLE/[place] [address] HIREN MARADIAGA INFUSION 2 [facility] THERAPY/P INC INC ROPHYLAXI S /DX 1ST TO 1 [place] [address] HIREN MARADIAGA INFUSION 2 [facility] THERAPY INC INC PROPHYLAX IS/DX EA HOUR ANES 75277 [facility] 2 ANESTH SONALI INTESTINE OF THE BLUE ENDOSCOPY DISTAL DUODENUM COLONOSCO 03839 MARSH ZAID MARSH ZAID PY 2 W/BIOPSY SINGLE/MU LTIPLE RENAL 60195 HIREN MARADIAGA FUNCTION 2 [facility] PANEL INC INC LIPID 19361 HIREN MARADIAGA PANEL 2 [facility] INC INC BLOOD 11979 HIREN MARADIAGA COUNT 2 [facility] COMPLETE INC INC AUTO&AUTO DIFRNTL WBC COMPREHEN 59300 HIREN MARADIAGA SIVE 2 [facility] METABOLIC INC INC PANEL HEPATOBIL 06431 HIREN MARADIAGA SYST 2 [facility] IMAG INC INC INC GB W/[place] [address] HIREN MARADIAGA LIPASE 2 [facility] INC INC TECHNETIU A9537 HIREN MARADIAGA M TC-99M 2 [facility] MEBROFENI INC INC N DX UP TO 15 MCI RADIOLOGI 31846 SOLITARIO JEREZ C 2 DON DON EXAMINATI ON CHEST SINGLE VIEW FRONTAL ECG 34459 SOLITARIO JEREZ ROUTINE 2 DON DON ECG W/LEAST 12 LDS W/I&R BASIC 83692 HIREN MARADIAGA METABOLIC 2 [facility] PANEL INC INC CALCIUM TOTAL COMPUTER- 19979 HIREN MARADIAGA AIDED 2 [facility] DETECTION INC INC SCREENING MAMMOGRAP HY CYTP C/V 23571 [facility] AUTO THIN 2 DIAGNOSTI DIAGNOSTI LYR CS CS PREPJ SCR MNL RESCR PHYS SCREENING G0202 HIREN MARADIAGA 2 [facility] MAMMOGRAP INC INC HY STEPHANIE INCL CAD WHEN PERFORMD BLOOD 53371 JEREZ JEREZ OCCULT 2 DON DON PEROXIDAS E ACTV QUAL FECES 1 [place] [address] HIREN MARADIAGA TROPONIN 2 [facility] QUANTITAT INC INC KAYLAH BLOOD 76459 HIREN MARADIAGA COUNT 2 [facility] COMPLETE INC INC AUTO&AUTO DIFRNTL WBC AMBULANCE A0429 REBECCA REBECCA SERVICE 2 CO CO BLS AMBULANCE AMBULANCE EMERGENCY TAXIN TAXIN TRANSPORT GROUND A0425 REBECCA REBECCA MILEAGE 2 CO CO PER AMBULANCE AMBULANCE STATUTE TAXIN TAXIN MILE COMPREHEN 17489 HIREN MARADIAGA SIVE 2 [facility] [place] [address] MACHO MACHO ABDOMEN & 2 [place] PELVIS W/CONTRAS T MATERIAL THERAPEUT 70185 HIREN MARADIAGA IC 2 [facility] INJECTION [place] [address] HIREN MARADIAGA INFUSION 2 [facility] THERAPY/P INC INC ROPHYLAXI S /DX 1ST TO 1 HR ECG 80530 HIREN MARADIAGA ROUTINE 2 [facility] W/LEAST P P 12 LDS I&R ONLY 3D 49214 HIREN MARADIAGA RENDERING 2 [facility] INC INC W/INTERP& POSTPROC DIFF WORK STATION ECG 17658 HIREN MARADIAGA ROUTINE 2 [facility] ECG INC INC W/LEAST 12 LDS TRCG ONLY W/O I&[place] [address] HIREN MARADIAGA INFUSION 2 [facility] HYDRATION INC INC EACH ADDITIONA L HOUR INJECTION J2405 HIREN MARADIAGA 2 [facility] ONDANSETR INC INC ON HCL PER 1 [place] [address] HIREN MARADIAGA AMYLASE 2 [facility] INC INC CREATINE 87389 HIREN MARADIAGA KINASE MB 2 [facility] FRACTION INC INC ONLY INJECTION J0595 HIREN HIREN 2 [facility] BUTORPHAN INC INC OL TARTRATE 1 MG CREATINE 68292 HIREN HIREN KINASE 2 [facility] [place] [address] HIREN MARADIAGA LIPASE 2 [facility] INC INC SLINGS A4565 JAZ L.P. JAZ L.P. 2 RADEX 12874 MACHO MACHO SHOULDER 2 [place] COMPLETE MINIMUM 2 VIEWS RADEX 05584 MACHO MACHO HUMERUS 2 [place] MINIMUM 2 [place] [address] [facility] MACHO ABDOMINAL 2 MEDICAL [place] REAL IMAGING TIME ASS W/IMAGE LIMITED RADIOLOGI 92386 JEREZ JEREZ C 2 DON DON EXAMINATI ON CHEST SINGLE VIEW FRONTAL CREATINE 89593 HIREN MARADIAGA KINASE 1 [facility] TOTAL INC INC ECG 49970 HIREN MARADIAGA ROUTINE 1 [facility] ECG INC INC W/LEAST 12 LDS TRCG ONLY W/O I&R CREATINE 61195 HIREN MARADIAGA KINASE MB 1 [facility] FRACTION INC INC ONLY CULTURE 19591 HIREN MARADIAGA BACTERIAL 1 [facility] INC INC QUANTTATI VE COLONY COUNT URINE BLOOD 23800 HIREN MARADIAGA COUNT 1 [facility] COMPLETE INC INC AUTO&[place] [address] HIREN MARADIAGA TROPONIN 1 [facility] QUANTITAT INC INC KAYLAH URNLS DIP 62735 HIREN BURGESSON 1 [facility] STICK/TAB INC INC LET REAGENT AUTO MICROSCOP Y RADIOLOGI 41008 HUSSEIN VALENTINEUTCHER C EXAM 1 MEDICAL [place] CHEST 2 IMAGING VIEWS ASS FRONTAL&L ATERAL COMPREHEN 75482 HIREN MARADIAGA SIVE 1 [facility] METABOLIC INC INC PANEL ECG 39000 HIREN PARKER ROUTINE 1 [facility] W/LEAST P 12 LDS I&R ONLY COLLECTIO 57671 DAWOODWFAITH SEAYWFAITH N VENOUS 1 W W BLOOD [facility] VENIPUNCT MEDICAL MEDICAL URE LIPID 85233 DAWOODWFAITH MEADOWVIE PANEL 1 W W [facility] RENAL 92091 MEADOWVIE MEADOWVIE FUNCTION 1 W W [facility] RENAL 75714 HIREN MARADIAGA FUNCTION 0 [facility] PANEL INC INC RENAL 76750 MEADOWVIE MEADOWVIE FUNCTION 0 W W [facility] COLLECTIO 97722 JUS SEAYWVIE N VENOUS 0 W W BLOOD [facility] CYTP C/V [address] AUTO THIN 9 ADA ADA LYR PREPJ SCR MEDICALCE MEDICALCE MNL NTER NTER RESCR PHYS CYTP C/V [address] AUTO THIN 9 ADA ADA LYR PREPJ SCR MEDICALCE MEDICALCE [place] [address] PROGESTER 9 ADA ADA [place] [address] THYROID 9 ADA ADA STIMULATI NG MEDICALCE MEDICALCE HORMONE NTER NTER TSH COLLECTIO [address]38 ST LOERA, N VENOUS 9 [facility] BLOOD MED CTR VENIPUNCT URE GONADOTRO [address] PIN 9 ADA ADA LUTEINIZI NG MEDICALCE MEDICALCE HORMONE NTER NTER BILIRUBIN [address] DIRECT 9 ADA ADA [place] [address] PHOSPHORU 9 ADA ADA S INORGANIC MEDICALCE MEDICALCE NTER NTER IADNA [address] PAPILLOMA 9 [facility] VIR[facility] HUMAN MEDICALCE MEDICALCE [place] [address] ESTRADIOL 9 ADA ADA MEDICALCE MEDICALCE NTER NTER GONADOTRO [address] PIN 9 ADA ADA FOLLICLE STIMULATI MEDICALCE MEDICALCE NG NTER NTER HORMONE COMPREHEN [address] SIVE 9 [facility] METABOLIC PANEL MEDICALCE MEDICALCE NTER NTER DEHYDROEP [address] IANDROSTE 9 [facility] RONA-SULF ATE [place] [address] TESTOSTER 9 [facility] ONE TOTAL MEDICALCE MEDICALCE NTER NTER BLOOD [address] [facility] COMPLETE AUTO&AUTO MEDICALCE MEDICALCE DIFRNTL NTER NTER WBC SBSQ [address]/DAY HUGHSON ER M 25 INC MINUTES SBSQ [address]/DAY HUGHSON 25 INC MINUTES SBSQ [address]/[facility] 25 INC MINUTES RADIOLOGI 15623 Yobany WORRELL 8 NAL LUBNA PAULINOINATI RADIOLOGY C ON CHEST INC. SINGLE VIEW FRONTAL SBSQ [address]/DAY PULMONARY 35 MINUTES ASSOCIATE S, INC. RADIOLOGI 00381 Yobany SAMANIEGO 8 NAL KELY Up EXAMINATI RADIOLOGY ON CHEST INC. SINGLE VIEW FRONTAL CRITICAL [address] ILL/INJUR PULMONARY ED PATIENT ASSOCIATE INIT S, INC. 30-74 MIN CRITICAL 19295 [facility] ILL/INJUR PULMONARY ED PATIENT ASSOCIATE INIT S, INC. 30-74 MIN RADIOLOGI 76209 Yobany BLUM 8 NAL ADA EXAMINATI RADIOLOGY A ON CHEST INC. SINGLE VIEW FRONTAL DOP 50323 [facility] PORTIA MCKENZIE 8 HEART & [facility] PULSE VASCULAR WAVE CENTER W/SPECTRA INC L F-UP/LMTD STD ECHO 02005 [facility] [place] JONAH TRANSTHOR 8 HEART & JAYRO AC R-T 2D VASCULAR W/WO CENTER M-MODE INC REC COMP DOP 76689 [facility] [place] JONAH ECHOCARD 8 HEART & JAYRO COLOR VASCULAR FLOW [place] [facility] MAPPING RADIOLOGI 84252 Yobany GUILLEN JR 8 [place] COSME EXAMINATI RADIOLOGY ON CHEST INC. SINGLE VIEW FRONTAL GONADOTRO 59982 [facility] PIN 8 [facility] [place] [address] [facility] MAGNESIUM 8 [facility] GONADOTRO 33771 [facility] PIN 8 [facility] LUTEINIZI NG HORMONE BASIC 94170 [facility] METABOLIC 8 [facility] PANEL CALCIUM TOTAL COLLECTIO 82241 [facility] VENOUS 8 [facility] [place] [address] [facility] THYROID 8 [facility] STIMULATI NG HORMONE TSH SEDIMENTA 31826 [facility] TION RATE 8 [facility] RBC AUTOMATED BLOOD 37850 [facility] COUNT 8 [facility] COMPLETE AUTO&AUTO DIFRNTL WBC Encounters Encounter Start End Date Code Location Performer Type Date [facility] HIREN - 7 7 [facility] T OFFICE 92513 [facility] ANJALI OUTPATIEN 7 7 PHYSICIAN T VISIT S GROUP 40 MINUTES HOSPITAL HIREN - 7 7 [facility] OUTPATIEN [facility] T OFFICE 53618 [facility] RAMÍRZE OUTPATIEN 7 7 PHYSICIAN T VISIT S GROUP 15 MINUTES HOSPITAL HIREN - 7 7 [facility] OUTPATIEN [facility] T OFFICE 96922 [facility] SRIVASTAV OUTPATIEN 7 7 PHYSICIAN A T NEW 60 S GROUP MINUTES OFFICE 83458 A Yobany SARGENT OUTPATIEN 7 7 AJIT KRUGER T VISIT PSC 15 MINUTES OFFICE 57232 [facility] RAMÍREZ OUTPATIEN 7 7 PHYSICIAN T NEW 10 S GROUP MINUTES OFFICE 27286 [facility] MEÑO JR OUTPATIEN 7 7 PHYSICIAN T NEW 20 S GROUP MINUTES HOSPITAL HIREN - 7 7 [facility] OUTPATIEN INC T OFFICE 40689 A Yobany SARGENT OUTPATIEN 7 7 AJIT KRUGER T VISIT PSC 15 MINUTES OFFICE 01167 A Yobany SARGENT OUTPATIEN 7 7 AJIT KRUGER T VISIT PSC 15 MINUTES HOSPITAL HIREN - 7 7 [facility] OUTPATIEN INC T OFFICE 58206 A Yobany SARGENT OUTPATIEN 7 7 AJIT KRUGER T NEW 30 PSC MINUTES OFFICE 74808 [facility] OUTPATIEN 6 6 ADA T VISIT 15 PHYSICIAN MINUTES S [facility] HIREN - 6 6 [facility] OUTPATIEN INC T EMERGENCY 53515 HIREN 6 6 [facility] DEPARTMEN INC T VISIT MODERATE SEVERITY OFFICE 72677 SU HEL SU HEL OUTPATIEN 3 3 T VISIT 15 MINUTES EMERGENCY 68002 SANDHYA ARTHUR DEPT 3 3 MARIVEL MARIVEL VISIT HIGH SEVERITY& THREAT FUNCJ EMERGENCY 87840 CARLOS HEREDIA DEPT 3 3 VISIT HIGH SEVERITY& THREAT FUNCJ OFFICE 55094 CYNTHIA MARIE OUTPATIEN 2 2 JOLIE JOLIE T VISIT 15 MINUTES OFFICE 43845 SOLITARIO KELLERHENS OUTPATIEN 2 2 DON DON T VISIT 15 MINUTES EMERGENCY 49204 ANAHI CHRISTIAN 2 2 III SUZAN III SUZAN DEPARTMEN T VISIT HIGH/URGE NT SEVERITY [facility]OSPITAL [facility] 32684 HIREN 2 2 [facility] VISIT LOW/MODER SEVERITY OFFICE 29758 MARSH ZAID MARSH ZAID OUTPATIEN 2 2 T VISIT 15 MINUTES HOSPITAL HIREN - 2 2 [facility]PITAL HIREN - 2 2 [facility] HIREN - 2 2 [facility] OFFICE 36264 JEREZ JEREZ OUTPATIEN 2 2 DON DON T VISIT 15 MINUTES HOSPITAL HIREN - 2 2 [facility] OFFICE 84734 MARSH ZAID MARSH ZAID CONSULTAT 2 2 ION NEW/ESTAB PATIENT 80 MIN OFFICE 26091 JEREZ JEREZ OUTPATIEN 2 2 DON DON T VISIT 15 MINUTES OFFICE 27367 JEREZ JEREZ OUTPATIEN 2 2 DON DON T VISIT 25 MINUTES HOSPITAL HIREN - 2 2 [facility] HIREN - 2 2 [facility] PERIODIC 55297 JEREZ PREVENTIV 2 2 DON E MED EST PATIENT 40-64YRS OFFICE 45280 JEREZ JEREZ OUTPATIEN 2 2 DON DON T VISIT 15 MINUTES EMERGENCY 89236 HIREN 2 2 [facility] VISIT HIGH/URGE NT SEVERITY HOSPITAL [facility]IREN - [facility] 21608 GINA MCKENZIE DEPT 2 2 EMERGENCY JOLIE VISIT SERVICES HIGH SEVERITY& THREAT FUN EMERGENCY 99085 HEART EMMANUEL HEART EMMANUEL 2 2 DEPARTMEN T VISIT MODERATE SEVERITY EMERGENCY 62781 HIREN CULP CO 2 2 [facility] T VISIT [facility]OW/MODER SEVERITY HOSPITAL [facility]IREN - [facility] 38586 SOLITARIO JEREZ OUTPATIEN 2 2 DON DON T VISIT 15 MINUTES OFFICE 55869 SLOITARIO JEREZ OUTPATIEN 2 2 DON DON T VISIT 25 MINUTES HOSPITAL HIREN - 1 1 [facility] 67217 HIREN 1 1 [facility] VISIT MODERATE SEVERITY EMERGENCY 80627 GINA CHRISTIAN DEPT 1 1 EMERGENCY III SUZAN VISIT SERVICES HIGH SEVERITY& THREAT [facility] JUS - 1 1 [facility] HIREN - 0 0 [facility] GIRMAVIE - 0 [facility] - 9 9 [facility]TER OFFICE [address] [facility] OUTPATIEN 9 9 ADASAMI MARTINEZ T [facility] [address]ES [address] [facility] OUTPATIEN 9 9 ADASAMI [facility]ARTINEZ [facility] [address]ES [address] [facility] OUTPATIEN 9 9 ADA MICHELLE T [facility] [address] [facility] PREVENTIV 9 9 AD[facility]AMI MARTINEZ E [facility] MEDICINE NEW PATIENT 40-64YRS [facility] - 9 9 [facility] 79357 [facility] [address] [place] Saeed VISIT FAMILY 25 CARE, MINUTES INC.
[2017-09-13 12:43] LABS: URINE BILIRUBIN - DIPSTICK NEGATIVE (NEG); URINE BLOOD NEGATIVE (NEG)
--- OUTSIDE RECORDS SUMMARY | 2017-09-13 12:43 | External Medical Summary Rpt | CCD ---
Demographics Preferred Language Lao Marital Status Unknown Faith Affiliation Unknown Race Unknown Ethnic Group Unknown Author Author , ERNA UMANZOR Address Unknown Phone Immunization Unable to retrieve immunization data due to connection failure with Immunization Registry. Please try again later.
--- OUTSIDE RECORDS SUMMARY | 2017-09-13 12:43 | External Medical Summary Rpt | CCD ---
Demographics Preferred Language Belgian Marital Status Unknown Orthodoxy Affiliation Unknown Race Unknown Ethnic Group Unknown Author Author , ERNA UMANZOR Address Unknown Phone Immunization Unable to retrieve immunization data due to connection failure with Immunization Registry. Please try again later.
--- OUTSIDE RECORDS SUMMARY | 2017-09-13 12:44 | External Medical Summary Rpt ---
Author Author [employer], [facility] Organization [employer] Address Unknown Phone Unavailable Results CBC W Auto Differential panel in Blood Observa Value Referen Units Interpr Notes Date tion ce etation Range Basophils 0 - 0.2 K/MM3 Normal No Sep 13 informati 2016 [#/volume on in 11:50 AM ] in source Blood by data Automated count Basophils 0.1 - 2.0 % Normal No Sep 13 informati 2016 leukocyte on in 11:50 AM s in source Blood by data Automated count Eosinophi 0.0 - 0.4 K/mm3 High No Sep 13 ls informati 2016 [#/volume on in 11:50 AM ] in source Blood by data Automated count Eosinophi 0.1 - % Normal No Sep 13 ls/100 12.0 informati 2016 leukocyte on in 11:50 AM s in source Blood by data Automated count Granulocy 1.8 - 7.8 K/mm3 High No Sep 13 chuy informati 2016 [#/volume on in 11:50 AM ] in source Blood by data Automated count Granulocy 37.0 - % Normal No Sep 13 chuy/100 80.0 informati 2016 leukocyte on in 11:50 AM s in source Blood by data Automated count Hematocri 37.0 - % Normal No Sep 13 t [Volume 47.0 informati 2016 on in 11:50 AM Fraction] source of Blood data Hemoglobi 12.2 - g/dL Normal No Sep 13 n 16.2 informati 2016 [Mass/vol on in 11:50 AM ume] in source Blood data Lymphocyt 0.7 - 4.5 K/mm3 Normal No Sep 13 es informati 2016 [#/volume on in 11:50 AM ] in source Unspecifi data ed specimen by Automated count Lymphocyt 10 - 50.0 % Normal No Sep 13 es informati 2016 [#/volume on in 11:50 AM ] in source Unspecifi data ed specimen by Automated count Erythrocy 27 - 31.2 pg High No Sep 13 te mean informati 2017 corpuscul on in 11:50 AM ar source hemoglobi data n [Entitic mass] Erythrocy 31.8 - g/dl Normal No Sep 13 te mean 35.4 inform2016 corpuscul on in 11:50 AM ar source hemoglobi data n concentra tion [Mass/vol ume] by Automated count Erythrocy 82.2 - fl High No Sep 13 te mean 97.8 2016 corpuscul on in 11:50 AM ar volume source [Entitic data volume] by Automated count Monocytes 0.1 - 1.0 K/mm3 Normal No Sep 13 inform2016 [#/volume on in 11:50 AM ] in source Blood by data Automated count Monocytes 1.7 - 9.3 % Normal No Sep 13 / inform2016 leukocyte on in 11:50 AM s in source Blood by data Automated count Platelet 7.4 - fl Normal No Sep 13 mean 10.4 inform2016 volume on in 11:50 AM [Entitic source volume] data in Blood by Automated count Platelets 142 - 424 K/mm3 Normal No Sep [id number] [#/volume on in 11:50 AM ] in source Blood data Erythrocy 4.2 - 5.4 M/mm3 Normal No Sep 13 chuy inform2016 [#/volume on in 11:50 AM ] in source Amniotic data fluid Erythrocy 11.5 - % Normal No Sep 13 te 17.5 inform2016 distribut on in 11:50 AM ion width source [Entitic data volume] by Automated count Leukocyte 4.8 - K/MM3 High No Sep 13 s 10.8 inform2016 [#/volume on in 11:50 AM ] in source Blood data CBC W Auto Differential panel in Blood Observa Value Referen Units Interpr Notes Date tion ce etation Range Basophils 0 - 0.2 K/MM3 Normal No Sep 30 informati 2016 5:00 [#/volume on in AM ] in source Blood by data Automated count Basophils 0.1 - 2.0 % Normal No Sep 30 /100 informati 2016 5:00 leukocyte on in AM s in source Blood by data Automated count Eosinophi 0.0 - 0.4 K/mm3 Normal No Sep 30 ls informati 2016 5:00 [#/volume on in AM ] in source Blood by data Automated count Eosinophi 0.1 - % Normal No Sep 30 ls/100 12.0 informati 2017 5:00 leukocyte on in AM s in source Blood by data Automated count Granulocy 1.8 - 7.8 K/mm3 High No Sep 30 chuy informati 2017 5:00 [#/volume on in AM ] in source Blood by data Automated count Granulocy 37.0 - % High No Sep 30 chuy/100 80.0 informati 2016 5:00 leukocyte on in AM s in source Blood by data Automated count Hematocri 37.0 - % Normal No Sep 30 t [Volume 47.0 informati 2016 5:00 on in AM Fraction] source of Blood data Hemoglobi 12.2 - g/dL Normal No Sep 30 n 16.2 informati 2016 5:00 [Mass/vol on in AM ume] in source Blood data Lymphocyt 0.7 - 4.5 K/mm3 Normal No Sep 30 es informati 2016 5:00 [#/volume on in AM ] in source Unspecifi data ed specimen by Automated count Lymphocyt 10 - 50.0 % Low No Sep 30 es informati 2016 5:00 [#/volume on in AM ] in source Unspecifi data ed specimen by Automated count Erythrocy 27 - 31.2 pg High No Sep 30 te mean informati 2016 5:00 corpuscul on in AM ar source hemoglobi data n [Entitic mass] Erythrocy 31.8 - g/dl Low No Sep 30 te mean 35.4 informati 2016 5:00 corpuscul on in AM ar source hemoglobi data n concentra tion [Mass/vol ume] by Automated count Erythrocy 82.2 - fl High No Sep 30 te mean 97.8 informati 2016 5:00 corpuscul on in AM ar volume source [Entitic data volume] by Automated count Monocytes 0.1 - 1.0 K/mm3 Normal No Sep 30 informati 2016 5:00 [#/volume on in AM ] in source Blood by data Automated count Monocytes 1.7 - 9.3 % Normal No Sep 30 /100 informati 2016 5:00 leukocyte on in AM s in source Blood by data Automated count Platelet 7.4 - fl Normal No Sep 30 mean 10.4 informati 2016 5:00 volume on in AM [Entitic source volume] data in Blood by Automated count Platelets 142 - 424 K/mm3 Normal No Sep 30 informati 2016 5:00 [#/volume on in AM ] in source Blood data Erythrocy 4.2 - 5.4 M/mm3 Normal No Sep 30 chuy informati 2016 5:00 [#/volume on in AM ] in source Amniotic data fluid Erythrocy 11.5 - % Normal No Sep 30 te 17.5 informati 2016 5:00 distribut on in AM ion width source [Entitic data volume] by Automated count Leukocyte 4.8 - K/MM3 High No Sep 30 s 10.8 informati 2016 5:00 [#/volume on in AM ] in source Blood data Differential panel, method unspecified - Observa Value Referen Units Interpr Notes Date tion ce etation Range Neutrophi 0 - 8 % Normal No Sep 30 ls.band informati 2016 5:00 form/100 on in AM leukocyte source s in data Blood by Automated count LYMPH 15 10 - 50 % Normal No Sep 30 informa 2016 tion in 5:00 AM source data Monocytes 2 - 9 % Low No Sep 30 /100 informati 2016 5:00 leukocyte on in AM s in source Blood by data Automated count Platele NORMAL No No No No Sep 30 ts informa informa informa informa 2016 [Presen tion in tion in tion in tion in 5:00 AM ce] in source source source source Blood data data data data by Light microsc opy Polychr 1+ No No No No Sep 30 omasia informa informa informa informa 2016 [Presen tion in tion in tion in tion in 5:00 AM ce] in source source source source Blood data data data data by Light microsc opy Neutrophi 42 - 76 % Normal No Sep 30 ls informati 2016 5:00 [#/volume on in AM ] in source Blood by data Automated count Cells No #CELLS No No Sep 30 Counted informati informati informati 2016 5:00 Total [#] on in on in on in AM in Blood source source source data data data Basic metabolic panel in Blood Observa Value Referen Units Interpr Notes Date tion ce etation Range Urea 7 - 18 mg/dL Normal No Sep 30 nitrogen informati 2016 5:00 [Mass/vol on in AM ume] in source Serum or data Plasma Calcium 8.5 - mg/dL Normal No Sep 30 [Mass/vol 10.1 informati 2016 5:00 ume] in on in AM Serum or source Plasma data Chloride 98 - 107 mmoL/L Normal No Sep 30 [Moles/vo informati 2017 5:00 lume] in on in AM Serum or source Plasma data Carbon 21.0 - mmoL/L High No Sep 30 dioxide, 32.0 informati 2016 5:00 total on in AM [Moles/vo source lume] in data Serum or Plasma Creatinin 0.55 - mg/dL Normal No Sep 30 e 1.02 informati 2016 5:00 [Mass/vol on in AM ume] in source Serum or data Plasma Creatinin 50 - 200 ML/MIN Normal No Sep 30 e renal informati 2016 5:00 clearance on in AM source predicted data by Cockcroft -Gault formula Estimated 59- ML/MIN No REFERENCE Sep 30 informati RANGE: 2017 5:00 glomerula on in >60 AM r source ML/MIN/1. filtratio data 73 SQUARE n rate METERSIf (GF this patient is -A merican, then multiply theresult by 1.210. Glucose 74 - 106 mg/dL High No Sep 30 [Mass/vol informati 2016 5:00 ume] in on in AM Serum or source Plasma data Potassium 3.5 - 5.1 mmoL/L Normal No Sep 30 informati 2016 5:00 [Moles/vo on in AM lume] in source Serum or data Plasma Sodium 136 - 145 mmoL/L Normal No Sep 30 [Moles/vo informati 2016 5:00 lume] in on in AM Serum or source Plasma data Urinalysis dipstick W Reflex Microscopic panel in Urine Observa Value Referen Units Interpr Notes Date tion ce etation Range Appeara Sl CLEAR No No No Sep 29 nce of Cloudy informa informa informa 2016 Urine tion in tion in tion in 12:40 source source source PM data data data Bacteri 1+ O No No No Sep 29 a informa informa informa 2016 [Presen tion in tion in tion in 12:40 ce] in source source source PM Urine data data data sedimen t by Light microsc opy Bilirub NEGATIV NEG No No No Sep 29 in E informa informa informa 2016 [Presen tion in tion in tion in 12:40 ce] in source source source PM Urine data data data by Test strip Erythro NEGATIV NEG No No No Sep cytes E informa informa informa 2017 [Presen tion in tion in tion in 12:40 ce] in source source source PM Urine data data data Color DARK YELLOW No No No Sep of YELLOW informa informa informa 2017 Urine tion in tion in tion in 12:40 source source source PM data data data Glucose NEG No No No Sep [Mass/vol informati informati informati 2016 ume] in on in on in on in 12:40 PM Urine by source source source Test data data data strip Ketones NEGATIV NEG mg/dL No No Sep E informa informa 2016 [Presen tion in tion in 12:40 ce] in source source PM Urine data data by Automat ed test strip Mucus NEGATIV NEG No No No Aug 25 [Presen E informa informa informa 2016 ce] in tion in tion in tion in 12:40 Urine source source source PM sedimen data data data t by Light microsc opy Nitrite NEGATIV NEG No No No Sep E informa informa informa 2016 [Presen tion in tion in tion in 12:40 ce] in source source source PM Urine data data data by Test strip pH of 5.0 - 8.5 No Normal No Sep 29 Urine informati informati 2017 on in on in 12:40 PM source source data data Protein NEG mg/dL No No Sep [Mass/vol informati informati 2016 ume] in on in on in 12:40 PM Urine by source source Automated data data test strip Erythro OCC 0 rbc/hpf No No Sep cytes informa informa 2016 [Presen tion in tion in 12:40 ce] in source source PM Urine data data sedimen t by Light microsc opy Specific 1.005 - No Normal No Sep gravity 1.030 informati informati 2017 of Urine on in on in 12:40 PM source source data data Epithel 20-50 0 - 5 #/hpf No No Sep ial informa informa 2017 cells.s tion in tion in 12:40 quamous source source PM data data [Presen ce] in Urine sedimen t by Microsc opy high power field Urobili 0.2 NEG E.U./dL No No Sep 29 nogen informa informa 2017 [Presen tion in tion in 12:40 ce] in source source PM Urine data data by Test strip Leukocyte O wbc/hpf No No Sep 29 s informati informati 2016 [#/volume on in on in 12:40 PM ] in source source Urine data data Urinalysis dipstick W Reflex Microscopic panel in Urine Observa Value Referen Units Interpr Notes Date tion ce etation Range Appeara Sl CLEAR No No No Sep nce of Cloudy informa informa informa 2017 Urine tion in tion in tion in 12:40 source source source PM data data data Bilirub NEGATIV NEG No No No Sep in E informa informa informa 2016 [Presen tion in tion in tion in 12:40 ce] in source source source PM Urine data data data by Test strip Erythro NEGATIV NEG No No No Sep cytes E informa informa informa 2016 [Presen tion in tion in tion in 12:40 ce] in source source source PM Urine data data data Color DARK YELLOW No No No Sep of YELLOW informa informa informa 2016 Urine tion in tion in tion in 12:40 source source source PM data data data Glucose NEG No No No Sep [Mass/vol informati informati informati 2017 ume] in on in on in on in 12:40 PM Urine by source source source Test data data data strip Ketones NEGATIV NEG mg/dL No No Sep E informa informa 2016 [Presen tion in tion in 12:40 ce] in source source PM Urine data data by Automat ed test strip Mucus NEGATIV NEG No No No Sep [Presen E informa informa informa 2016 ce] in tion in tion in tion in 12:40 Urine source source source PM sedimen data data data t by Light microsc opy Nitrite NEGATIV NEG No No No Sep E informa informa informa 2016 [Presen tion in tion in tion in 12:40 ce] in source source source PM Urine data data data by Test strip pH of 5.0 - 8.5 No Normal No Sep 29 Urine informati informati 2017 on in on in 12:40 PM source source data data Protein NEG mg/dL No No Sep [Mass/vol informati informati 2017 ume] in on in on in 12:40 PM Urine by source source Automated data data test strip Specific 1.005 - No Normal No Sep 29 gravity 1.030 informati informati 2017 of Urine on in on in 12:40 PM source source data data Urobili 0.2 NEG E.U./dL No No Sep 29 nogen informa informa 2017 [Presen tion in tion in 12:40 ce] in source source PM Urine data data by Test strip Influenza virus A+B Ag [Presence] in Unspecified specimen Observa Value Referen Units Interpr Notes Date tion ce etation Range Influen NOT NOT No No No Sep 29 za DETECTE DETECTD informa informa informa 2017 virus A D tion in tion in tion in 10:35 Ag source source source AM [Presen data data data ce] in Unspeci fied specime n Influen NOT NOT No No No Sep 29 za DETECTE DETECTD informa informa informa 2017 virus B D tion in tion in tion in 10:35 Ag source source source AM [Presen data data data ce] in Unspeci fied specime n Gas panel in Arterial blood Observa Value Referen Units Interpr Notes Date tion ce etation Range Base -2.4-+2.3 MMOL/L High No Sep 29 excess in informati 2017 Arterial on in 10:30 AM blood source data Arteria ACCEPTA No No No No Sep 29 l BLE informa informa informa informa 2017 patency tion in tion in tion in tion in 10:30 Wrist source source source source AM artery data data data data --pre arteria l punctur e Bicarbona 22.0 - MMOL/L High No Sep 29 te 26.0 informati 2017 [Moles/vo on in 10:30 AM lume] in source Arterial data blood Oxygen No No No No Sep 29 content informati informati informati informati 2017 in on in on in on in on in 10:30 AM Arterial source source source source blood data data data data Carbon 35.0 - MMHG High Sep 29 dioxide 45.0 2016 [Partial CRITICAL 10:30 AM pressure] RESULTS in Arterial RESU blood LTS CALLED TO: VALERIE CONNORS RN 08/25/17 1231 Tom,Stephanie diego pH of 7.35 - MMOL/L Normal No Sep 29 Arterial 7.45 2016 blood on in 10:30 AM source data Oxygen 80 - 100 MMHG Low No Sep 29 [Partial informati 2017 pressure] on in 10:30 AM in source Arterial data blood Oxygen 90 - 100 % Normal No Sep 29 saturatio 2016 n.calcula on in 10:30 AM geronimo from source oxygen data partial pressure in Arterial blood SOURCE RIGHT No No No No Sep 29 RADIAL informa informa informa informa 2017 tion in tion in tion in tion in 10:30 source source source source AM data data data data Carbon 23 - 27 MMOL/L High No Sep 29 dioxide, 2016 total on in 10:30 AM [Moles/vo source lume] in data Arterial blood Lactate [Moles/volume] in Blood Observa Value Referen Units Interpr Notes Date tion ce etation Range Lactate 0.4 - 2.0 mmol/L Normal No Sep 29 [Moles/vo informati 2016 lume] in on in 10:25 AM Blood source data CBC W Auto Differential panel in Blood Observa Value Referen Units Interpr Notes Date tion ce etation Range Basophils 0 - 0.2 K/MM3 Normal No Sep 29 2016 [#/volume on in 10:25 AM ] in source Blood by data Automated count Basophils 0.1 - 2.0 % Normal No Sep 29 /100 2016 leukocyte on in 10:25 AM s in source Blood by data Automated count Eosinophi 0.0 - 0.4 K/mm3 High No Sep 29 ls 2016 [#/volume on in 10:25 AM ] in source Blood by data Automated count Eosinophi 0.1 - % Normal No Sep 29 ls/100 12.0 informati 2016 leukocyte on in 10:25 AM s in source Blood by data Automated count Granulocy 1.8 - 7.8 K/mm3 High No Sep 29 chuy inform2016 [#/volume on in 10:25 AM ] in source Blood by data Automated count Granulocy 37.0 - % Normal No Sep 29 chuy/100 80.0 informati 2016 leukocyte on in 10:25 AM s in source Blood by data Automated count Hematocri 37.0 - % Normal No Sep 29 t [Volume 47.0 ati 2017 on in 10:25 AM Fraction] source of Blood data Hemoglobi 12.2 - g/dL Normal No Sep 29 n 16.2 inform2016 [Mass/vol on in 10:25 AM ume] in source Blood data Lymphocyt 0.7 - 4.5 K/mm3 Normal No Sep 29 es inform2016 [#/volume on in 10:25 AM ] in source Unspecifi data ed specimen by Automated count Lymphocyt 10 - 50.0 % Normal No Sep 29 es inform2016 [#/volume on in 10:25 AM ] in source Unspecifi data ed specimen by Automated count Erythrocy 27 - 31.2 pg High No Sep 29 te mean inform2016 corpuscul on in 10:25 AM ar source hemoglobi data n [Entitic mass] Erythrocy 31.8 - g/dl Normal No Sep 29 te mean 35.4 inform2016 corpuscul on in 10:25 AM ar source hemoglobi data n concentra tion [Mass/vol ume] by Automated count Erythrocy 82.2 - fl Normal No Sep 29 te mean 97.8 inform2016 corpuscul on in 10:25 AM ar volume source [Entitic data volume] by Automated count Monocytes 0.1 - 1.0 K/mm3 Normal No Sep 29 inform2016 [#/volume on in 10:25 AM ] in source Blood by data Automated count Monocytes 1.7 - 9.3 % Normal No Sep 29 /100 inform2016 leukocyte on in 10:25 AM s in source Blood by data Automated count Platelet 7.4 - fl Normal No Sep 29 mean 10.4 inform2016 volume on in 10:25 AM [Entitic source volume] data in Blood by Automated count Platelets 142 - 424 K/mm3 No No Sep 29 informati informati 2016 [#/volume on in on in 10:25 AM ] in source source Blood data data Erythrocy 4.2 - 5.4 M/mm3 Normal No Sep 29 chuy inform2016 [#/volume on in 10:25 AM ] in source Amniotic data fluid Erythrocy 11.5 - % Normal No Sep 29 te 17.5 inform2016 distribut on in 10:25 AM ion width source [Entitic data volume] by Automated count Leukocyte 4.8 - K/MM3 High No Sep 29 s 10.8 inform2016 [#/volume on in 10:25 AM ] in source Blood data Activated clotting time in Blood by Coagulation assay Observa Value Referen Units Interpr Notes Date tion ce etation Range Activated 74 - 125 SEC High No Jul 05 clotting alert informati 2016 time in on in 12:13 PM Blood by source Coagulati data on assay Activated clotting time in Blood by Coagulation assay Observa Value Referen Units Interpr Notes Date tion ce etation Range Activated 74 - 125 SEC High No Jul 05 clotting alert informati 2016 time in on in 11:51 AM Blood by source Coagulati data on assay Activated clotting time in Blood by Coagulation assay Observa Value Referen Units Interpr Notes Date tion ce etation Range Activated 74 - 125 SEC High No Jul 05 clotting alert informati 2016 time in on in 11:32 AM Blood by source Coagulati data on assay Basic metabolic panel in Blood Observa Value Referen Units Interpr Notes Date tion ce etation Range Urea 7 - 18 mg/dL Normal No Jul 05 nitrogen informati 2016 9:40 [Mass/vol on in AM ume] in source Serum or data Plasma Calcium 8.5 - mg/dL Normal No Jul 05 [Mass/vol 10.1 informati 2016 9:40 ume] in on in AM Serum or source Plasma data Chloride 98 - 107 mmoL/L Normal No Jul 05 [Moles/vo informati 2016 9:40 lume] in on in AM Serum or source Plasma data Carbon 21.0 - mmoL/L Normal No Jul 05 dioxide, 32.0 informati 2016 9:40 total on in AM [Moles/vo source lume] in data Serum or Plasma Creatinin 0.55 - mg/dL Normal No Jul 05 e 1.02 informati 2016 9:40 [Mass/vol on in AM ume] in source Serum or data Plasma Estimated 59- ML/MIN No REFERENCE Jul 05 informati RANGE: 2017 9:40 glomerula on in >60 AM r source ML/MIN/1. filtratio data 73 SQUARE n rate METERSIf (GF this patient is -A merican, then multiply theresult by 1.210. Glucose 74 - 106 mg/dL High No Jul 05 [Mass/vol informati 2016 9:40 ume] in on in AM Serum or source Plasma data Potassium 3.5 - 5.1 mmoL/L Normal No Jul 05 informati 2016 9:40 [Moles/vo on in AM lume] in source Serum or data Plasma Sodium 136 - 145 mmoL/L Normal No Jul 05 [Moles/vo informati 2017 9:40 lume] in on in AM Serum or source Plasma data CBC W Auto Differential panel in Blood Observa Value Referen Units Interpr Notes Date tion ce etation Range Basophils 0 - 0.2 K/MM3 Normal No Jul 05 informati 2017 9:40 [#/volume on in AM ] in source Blood by data Automated count Basophils 0.1 - 2.0 % Normal No Jul 05 informati 2017 9:40 leukocyte on in AM s in source Blood by data Automated count Eosinophi 0.0 - 0.4 K/mm3 High No Jul 05 ls informati 2017 9:40 [#/volume on in AM ] in source Blood by data Automated count Eosinophi 0.1 - % Normal No Jul 05 ls/100 12.0 informati 2017 9:40 leukocyte on in AM s in source Blood by data Automated count Granulocy 1.8 - 7.8 K/mm3 Normal No Jul 05 chuy informati 2016 9:40 [#/volume on in AM ] in source Blood by data Automated count Granulocy 37.0 - % Normal No Jul 05 chuy/100 80.0 informati 2017 9:40 leukocyte on in AM s in source Blood by data Automated count Hematocri 37.0 - % Normal No Jul 05 t [Volume 47.0 informati 2017 9:40 on in AM Fraction] source of Blood data Hemoglobi 12.2 - g/dL Normal Jul 05 n 16.2 informati 2017 9:40 [Mass/vol on in AM ume] in source Blood data Lymphocyt 0.7 - 4.5 K/mm3 Normal No Jul 05 es informati 2016 9:40 [#/volume on in AM ] in source Unspecifi data ed specimen by Automated count Lymphocyt 10 - 50.0 % Normal No Jul 05 es informati 2016 9:40 [#/volume on in AM ] in source Unspecifi data ed specimen by Automated count Erythrocy 27 - 31.2 pg High No Jul 05 te mean informati 2017 9:40 corpuscul on in AM ar source hemoglobi data n [Entitic mass] Erythrocy 31.8 - g/dl Normal Jul 05 te mean 35.4 informati 2016 9:40 corpuscul on in AM ar source hemoglobi data n concentra tion [Mass/vol ume] by Automated count Erythrocy 82.2 - fl High No Jul 05 te mean 97.8 informati 2016 9:40 corpuscul on in AM ar volume source [Entitic data volume] by Automated count Monocytes 0.1 - 1.0 K/mm3 Normal No Jul 05 informati 2016 9:40 [#/volume on in AM ] in source Blood by data Automated count Monocytes 1.7 - 9.3 % Normal No Jul 05 /100 informati 2017 9:40 leukocyte on in AM s in source Blood by data Automated count Platelet 7.4 - fl Normal No Jul 05 mean 10.4 informati 2017 9:40 volume on in AM [Entitic source volume] data in Blood by Automated count Platelets 142 - 424 K/mm3 Normal No Jul 05 informati 2016 9:40 [#/volume on in AM ] in source Blood data Erythrocy 4.2 - 5.4 M/mm3 Normal No Jul 05 chuy informati 2016 9:40 [#/volume on in AM ] in source Amniotic data fluid Erythrocy 11.5 - % Normal No Jul 05 te 17.5 informati 2016 9:40 distribut on in AM ion width source [Entitic data volume] by Automated count Leukocyte 4.8 - K/MM3 High No Jul 05 s 10.8 informati 2016 9:40 [#/volume on in AM ] in source Blood data Basic metabolic panel in Blood Observa Value Referen Units Interpr Notes Date tion ce etation Range Urea 7 - 18 mg/dL Normal No Jun 12 nitrogen 2016 [Mass/vol on in 12:41 PM ume] in source Serum or data Plasma Calcium 8.5 - mg/dL Normal No Jun 12 [Mass/vol 10.1 informati 2016 ume] in on in 12:41 PM Serum or source Plasma data Chloride 98 - 107 mmoL/L Normal No Jun 12 [Moles/vo informati 2016 lume] in on in 12:41 PM Serum or source Plasma data Carbon 21.0 - mmoL/L Normal No Jun 12 dioxide, 32.0 informati 2016 total on in 12:41 PM [Moles/vo source lume] in data Serum or Plasma Creatinin 0.55 - mg/dL Normal No Jun 12 e 1.02 informati 2016 [Mass/vol on in 12:41 PM ume] in source Serum or data Plasma Estimated 59- ML/MIN No REFERENCE Jun 12 informati RANGE: 2017 glomerula on in >60 12:41 PM r source ML/MIN/1. filtratio data 73 SQUARE n rate METERSIf (GF this patient is -A merican, then multiply theresult by 1.210. Glucose 74 - 106 mg/dL Normal No Jun 12 [Mass/vol informati 2016 ume] in on in 12:41 PM Serum or source Plasma data Potassium 3.5 - 5.1 mmoL/L Normal No Jun 12 inform2016 [Moles/vo on in 12:41 PM lume] in source Serum or data Plasma Sodium 136 - 145 mmoL/L Normal No Jun 12 [Moles/vo informati 2016 lume] in on in 12:41 PM Serum or source Plasma data Natriutietic peptide B [Mass/volume] in Serum or Plasma Observa Value Referen Units Interpr Notes Date tion ce etation Range Natriutie 0 - 100 pg/mL Normal No Jun 12 tic 2016 peptide B on in 12:41 PM source [Mass/vol data ume] in Serum or Plasma Thyroxine (T4) free [Mass/volume] in Serum or Plasma Observa Value Referen Units Interpr Notes tion ce etation Range Thyroxine 0.76 - ng/dL Normal No Jun 01 (T4) 1.46 informati 2016 2:37 free on in PM [Mass/vol source ume] in data Serum or Plasma Thyrotropin [Units/volume] in Serum or Plasma Observa Value Referen Units Interpr Notes Date tion ce etation Range Thyrotrop 0.358 - uIU/ml Normal No Jun 01 in 3.740 informati 2016 2:37 [Units/vo on in PM lume] in source Serum or data Plasma Urea nitrogen [Mass/volume] in Serum or Plasma Observa Value Referen Units Interpr Notes Date tion ce etation Range Urea 7 - 18 mg/dL High No May 19 nitrogen informati 2016 9:50 [Mass/vol on in AM ume] in source Serum or data Plasma CREATININE Observa Value Referen Units Interpr Notes Date tion ce etation Range Creatinin 0.55 - mg/dL Normal No May 19 e 1.02 informati 2016 9:50 [Mass/vol on in AM ume] in source Serum or data Plasma Estimated 59- ML/MIN No REFERENCE May 19 informati RANGE: 2016 9:50 glomerula on in >60 AM r source ML/MIN/1. filtratio data 73 SQUARE n rate METERSIf (GF this patient is -A merican, then multiply theresult by 1.210. US NECK Observa Value Referen Units Interpr Notes Date tion ce etation Range Neck No No No No Oct 31 ultraso informa informa informa informa 2016 und tion in tion in tion in tion in 2:55 PM dated source source source source 10/31/20 data data data data 16\.br\ \.br\CO MPARISO N: None\.b r\\.br\ HISTORY : Palpabl e lump in anterio r lower neck, located just to the left of\.br\ midline \.br\\. br\FIND INGS:\. br\\.br \Right thyroid lobe measure s 4.4 x 1.8 x 1.8 cm. Left thyroid lobe measure s\.br\4 .4 x\.br\1 .5 x 1.9 cm. In midline , the thyroid isthmus measure s 3 mm in thickne ss.\.br \To the\.br \left of midline , the thyroid isthmus measure s 6 mm in thickne ss. The\.br \thyroi d\.br\i sthmus appears mildly thicker on the left than on the right, althoug h no\.br\ discret e thyroid nodule, cyst, or mass is identif ied.\.b r\\.br\ Additio nal targete d scannin g of the left lower neck was perform ed at the\.br \site of\.br\ reporte d palpabl e lump. No focal mass or other explana tion for the palpabl e\.br\f inding is identif ied by ultraso und on targete d scannin g.\.br\ \.br\IM PRESSIO N:\.br\ \.br\1. There is asymmet sobeida mild thicken ing of the left thyroid isthmus ,\.br\a lthough no\.br\ discret e thyroid nodule is identif ied. It is uncerta in if this explain s the\.br \left\. br\ante rior lower neck palpabl e lump and correla tion with clinica l exam is\.br\ recomme nded.\. br\\.br \2. No other focal sonogra phic abnorma lity is identif ied at this site.\. br\ CT LUNG CANCER SCREENING LOW DOSE Observa Value Referen Units Interpr Notes Date tion ce etation Range \.br\CT No No No No Oct 31 LUNG informa informa informa informa 2016 CANCER tion in tion in tion in tion in 2:31 PM SCREENI source source source source NG LOW data data data data DOSE 10/31/20 16 2:31 PM\.br\ \.br\Cl inical: Asympto matic patient meeting NCCN high risk criteri a for lung\.b r\scree maine. 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 There is\.br\ centril obular and\.br \parase ptal emphyse ma in both upper lobes. There are no pleural effusio ns.\.br \There\ .br\is a calcifi ed granulo ma along the left major fissure . There are additio nal\.br \scatte red calcifi ed pulmona ry nodules in the right lung. There is a stable\ .br\non calcifi ed 4 mm pulmona ry nodule in the right lower lobe on image 112.\.b r\\.br\ The thyroid gland is normal. The esophag us is normal. There is no\.br\ mediast inal or\.br\ hilar lymphad enopath y.\.br\ \.br\Th e upper abdomen is normal. \.br\\. br\Foll owup code:\. br\\.br \Catego ry 0 : Prior exams being located or not all of lungs imaged. \.br\\. br\Amy gory 1: Negativ e: No nodule or definit carlos benign nodule( s).\.br \Contin ued\.br \ANNUAL LOW-DOS E SCREENI NG CT SCAN (IMG [id number]) suggest ed if age <78.\.b r\\.br\ x Categor y 2: Benign appeara nce or behavio r: Include s finding s such as:\.br \new\.b r\nodul e less than 4mm, nodules less than 6mm, GGN less than 20mm, or cat 3\.br\o r 4\.br\n odule that is stable for 3 or more months. Continu ed ANNUAL LOW-DOS E\.br\S CREENIN G\.br\C T SCAN (IMG [id number]) suggest ed if age <78.\.b r\\.br\ Categor y 3: Probabl y Benign finding s.: Include s nodules 6-7mm at\.br\ baselin e\.br\o r new 4-5mm nodules . Also new or baselin e GGN 20mm or larger. Followu p:\.br\ 6\.br\m onths and if stable at 6 months, then in 12 additio nal months. This\.b r\shoul d be\.br\ done as FOLLOWU P LOW DOSE CT LUNG SCREENI NG (IMG [id number]). Order will be\.br\ placed by\.br\ SE lung screeni ng nurse navigat or.\.br \\.br\C ategory 4 A: Suspici ous finding . Solid nodules 8 to 14mm at\.br\ baselin e or\.br\ enlargi ng nodule less than 8mm, or new 6-7mm nodule. Endobro nchial nodule. \.br\Co nsultat ion with [facility] suggest ed. Phone .\ .br\\.b r\Categ ory 4B: Suspici ous finding . Solid nodule 15mm or larger, or new\.br \or\.br \growin g and 8mm or larger. Consult ation with [facility]\ .br\sug gested. \.br\Ph one [phone].\ .br\\.b r\Categ ory S: Signifi cant inciden sukhdev finding that will require \.br\ad ditiona l\.br\w orkup (exampl es: fractur e, aneurys m, indeter minant mass other than lung).\ .br\\.b r\IMPRE SSION:\ .br\\.b r\There is no acute CT abnorma lity in the chest. There is centril obular and\.br \parase ptal emphyse ma. There are no suspici ous pulmona ry nodules or masses. \.br\ Hep C Ab Observa Value Referen Units Interpr Notes Date ti ce etation Range Hep C Negativ Negativ No No No May 21 Ab e e informa informa informa 2015 tion in on in tion in 9:56 AM source source source data data data LDL Observa Value Referen Units Interpr Notes Date ti ce etation Range LDL 125 <=100 mg/dL High < 100 May 20 Calcula 2016 geronimo 9:32 PM Optimal \.br\10 0 - 129 Near or above optimal \.br\13 0 - 159 Borderl ine High\.b r\160 - 189 High\.b r\ >= 190 Very High Lipid Refx Observa Value Referen Units Interpr Notes Date ti ce etation Range Cholest 227 <=200 mg/dL High < 200 Apr 24 zakia 2016 [Percen 9:32 PM tile] Desirab le\.br\ 200 - 239 Borderl ine High\.b r\>= 240 High TRIGLYC 373 <=150 mg/dL High < 150 Apr 24 ERIDES. 2016 TOTAL Normal\ 9:32 PM .br\150 - 199 Borderl ine High\.b r\200 - 499 High\.b r\ >= 500 Very High CHOLEST 27 >=40 mg/dL Low > 60 Apr 24 EROLS.I 2016 N HDL Optimal 9:32 PM \.br\40 - 60 Accepta ble\.br \ < 40 Low Glyco Observa Value Referen Units Interpr Notes Date tion ce etation Range Hemoglo 6.3 <=7.0 % No Referen May 20 bin informa ce 2015 A1c/Hem tion in Interva 9:31 PM oglobin source l for .total data Hgb in A1c\.br Blood \\.br\H gb A1c Interpr etation \.br\-- ------- -- ------- ------- --\.br\ \.br\ < 6.0 Non-Annmarie betic Range\. br\6.0 - 7.0 ADA Therape utic Target\ .br\ > 7.0 Action suggest ed MM MAMMO DIGITAL SCREENING W CAD BILAT Observa Value Referen Units Interpr Notes Date ti ce etation Range Procedu No No No No Jun 29 re:MM informa informa informa informa 2014 MAMMO tion in tion in tion in tion in 10:11 DIGITAL source source source source AM data data data data SCREENI NG W CAD BILAT\. br\Reas on for exam: screeni ng (asympt omatic) .\.br\M M MAMMO DIG SCREEN CAD BILAT\. br\Bila teral CC and MLO view(s) were taken.\ .br\The breast tissue is almost entirel y fat. Compare d to prior study; most\.b r\recen t being 2\.br\I MPRESSI ON: Negativ e (ACR-Ca tegory- 1)\.br\ RECOMME NDATION :\.br\R outine screeni ng mammogr am in 1 year.\. br\* The patient with a palpabl e abnorma lity, unexpla ined by breast\ .br\jose ging, should be managed on clinica l basis by the attendi ng physici an.\.br \* Breast imaging has a false negativ e rate of 15%.\.b r\* The patient was notifie d by mail of the results of this examina tion.\. br\*The patient 's informa tion was entered into a [employer] r system with a\.br\t arget\. br\due date for the next mammogr am.\.br \The mammogr am was reviewe d by a Radiolo gist and CAD. CT LUNG CANCER SCREENING LOW DOSE Observa Value Referen Units Interpr Notes Date tion ce etation Range CT LUNG No No No No Jun 29 CANCER informa informa informa informa 2014 tion in tion in tion in tion in 9:27 AM SCREENI source source source source NG LOW data data data data DOSE Jun 29, 2015 09:30:1 2 AM\.br\ \.br\Cl inical: Asympto matic patient meeting NCCN high risk criteri a for lung\.b r\scree maine.\. br\\.br \Techni jolene: Noncont rast helical , low dose CT chest per standar d departm ent\.br \protoc ol.\.br \\.br\C omparis on: Chest x-ray March 19, 2013.\. br\\.br \Findin gs: Mild parasep sukhdev emphyse ma is present . There are scatter ed\.br\ calcifi ed granulo shah in\.br\ the right and left lung. Calcifi ed right hilar nodes present . Several \.br\no ncalcif ied right lung\.b r\nodul es are present all measuri ng under 4 mm in size. No suspici ous\.br \nodule . Small area of focal\. br\scar or infiltr ate present in right middle lobe. No evidenc e of pleural \.br\ef fusion. Some\.b r\coron lianet artery calcifi cation is inciden tally noted. Lowest most obtaine d\.br\i mage shows a\.br\n onobstr ucting 3 mm stone in the left kidney. \.br\\. br\Foll owup code:\. br\\.br \[ ] Categor y 0 : Prior exams being located or not all of lungs imaged. \.br\\. br\[ ] Categor y 1: Negativ e: No nodule or definit carlos benign nodule( s)\.br\ Continu ed annual low-dos e\.br\s creenin g CT scan suggest ed if age <78.\.b r\\.br\ [ X] Categor y 2: Benign appeara nce or behavio r: Include s finding s such as:\.br \new nodule less\.b r\than 4mm, nodules less than 6mm, GGN less than 20mm, or cat 3 or 4 nodule\ .br\eli t is stable for 3\.br\o r more months. Continu ed annual low-dos e screeni ng CT scan suggest ed if\.br\ age <78.\.b r\\.br\ [ ] Categor y 3: Probabl y Benign finding s.: Include s nodules 6-7mm at\.br\ baselin e or new 4-5mm\. br\nodu les. Also new or baselin e GGN 20mm or larger. Followu p: 6 months\ .br\and if stable at 6\.br\m onths, then in 12 additio nal months. This should be done as LOW DOSE\.b r\CT CHEST LUNG SCREEN\ .br\FOL LOWUP (IMG [id number]). Order will be placed by [facility] lung screeni ng nurse\. br\konstantin gator.\ .br\\.b r\[ ] Categor y 4 A: Suspici ous finding . Solid nodules 8 to 14mm at\.br\ baselin e or enlargi ng\.br\ nodule less than 8mm, or new 6-7mm nodule. Endobro nchial nodule. F/U LDCT\.b r\in 3 months. PET/CT\ .br\if solid part 8mm or larger. LOW DOSE CT CHEST LUNG SCREEN [place]LLOWU P [id number] ). Order will\.b r\be placed by [facility] lung screeni ng nurse navigat or.\.br \\.br\[ ] Categor y 4B: Suspici ous finding . Solid nodule 15mm or larger, or new\.br \or growing and 8mm or\.br\ larger. Pulmona ry consult suggest ed.\.br \\.br\[ ] Categor y S: Signifi cant inciden sukhdev finding that will require \.br\ad ditiona l workup (exampl es:\.br \fractu re, aneurys m, indeter minant mass other than lung).\ .br\\.b r\\.br\ IMPRESS ION: No suspici ous nodule. Followu p low dose screeni ng CT chest\. br\sugg ested in 12 months. \.br\Ca tegory 2 LDL Observa Value Referen Units Interpr Notes Date tion ce etation Range LDL 94 <=100 mg/dL No < 100 Apr 30 Calcula informa 2015 geronimo tion in 5:38 PM source Optimal data \.br\10 0 - 129 Near or above optimal \.br\13 0 - 159 Borderl ine High\.b r\160 - 189 High\.b r\ >= 190 Very High Lipid Refx Observa Value Referen Units Interpr Notes Date tion ce etation Range Cholest 142 <=200 mg/dL No < 200 Apr 30 zakia informa 2015 [Percen tion in 5:38 PM tile] source Desirab data le\.br\ 200 - 239 Borderl ine High\.b r\>= 240 High TRIGLYC 122 <=150 mg/dL No < 150 Apr 30 ERIDES. informa 2015 TOTAL tion in Normal\ 5:38 PM source .br\150 data - 199 Borderl ine High\.b r\200 - 499 High\.b r\ >= 500 Very High CHOLEST 24 >=40 mg/dL Low > 60 Apr 30 EROLS.I 2015 N HDL Optimal 5:38 PM \.br\40 - 60 Accepta ble\.br \ < 40 Low Hepatic Pa Observa Value Referen Units Interpr Notes Date tion ce etation Range Bilirub 0.4 0.1 - mg/dL No No Apr 30 in.tota 1.3 informa informa 2015 l tion in tion in 5:38 PM [Mass/v source source olume] data data in Serum or Plasma ASPARTA 38 <=40 IU/L No No Apr 30 TE informa informa 2015 AMINOTR tion in tion in 5:38 PM ANSFERA source source SE data data Alkalin 82 35 - IU/L No No Apr 4 e 104 informa informa 2015 phospha tion in tion in 5:38 PM tase source source [Enzyma data data tic activit y/volum e] in Serum or Plasma LDL Observa Value Referen Units Interpr Notes Date tion ce etation Range LDL 72 <=100 mg/dL No < 100 Dec 18 Calcula informa 2013 geronimo tion in 6:32 PM source Optimal data \.br\10 0 - 129 Near or above optimal \.br\13 0 - 159 Borderl ine High\.b r\160 - 189 High\.b r\ >= 190 Very High Lipid Refx Observa Value Referen Units Interpr Notes Date tion ce etation Range Cholest 168 <=200 mg/dL No < 200 Dec 18 zakia informa 2013 [Percen tion in 6:32 PM tile] source Desirab data le\.br\ 200 - 239 Borderl ine High\.b r\>= 240 High TRIGLYC 331 <=150 mg/dL High < 150 Dec 18 ERIDES. 2013 TOTAL Normal\ 6:32 PM .br\150 - 199 Borderl ine High\.b r\200 - 499 High\.b r\ >= 500 Very High CHOLEST 30 >=40 mg/dL Low > 60 Nov 13 EROLS.I 2013 N HDL Optimal 6:32 PM \.br\40 - 60 Accepta ble\.br \ < 40 Low LDL Direct Observa Value Referen Units Interpr Notes Date ti ce etation Range Cholest 144 <=100 mg/dL High < 100 Sep 8 zakia in 2012 LDL 8:08 PM [Mass/v Optimal olume] \.br\10 in 0 - 129 Serum or Near or Plasma above optimal \.br\13 0 - 159 Borderl ine High\.b r\160 - 189 High\.b r\ >= 190 Very High Lipid Refx Observa Value Referen Units Interpr Notes Date tion ce etation Range Cholest 266 <=200 mg/dL High < 200 Nov 8 zakia 2012 [Percen 7:44 PM tile] Desirab le\.br\ 200 - 239 Borderl ine High\.b r\>= 240 High TRIGLYC 607 <=150 mg/dL High < 150 Nov 8 ERIDES. 2012 TOTAL Normal\ 7:50 PM .br\150 - 199 Borderl ine High\.b r\200 - 499 High\.b r\ >= 500 Very High CHOLEST 33 >=40 mg/dL Low > 60 Nov 8 EROLS.I 2012 N HDL Optimal 7:44 PM \.br\40 - 60 Accepta ble\.br \ < 40 Low Mg Observa Value Referen Units Interpr Notes Date tion ce etation Range Magnesi 2.0 1.6 - mg/dL No Oct 04 um 2.2 informa informa 2012 [Moles/ tion in tion in 7:43 PM volume] source source in data data Serum or Plasma Hepatic Pa Observa Value Referen Units Interpr Notes Date tion ce etation Range Protein 7.3 6.0 - gm/dL No Oct 04 8.2 informa informa 2012 [Mass/v tion in tion in 7:43 PM olume] source source in data data Serum or Plasma Albumin 4.3 3.5 - gm/dL No Oct 04 4.5 informa informa 2012 [Mass/v tion in tion in 7:43 PM olume] source source in data data Serum or Plasma Bilirub 0.3 0.0 - mg/dL No Oct 04 in.dire 0.[address] tion in tion in 7:43 PM [Mass/v source source olume] data data in Serum or Plasma Bilirub 0.6 0.1 - mg/dL No Oct 04 in.tota 1.3 informa informa 2012 l tion in tion in 7:43 PM [Mass/v source source olume] data data in Serum or Plasma ASPARTA 25 14 - 36 IU/L No No Oct 04 TE informa informa 2012 AMINOTR tion in tion in 7:43 PM ANSFERA source source SE data data Alanine 29 6 - 60 IU/L No No Oct 04 informa informa 2012 aminotr tion in tion in 7:43 PM ansfera source source se data data [Enzyma tic activit y/volum e] in Serum or Plasma Alkalin 109 41 - IU/L No No Oct 04 e 119 informa informa 2012 phospha tion in tion in 7:43 PM tase source source [Enzyma data data tic activit y/volum e] in Serum or Plasma TSH Observa Value Referen Units Interpr Notes Date tion ce etation Range Thyrotr 2.140 0.300 - mcIU/mL No No Oct 04 opin 5.000 informa informa 2012 [Units/ tion in tion in 7:23 PM volume] source source in data data Serum or Plasma Auto Diff Observa Value Referen Units Interpr Notes Date tion ce etation Range Neutrop 55.2 No % No No Nov 8 hils informa informa informa 2012 [#/volu tion in tion in tion in 4:57 PM me] in source source source Blood data data data by Automat ed count Lymphoc 33.2 No % No No Nov 8 ytes informa informa informa 2012 [#/volu tion in tion in tion in 4:57 PM me] in source source source Blood data data data by Automat ed count Monocyt 5.5 No % No No Sep 8 es informa informa informa 2012 [#/volu tion in tion in tion in 4:57 PM me] in source source source Blood data data data by Automat ed count Eos 5.9 No % No No Nov 8 Percent informa informa informa 2012 tion in tion in tion in 4:57 PM source source source data data data Baso 0.2 No % No No Nov 8 Percent informa informa informa 2012 tion in tion in tion in 4:57 PM source source source data data data Neutrop 6.0 1.8 - x10(3)/ No No Sep 8 hils 7.7 mcL informa informa 2012 [#/volu tion in tion in 4:57 PM me] in source source Blood data data Lymphoc 3.6 0.6 - x10(3)/ No No Nov 8 ytes 4.8 mcL informa informa 2012 [#/volu tion in tion in 4:57 PM me] in source source Blood data data Monocyt 0.6 0.0 - x10(3)/ No No Sep 8 es 1.3 mcL informa informa 2012 [#/volu tion in tion in 4:57 PM me] in source source Blood data data Eosinop 0.6 0.0 - x10(3)/ High No Nov 8 hils 0.5 mcL informa 2012 [#/volu tion in 4:57 PM me] in source Blood data Basophi 0.0 0.0 - x10(3)/ No No Nov 8 ls 0.2 mcL informa informa 2012 [#/volu tion in tion in 4:57 PM me] in source source Blood data data CBC Observa Value Referen Units Interpr Notes Date tion ce etation Range LEUKOCY 10.9 4.0 - x10(3)/ No No Sep 8 CHUY 11.0 mcL informa informa 2013 tion in tion in 4:57 PM source source data data Erythro 4.77 3.80 - x10(6)/ No No Sep 8 cytes 5.10 mcL informa informa 2012 [#/volu tion in tion in 4:57 PM me] in source source Blood data data by Automat ed count Hemoglo 15.9 12.0 - gm/dL High No Sep 8 bin 15.6 informa 2013 [Mass/v tion in 4:57 PM olume] source in data Blood Hematoc 46.7 35.7 - % High No Sep 8 rit 45.9 informa 2012 [Volume tion in 4:57 PM source Fractio data n] of Blood by Automat ed count Erythro 97.8 82.5 - fL No No Sep 8 cyte 99.8 informa informa 2012 mean tion in tion in 4:57 PM corpusc source source ular data data volume [Entiti c volume] by Automat ed count Erythro 33.4 27.0 - pg No No Sep 8 cyte 34.3 informa informa 2013 mean tion in tion in 4:57 PM corpusc source source ular data data hemoglo bin [Entiti c mass] by Automat ed count Erythro 34.1 32.1 - gm/dL No No Oct 04 cyte 35.3 informa informa 2012 mean tion in tion in 4:57 PM corpusc source source ular data data hemoglo bin concent ration [Mass/v olume] by Automat ed count Erythro 13.7 11.5 - % No No Sep 8 cyte 15.0 informa informa 2012 distrib tion in tion in 4:57 PM ution source source width data data [Ratio] by Automat ed count Platele 246 144 - x10(3)/ No No Sep 8 ts 423 mcL informa informa 2013 [#/volu tion in tion in 4:57 PM me] in source source Blood data data by Automat ed count Platele 10.6 6.8 - fL No No Sep 8 t mean 10.8 informa informa 2013 volume tion in tion in 4:57 PM [Entiti source source c data data volume] in Blood EK EKG 12 LEAD Observa Value Referen Units Interpr Notes Date tion ce etation Range Sinus No No No No Feb 24 rhythm\ informa informa informa informa 2013 .br\Ant tion in tion in tion in tion in 5:51 AM erior T source source source source wave data data data data changes are nonspec ific\.b r\No signifi cant change from earlier record\ .br\\.b r\Borde rline ECG EK EKG 12 LEAD Observa Value Referen Units Interpr Notes Date tion ce etation Range Sinus No No No No Feb 23 rhythm\ informa informa informa informa 2013 .br\ST tion in tion in tion in tion in 3:25 PM junctio source source source source nal data data data data depress ion is nonspec ific\.b r\\.br\ Borderl ine ECG ST STRESS TEST LEXISCAN Observa Value Referen Units Interpr Notes Date ti ce etation Range NORMAL No No No No Dec 17 ECG informa informa informa informa 2012 RESPONS tion in tion in tion in tion in 8:14 AM ENUCLEA source source source source R data data data data REPORT PENDING NM MYOCARDIAL PERFUSION SPECT STRESS AND REST Observa Value Referen Units Interpr Notes Date ti ce etation Range St. No No No No Dec 17 Elizabe informa informa informa informa 2012 th tion in tion in tion in tion in 7:24 AM [facility] source source source source are-Ft. data data data data [address] [id number] [phone] [email or web address] [email or web address] dial Perfusi onSPECT ReportM ABDULAZIZ CACERES Exam Date: 013 07:24 Orderin g Phys: VIVIAN PORTILLO MD (juan chicas) 7 Exam Locatio n: [facility] [place] [facility] Referri ng Phys:VIVIAN HU MD (juan chicas)Age: 56 Gender: F Ht (in):67 Wt (lb):22 5 BSA 2.24 Stress Test Phy:Devin Verma M.D. : [id number] Room Number: 3709 Technol ogist: Jong Harvey CNMTPro cedure CPT:Ind ication s: CHEST PAINICD -9 Codes:C ardiac History : DYSLIPI DEMIA, HTNCard iac Meds: LASIX, K-DURMe ds past 24hrs:P retest Chest Pain:No chest painSTR ESS TEST Pharmac ologicP rotocol :Lexisc an Dose: 0.4 mg Duratio n (m:s):1 0 Aminoph ylline: Resting HR (bpm):8 0 Resting BP (mmHg): 108 /75 MPHR: 165 Target HR 140(bpm ):Peak HR (bpm): 100 Peak BP (mmHg): 121 /74 % MPHR: 61 Double Product :75965M P Respons e:Stres s Termina tion:Ph armacol ogic protoco l complet edStres s Symptom s: No chest pain or symptom sStress Summary : Pharmac ologic protoco l complet edECG ECG Reporti ng By: Devin Portillo M.D.Res ting ECG: NSR. NO ISCHEMI C ST CHANGES Stress ECG: NORMAL ECG RESPONS EIMAGE PROTOCO L Rest/St ress 1 DayRadi opharma ceutica lDose (mCi) Img Date Img Time Inj to Img Time (min)Re st: Tc-99m Tetrofo smi 14.4 2012 07:37 15Stres s: Tc-99m Tetrofo smi 40.4 2012 08:50 30Post- Injecti on Exercis e:Admin istrati on Site: Intrave domus Person Adminis tering: JasonSP ECT RESULTS Technic al Quality : Technic ally adequat e studyRa w Data Analysi s: No clinica lly relevan t artifac tPerfus ion: Moderat e sized, mild to moderat e intensi ty, reversi ble perfusi on defect of the inferoa pical segment segment c/w ischemi aFUNCTI ON (calcul ated via Gated SPECT)P ost Stress LV EF:54 % TID: 1.21EDV : 105 ml (70-100 ml) ESV: 48 ml (30-50 ml)EDVI : 47 ml/m2 (30-50 ml/m2) ESVI: 21 ml/m2 (15-30 ml/m2)T echnica l Quality : Gated SPECT appears to be visuall y accurat eLV Size& Functio n: Normal left ventric ular size and functio n.LV Regiona l Functio n: No wall motion abnorma lities. Right Ventric le: Normal right ventric ular size and functio n.IMPRE SSIONSM oderate sized, mild to moderat e intensi ty, reversi ble perfusi on defect of the inferoa pical segment segment c/w ischemi a .Normal left ventric ular size and functio n.No wall motion abnorma lities. RADHA MCNULTY MD(Elec tronica lly Signed) Final Date: 17 December 2012 11:29 EK EKG 12 LEAD Observa Value Referen Units Interpr Notes Date tion ce etation Range Sinus No No No No Dec 15 rhythmN informa informa informa informa 2012 ormal tion in tion in tion in tion in 6:56 AM ECG source source source source data data data data XR CHEST AP PORTABLE Observa Value Referen Units Interpr Notes Date ti ce etation Range TEXT Chest No No No No Dec 14 DIAGNOS single informa informa informa informa 2012 IS viewHIS tion in tion in tion in tion in 2:21 PM BAT[employer] TORY: source source source source Chest data data data data pain.IM PRESSIO N:Lungs clear. Heart size normal. No acute disease EK EKG 12 LEAD Observa Value Referen Units Interpr Notes Date tion ce etation Range Sinus No No No No Dec 14 rhythmN informa informa informa informa 2012 ormal tion in tion in tion in tion in 1:57 PM ECG source source source source data data data data
--- OUTSIDE RECORDS SUMMARY | 2017-09-13 12:44 | External Medical Summary Rpt ---
[...] LOW-DOS E SCREENI NG CT SCAN (IMG [id number]) suggest ed if age <78.\.b r\\.br\ x Categor y 2: Benign appeara nce or behavio r: Include s finding s such as:\.br \new\.b r\nodul e less than 4mm, nodules less than 6mm, GGN less than 20mm, or cat 3\.br\o r 4\.br\n odule that is stable for 3 or more months. Continu ed ANNUAL LOW-DOS E\.br\S CREENIN G\.br\C T SCAN (IMG [id number]) suggest ed if age <78.\.b r\\.br\ Categor [...] LOW DOSE CT LUNG SCREENI NG (IMG [id number]). Order will be\.br\ placed by\.br\ SE lung [...] [facility]\ .br\sug gested. \.br\Ph one .\ .br\\.b r\Categ ory S: Signifi cant inciden [...] 's informa tion was entered into a 4 the starse r system with a\.br\t arget\. br\due date [...] r\CT CHEST LUNG SCREEN\ .br\FOL LOWUP (IMG [id number]). Order will be placed by [facility] lung screeni ng nurse\. br\konstantin gator.\ .br\\.b r\[ ] Categor y 4 A: Suspici ous finding . Solid nodules 8 to 14mm at\.br\ baselin e or enlargi ng\.br\ nodule less than 8mm, or new 6-7mm nodule. Endobro nchial nodule. F/U LDCT\.b r\in 3 months. PET/CT\ .br\if solid part 8mm or larger. LOW DOSE CT CHEST LUNG SCREEN FOLLOWU P ([facility]\.b r\[id number] ). Order will\.b r\be placed by [facility] lung screeni ng nurse [...] in tion in tion in 7:24 AM [facility] source source source source are-Ft. data data data data [address] [id number] [phone] [email or web address] mMyocar dial Perfusi onSPECT ReportM ABDULAZIZ CACERES Exam Date: 013 07:24 Orderin g Phys: VIVIAN PORTILLO MD (juan chicas) 7 Exam Locatio n: [facility] [place] NUC Referri ng [...] 121 /74 % MPHR: 61 Double Product :[id number] P Respons e:Stres s Termina tion:Ph armacol [...]
[2017-09-13 12:51] LABS: URINE SQUAMOUS CELLS OCC #/hpf (0-5)
--- NOTE | 2017-09-13 13:43 | RADIOLOGY REPORT PS360 ---
CT ABD PELVIS W/O CONTRAST HISTORY: LEFT FLANK PAIN INTO LLQ Patient Age: 61 years: Female Ordering Physician: Simon Rios MD TECHNIQUE: Helical CT scans abdomen pelvis with no oral nor IV contrast COMPARISON :Previous CT abdomen and pelvis 05/19/2017 02/14/2012 FINDINGS Lung bases are, no active disease minor linear atelectasis left base. Abdomen/pelvis. Lack of oral and IV contrast decreases sensitivity. Liver. Scattered pelvis calcifications. Otherwise unremarkable on this noncontrast study. Pancreas unremarkable. Spleen normal size. Unchangedq Gallbladder. Generous size Borderline distended. Likely sludge dependent in gallbladder, cannot exclude noncalcified stones. Kidneys No urinary tract calculi nor obstruction evident. No calcifications nor mass. Ureters are normal course and caliber Large bowel. Colonic diverticulosis again seen with most numerous diverticuli sigmoid colon. Only a few of the left colon. Lack of distention descending colon most accounts for the upper normal wall thickness here & splenic flexure region. Prominent, increased stool is seen at the right colon leading up to the region of hernia. Again note midline ventral fat-containing hernia, just inferior to umbilicus region. This ventral hernia appears slightly larger today and there is some Mild edema within the fat within it.. Is patient focally tender here? -If so this could reflect inflammation involving the restricted fat extending into this hernia. This fat-containing hernia sac measuring 5.5 cm transverse 4.5 cm height 2.7 cm AP. The abdominal wall defect here measuring up to 2.9 cm. Although no bowel loops are seen within this hernia sac I would note slight change in caliber of large bowel just posterior to this region. No wall thickening is seen here. However we see prominent stool throughout the right colon hepatic flexure and proximal transverse colon leading up to this area. Minimal stool is seen in the colon distal to this site.- With this question cannot exclude minor restriction large bowel at this level. Small bowel. Normal caliber no bowel dilatation nor obstruction. Moderate fluid. There is a mobile cecum medially directed with normal caliber appendix. Radio opaque material throughout the appendix likely reflecting previous barium or less likely appendicoliths throughout Also note midline diastases, superior to the the umbilicus. Small fat-containing umbilical hernia also noted. No bowel loops associated. Would note appears to be slight additional edema of soft tissues at evident about umbilicus today versus prior study. Again correlation required Pelvis. No free fluid no free air. Small postmenopausal uterus. No adnexal masses. Bladder unremarkable. Degenerative mild grade 1 listhesis of L4 on 5 due to the facet hypertrophy. Old wedge compression fracture T12, unchanged mild retropulsion superior posterior corner of T12 and posterior hypertrophic ridging T11/12 yielding relative spinal stenosis at this level. Aorto bi iliac stent in place. .. Finally note Generous fat along the inguinal canals bilaterally.-Bulging towards left inguinal canal may reflect some mild laxity left inguinal ring. Region IMPRESSION ---- 1. Diverticulosis most notable at sigmoid colon again noted. No radiographic findings of diverticulitis 2. No urinary tract calculi nor obstruction 3. Note slightly larger & mildly edematous appearance of the prior Fat-containing ventral midline hernia, just inferior to the umbilicus. . Slight edema appearance possibly reflecting minor inflammation here, as well as above & below this area.-Requires correlation clinically. .. Also note that the large bowel changes caliber slightly just posterior to this area; noted prominent stool right colon through proximal transverse colon.-With Minimal stool at mid transverse colon distal to this point. Slightly generous wall thickness redundant distal transverse colon and left colon most likely reflecting lack of distention 4 . Degenerative changes in spine similar to previous studies again noted.
[2017-09-13] MEDS ORDERED: TYLENOL WITH CO1 TA1 PO (13:54)
[2017-09-13 14:01] VITALS: BP 127/62
== END 2017-09-13 14:01 | disposition home or self-care (01) ==
LOC: ER 11:23
PROVIDERS: Emergency Medicine
DX: R10.9 Unspecified abdominal pain (principal); E78.5 Hyperlipidemia, unspecified; I50.9 Heart failure, unspecified; K21.9 Gastro-esophageal reflux disease without esophagitis; J43.9 Emphysema, unspecified; F17.210 Nicotine dependence, cigarettes, uncomplicated; Z79.82 Long term (current) use of aspirin; Z79.51 Long term (current) use of inhaled steroids; Z79.899 Other long term (current) drug therapy

== ENCOUNTER → 2017-09-15 | Outpatient (CLI) | payer MEDICARE, MEDICAID ==
[~2017-09-15] MED LIST changes: +TYLENOL WITH CO1 TA1 PO
--- NOTE | 2017-09-15 13:44 | RADIOLOGY REPORT PS360 ---
EXAM: LUMBAR SPINE 5 VIEWS HISTORY: ACUTE RT SIDE LBP WITHOUT SCIATICA ORDERING PHYSICIAN: Lisa ABRAHAM PATIENT AGE: 61 years COMPARISON: 03/31/2017 FINDINGS: There is mild thoracolumbar curvature convex left. Degenerative disc disease is present at T11-T12 with wedging of T12 similar to the previous exam with mild kyphosis at T11-T12. There is 6 mm anterolisthesis of L4 on L5 unchanged. Facet sclerosis/arthritic changes are noted from L3 to S1. Atherosclerotic calcification involves the aortoiliac vessels. There is been interval placement of a stents within the distal aorta and proximal iliacs. IMPRESSION: 1. No change with no acute finding. 2. Chronic wedging of T12 with degenerative disc disease at T11-T12 and facet arthritic changes and mild anterolisthesis of L4 on L5
--- NOTE | 2017-09-15 13:46 | RADIOLOGY REPORT PS360 ---
EXAM: THORACIC SPINE-3V SWIMMERS HISTORY: ACUTE RT SIDE LBP WITHOUT SCIATICA COMPARISON: None FINDINGS: Normal alignment. There is moderate anterior wedging of T12 with mild wedging of T11 no significant change. No acute fracture or dislocation. No bony destructive process apparent. Mild kyphosis is present at the T12 level. IMPRESSION: Chronic wedging of T12 and minimal chronic wedging of T11 with kyphosis No change with no acute finding
== END ==
LOC: RAD 12:14
DX: M54.6 Pain in thoracic spine (principal); M54.5 Low back pain

== ENCOUNTER → 2017-10-06 | Outpatient (CLI) | payer MEDICARE, MEDICAID ==
--- NOTE | 2017-10-06 14:02 | RADIOLOGY REPORT PS360 ---
CHEST(2 VIEWS-NOT PORTABLE) HISTORY: PNEUMONIA ORDERING PHYSICIAN: Lisa ABRAHAM PATIENT AGE: 61 years COMPARISON: 08/25/2017 FINDINGS: The cardiomediastinal silhouette and pulmonary vascularity are within normal limits. Increased markings are present in the left lower lobe consistent with atelectasis and/or infiltrate. The remaining lungs are clear. There is kyphosis of the thoracic lumbar junction. IMPRESSION: Left lower lobe atelectasis and/or infiltrate slightly worse than when compared to the previous exam.
== END ==
LOC: RAD 12:12
DX: J18.1 Lobar pneumonia, unspecified organism (principal)

== ENCOUNTER 2017-10-21 08:41 | Emergency (ER) | payer MEDICARE, MEDICAID ==
[~2017-10-21] VITALS: Ht 170.2 cm; Wt 104.3 kg
[2017-10-21] MEDS ORDERED: AVPAK AZITHROM250 MG PO (08:49)
[2017-10-21] MEDS ORDERED: PREDNISONE 20MG20 MG PO (08:52)
--- OUTSIDE RECORDS SUMMARY | 2017-10-21 09:02 | External Medical Summary Rpt | CCD ---
Author Author [employer] Organization [employer] Address Unknown Phone Unavailable Purpose Continuity of Care Document - through 2016
--- OUTSIDE RECORDS SUMMARY | 2017-10-21 09:02 | External Medical Summary Rpt | CCD ---
Author Author , ERNA UMANZOR Address Unknown Phone [email or web address] Immunization Name Date Rout CVX Reac Dose Comm Prov Is Faci e tion ent ider Refu lity Give sed n Tdap 06-0 115 999 Hist [place] No HI , 4-20 oric Adso 15 al rbed Info rmat ion - Sour ce Unsp ecif ied PPV2 06-0 Intr 33 999 Hist [place] No HI 3 4-20 amus oric 15 cula al r Info rmat ion - Sour ce Unsp ecif ied Td 08-1 Intr 9 999 Hist H149 No H149 (francis 2-19 amus oric lt), 99 cula al r Info adso rmat rbed ion - Sour ce Unsp ecif ied
--- OUTSIDE RECORDS SUMMARY | 2017-10-21 09:02 | External Medical Summary Rpt | CCD ---
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 E87.2 ACIDOSIS F41.9 ANXIETY DISORDER, UNSPECIFIED I20.0 UNSTABLE ANGINA I20.9 ANGINA PECTORIS, UNSPECIFIED I65.23 OCCLUSION AND STENOSIS OF BILATERAL CAROTID ARTERIES J18.9 PNEUMONIA, UNSPECIFIED ORGANISM J44.1 CHRONIC OBSTRUCTIVE PULMONARY DISEASE W (ACUTE) EXACERBATIO N R06.00 DYSPNEA, UNSPECIFIED R10.9 UNSPECIFIED ABDOMINAL PAIN R42 DIZZINESS AND GIDDINESS Results Labs Lab Lab Date Result Refere Interp Status Commen Order Detail nces retati t Range on Urinalysis with microscopy (09-13-2017 12:30) Urine = NONE O complet leukocy 017 wbc/hpf ed reynold 12:30 count (number /volume ) Urine 0.2 0.2 NEG complet urobili 017 L ed nogen 12:30 E.U./dL detecti on by test str [place] OCC OCC 0-5 complet s 017 L ed epithel 12:30 #/hpf ial cells detecti on in u Urine < = 1.005-1 complet specifi 017 1.005 .030 ed c 12:30 gravity measure ment Urine = NEG complet protein 017 NEGATIV ed 12:30 E mg/dL measure ment by automat ed t Urine = 7.0 5.0-8.5 complet pH 017 ed 12:30 Urine NEGATIV NEG complet nitrite 017 E ed 12:30 NEGATIV detecti E L on by test strip Mucus NEGATIV NEG complet detecti 017 E ed on in 12:30 NEGATIV urine E L sedimen t by lig Urine NEGATIV NEG complet ketones 017 E ed 12:30 NEGATIV detecti E L on by mg/dL automat ed reynold Glucose = NEG complet ur 017 NEGATIV ed test 12:30 E strip Urine 09-13-2 YELLOW YELLOW complet color 017 YELLOW ed 12:30 L Urine 09-13-2 NEGATIV NEG complet blood 017 E ed detecti 12:30 NEGATIV on E L Urine 09-13-2 NEGATIV NEG complet total 017 E ed bilirub 12:30 NEGATIV in E L detecti on by test Bacteri NONE O complet a 017 NONE L ed detecti 12:30 on in urine sedimen t by Urine CLEAR CLEAR complet appeara 017 CLEAR L ed nce 12:30 determi nation Erythro 09-13- NONE 0 complet cytes 017 NONE L ed detecti 12:30 rbc/hpf on in urine sedimen t Comprehensive metabolic panel (09-13-2017 11:50) Protein = 6.7 6.4-8.2 complet total 017 gm/dL ed ser/darrion 11:50 s ALT = 50 12-78 complet (SGPT) 017 U/L ed ser/darrion 11:50 s Serum 09-13-2 = 43 15-37 complet or 017 U/L ed plasma 11:50 asparta te aminotr ansfera Serum = 136 136-145 complet sodium 017 mmoL/L ed measure 11:50 ment Serum = 3.7 3.5-5.1 complet potassi 017 mmoL/L ed um 11:50 measure ment Serum 09-13-2 = 91 74-106 complet or 017 mg/dL ed plasma 11:50 glucose measure ment (mas Serum = 3.4 1.3-3.2 complet globuli 017 gm/dL ed n 11:50 measure ment (mass/v olume) Estimat 09-13- = 73 59- complet ed 017 ML/MIN ed glomeru 11:50 lar filtrat ion rate (GF Comment: REFERENCE RANGE: >60 ML/MIN/1.73 SQUARE METERS Comment: If this patient is -[place]ong[place]ian, then multiply the Comment: result by 1.210. Estimat 10-18-2 = 118 50-200 complet ion of 017 ML/MIN ed creatin 11:50 ine renal clearan ce Serum = 0.8 0.55-1. complet or 017 mg/dL 02 ed plasma 11:50 creatin ine measure ment ( Carbon = 29 21.0-32 complet dioxide 017 mmoL/L .0 ed 11:50 measure ment Serum = 100 98-107 complet or 017 mmoL/L ed plasma 11:50 chlorid e measure ment (mo Serum = 8.7 8.5-10. complet or 017 mg/dL 1 ed plasma 11:50 calcium measure ment (mas Serum = 14 7-18 complet or 017 mg/dL ed plasma 11:50 urea nitroge n measure men Serum = 0.4 0.2-1.0 complet or 017 mg/dL ed plasma 11:50 total bilirub in measure m Serum = 84 46-116 complet or 017 U/L ed plasma 11:50 alkalin e phospha tase jones Serum = 3.3 3.4-5.0 complet or 017 gm/dL ed plasma 11:50 albumin measure ment (mas Serum = 1.0 1.1-1.8 complet or 017 ed plasma 11:50 albumin /globul in mass ra Lipase measurement (09-13-2017 11:50) Lipase = 133 73-393 complet measure 017 U/L ed ment 11:50 CBC w auto diff (09-13-2017 11:50) [place] % = 3.3 % 1.7-9.3 complet 017 ed 11:50 Blood = 14.7 4.8-10. complet leukocy 017 K/MM3 8 ed reynold 11:50 count (number /volume ) Automat = 14.6 11.5-17 complet ed 017 % .5 ed erythro 11:50 cyte distrib ution width Red = 4.42 4.2-5.4 complet blood 017 M/mm3 ed cell 11:50 count Blood = 305 142-424 complet platele 017 K/mm3 ed t count 11:50 Automat = 7.5 7.4-10. complet ed 017 fl 4 ed blood 11:50 platele t mean volume jones Absolut = 0.5 0.1-1.0 complet e 017 K/mm3 ed monocyt 11:50 e count Automat = 98.3 82.2-97 complet ed 017 fl .8 ed erythro 11:50 cyte mean corpusc ular v Automat = 31.9 31.8-35 complet ed 017 g/dl .4 ed erythro 11:50 cyte mean corpusc ular h Mean = 31.4 27-31.2 complet corpusc 017 pg ed ular 11:50 hemoglo bin ([facility]) determ Lymphoc = 16.1 10-50.0 complet yte 017 % ed count, 11:50 blood, automat ed Absolut = 2.4 0.7-4.5 complet e 017 K/mm3 ed lymphoc 11:50 yte count Blood = 13.9 12.2-16 complet hemoglo 017 g/dL .2 ed bin 11:50 measure ment (mass/v olum Blood = 43.4 37.0-47 complet hematoc 017 % .0 ed rit 11:50 (volume fractio n) Granulo = 74.6 37.0-80 complet cyte 017 % .0 ed percent 11:50 age Blood = 11.0 1.8-7.8 complet granulo 017 K/mm3 ed cytes 11:50 automat ed count (numb Automat = 5.8 % 0.1-12. complet ed 017 0 ed blood 11:50 eosinop hils/10 0 leukocy t Automat = 0.9 0.0-0.4 complet ed 017 K/mm3 ed blood 11:50 eosinop hil count Baso % = 0.2 % 0.1-2.0 complet 017 ed 11:50 Automat = 0.0 0-0.2 complet ed 017 K/MM3 ed blood 11:50 basophi l count (count/ vo Differential panel, method unspecified - (08-26-2017 05:00) [...] specimen (08-25-2017 10:35) Influen NOT NOT complet 017 DETECTE DETECTD ed virus A 10:35 D Ag [Presen ce] in Unspeci fied specime n Influen NOT NOT complet 017 DETECTE DETECTD ed virus B 10:35 D Ag [Presen ce] in Unspeci fied specime n Gas panel in Arterial blood (08-25-2017 10:30) Arteria ACCEPTA complet l 017 BLE ed patency 10:30 Wrist artery --pre arteria l punctur e SOURCE RIGHT complet 017 RADIAL ed 10:30
--- OUTSIDE RECORDS SUMMARY | 2017-10-21 09:02 | External Medical Summary Rpt | CCD ---
Author Author , ERNA UMANZOR Address Unknown Phone [email or web address] Assistant Purpose Continuity of Care Document - 12-14-2012 [...] SQUARE METERS Comment: If this patient is -[place], then multiply the Comment: result by 1.210. [...] 11:50 CBC w auto diff (09-13-2017 11:50) [place] % = 3.3 % 1.7-9.3 complet 017 [...]
--- OUTSIDE RECORDS SUMMARY | 2017-10-21 09:02 | External Medical Summary Rpt | CCD ---
Author Author , ERNA UMANZOR Address Unknown Phone [email or web address] Immunization Name Date Rout CVX Reac Dose Comm Prov Is Faci e tion ent ider Refu lity Give sed n Tdap 06-0 115 999 Hist [place] No [place] , 4-20 oric Adso 15 al rbed Info rmat ion - Sour ce Unsp ecif ied PPV2 06-0 Intr 33 999 Hist [place] No [place] 3 4-20 amus oric 15 cula al r Info rmat ion - Sour ce Unsp ecif ied Td 08-1 Intr 9 999 Hist H149 No H149 (francis 2-19 amus oric lt), 99 cula al r Info adso rmat rbed ion - Sour ce Unsp ecif ied
--- OUTSIDE RECORDS SUMMARY | 2017-10-21 09:03 | External Medical Summary Rpt ---
Author Author [employer], [facility] Organization [employer] Address Unknown Phone Unavailable Results Comprehensive metabolic 2000 panel in Serum or Plasma Observa Value Referen Units Interpr Notes Date tion ce etation Range Albumin/G 1.1 - 1.8 No Low No Aug 18 lobulin informati informati 2017 [Mass on in on in 11:50 AM ratio] in source source Serum or data data Plasma Albumin 3.4 - 5.0 gm/dL Low No Aug 18 [Mass/vol informati 2016 ume] in on in 11:50 AM Serum or source Plasma data Alkaline 46 - 116 U/L Normal No Sep 13 phosphata informati 2017 se on in 11:50 AM [Enzymati source c data activity/ volume] in Serum or Plasma Bilirubin 0.2 - 1.0 mg/dL Normal No Sep 13 .total informati 2016 [Mass/vol on in 11:50 AM ume] in source Serum or data Plasma Urea 7 - 18 mg/dL Normal No Sep 13 nitrogen informati 2016 [Mass/vol on in 11:50 AM ume] in source Serum or data Plasma Calcium 8.5 - mg/dL Normal No Sep 13 [Mass/vol 10.1 informati 2016 ume] in on in 11:50 AM Serum or source Plasma data Chloride 98 - 107 mmoL/L Normal No Sep 13 [Moles/vo informati 2016 lume] in on in 11:50 AM Serum or source Plasma data Carbon 21.0 - mmoL/L Normal No Sep 13 dioxide, 32.0 informati 2016 total on in 11:50 AM [Moles/vo source lume] in data Serum or Plasma Creatinin 0.55 - mg/dL Normal No Aug 18 e 1.02 informati 2017 [Mass/vol on in 11:50 AM ume] in source Serum or data Plasma Creatinin 50 - 200 ML/MIN Normal No Aug 18 e renal informati 2017 clearance on in 11:50 AM source predicted data by Cockcroft -Gault formula Estimated 59- ML/MIN No REFERENCE Oct 18 informati RANGE: 2017 glomerula on in >60 11:50 AM r source ML/MIN/1. filtratio data 73 SQUARE n rate METERSIf (GF this patient is -A merican, then multiply theresult by 1.210. Globulin 1.3 - 3.2 gm/dL High No Sep 13 [Mass/vol informati 2016 ume] in on in 11:50 AM Serum source data Glucose 74 - 106 mg/dL Normal No Sep 13 [Mass/vol informati 2016 ume] in on in 11:50 AM Serum or source Plasma data Potassium 3.5 - 5.1 mmoL/L Normal No Sep 132016 [Moles/vo on in 11:50 AM lume] in source Serum or data Plasma Sodium 136 - 145 mmoL/L Normal No Sep 13 [Moles/vo informati 2016 lume] in on in 11:50 AM Serum or source Plasma data Aspartate 15 - 37 U/L High No Sep 132016 aminotran on in 11:50 AM sferase source [Enzymati data c activity/ volume] in Serum or Plasma Alanine 12 - 78 U/L Normal No Sep 13 aminotran 2016 sferase on in 11:50 AM [Enzymati source c data activity/ volume] in Serum or Plasma Protein 6.4 - 8.2 gm/dL Normal No Sep 13 [Mass/vol informati 2016 ume] in on in 11:50 AM Serum or source Plasma data Lipase [Enzymatic activity/volume] in Serum or Plasma Observa Value Referen Units Interpr Notes Date tion ce etation Range Lipase 73 - 393 U/L Normal No Sep 13 [Enzymati informati 2017 c on in 11:50 AM activity/ source volume] data in Serum or Plasma CBC W Auto Differential panel in Blood Observa Value Referen Units Interpr Notes Date tion ce etation Range Basophils 0 - 0.2 K/MM3 Normal No Sep 132016 [#/volume on in 11:50 AM ] in source Blood by data Automated count Basophils 0.1 - 2.0 % Normal No Sep 13 /2016 leukocyte on in 11:50 AM s in source Blood by data Automated count Eosinophi 0.0 - 0.4 K/mm3 High No Sep 13 ls 2016 [#/volume on in 11:50 AM ] [...] High No Sep 13 te mean informati 2016 corpuscul on in 11:50 AM ar source hemoglobi data n [Entitic mass] Erythrocy 31.8 - g/dl Normal No Sep 13 te mean 35.4 informati 2016 corpuscul on in 11:50 AM ar source hemoglobi data n concentra tion [Mass/vol ume] by Automated count Erythrocy 82.2 - fl High No Sep 13 te mean 97.8 informati 2016 corpuscul on in 11:50 AM ar volume source [Entitic data volume] by Automated count Monocytes 0.1 - 1.0 K/mm3 Normal No Sep 13 informati 2016 [#/volume on in 11:50 AM ] in source Blood by data Automated count Monocytes 1.7 - 9.3 % Normal No Sep 13 /100 informati 2017 leukocyte on in 11:50 AM s in source Blood by data Automated count Platelet 7.4 - fl Normal No Sep 13 mean 10.4 informati 2016 volume on in 11:50 AM [Entitic source volume] data in Blood by Automated count Platelets 142 - 424 K/mm3 Normal No Oct 18 inform2016 [#/volume on in 11:50 AM ] [...] count Leukocyte 4.8 - K/MM3 High No Aug 18 s 10.8 informati 2016 [#/volume on in 11:50 AM [...] Normal No Sep 30 ls/100 12.0 informati 2016 5:00 leukocyte on in AM s in source Blood by data Automated count Granulocy 1.8 - 7.8 K/mm3 High No Sep 30 chuy informati 2016 5:00 [...] % Low No Sep 30 es informati 2017 5:00 [#/volume on in AM [...] 50 % Normal No Sep 30 informa 2017 tion in 5:00 AM source data Monocytes [...] % Normal No Sep 30 ls informati 2017 5:00 [#/volume on in AM ] in source Blood by data Automated count Cells No #CELLS No No Sep 30 Counted informati informati informati 2017 5:00 Total [#] on in on in on in AM in Blood source source source data data data Basic metabolic panel in Blood Observa Value Referen Units Interpr Notes Date tion ce etation Range Urea 7 - 18 mg/dL Normal No Sep 30 nitrogen informati 2017 5:00 [Mass/vol on in AM ume] in source Serum or data Plasma Calcium 8.5 - mg/dL Normal No Sep 30 [Mass/vol 10.1 informati 2017 5:00 ume] in on in AM Serum or source Plasma data Chloride 98 - 107 mmoL/L Normal No Sep 30 [Moles/vo informati 2017 5:00 lume] in on in AM Serum or source Plasma data Carbon 21.0 - mmoL/L High No Sep 30 dioxide, 32.0 informati 2017 5:00 total on in AM [Moles/vo source lume] in data Serum or Plasma Creatinin 0.55 - mg/dL Normal No Sep 30 e 1.02 informati 2016 5:00 [Mass/vol on in AM ume] in source Serum or data Plasma Creatinin 50 - 200 ML/MIN Normal No Sep 30 e renal informati 2017 5:00 clearance on in AM source predicted data by Cockcroft -Gault formula Estimated 59- ML/MIN No REFERENCE Sep 30 informati RANGE: 2017 5:00 glomerula on in >60 AM r source ML/MIN/1. filtratio data 73 SQUARE n rate METERSIf (GF this patient is -A merican, then multiply theresult by 1.210. Glucose 74 - 106 mg/dL High No Sep 30 [Mass/vol informati 2017 5:00 ume] in on in AM Serum or source Plasma data Potassium 3.5 - 5.1 mmoL/L Normal No Sep 30 informati 2017 5:00 [Moles/vo on in AM lume] in [...] Bacteri 1+ O No No No Sep a informa informa informa 2016 [Presen tion [...] strip Erythro NEGATIV NEG No No No Aug 25 cytes E informa informa informa 2016 [Presen [...] No No Sep E informa informa informa 2017 [Presen tion in tion in tion in 12:40 ce] in source source source PM Urine data data data by Test strip pH of 5.0 - 8.5 No Normal No Sep Urine informati informati 2017 on in on in 12:40 PM source source data data Protein NEG mg/dL No No Aug 25 [Mass/vol informati informati 2017 ume] in on in on in 12:40 PM Urine by source source Automated data data test strip Erythro OCC 0 rbc/hpf No No Aug 25 cytes informa informa 2017 [Presen tion in tion in 12:40 ce] in source source PM Urine data data sedimen t by Light microsc opy Specific 1.005 - No Normal No Aug 25 gravity 1.030 informati informati 2017 of Urine on in on in 12:40 PM source source data data Epithel 20-50 0 - 5 #/hpf No No Aug 25 ial informa informa 2017 cells.s tion in tion in 12:40 quamous source source PM data data [Presen ce] in Urine sedimen t by Microsc opy high power field Urobili 0.2 NEG E.U./dL No No Aug 25 nogen informa informa 2017 [Presen tion in tion in 12:40 ce] in source source PM Urine data data by Test strip Leukocyte O wbc/hpf No No Aug 25 s informati informati 2017 [#/volume on in on in 12:40 PM ] in source source Urine data data Urinalysis dipstick W Reflex Microscopic panel in Urine Observa Value Referen Units Interpr Notes Date tion ce etation Range Appeara Sl CLEAR No No No Aug 25 nce of Cloudy informa informa informa 2017 Urine tion in tion in tion in 12:40 source source source PM data data data Bilirub NEGATIV NEG No No No Aug 25 in E informa informa informa 2016 [Presen tion in tion in tion in 12:40 ce] in source source source PM Urine data data data by Test strip Erythro NEGATIV NEG No No No Aug 25 cytes E informa informa informa 2016 [Presen tion in tion in tion in 12:40 ce] in source source source PM Urine data data data Color DARK YELLOW No No No Aug 25 of YELLOW informa informa informa 2017 Urine [...] No Sep [Presen E informa informa informa 2017 ce] in tion in tion in tion [...] 5.0 - 8.5 No Normal No Sep Urine informati informati 2017 on in on in 12:40 PM source source data data Protein NEG mg/dL No No Sep 29 [Mass/vol informati informati 2017 ume] in on in on in 12:40 PM Urine by source source Automated data data test strip Specific 1.005 - No Normal No Sep 29 gravity 1.030 informati informati 2017 of Urine on in on in 12:40 PM source source data data Urobili 0.2 NEG E.U./dL No No Sep nogen informa informa 2016 [Presen tion in tion in 12:40 ce] in source source PM Urine data data by Test strip Influenza virus A+B Ag [Presence] in Unspecified specimen Observa Value Referen Units Interpr Notes Date tion ce etation Range Influen NOT NOT No No No Sep za DETECTE DETECTD informa informa informa 2017 virus A D tion in tion in tion in 10:35 Ag source source source AM [Presen data data data ce] in Unspeci fied specime n Influen NOT NOT No No No Sep za DETECTE DETECTD informa informa informa 2017 [...] High No Sep 29 te 26.0 informati 2016 [Moles/vo on in 10:30 AM lume] in [...] MMOL/L Normal No Sep 29 Arterial 7.45 informati 2017 blood on in 10:30 AM source data Oxygen 80 - 100 MMHG Low No Sep 29 [Partial informati 2017 pressure] on in 10:30 AM in source Arterial data blood Oxygen 90 - 100 % Normal No Sep 29 saturatio informati 2017 n.calcula on in 10:30 AM geronimo from source oxygen data partial pressure in Arterial blood SOURCE RIGHT No No No No Sep 29 RADIAL informa informa informa informa 2017 tion in tion in tion in tion in 10:30 source source source source AM data data data data Carbon 23 - 27 MMOL/L High No Sep 29 dioxide, informati 2017 total on in 10:30 AM [Moles/vo source lume] in data Arterial blood Lactate [Moles/volume] in Blood Observa Value Referen Units Interpr Notes Date tion ce etation Range Lactate 0.4 - 2.0 mmol/L Normal No Sep 29 [Moles/vo informati 2017 lume] in on in 10:25 AM Blood source data CBC W Auto Differential panel in Blood Observa Value Referen Units Interpr Notes Date tion ce etation Range Basophils 0 - 0.2 K/MM3 Normal No Sep 29 inform2016 [#/volume on in 10:25 AM ] in source Blood by data Automated count Basophils 0.1 - 2.0 % Normal No Sep 29 /100 inform2016 leukocyte on in 10:25 AM s in source Blood by data Automated count Eosinophi 0.0 - 0.4 K/mm3 High No Sep 29 ls informati 2016 [#/volume on in 10:25 AM ] [...] % Normal No Sep 29 chuy/100 80.0 inform2016 leukocyte on in 10:25 AM s in source Blood by data Automated count Hematocri 37.0 - % Normal No Sep 29 t [Volume 47.0 informati 2016 on in 10:25 AM Fraction] source of [...] pg High No Sep 29 te mean informati 2016 corpuscul on in 10:25 AM ar source hemoglobi data n [Entitic mass] Erythrocy 31.8 - g/dl Normal No Sep 29 te mean 35.4 informati 2016 corpuscul on in 10:25 AM ar source [...] 9.3 % Normal No Sep 29 /100 informati 2017 leukocyte on in 10:25 AM s in source Blood by data Automated count Platelet 7.4 - fl Normal No Sep 29 mean 10.4 informati 2017 volume on in 10:25 AM [Entitic source volume] data in Blood by Automated count Platelets 142 - 424 K/mm3 No No Sep 29 informati informati 2016 [#/volume on in on in 10:25 AM ] in source source Blood data data Erythrocy 4.2 - 5.4 M/mm3 Normal No Sep 29 chuy informati 2016 [#/volume on in 10:25 AM ] in source Amniotic data fluid Erythrocy 11.5 - % Normal No Jul 29 te 17.5 informati 2016 distribut on in 10:25 AM ion width source [Entitic data volume] by Automated count Leukocyte 4.8 - K/MM3 High No Sep 29 s 10.8 informati 2016 [#/volume on in 10:25 AM ] in source Blood data Activated clotting time in Blood by Coagulation assay Observa Value Referen Units Interpr Notes Date tion ce etation Range Activated 74 - 125 SEC High No Jul 05 clotting alert inform2016 time in on in 12:13 PM Blood by source Coagulati data on assay Activated clotting time in Blood by Coagulation assay Observa Value Referen Units Interpr Notes Date tion ce etation Range Activated 74 - 125 SEC High No Jul 05 clotting alert inform2016 time in on in 11:51 AM Blood by source Coagulati data on assay Activated clotting time in Blood by Coagulation assay Observa Value Referen Units Interpr Notes Date tion ce etation Range Activated 74 - 125 SEC High No Jul 05 clotting alert inform2016 time in on in 11:32 AM Blood by source Coagulati data on assay Basic metabolic panel in Blood Observa Value Referen Units Interpr Notes Date tion ce etation Range Urea 7 - 18 mg/dL Normal No Jul 05 nitrogen informati 2017 9:40 [Mass/vol on in AM ume] in source Serum or data Plasma Calcium 8.5 - mg/dL Normal No Jul 05 [Mass/vol 10.1 informati 2016 9:40 ume] in on in AM Serum or source Plasma data Chloride 98 - 107 mmoL/L Normal Jul 05 [Moles/vo informati 2016 9:40 lume] in on in AM Serum or source Plasma data Carbon 21.0 - mmoL/L Normal Jul 05 dioxide, 32.0 informati 2016 9:40 [...] 1.210. Glucose 74 - 106 mg/dL High Jul 05 [Mass/vol informati 2016 9:40 ume] in on in AM Serum or source Plasma data Potassium 3.5 - 5.1 mmoL/L Normal No Jul 05 informati 2016 9:40 [Moles/vo on in AM lume] in source Serum or data Plasma Sodium 136 - 145 mmoL/L Normal Jul 05 [Moles/vo informati 2016 9:40 lume] in on in AM Serum or source Plasma data CBC W Auto Differential panel in Blood Observa Value Referen Units Interpr Notes Date tion ce etation Range Basophils 0 - 0.2 K/MM3 Normal No Jul 05 informati 2016 9:40 [#/volume on in AM ] in source Blood by data Automated count Basophils 0.1 - 2.0 % Normal No Jul 05 informati 2016 9:40 leukocyte on in AM s in source Blood by data Automated count Eosinophi 0.0 - 0.4 K/mm3 High No Jul 05 ls informati 2016 9:40 [#/volume on in AM ] in source Blood by data Automated count Eosinophi 0.1 - % Normal Jul 05 ls/100 12.0 informati 2016 9:40 leukocyte on in AM s in source Blood by data Automated count Granulocy 1.8 - 7.8 K/mm3 Normal No Jul 05 chuy informati 2017 9:40 [#/volume on in AM ] in source Blood by data Automated count Granulocy 37.0 - % Normal No Jul 05 chuy/100 80.0 informati 2017 9:40 leukocyte on in AM s in source Blood by data Automated count Hematocri 37.0 - % Normal Jul 05 t [Volume 47.0 informati 2016 9:40 on in AM Fraction] source of Blood data Hemoglobi 12.2 - g/dL Normal No Jul 05 n 16.2 informati 2017 9:40 [Mass/vol on in AM ume] in source Blood data Lymphocyt 0.7 - 4.5 K/mm3 Normal No Jul 05 es informati 2017 9:40 [#/volume on in AM [...] Normal Jul 05 te mean 35.4 informati 2017 9:40 corpuscul on in AM ar source hemoglobi data n concentra tion [Mass/vol ume] by Automated count Erythrocy 82.2 - fl High No Jul 05 te mean 97.8 informati 2017 9:40 corpuscul on in AM ar volume source [Entitic data volume] by Automated count Monocytes 0.1 - 1.0 K/mm3 Normal No Jul 05 informati 2016 9:40 [#/volume on in AM ] in source Blood by data Automated count Monocytes 1.7 - 9.3 % Normal No Jul 05 / informati 2017 9:40 leukocyte on in AM s in source Blood by data Automated count Platelet 7.4 - fl Normal Jul 05 mean 10.4 informati 2017 9:40 [...] fluid Erythrocy 11.5 - % Normal No Jun 9 te 17.5 informati 2016 9:40 distribut on in AM ion width source [Entitic data volume] by Automated count Leukocyte 4.8 - K/MM3 High No Jun 9 s 10.8 informati 2016 9:40 [#/volume on in AM ] in source Blood data Basic metabolic panel in Blood Observa Value Referen Units Interpr Notes Date tion ce etation Range Urea 7 - 18 mg/dL Normal No Jun 12 nitrogen inform2016 [Mass/vol on in 12:41 PM ume] in [...] mmoL/L Normal No Jun 12 dioxide, 32.0 ati 2016 total on in 12:41 PM [Moles/vo source lume] in data Serum or Plasma Creatinin 0.55 - mg/dL Normal No Jun 12 e 1.02 inform2016 [Mass/vol on in 12:41 PM ume] in [...] 3.5 - 5.1 mmoL/L Normal No Jun 122016 [Moles/vo on in 12:41 PM lume] in source Serum or data Plasma Sodium 136 - 145 mmoL/L Normal No Jun 12 [Moles/vo informati 2016 lume] in on in 12:41 PM Serum or source Plasma data Natriutietic peptide B [Mass/volume] in Serum or Plasma Observa Value Referen Units Interpr Notes Date ti ce etation Range Natriutie 0 - 100 pg/mL Normal No Jun 12 tic informati 2017 peptide B on in 12:41 PM source [Mass/vol data ume] in Serum or Plasma Thyroxine (T4) free [Mass/volume] in Serum or Plasma Observa Value Referen Units Interpr Notes ti etation Range Thyroxine 0.76 - ng/dL Normal No Jun 01 (T4) 1.46 informati 2016 2:37 free on in PM [Mass/vol source ume] in data Serum or Plasma Thyrotropin [Units/volume] in Serum or Plasma Observa Value Referen Units Interpr Notes ti etation Range Thyrotrop 0.358 - uIU/ml Normal No Jun 01 in 3.740 informati 2016 2:37 [Units/vo on in PM lume] in source Serum or data Plasma Urea nitrogen [Mass/volume] in Serum or Plasma Observa Value Referen Units Interpr Notes etation Range Urea 7 - 18 mg/dL High No May 19 nitrogen informati 2016 9:50 [Mass/vol on in AM ume] in source Serum or data Plasma CREATININE Observa Value Referen Units Interpr Notes Date etation Range Creatinin 0.55 - mg/dL Normal [...] Interpr Notes Date ti ce etation Range Neck No No No [...] LOW-DOS E SCREENI NG CT SCAN (IMG 42910) suggest ed if age <78.\.b r\\.br\ x Categor y 2: Benign appeara nce or behavio r: Include s finding s such as:\.br \new\.b r\nodul e less than 4mm, nodules less than 6mm, GGN less than 20mm, or cat 3\.br\o r 4\.br\n odule that is stable for 3 or more months. Continu ed ANNUAL LOW-DOS E\.br\S CREENIN G\.br\C T SCAN (IMG [id number]) suggest ed if age <78.\.b r\\.br\ Categor [...] LOW DOSE CT LUNG SCREENI NG (IMG [id number]). Order will be\.br\ placed by\.br\ [facility] lung screeni ng nurse navigat or.\.br \\.br\C [...] Lung Nodule Clinic\ .br\sug gested. \.br\Ph one [phone].\ .br\\.b r\Categ ory S: Signifi cant inciden [...] Interpr Notes Date tion ce etation Range Hep C Negativ Negativ No No No May 21 Ab e e informa informa informa 2016 tion in tion in tion in 9:56 AM source source source data data data LDL Observa Value Referen Units Interpr Notes Date ce etation Range LDL 125 <=100 mg/dL High < 100 May 20 Calcula 2016 geronimo 9:32 PM Optimal \.br\10 0 - 129 Near or above optimal \.br\13 0 - 159 Borderl ine High\.b r\160 - 189 High\.b r\ >= 190 Very High Lipid Refx Observa Value Referen Units Interpr Notes ce etation Range Cholest 227 <=200 mg/dL High < 200 May 20 zakia 2016 [Percen 9:32 PM tile] Desirab le\.br\ 200 - 239 Borderl ine High\.b r\>= 240 High TRIGLYC 373 <=150 mg/dL High < 150 May 20 ERIDES. 2016 TOTAL Normal\ 9:32 PM .br\150 - 199 Borderl ine High\.b r\200 - 499 High\.b r\ >= 500 Very High CHOLEST 27 >=40 mg/dL Low > 60 May 20 EROLS.I 2016 N HDL Optimal 9:32 PM \.br\40 - 60 Accepta ble\.br \ < 40 Low Glyco Observa Value Referen Units Interpr Notes Date ti ce etation Range Hemoglo 6.3 <=7.0 % No Referen May 20 bin informa ce 2016 A1c/Hem tion in Interva 9:31 PM oglobin source l for .total data Hgb in A1c\.br Blood \\.br\H gb A1c Interpr etation \.br\-- ------- -- ------- ------- --\.br\ \.br\ < 6.0 Non-Annmarie betic Range\. br\6.0 - 7.0 ADA Therape utic Target\ .br\ > 7.0 Action suggest ed MM MAMMO DIGITAL SCREENING W CAD BILAT Observa Value Referen Units Interpr Notes ce etation Range Procedu No No No [...] 's informa tion was entered into a [facility] [facility] system with a\.br\t arget\. br\due date for the next mammogr am.\.br \The mammogr am was reviewe d by a [employer] gist and CAD. CT LUNG CANCER SCREENING LOW DOSE Observa Value Referen Units Interpr Notes Date tion ce etation Range CT LUNG No No No No Jun 29 CANCER informa informa informa informa 2014 in in tion in tion in 9:27 AM [...] DOSE\.b r\CT CHEST LUNG SCREEN\ .br\FOL LOWUP (IM [id number]). Order will be placed by [facility] lung screeni ng nurse\. br\konstantin gator.\ .br\\.b r\[ ] Categor y 4 A: Suspici ous finding . Solid nodules 8 to 14mm at\.br\ baselin e or enlargi ng\.br\ nodule less than 8mm, or new 6-7mm nodule. Endobro nchial nodule. F/U LDCT\.b r\in 3 months. PET/CT\ .br\if solid part 8mm or larger. LOW DOSE CT CHEST LUNG SCREEN FOLLOWU P (IMG\.b [id number] ). Order will\.b r\be placed by [facility] lung screeni ng nurse navigat or.\.br \\.br\[ [...] No < 100 Apr 30 Calcula informa 2014 geronimo tion in 5:38 PM source Optimal data \.br\10 0 - 129 Near or above optimal \.br\13 0 - 159 Borderl ine High\.b r\160 - 189 High\.b r\ >= 190 Very High Lipid Refx Observa Value Referen Units Interpr Notes Date tion ce etation Range Cholest 142 <=200 mg/dL No < 200 Jesús 4 zakia informa 2014 [Percen tion in 5:38 PM tile] source Desirab data le\.br\ 200 - 239 Borderl ine High\.b r\>= 240 High TRIGLYC 122 <=150 mg/dL No < 150 Jesús 4 ERIDES. informa 2015 TOTAL tion in Normal\ [...] 82 35 - IU/L No No Apr 30 e 104 informa informa 2015 phospha tion in tion in 5:38 PM tase source source [Enzyma data data tic activit y/volum e] in Serum or Plasma LDL Observa Value Referen Units Interpr Notes Date tion ce etation Range LDL 72 <=100 mg/dL No < 100 Nov 13 Calcula informa 2014 geronimo tion in 6:32 PM source Optimal data \.br\10 0 - 129 Near or above optimal \.br\13 0 - 159 Borderl ine High\.b r\160 - 189 High\.b r\ >= 190 Very High Lipid Refx Observa Value Referen Units Interpr Notes Date tion ce etation Range Cholest 168 <=200 mg/dL No < 200 Dec 18 zakia informa 2014 [Percen tion in 6:32 PM tile] source Desirab data le\.br\ 200 - 239 Borderl ine High\.b r\>= 240 High TRIGLYC 331 <=150 mg/dL High < 150 Dec 18 ERIDES. 2014 TOTAL Normal\ 6:32 PM .br\150 - 199 Borderl ine High\.b r\200 - 499 High\.b r\ >= 500 Very High CHOLEST 30 >=40 mg/dL Low > 60 Dec 18 EROLS.I 2014 N HDL Optimal 6:32 PM \.br\40 - 60 Accepta ble\.br \ < 40 Low LDL Direct Observa Value Referen Units Interpr Notes Date tion ce etation Range Cholest 144 <=100 mg/dL High < 100 Oct 04 zakia in 2012 LDL 8:08 PM [Mass/v Optimal olume] \.br\10 in 0 - 129 Serum or Near or Plasma above optimal \.br\13 0 - 159 Borderl ine High\.b r\160 - 189 High\.b r\ >= 190 Very High Lipid Refx Observa Value Referen Units Interpr Notes Date tion ce etation Range Cholest 266 <=200 mg/dL High < 200 Oct 04 zakia 2013 [Percen 7:44 PM tile] Desirab le\.br\ 200 - 239 Borderl ine High\.b r\>= 240 High TRIGLYC 607 <=150 mg/dL High < 150 Oct 04 ERIDES. 2013 TOTAL Normal\ 7:50 PM .br\150 - 199 Borderl ine High\.b r\200 - 499 High\.b r\ >= 500 Very High CHOLEST 33 >=40 mg/dL Low > 60 Oct 04 EROLS.I 2013 N HDL Optimal 7:44 PM \.br\40 - 60 Accepta ble\.br \ < 40 Low Mg Observa Value Referen Units Interpr Notes Date ti ce etation Range Magnesi 2.0 1.6 - mg/dL No No Oct 04 um 2.2 informa informa 2012 [Moles/ tion in tion in 7:43 PM volume] source source in data data Serum or Plasma Hepatic Pa Observa Value Referen Units Interpr Notes Date ti ce etation Range Protein 7.3 6.0 - gm/dL No No Oct 04 8.2 informa informa 2012 [...] Plasma Bilirub 0.6 0.1 - mg/dL No No Oct 04 in.tota 1.3 informa informa 2013 l tion in tion in 7:43 PM [Mass/v source source olume] data data in Serum or Plasma ASPARTA 25 14 - 36 IU/L No No Oct 04 TE informa informa 2013 AMINOTR tion in tion in 7:43 PM ANSFERA source source SE data data Alanine 29 6 - 60 IU/L No No Oct 04 informa informa 2013 aminotr tion in tion in 7:43 PM ansfera source source se data data [Enzyma tic activit y/volum e] in Serum or Plasma Alkalin 109 41 - IU/L No Oct 04 e 119 informa informa 2012 phospha tion in tion in 7:43 PM tase source source [Enzyma data data tic activit y/volum e] in Serum or Plasma TSH Observa Value Referen Units Interpr Notes Date tion ce etation Range Thyrotr 2.140 0.300 - mcIU/mL No Oct 04 opin 5.000 informa informa 2012 [Units/ tion in tion in 7:23 PM volume] source source in data data Serum or Plasma Auto Diff Observa Value Referen Units Interpr Notes Date tion ce etation Range Neutrop 55.2 No % No No Oct 04 hils informa informa informa 2012 [#/volu tion in tion in tion in 4:57 PM me] in source source source Blood data data data by Automat ed count Lymphoc 33.2 No % No No Oct 04 ytes informa informa informa 2012 [#/volu tion in tion in tion in 4:57 PM me] in source source source Blood data data data by Automat ed count Monocyt 5.5 No % No No Oct 04 es informa informa informa 2012 [#/volu tion in tion in tion in 4:57 PM me] in source source source Blood data data data by Automat ed count Eos 5.9 No % No No Oct 04 Percent informa informa informa 2013 tion in tion in tion in 4:57 PM source source source data data data Baso 0.2 No % No No Oct 04 Percent informa informa informa 2012 tion in tion in tion in 4:57 PM source source source data data data Neutrop 6.0 1.8 - x10(3)/ No No Nov 8 hils 7.7 mcL informa informa 2012 [#/volu tion in tion in 4:57 PM me] in source source Blood data data Lymphoc 3.6 0.6 - x10(3)/ No No Nov 8 ytes 4.8 mcL informa informa 2012 [#/volu tion in tion in 4:57 PM me] in source source Blood data data Monocyt 0.6 0.0 - x10(3)/ No No Nov 8 es 1.3 mcL informa informa 2012 [...] LEUKOCY 10.9 4.0 - x10(3)/ No No Nov 8 CHUY 11.0 mcL informa informa 2012 tion in tion in 4:57 PM source source data data Erythro 4.77 3.80 - x10(6)/ No No Nov 8 cytes 5.10 mcL informa informa 2012 [#/volu tion in tion in 4:57 PM me] in source source Blood data data by Automat ed count Hemoglo 15.9 12.0 - gm/dL High No Nov 8 bin 15.6 informa 2012 [Mass/v tion in 4:57 PM olume] source in data Blood Hematoc 46.7 35.7 - % High No Nov 8 rit 45.9 informa 2012 [Volume tion in 4:57 PM source Fractio data n] of Blood by Automat ed count Erythro 97.8 82.5 - fL No No Nov 8 cyte 99.8 informa informa 2012 mean tion in tion in 4:57 PM corpusc source source ular data data volume [Entiti c volume] by Automat ed count Erythro 33.4 27.0 - pg No No Oct 04 cyte 34.3 informa informa 2012 mean tion in tion [...] Erythro 13.7 11.5 - % No No Oct 04 cyte 15.0 informa informa 2012 distrib tion in tion in 4:57 PM ution source source width data data [Ratio] by Automat ed count Platele 246 144 - x10(3)/ No No Oct 04 ts 423 mcL informa informa 2012 [#/volu tion in tion in 4:57 PM me] in source source Blood data data by Automat ed count Platele 10.6 6.8 - fL No No Oct 04 t mean 10.8 informa informa 2013 volume [...] Observa Value Referen Units Interpr Notes Date ce etation Range NORMAL No No No No Dec 17 ECG informa informa informa informa 2012 ti in in in in 8:14 AM [facility] source source source source R data data data data REPORT PENDING NM MYOCARDIAL PERFUSION SPECT STRESS AND REST Observa Value Referen Units Interpr Notes Date ce etation Range St. No No No No Dec 17 Elizabe informa informa informa informa 2012 in in in in 7:24 AM [facility] source source source source are-Ft. data data data data [place] [place] [address] [facility] [phone] Perfusi onSPECT ReportM ABDULAZIZ CACERES Exam Date: 013 07:24 Orderin g Phys: VIVIAN PORTILLO MD (joseh an) 7 Exam Locatio n: [facility]-. [place] NUC Referri ng Phys:VIVIAN HU MD (joseh an)Age: 56 Gender: F Ht (in):67 Wt (lb):22 [...] 121 /74 % MPHR: 61 Double Product :[id number] P Respons e:Stres s Termina tion:Ph armacol [...] Injecti on Exercis e:Admin istrati on Site: Maty saucedo Person Adminis tering: sonSP ECT RESULTS Technic al Quality : Technic [...] Interpr Notes Date ti ce etation Range Sinus No No No [...] viewHIS tion in tion in tion in ti in 2:21 PM [facility]: source source source source Chest data data data data pain.IM PRESSIO N:Lungs clear. Heart size normal. No acute disease EK EKG 12 LEAD Observa Value Referen Units Interpr Notes Date ti ce etation Range Sinus No No No No Dec 14 rhythmN informa informa informa informa 2012 ormal tion in tion in tion in ti in 1:57 PM ECG source source source source data data data data
--- OUTSIDE RECORDS SUMMARY | 2017-10-21 09:03 | External Medical Summary Rpt ---
[...] LOW-DOS E SCREENI NG CT SCAN (IMG [id number]) suggest ed if age <78.\.b r\\.br\ x Categor y 2: Benign appeara nce or behavio r: Include s finding s such as:\.br \new\.b r\nodul e less than 4mm, nodules less than 6mm, GGN less than 20mm, or cat 3\.br\o r 4\.br\n odule that is stable for 3 or more months. Continu ed ANNUAL LOW-DOS E\.br\S CREENIN G\.br\C T SCAN (IMG [id number]) suggest ed if age <78.\.b r\\.br\ Categor [...] LOW DOSE CT LUNG SCREENI NG (IMG [id number]). Order will be\.br\ placed by\.br\ [facility] lung screeni ng nurse navigat or.\.br \\.br\C [...] 's informa tion was entered into a CADsurfe r system with a\.br\t arget\. br\due date [...] r\CT CHEST LUNG SCREEN\ .br\FOL LOWUP (IM [id number]). Order will be placed by [facility] lung screeni ng nurse\. br\konstantin gator.\ .br\\.b r\[ ] Categor y 4 A: Suspici ous finding . Solid nodules 8 to 14mm at\.br\ baselin e or enlargi ng\.br\ nodule less than 8mm, or new 6-7mm nodule. Endobro nchial nodule. F/U LDCT\.b r\in 3 months. PET/CT\ .br\if solid part 8mm or larger. LOW DOSE CT CHEST LUNG SCREEN FOLLOWU P (IMG\.b r\[id number] ). Order will\.b r\be placed by [facility] lung screeni ng nurse navigat or.\.br [...] 2012 in in in in 7:24 AM [facility] [place] source source source source are-Ft. data data data data [place] [place] [address] [facility] [phone] dial Perfusi onSPECT ReportM ABDULAZIZ CACERES Exam Date: 013 07:24 Orderin g Phys: VIVIAN PORTILLO MD (joseh an) 7 Exam Locatio n: [facility]-. [place] NUC Referri ng Phys:VIVIAN HU MD [...] 121 /74 % MPHR: 61 Double Product :[id number] P Respons e:Stres s Termina tion:Ph armacol [...]
--- NOTE | 2017-10-21 09:07 | Emergency Room Report ---
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 N Clinical Suspician of Infection? N Mental Status: 1 - Regular (Normal Baseline) Sepsis Risk:Low Sepsis Risk Have you (or family members/close friends) recently traveled outside the [place]? N If Yes, where/when: Have you had exposure to infectious disease within the past month? N TB? Other? Specify: Source patient, RN notes reviewed, family, EMS, old records Exam Limitations no limitations Comment pt with atraumatic lumbar pain which has become more progressive with inc pain and dec ambulation and rad to lower ext with dec use of rt foot with no def cauda equina sx and no b/b sx - not diabetic but does smoke Cardiac Chest Pain Chest pain indicative of cardiac No Timing/Duration this evening Severity moderate ALLERGIES Coded Allergies: albuterol (I-RASH 08/25/17) aripiprazole (From ABILIFY) (08/16/16) haloperidol (From HALDOL) (08/16/16) hydrocodone (08/16/16) hydroxyzine (08/16/16) ibuprofen (08/16/16) ipratropium (I-RASH 08/25/17) paroxetine (From PAXIL) (08/16/16) promethazine (From PHENERGAN) (08/16/16) risperidone (From RISPERDAL) (08/16/16) ziprasidone (From GEODON) (08/16/16) Home Medications Reported Medications Fluticasone Propionate (Flonase 50 Mcg Nasal [place]) 2 SPRAY NA DAILY #1 BOT Meloxicam (Meloxicam 7.5MG) 7.5 MG PO DAILY #30 TAB Loratadine (Claritin 10MG) 10 MG PO DAILY Olanzapine (Zyprexa 5MG) 5 MG PO QHS ASPIRIN (Aspirin) 81 MG PO DAILY Metoprolol Tartrate (Lopressor) 25 MG PO BID Atorvastatin Calcium (Lipitor 20MG) 20 MG PO QHS Lansoprazole (Prevacid) 30 MG PO DAILY Pantoprazole Sodium (Protonix 40MG TAB) 40 MG PO DAILY Ticagrelor (Brilinta) 90 MG PO BID FLUTICASONE/VILANTEROL (Breo Ellipta 100-25 Mcg INH) 1 POW IH DAILY Azithromycin (Avpak Azithromycin) 250 MG PO DAILY #6 Prednisone (Prednisone 20MG) 20 MG PO BID #5 TIZANIDINE HCL (Tizanidine Hcl 4 Mg Tablet) 4 MG PO DAILY History Medical History General CAD? No Angina: Yes [place]: No Hypertension? No Hyperlipidemia? Yes CHF? Yes DVT? No PE? No COPD? Yes Asthma? No Anemia? No GERD? Yes Gastric ulcers? No GI Bleed? No Hernia? No Thyroid Problems? No Hypothyroidism? No CVA? No Seizures? Yes Diabetes? No Renal Insuffiency? No End Stage Renal Disease? No UTI? No Stones? No BPH? No GB Disease: No Nephritic Syndrome? No Asplenia? No Hepatitis? No Sickle Cell Disease? No Arthritis? No Migraines? No Cataracts? No Glaucoma? No MRSA? No HIV? No TB? No Anxiety? No Depression? No Cancer? No More? Yes Additional hx: EMPHYZEMA STENTS X4 Immunization Hx DT/Tetanus UNKNOWN Flu Refused Pneumonia Received In Past Surgical Hx Previous Surgery?Y TUBAL LIGATION STENTS X4 Family History Family Hx Diabetes Yes CAD Yes Hypertension Yes Hyperlipidemia Yes Cancer Yes TB No Social History Smoking Hx Smoker: Current Every Day Smoker Tobacco: Yes Type Cigarettes Packs/day 1 1/2 - 2 Packs Alcohol Alcohol: No Drugs none Review of Systems All Other Systems Reviewed and Negative Constitutional denies fever Eyes denies drainage ENT denies: ear discharge, epistaxis, throat pain. Respiratory denies cough, denies shortness of breath, denies wheezing Cardiovascular denies chest pain, denies syncope Gastrointestinal denies abdominal pain, denies diarrhea, denies vomiting Genitourinary denies: dysuria, frequency, hesitancy, hematuria. Musculoskeletal back pain, denies joint pain, denies joint swelling, denies neck pain Skin denies rash Psychiatric/Neurological denies headache, denies seizure Physical Exam Vital Signs Vital Signs Date Time Temp Pulse Resp B/P Pulse O2 O2 Flow FiO2 Ox Delivery Rate 10/21 1041 82 20 142/80 92 10/21 0843 97.9 82 20 139/75 95 - WBC >12,000 or <4,000 or 10% bands? 2 or more SIRS Criteria Met? B/P:142/80 MAP:96 Creatinine >2.0? UA output<0.5ml/kg/hr for 2 hrs? Platelet count >100,000? Lactate >2.0mmol/1? INR >1.2 or PTT > than 60 sec? Evidence of Organ Dysfunction? Provider documented clinical suspician of infection? N Sepsis Criteria Count: 1 Sepsis Risk: Low Sepsis Risk General Appearance no apparent distress Eye Exam - bilateral eye PERRL, bilateral eye EOMI Ear, Nose, Throat normal ENT inspection Neck limited range of motion Respiratory Status No: respiratory distress. Lung Sounds bilateral: decreased breath sounds. 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 No Results/Orders Laboratory Tests 10/21/17 0925: Sodium 141, Potassium 4.1, Chloride 103, Carbon Dioxide 28, BUN 19 H, Creatinine 0.8, Estimated Creat Clear 123, Estimated GFR (MDRD) 73, Glucose 124 H, Calcium 9.0, Total Bilirubin 0.3, AST 15, ALT 24, Alkaline Phosphatase 163 H , Total Protein 6.9, Albumin 3.4, Globulin 3.5 H, Albumin/Globulin Ratio 1.0 L , WBC 15.9 H, RBC 4.28, Hgb 13.6, Hct 42.4, MCV 98.9 H, RDW 15.7, Plt Count 389, MPV 7.3 L, Gran % 79.5, Gran # 12.6 H, Total Counted 100, Lymphocytes % 14.6, Monocytes % 3.6, Eosinophils % 2.1, Basophils % 0.2, Neutrophils 77 H, Band Neutrophils 1, Lymphocytes (Manual) 14, Lymphocytes # 2.3, Monocytes ( Manual) 2, Monocytes # 0.6, Eosinophils # 0.3, Eosinophils # (Manual) 5 H, Basophils # 0.0, Metamyelocytes 1, Hypersegmented Polys 1+, Platelet Estimate NORMAL, Macrocytosis 1+, Target Cells 1+, PUBS MCHC 32.0, ESR 24, MCH 31.7 H 10/21/17 09: Urine Color YELLOW, Urine Appearance CLEAR, Urine pH 5.5, Ur Specific [place] <= 1.005, Urine Protein NEGATIVE, Urine Ketones NEGATIVE, Urine Blood NEGATIVE, Urine Nitrate NEGATIVE, Urine Bilirubin NEGATIVE, Urine Urobilinogen 0.2, Ur Leukocyte Esterase NEGATIVE, Urine RBC NONE, Urine WBC NONE, Ur Squamous Epith Cells 5-10, Urine Bacteria TRACE, Urine Glucose NEGATIVE Current Medication Orders Sig/Brian Start time Last Medication Dose Route Stop Time Status Admin Morphine Sulfate 2 MG ONCE ONE 10/21 1100 r IV 10/21 1101 Ondansetron HCl 4 MG ONCE ONE 10/21 1100 AC IV 10/21 1101 Ondansetron HCl 0 .STK-MED ONE 10/21 1051 DC .ROUTE Morphine Sulfate 0 .STK-MED ONE 10/21 1050 DCr .ROUTE Sodium Chloride 10 ML PRN PRN 10/21 0915 AC IV 10/22 0908 Orders Procedure Date/time Status DIET-NOTHING BY MOUTH 10/21 L Active DIFFERENTIAL-WBC 10/[address] SCAN REQ 10/21 09 Complete IV SALINE LOCK 10/21 09 Active SED RATE 10/21 09 Complete COMPLETE METABOLIC PANEL 10/21 09 Complete CBC WITH AUTO DIFF 10/21 908 Complete URINALYSIS/COMPLETE 10/21 09 Complete XRAY/CT/US XRAY/CT/US CT abdomen, pelvis, L-spine CT interpretation by discussed w/radiologist Time results known: 1059 CT Results abnormal (see report) Departure Departure Time of Disposition 1050 Disposition DC/XFER from ER to [facility] Clinical Impression Primary Impression: Lumbar compression fracture Qualifiers: Encounter type: initial encounter Lumbar vertebra fracture level: L3 Fracture type: closed Qualified Code: S32.030A - Wedge compression fracture of third lumbar vertebra, initial encounter for closed fracture Secondary Impressions: Lumbar spinal stenosis Qualifiers: Neurogenic claudication status: unspecified Qualified Code: M48.061 - Spinal stenosis, lumbar region without neurogenic claudication Condition STABLE Referrals Lisa Carlos (Family) discussed with dr rios neurosurg ED Critical Care Critical Care Yes Time spent 30-74 min Vital system(s) involved: back pain I was present at bedside for Coordinating pt's care, Interpreting EKGs/Strips , Reviewing lab results, Reviewing old records, Discussing pt condition, For re- examinations, Examining radiographs at 1100
[2017-10-21 09:11] LABS: URINE BILIRUBIN - DIPSTICK NEGATIVE (NEG); URINE BLOOD NEGATIVE (NEG)
[2017-10-21] MEDS ORDERED: TIZANIDINE HCL 44 MG PO (09:19)
[2017-10-21 09:41] LABS: HEMOGLOBIN 13.6 g/dL (12.2-16.2); LYMPH # 2.3 K/mm3 (0.7-4.5); LYMPH % 14.6 % (10-50.0)
[2017-10-21 10:27] LABS: NEUTROPHILS 77 % (42-76)
--- NOTE | 2017-10-21 10:30 | RADIOLOGY REPORT PS360 ---
CT LUMBAR SPINE W/O CONTRAST COMPARISON: CT scan abdomen pelvis 09/13/2017 HISTORY: Recent onset of severe back pain TECHNIQUE: Multiaxial scans of the lumbar spine were obtained. Sagittal coronal reformats were evaluated as well. FINDINGS: There is generalized osteopenia. There is a marked compression fracture of L3 with approximately 85% loss of height centrally and anteriorly. There is vacuum phenomenon of the L to 3 disc. There is prominent retropulsion of a large fragment of the L3 vertebral body compromising the spinal canal at this level. The AP diameter of the spinal canal at the level of the retropulsion measures 6.7 mm. There also are prominent hypertrophic facet changes at this level. There are prominent hypertrophic facet changes at L4-5 level resulting borderline spinal stenosis and moderate neural foraminal narrowing bilaterally. The L5-S1 disc appears normal. There is an old very minor compression fracture of T12 which is stable. There is an aortobifemoral stent in place. IMPRESSION: Acute to semiacute marked compression fracture of L3 with prominent retropulsion causing marked true bony spinal stenosis at the L3-4 level. There is borderline spinal stenosis at L4-5 level as well primarily secondary to prominent hypertrophic facet changes
--- NOTE | 2017-10-21 10:36 | RADIOLOGY REPORT PS360 ---
CT ABD PELVIS W/O CONTRAST COMPARISON: CT scan abdomen pelvis 09/13/2017 HISTORY: Back pain, recent fall TECHNIQUE: Multiaxial scans obtained from hemidiaphragms the pelvic floor and were performed without IV or oral contrast. Sagittal and coronal reformats were evaluated as well. FINDINGS: The lower lung dietz are clear. There is mild relies cardio megaly. The liver spleen stomach Eckerson gallbladder appear grossly normal. The adrenal glands are normal. The kidneys are normal size and there are no calculi and is no obstructive uropathy. Again noted is a ventral hernia the mouth measuring approximate 3.8 cm and containing mesenteric fat but no bowel and located just below the the umbilicus.. There also is a small umbilical hernia containing fat as well. The small bowel appears normal. The appendix is normal. There is a moderate amount stool throughout colon. There is mild levoscoliotic curvature of the lumbar spine. There is a marked compression fracture of L3 which has occurred since the previous CT scan 09/13/2017. There is prominent retropulsion of the compression fracture, see the report of the CT scan lumbar spine performed same date. There is aortic bifemoral stent in place. The uterus is somewhat small and atrophic, urinary bladder is normal. IMPRESSION: 1. Stable umbilical and ventral hernias as noted . 2. Interval appearance of marked compression fracture of L3 with vacuum phenomenon of the L2-3 disc and retropulsion of the L3 compression fracture with true bony spinal stenosis, see report of the CT scan same date for more detail
[2017-10-21 11:20] VITALS: BP 147/79
== END 2017-10-21 11:21 | disposition short-term general hospital (02) ==
LOC: ER 08:41
PROVIDERS: Emergency Medicine
DX: S32.030A Wedge compression fracture of third lumbar vertebra, initial encounter for closed fracture (principal); M48.061 Spinal stenosis, lumbar region without neurogenic claudication; F17.210 Nicotine dependence, cigarettes, uncomplicated; K21.9 Gastro-esophageal reflux disease without esophagitis; E78.5 Hyperlipidemia, unspecified
CPT/HCPCS: J2405

== ENCOUNTER 2017-10-27 18:56 | Emergency (ER) | payer MEDICARE, MEDICAID ==
[~2017-10-27] VITALS: Ht 170.2 cm; Wt 104.3 kg
[~2017-10-27 18:56] MED LIST changes: +AVPAK AZITHROM250 MG PO; +PREDNISONE 20MG20 MG PO; +TIZANIDINE HCL 44 MG PO
[2017-10-27] MEDS ORDERED: FUROSEMIDE 20MG20 MG FT (19:08)
[2017-10-27] MEDS ORDERED: POTASSIUM CHLO10 MEQ PO (19:08)
[2017-10-27] MEDS ORDERED: TRAMADOL 50MG T50 M1 PO (19:10)
--- NOTE | 2017-10-27 19:17 | Emergency Room Report ---
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 N Clinical Suspician of Infection? N Mental Status: 1 - Regular (Normal Baseline) Sepsis Risk:Possible Sepsis Risk Have you (or family members/close friends) recently traveled outside the [place]? N If Yes, where/when: Have you had exposure to infectious disease within the past month? TB? Other? Specify: Pain to the lumbar spine progressively over the past few weeks, with documented compression fx L3, transferred to on 10/21/17 due to radiculopathy and spinal stenosis with wedge compression fx. 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 Her KARATE BLACK BELT had put her on Ultram, and she is out as she was taking it every three hours. She has had a recent URI and was recently on ABX and is no longer on steroids. She has no loss of bowel or bladder function. Chronic numbness to both legs. She uses a walker. ALLERGIES Coded Allergies: albuterol (I-RASH 08/25/17) aripiprazole (From ABILIFY) (08/16/16) haloperidol (From HALDOL) (08/16/16) hydrocodone (08/16/16) hydroxyzine (08/16/16) ibuprofen (08/16/16) ipratropium (I-RASH 08/25/17) paroxetine (From PAXIL) (08/16/16) promethazine (From PHENERGAN) (08/16/16) risperidone (From RISPERDAL) (08/16/16) ziprasidone (From GEODON) (08/16/16) Home Medications Reported Medications Fluticasone Propionate (Flonase 50 Mcg Nasal [place]) 2 SPRAY NA DAILY #1 BOT Meloxicam (Meloxicam 7.5MG) 7.5 MG PO DAILY #30 TAB Loratadine (Claritin 10MG) 10 MG PO DAILY Olanzapine (Zyprexa 5MG) 5 MG PO QHS ASPIRIN (Aspirin) 81 MG PO DAILY Metoprolol Tartrate (Lopressor) 25 MG PO BID Atorvastatin Calcium (Lipitor 20MG) 20 MG PO QHS Lansoprazole (Prevacid) 30 MG PO DAILY Pantoprazole Sodium (Protonix 40MG TAB) 40 MG PO DAILY Ticagrelor (Brilinta) 90 MG PO BID FLUTICASONE/VILANTEROL (Breo Ellipta 100-25 Mcg INH) 1 POW IH DAILY Azithromycin (Avpak Azithromycin) 250 MG PO DAILY #6 Prednisone (Prednisone 20MG) 20 MG PO BID #5 TIZANIDINE HCL (Tizanidine Hcl 4 Mg Tablet) 4 MG PO DAILY Potassium Chloride (POTASSIUM CHLORIDE 10mEq CAP) 10 MEQ PO DAILY #30 Furosemide (Furosemide) 20 MG FT DAILY #30 TRAMADOL HCL (Tramadol) 50 MG PO QID #30 History Medical History General CAD? No Angina: Yes [place]: No Hypertension? No Hyperlipidemia? Yes CHF? Yes DVT? No PE? No COPD? Yes Asthma? No Anemia? No GERD? Yes Gastric ulcers? No GI Bleed? No Hernia? No Thyroid Problems? No Hypothyroidism? No CVA? No Seizures? Yes Diabetes? No Renal Insuffiency? No End Stage Renal Disease? No UTI? No Stones? No BPH? No GB Disease: No Nephritic Syndrome? No Asplenia? No Hepatitis? No Sickle Cell Disease? No Arthritis? No Migraines? No Cataracts? No Glaucoma? No MRSA? No HIV? No TB? No Anxiety? No Depression? No Cancer? No More? Yes Additional hx: EMPHYZEMA STENTS X4 Immunization Hx DT/Tetanus UNKNOWN Flu Refused Pneumonia Received In Past Surgical Hx Previous Surgery?Y TUBAL LIGATION STENTS X4 Family History Family Hx Diabetes Yes CAD Yes Hypertension Yes Hyperlipidemia Yes Cancer Yes TB No Social History Smoking Hx Smoker: Current Every Day Smoker Tobacco: Yes Type Cigarettes Packs/day 1 1/2 - 2 Packs Alcohol Alcohol: No Review of Systems All Other Systems Reviewed and Negative Respiratory see HPI Musculoskeletal see HPI Psychiatric/Neurological pre-existing deficit Physical Exam Vital Signs Vital Signs Date Time Temp Pulse Resp B/P Pulse O2 O2 Flow FiO2 Ox Delivery Rate 10/27 1859 98.1 100 20 150/86 96 General Appearance normal appearance, WD/WN, no apparent distress Eye Exam - bilateral eye normal exam, bilateral eye PERRL, bilateral eye EOMI Neck normal inspection, non-tender, supple, full range of motion Respiratory Status Yes: trachea midline, chest symmetrical, non tender chest, non productive cough. No: respiratory distress, tender on palpation, use of accessory muscles, pain on inspiration, pain on expiration, productive cough. Lung Sounds bilateral: normal breath sounds, lungs clear, decreased breath sounds. Cardiovascular normal exam, regular rate/rhythm, no peripheral edema, no gallop, no JVD, no murmur, no rub, normal peripheral pulses Peripheral Pulses Pulses normal Yes Gastrointestinal normal bowel sounds, normal exam, non tender, soft, no organomegaly, no pulsatile mass, no guarding, no rebound Back normal inspection, no vertebral tenderness, bowel/bladder continent, strt leg raising(L)-NML, strt leg raising(R)-NML Extremities non-tender, normal range of motion, normal inspection, normal capillary refill Strength 5 Upper Ext (L), 5 Upper Ext (R), 5 Lower Ext (L), 5 Lower Ext (R) Neurologic alert, normal exam, oriented x 3, baseline neuropathy BLE. Glascow Coma Scale Glascow Coma Scale Response Value EYE response: 4 Spontaneously 4 MOTOR response: 6 OBEYS 6 VERBAL response: 5 Oriented & Converses 5 Total 15 Reflexes DTR 2+ ankle (R), 2+ ankle (L) Skin intact, normal color, warm/dry Medical Decision Making LABS/Meds/Orders Pt receiving controlled substance in ED? No XRAY/CT/US XRAY/CT/US XRAY forearm, pelvis XR interpretation by reviewed by me Xray Results no fracture seen Departure Departure Time of Disposition 1925 Disposition DC Home or Self Care(routine) Clinical Impression Primary Impression: Low back pain Qualifiers: Chronicity: chronic Back pain laterality: midline Sciatica presence : with sciatica Sciatica laterality: bilateral sciatica Qualified Code: M54.41 - Lumbago with sciatica, right side Condition STABLE Referrals Lisa Carlos (Family) Additional Instructions Rx Medrol dosepak, talk with Lisa Graff about possible referral to a pain management clinic Discharge Counseling Counseled pt/family regarding diagnosis, medications/RX, home care, follow up needs Prescriptions Current Visit Scripts Methylprednisolone (Medrol Dose Darvin) 4 MG PO UD #1 DARVIN TAKE DIRECTED ON PACKAGING ED Critical Care Critical Care No at 1928
--- OUTSIDE RECORDS SUMMARY | 2017-10-27 19:20 | External Medical Summary Rpt | Continuity of Care Document ---
Author Author Organization Address Unknown Phone Unavailable Care Team Providers Care Head Of Marketing Adometry Name Role Phone , Unavailable Unavailable EMS Current Medications Section EMS Allergies and Adverse Reactions EMS Past Medical History Medications Administered Section EMS Procedures Performed EMS Vital Signs EMS Patient Care Report Narrative Dispatcher for transfer of a 61 year old female with lumbar compression fracture. Hospital staff informed us they gave her 2mg of Morphine and 4mg of ondansetron before we arrived. They also informed us that her pain started in July and has gradually gotten worse, also the pain radiates down both legs but more so with the left. Upon entering the patient s room she asked for and required help getting to the bathroom before we started our trip to . Once she was finished in the bathroom she was helped to the stretcher where she was secured safety strap x3. She was placed in the ambulance where a base line set of vitals was obtained and continually monitored during transport. Vitals remained stable throughout the duration of the transport. Patient stated the pain started as an 8/10 but since she was given morphine it has dropped to a 2/10. A picture of listed allergies was taken due to none of the being on the list. Her destination at was neurosurgery for a consultation of her compression fractures. Upon arrival to she was moved to a bed in the ER drawsheet x3. A verbal report was given to Esperanza Garza RN and care was transferred to staff.
--- OUTSIDE RECORDS SUMMARY | 2017-10-27 19:20 | External Medical Summary Rpt | Continuity of Care Document ---
Author Author Organization Address Unknown Phone Unavailable Care Team Providers Care Juice Bar Team Member Name Role Phone , Unavailable Unavailable EMS Current Medications Section EMS Allergies and Adverse Reactions EMS Past Medical History Medications Administered Section EMS Procedures Performed EMS Vital Signs EMS Patient Care Report Narrative DISPATCHED FOR A 62 YO FEMALE PT COAX3. PT CC/ LOWER BACK PAIN W/ ABNORMAL SENSATION DOWN BOTH LOWER EXTREMITIES. PT STATED SHE HAS BEEN HAVING THIS ISSUE FOR SEVERAL MONTHS. PT WALKED TO TRUCK, SEATED AND SECURED W/O DIFFICULTY. EKG SHOWS NSR @ 88 W/O ECTOPY. SPO2 98% ORA. PT RESTING COMFORTABLY. MONITORED PT W/O CHANGE. REPORT MADE. PT CARE RELEASED TO [facility] ER STAFF.
--- OUTSIDE RECORDS SUMMARY | 2017-10-27 19:20 | External Medical Summary Rpt | Continuity of Care Document ---
Author Author Organization Address Unknown Phone Unavailable Care Team Providers Care Sap Abap Developer Name Role Phone , Unavailable Unavailable EMS [...]
--- OUTSIDE RECORDS SUMMARY | 2017-10-27 19:20 | External Medical Summary Rpt | Continuity of Care Document ---
Author Author Organization Address Unknown Phone Unavailable Care Team Providers Care Winder Hand Name Role Phone , Unavailable Unavailable EMS [...] CHANGE. REPORT MADE. PT CARE RELEASED TO [facility] ER STAFF.
--- OUTSIDE RECORDS SUMMARY | 2017-10-27 19:20 | External Medical Summary Rpt | Continuity of Care Document ---
Author Author Organization Address Unknown Phone Unavailable Care Team Providers Care Fresh Foods Cake Decorator Name Role Phone , Unavailable Unavailable EMS [...] CHANGE. REPORT MADE. PT CARE RELEASED TO [facility] ER STAFF.
--- OUTSIDE RECORDS SUMMARY | 2017-10-27 19:20 | External Medical Summary Rpt | Continuity of Care Document ---
Author Author Organization Address Unknown Phone Unavailable Care Team Providers Care Agile Scrum Coach Name Role Phone , Unavailable Unavailable EMS [...] CHANGE. REPORT MADE. PT CARE RELEASED TO [facility] ER STAFF.
--- OUTSIDE RECORDS SUMMARY | 2017-10-27 19:20 | External Medical Summary Rpt | Continuity of Care Document ---
Author Author Organization Address Unknown Phone Unavailable Care Team Providers Care School Age Lead Teacher Name Role Phone , Unavailable Unavailable EMS [...] PT CARE RELEASED TO [facility] ER STAFF.
--- OUTSIDE RECORDS SUMMARY | 2017-10-27 19:20 | External Medical Summary Rpt | Continuity of Care Document ---
Author Author Organization Address Unknown Phone Unavailable Care Team Providers Care Technical Applications Scientist Name Role Phone , Unavailable Unavailable EMS [...] CHANGE. REPORT MADE. PT CARE RELEASED TO [facility] ER STAFF.
--- OUTSIDE RECORDS SUMMARY | 2017-10-27 19:20 | External Medical Summary Rpt | Continuity of Care Document ---
Author Author Organization Address Unknown Phone Unavailable Care Team Providers Care Licensed Pharmacist Name Role Phone , Unavailable Unavailable EMS [...] CHANGE. REPORT MADE. PT CARE RELEASED TO [facility] ER STAFF.
--- OUTSIDE RECORDS SUMMARY | 2017-10-27 19:20 | External Medical Summary Rpt | Continuity of Care Document ---
Author Author Organization Address Unknown Phone Unavailable Care Team Providers Care Specification Writer Name Role Phone , Unavailable Unavailable EMS [...] CHANGE. REPORT MADE. PT CARE RELEASED TO [facility] ER STAFF.
[2017-10-27] MEDS ORDERED: MEDROL 4MG. DOSE4 MG PO (19:28)
--- OUTSIDE RECORDS SUMMARY | 2017-10-27 19:28 | External Medical Summary Rpt | CCD ---
Author Author , ERNA UMANZOR Address Unknown Phone [email or web address] Care Team Providers Care Chief Controller Station Name Role Phone A Yobany FONG MD PSC, A Unavailable Unavailable Yobany FONG MD PSC MAKEDA OCAMPO AMB Unavailable Unavailable SERVICE, [facility] OF Unavailable Un[facility] Un[facility] INC, [facility] COURTADE GAGE, Unavailable Unavailable COURTADE GAGE MACHO LORETTA, Unavailable Unavailable MACHO LORETTA [id number], Unavailable Unavailable [facility] # [id number] [id number], Unavailable Unavailable [id number] Unavailable Unavailable 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 KIR, DOERGER Unavailable Unavailable KIR JAZ L.P., JAZ L.P. Unavailable Unavailable HEART EMMANUEL, HEART EMMANUEL Unavailable Unavailable ELLIOT, BRAXTON E, Unavailable Unavailable ELLIOT, BRAXTON E [facility] Un[facility] Unavailable INC, [facility] Unavailable Unavailable HOSPITAL P, [facility], Unavailable Unavailable [facility] LILIBETH WELCH Unavailable Unavailable MICHELLE TAYLOR JONES, Unavailable Unavailable MICHELLE TABBY, YVONNE, Unavailable Unavailable TABBY, YVONNE [facility] Un[facility], [facility] KUPER LENA, KUPER LENA Unavailable Unavailable KUSHMAN MARIVEL, KUSHMAN Unavailable Unavailable MARIVEL [facility], Unavailable Unavailable [facility] LAIB EMANI, LAIB EMANI Unavailable Unavailable [facility] Unavailable Unavailable [facility], [facility] Unavailable Unavailable 9, [facility] 9 [facility] Unavailable Unavailable SERVICES, [facility] JAYRO MCKENZIE, Unavailable Unavailable JAYRO MCKENZIE MILLER Unavailable Unavailable DAYANA MARSH ZADI, MARSH ZAID Unavailable Unavailable [id number], Unavailable Unavailable [id number] CARMELINA SCHWARTZ JR, Unavailable Unavailable CARMELINA SCHWARTZ JR [facility] Unavailable Unavailable [facility] CYNTHIA JOLIE, CYNTHIA Unavailable Unavailable JOLIE SHARP GIOVANNA, SHARP GIOVANNA Unavailable Unavailable [facility] Unavailable Unavailable [facility], [facility] Unavailable Unavailable [facility], [facility] Unavailable Unavailable PHYSICIANS, [facility] DAMIAN VIEIRA, Unavailable Unavailable DAMIAN VIEIRA DON, Unavailable Unavailable JEREZ DON WEHRMAN III SUZAN, Unavailable Unavailable WEHRMAN III SUZAN SU HEL, SU HEL Unavailable Unavailable ALYSSA DE LA TORRE, Unavailable Unavailable ALYSSA DE LA TORRE [facility], Unavailable Unavailable [facility] Purpose Continuity of Care Document - 12-27-2007 through 2016 Problems Code Diagnosis DOS Provider Status J90 PLEURAL 08-25-2017 [facility] ELSEWHERE CLASSIFIED R05 COUGH 08-25-2017 [facility] R0602 SHORTNESS 08-25-2017 [facility] BREATH AMB SERVICE R0902 HYPOXEMIA 08-25-2017 [facility] AMB SERVICE R918 OTHER 08-25-2017 [place] NONSPECIFIC MEDICAL ABNORMAL IMAGING ASS FINDING OF LUNG FIELD E669 OBESITY 08-16-2017 [facility] G4710 HYPERSOMNIA 08-16-2017 [facility] UNSPECIFIED INC G4733 OBSTRUCTIVE 08-16-2017 [facility] APNEA ADULT INC PEDIATRIC R0683 SNORING 08-16-2017 [facility] INC J449 CHRONIC 07-31-2017 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 UNS EQUIPME R69 ILLNESS 07-21-2017 [facility] 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 E538 DEFICIENCY 07-14-2017 A Yobany FONG OF TONI KRUGER PSC SPECIFIED B GROUP VITAMINS [id number] FALL FROM 07-14-2017 A Yobany FONG BED INITIAL PSC ENCOUNTER I2510 ASHD GAK[place] 07-05-2017 [facility] CORONARY PHYSICIANS ARTERY W/O GROUP ANGINA PECTORIS J39532 ASHD [place]AK[place] 07-05-2017 [facility] W/UNS INC ANGINA PECTORIS I6502 OCCLUSION 07-05-2017 [facility] STENOSIS OF INC LEFT VERTEBRAL ARTERY I6521 OCCLUSION 07-05-2017 [facility] STENOSIS OF INC RIGHT CAROTID ARTERY I6529 OCCLUSION & 07-05-2017 [facility] STENOSIS PHYSICIANS UNSPECIFIED GROUP CAROTID ARTERY I700 ATHEROSCLER 07-05-2017 [facility] OSIS OF [facility] AORTA INC K62705 ATHEROSCLER 07-05-2017 [facility] [place] ART [facility] EXT INC INTERMIT ABDOUL BILAT R0989 OTH SPEC SX 07-05-2017 [facility] & SIGNS PHYSICIANS INVLV THE GROUP CIRC & RESP SYS R9439 ABNORMAL 07-05-2017 [facility] RESULT OT PHYSICIANS CARDIOVASCU GROUP LR FUNCTION STUDY Z720 TOBACCO USE 07-05-2017 [facility] INC E785 HYPERLIPIDE 06-29-2017 [facility] ELIER PHYSICIANS UNSPECIFIED GROUP I10 ESSENTIAL 06-29-2017 [facility] PRIMARY PHYSICIANS HYPERTENSIO GROUP N I208 OTHER FORMS 06-29-2017 [facility] OF ANGINA PHYSICIANS PECTORIS GROUP I209 ANGINA 06-29-2017 [facility] PECTORIS PHYSICIANS UNSPECIFIED GROUP I6523 OCCLUSION & 06-29-2017 [facility] STENOSIS [facility] BILATERAL INC CAROTID ARTERIES R002 PALPITATION 06-29-2017 [facility] S [facility] INC M01873 ENCOUNTER 06-29-2017 [facility] FOR OTHER [facility] PREPROCEDUR INC AL EXAMINATION E069 THYROIDITIS 06-15-2017 [facility] PHYSICIANS UNSPECIFIED GROUP R221 LOCALIZED 06-12-2017 [facility] LUMP NECK R609 EDEMA 06-12-2017 [facility] UNSPECIFIED PHYSICIANS GROUP L089 LOCAL INF 06-02-2017 A Yobany FONG THE SKIN & PSC SUBCUTANEOU S TISSUE UNS U31826 OTHER 06-02-2017 A Yobany FONG MUSCLE [facility] SPASM D649 ANEMIA 06-01-2017 [facility] UNSPECIFIED PHYSICIANS GROUP R1310 DYSPHAGIA 06-01-2017 [facility] UNSPECIFIED PHYSICIANS GROUP K439 VENTRAL 05-22-2017 [facility] HERNIA PHYSICIANS WITHOUT GROUP OBSTRUCTION OR GANGRENE K429 UMBILICAL 05-19-2017 [facility]ICAL WITHOUT IMAGING ASS OBSTRUCTION OR GANGRENE K469 UNS 05-19-2017 [facility]BDOMINAL [facility] HERNIA W/O INC OBSTRUCTION OR GANGRENE K6389 OTHER 05-19-2017 [place] SPECIFIED MEDICAL DISEASES OF IMAGING ASS INTESTINE K279 PEPTIC ULCR 04-27-2017 A Yobany FONG SITE ANAND KRUGER [facility] UNS AC/CHRN W/O HEM/PERF B370 CANDIDAL 04-13-2017 A Yobany FONG STOMATITIS PSC J029 ACUTE 04-13-2017 A Yobany FONG PHARYNGITIS PSC UNSPECIFIED M545 LOW BACK 04-13-2017 A Yobany FONG PAIN PSC M1612 UNILATERAL 03-31-2017 [facility] [facility] OSTEOARTHRI IMAGING ASS TIS LEFT HIP A21233 PRIMARY 03-31-2017 [facility] OSTEOARTHRI MEDICAL TIS RIGHT IMAGING ASS SHOULDER F20953 PAIN IN 03-31-2017 [place] RIGHT MEDICAL SHOULDER IMAGING ASS A77276 PAIN IN 03-31-2017 [place] LEFT MEDICAL SHOULDER IMAGING ASS W89124 PAIN IN 03-31-2017 [facility] INC T89515 PAIN IN 03-31-2017 [place] LEFT HIP MEDICAL IMAGING ASS V62970 SPONDYLOSIS 03-31-2017 [place] W/O MEDICAL MYELOPATH/R IMAGING ASS ADICULOPATH Y LUMB RGN P1615KC UNSPECIFIED 03-31-2017 [place] INJURY MEDICAL LOWER BACK IMAGING ASS INITIAL ENCOUNTER Q4360BB UNS INJURY 03-31-2017 [facility] RT SHOULDER [facility] UPPER ARM INC INITIAL ENCNTR J0100 ACUTE 03-13-2017 A Yobany FONG MAXILLARY PSC SINUSITIS UNSPECIFIED J440 COPD WITH 03-13-2017 A Yobany FONG ACUTE LOWER PSC RESPIRATORY INFECTION B9689 OTH SPEC 10-19-2016 BACTERIAL ADA AGNT CAUSE PHYSICIANS DZ CLASSIFIED ELSW E119 TYPE 2 10-19-2016 DIABETES ADA MELLITUS PHYSICIANS WITHOUT COMPLICATIO NS J0190 ACUTE 10-19-2016 SINUSITIS ADA UNSPECIFIED PHYSICIANS Z6832 BODY MASS 10-19-2016 INDEX BMI ADA 32.0-32.9 PHYSICIANS ADULT R0789 OTHER CHEST 09-23-2016 [place] [facility]IN [facility] R079 CHEST PAIN 09-23-2016 [facility]NS[facility] J441 CHRONIC 08-16-2016 [facility] P DZ W/EXACERBAT ION 496 CHRONIC 08-17-2015 [facility] NEC 36438 08-17-2015 [facility] 9 V061 NEED PROPH 04-30-2015 ST VAC W/COMB ADA DIPHTH-TETA PHYSICIANS NUS-PERTUSS VAC 6094 OTHER AND 10-04-2013 [place] JOLIE UNSPECIFIED HYPERLIPIDE [place] 77579 ESOPHAGEAL 10-04-2013 [facility] REFLUX 7851 PALPITATION 10-04-2013 [facility] S 45311 OBSTRUCTIVE 03-21-2013 SUSANABEAU ERIC CHRONIC BRONCHITIS WITH EXACERBATIO N 4659 ACUTE URIS 03-19-2013 SU [facility] OF UNSPECIFIED SITE 486 PNEUMONIA, 03-19-2013 SU [facility] ORGANISM UNSPECIFIED 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 7804 DIZZINESS 03-19-2013 [facility] GIDDINESS [facility] 49367 SHORTNESS 03-19-2013 DOERGER KIR OF BREATH 90426 OTHER 03-19-2013 SU HEL DYSPNEA AND RESPIRATORY ABNORMALITI ES V1259 PERS HX, 03-19-2013 LILIBETH ERIC OTHER DISEASES OF CIRCULATORY SYSTEM 7993 UNSPECIFIED 12-25-2012 [facility] 40205 CORONARY 12-18-2012 [facility] KATHLEEN MUSA GAKONA CORONARY ARTERY 61225 UNSPECIFIED 12-18-2012 [facility] [place] UNSPECIFIED 7226 DEGENERATIO 12-17-2012 LAIB EMANI N INTERVERTEB RAL DISC SITE UNSPEC 01885 CHEST PAIN 12-17-2012 MCNULTY DAYANA UNSPECIFIED 88679 OTH 12-17-2012 LAIB EMANI NONSPECIFIC ABNORM CV SYSTEM FUNCTION STUDY 5225 PERIAPICAL 12-15-2012 KUPER LENA ABSCESS WITHOUT SINUS 80988 LEUKOCYTOSI 12-14-2012 SHARP GIOVANNA S UNSPECIFIED 5259 UNSPECIFIED 12-14-2012 SHARP GIOVANNA DISORDER TEETH&SUPPO RTING STRUCTURES 7212 THORACIC 08-10-2012 [facility] SPONDYLOSIS DON WITHOUT MYELOPATHY 7242 LUMBAGO 08-10-2012 J[facility] DON 69952 DEGEN 08-03-2012 [facility]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 7245 UNSPECIFIED 08-03-2012 [facility] BACKACHE [facility] 52579 PATHOLOGIC 08-03-2012 WEHRMAN III FRACTURE OF SUZAN VERTEBRAE 07184 GASTR ULCR 07-23-2012 [facility] UNS ACUT/CHRN W/O HEMOR PERF/OBST 59623 ABDOMINAL 07-23-2012 [facility] PAIN RIGHT UPPER QUADRANT 33936 ABDOMINAL 07-23-2012 [facility] PAIN, LEFT [facility] UPPER INC QUADRANT 65632 ABDOMINAL 07-23-2012 [facility] PAIN, LEFT LOWER QUADRANT 2114 BENIGN 07-09-2012 [facility] 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 83819 ACUTE 07-09-2012 [facility] GASTRITIS WITHOUT MENTION OF HEMORRHAGE 49580 DUODENITIS 07-09-2012 [facility] WITHOUT MENTION OF HEMORRHAGE 5589 OTH&UNSPEC 07-09-2012 [facility] NONINFECTIO US GASTROENTER ITIS&COLITI S 93683 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 INC 5690 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 [facility] RECTAL POLYP 36958 ABDOMINAL 07-09-2012 COMMUNITY PAIN, ANESTH OF UNSPECIFIED THE BLUE SITE V160 FM HX 07-09-2012 [facility]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 V7651 SPECIAL 07-09-2012 [facility] SCREENING FOR MALIGNANT NEOPLASMS COLON 92184 OVERWEIGHT 06-05-2012 J[facility]Z DON 7823 EDEMA 06-05-2012 J[facility] DON V5869 LONG-TERM 06-05-2012 [facility] (CURRENT) [facility] USE OF INC OTHER MEDICATIONS 5758 OTHER 05-23-2012 [facility] SPECIFIED [facility] DISORDER OF INC GALLBLADDER 7934 NONSPECIFIC 05-21-2012 [facility] ABN FINDING RAD & OTH EXAM GI TRACT 4011 ESSENTIAL 03-30-2012 J[facility] HYPERTENSIO DON N, BENIGN 2768 HYPOPOTASSE 03-16-2012 [facility] INC 96511 OTHER CHEST 03-16-2012 J[facility] PAIN DON V7231 ROUTINE 02-28-2012 [facility] GYNECOLOGIC DON AL EXAMINATION V7612 OTHER 02-28-2012 [facility] SCREENING [facility] MAMMOGRAM INC V5832 ENCOUNTER 02-15-2012 J[facility]Z FOR REMOVAL DON OF SUTURES 70749 OTHER 02-14-2012 [facility] SPECIFIED [place] DISORDER OF INTESTINES 5920 CALCULUS OF 02-14-2012 [facility] KIDNEY [place] 5932 ACQUIRED 02-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 UNSPECIFIED 57393 PAINFUL 07-07-2011 [facility] 00951 ABDOMINAL 07-07-2011 [facility] TENDERNESS, [facility] P 77684 ABNORMAL 08-20-2009 [facility] [place] [facility] U SMEAR OF CERVIX 20504 PAP SMER 08-20-2009 [facility] [place] W/ATYPICAL [facility]ICALCENT SQUAMOUS ER CELLS UNDET 2599 UNSPECIFIED 06-11-2009 [facility]INE [place] [facility] 53732 FLUSHING 05-14-2009 [facility] CTR 12748 HYPOXEMIA 10-22-2008 [facility] INC 4019 UNSPECIFIED 10-18-2008 HOSPITAL ESSENTIAL [facility] HYPERTENSIO INC N 24024 ACUTE 10-18-2008 [facility] RESPIRATORY [facility] FAILURE INC 27951 ATRIAL 10-15-2008 [facility] INC 5070 PNEUMONITIS 10-15-2008 [facility] DUE TO [facility], OF FOOD OR INC. VOMITUS 9779 POISONING 10-15-2008 [facility] UNSPECIFIED [facility]OC[facility], DRUG/MEDICI INC. NAL SUBSTANCE 7931 NONSPEC 10-14-2008 [facility] FIND [facility] L RADIOLOG[facility] OT EXAM INC. BODY STRUCT LUNG FIELD V5881 FITTING AND 10-14-2008 [facility] ADJUSTMENT L RADIOLOGY OF INC. VASCULAR CATHETER V5882 ENCOUNTER 10-14-2008 [facility] FITTING&ADJ L RADIOLOGY INC. NON-VASCULA R CATHETER NEC 5641 IRRITABLE 12-27-2007 [facility] SYNDROME 7291 UNSPECIFIED 12-27-2007 [facility]. 7808 GENERALIZED 12-27-2007 [facility], INC. E01.0 IODINE-DEFI CIENCY RELATED DIFFUSE (ENDEMIC) GOITER E87.2 ACIDOSIS F41.9 ANXIETY DISORDER, UNSPECIFIED I20.0 UNSTABLE ANGINA I20.9 ANGINA PECTORIS, UNSPECIFIED I65.23 OCCLUSION AND STENOSIS OF BILATERAL CAROTID ARTERIES J18.9 PNEUMONIA, UNSPECIFIED ORGANISM J44.1 CHRONIC OBSTRUCTIVE PULMONARY DISEASE W (ACUTE) EXACERBATIO N M48.061 SPINAL STENOSIS, LUMBAR REGION WITHOUT NEUROGENIC ABDOUL R06.00 DYSPNEA, UNSPECIFIED R10.9 UNSPECIFIED ABDOMINAL PAIN R42 DIZZINESS AND GIDDINESS S32.000A WEDGE COMPRESSION FRACTURE OF UNSP LUMBAR VERTEBRA, INIT Allergies, Adverse Reactions, Alerts Clinical Alert Notifications Alert Diabetes: no eye exam in the last [...] te s n re d RA 11 10 24 30 00 RI Ac 82 -0 -0 0. 00 TE ti AT 23 1- 3- 00 01 ve HE 17 20 20 0 19 AI NO 64 17 17 78 D L 0 05 PH 32 AR 5 MA MG CY TA #3 BL 93 ET 8 RA 11 08 06 24 30 00 RI Ac 82 -0 -0 0. 00 TE ti AT 23 4- 6- 00 01 ve HE 17 20 20 0 19 AI NO 64 17 17 78 D L 0 05 PH 32 AR 5 MA MG CY TA #3 BL 93 ET 8 RA 11 08 09 24 30 00 RI Ac 82 -0 -0 0. 00 TE ti AT 23 4- 8- 00 01 ve HE 17 20 20 0 18 AI NO 64 17 17 23 D L 0 36 PH 32 AR 5 MA MG CY TA #3 BL 93 ET 8 RA 11 06 08 24 30 00 RI Ac 82 [...] 3 30 30 CV 58 GR Ac NH 00 -0 -1 .0 S 03 OS [...] 8- 6- 00 PH 60 S ve NH 01 20 20 AR LA AM 10 [...] 3 30 30 CV 58 GR Ac NH 00 -0 -1 .0 S 03 OS [...] 8- 7- 00 PH 60 S ve NH 01 20 20 AR LA AM 10 11 11 MA RR 5 CY Y HB # R 40 05 43 MG 7 TA BL ET ZY 00 06 08 2 30 30 CV 57 GR Ac NH 00 -1 -1 .0 S 49 OS [...] 8- 8- 00 PH 60 S ve NH 01 20 20 AR LA AM 10 [...] 2 30 30 CV 57 GR Ac NH 00 -1 -1 .0 S 49 OS [...] 4- 7- 00 PH 38 S ve NH 01 20 20 AR LA AM 10 11 11 MA RR 5 CY Y HB # R 40 05 43 MG 7 TA BL ET ZY 00 06 06 2 30 30 CV 57 GR Ac NH 00 -1 -1 .0 S 49 OS [...] 4- 8- 00 PH 38 S ve NH 01 20 20 AR LA AM 10 [...] 3 30 30 CV 56 GR Ac NH 00 -1 -2 .0 S 51 OS [...] 4- 8- 00 PH 38 S ve NH 01 20 20 AR LA AM 10 11 11 MA RR 5 CY Y HB # R 40 05 43 MG 7 TA BL ET ZY 00 03 04 3 30 30 CV 56 GR Ac NH 00 -1 -1 .0 S 51 OS ti EX 24 4- 9- 00 PH 39 S ve A 11 20 20 AR LA 5 53 11 11 MA RR MG 0 CY Y # TA BL 05 ET 43 7 CL 63 04 04 0 21 7 CV 56 VE Ac IN 30 -1 -1 .0 S 85 RA ti DA 40 8- 8- 00 PH 70 X ve MY 69 20 20 AR II CI 30 11 11 MA I N 1 CY WI HC # LL L IA 30 05 M 0 43 J MG 7 CA PS UL E 00 04 04 0 15 4 CV 56 VE Ac 40 -1 -1 .0 S 85 RA ti 60 8- 8- 00 PH 69 X ve 35 20 20 AR II 80 11 11 MA I 5 CY WI # LL IA 05 M 43 J 7 CI 13 03 04 3 45 30 CV 56 GR Ac TA 66 -1 -0 .0 S 51 OS ti LO 80 4- 8- 00 PH 38 S ve NH 01 20 20 AR LA AM 10 [...] 2 30 30 CV 55 GR Ac NH 00 -1 -2 .0 S 67 OS [...] 0- 0- 00 PH 76 S ve NH 01 20 20 AR LA AM 10 [...] 2 30 30 CV 55 GR Ac NH 00 -1 -1 .0 S 67 OS ti EX 24 0- 7- 00 PH 78 S ve A 11 20 20 AR LA 5 53 11 11 MA RR MG 0 CY Y # TA BL 05 ET 43 7 CL 00 01 02 2 30 30 CV 55 GR Ac ON 09 -1 -0 .0 S 67 OS ti AZ 30 0- 9- 00 PH 77 S ve EP 83 20 20 AR LA AM 20 11 11 MA RR 1 CY Y 0. # 5 MG 05 43 TA 7 BL ET CI 13 01 02 2 45 30 CV 55 GR Ac TA 66 -1 -0 .0 S 67 OS ti LO 80 0- 9- 00 PH 76 S ve NH 01 20 20 AR LA AM 10 11 11 MA RR 5 CY Y HB # R 40 05 43 MG 7 TA BL ET ZY 00 11 01 2 30 30 CV 55 GR Ac NH 00 -0 -1 .0 S 12 OS ti EX 24 8- 7- 00 PH 39 S ve A 11 20 20 AR LA 5 53 10 11 MA RR MG 0 CY Y # TA BL 05 ET 43 7 CL 00 01 01 2 30 30 CV 55 GR Ac ON 09 -1 -1 .0 S 67 OS ti AZ 30 0- 0- 00 PH 77 S ve EP 83 20 20 AR LA AM 20 11 11 MA RR 1 CY Y 0. # 5 MG 05 43 TA 7 BL ET CI 13 01 01 2 45 30 CV 55 GR Ac TA 66 -1 -1 .0 S 67 OS ti LO 80 0- 0- 00 PH 76 S ve NH 01 20 20 AR LA AM 10 11 11 MA RR 5 CY Y HB # R 40 05 43 MG 7 TA BL ET ZY 00 11 12 2 30 30 CV 55 GR Ac NH 00 -0 -1 .0 S 12 OS ti EX 24 8- 8- 00 PH 39 S ve A 11 20 20 AR LA 5 53 10 10 MA RR MG 0 CY Y # TA BL 05 ET 43 7 CL 00 11 12 2 30 30 CV 54 GR Ac ON 09 -0 -0 .0 S 96 OS ti AZ 30 8- 7- 00 PH 52 S ve EP 83 20 20 AR LA AM 20 10 10 MA RR 1 CY Y 0. # 5 MG 05 43 TA 7 BL ET CI 13 11 12 2 45 30 CV 54 GR Ac TA 66 -0 -0 .0 S 96 OS ti LO 80 8- 7- 00 PH 49 S ve NH 01 20 20 AR LA AM 10 10 10 MA RR 5 CY Y HB # R 40 05 43 MG 7 TA BL ET ZY 00 11 11 2 30 30 CV 55 GR Ac NH 00 -0 -2 .0 S 12 OS [...] 8- 8- 00 PH 49 S ve NH 01 20 20 AR LA AM 10 10 10 MA RR 5 CY Y HB # R 40 05 43 MG 7 TA BL ET ZY 00 09 10 2 30 30 CV 54 GR Ac NH 00 -1 -1 .0 S 35 OS [...] 3- 1- 00 PH 71 S ve NH 01 20 20 AR LA AM 10 10 10 MA RR 5 CY Y HB # R 40 05 43 MG 7 TA BL ET CI 13 09 09 2 45 30 CV 54 GR Ac TA 66 -1 -1 .0 S 35 OS ti LO 80 3- 3- 00 PH 71 S ve NH 01 20 20 AR LA AM 10 10 10 MA RR 5 CY Y HB # R 40 05 43 MG 7 TA BL ET ZY 00 09 09 2 30 30 CV 54 GR Ac NH 00 -1 -1 .0 S 35 OS [...] 2- 2- 00 PH 96 S ve NH 01 20 20 AR LA AM 10 10 10 MA RR 5 CY Y HB # R 40 05 43 MG 7 TA BL ET CL 00 07 08 2 30 30 CV 53 GR Ac ON 09 -1 -1 .0 S 72 OS ti AZ 30 2- 2- 00 PH 65 S ve EP 83 20 20 AR LA AM 20 10 10 MA RR 1 CY Y 0. # 5 MG 05 43 TA 7 BL ET ZY 00 07 08 2 30 30 CV 53 GR Ac NH 00 -1 -1 .0 S 72 OS [...] 0- 2- 00 PH 90 S ve NH 01 20 20 AR LA AM 10 10 10 MA RR 5 CY Y HB # R 40 05 43 MG 7 TA BL ET ZY 00 05 07 2 30 30 CV 53 GR Ac NH 00 -1 -1 .0 S 42 OS ti EX 24 0- 2- 00 PH 91 S ve A 11 20 20 AR LA 5 53 10 10 MA RR MG 0 CY Y # TA BL 05 ET 43 7 CL 00 07 07 2 30 30 CV 53 GR Ac ON -1 -1 .0 S 72 OS ti [...] 0- 2- 00 PH 90 S ve NH 01 20 20 AR LA AM 10 10 10 MA RR 5 CY Y HB # R 40 05 43 MG 7 TA BL ET ZY 00 05 06 2 30 30 CV 53 GR Ac NH 00 -1 -1 .0 S 42 OS ti EX 24 0- 2- 00 PH 91 S ve A 11 20 20 AR LA 5 53 10 10 MA RR MG 0 CY Y # TA BL 05 ET 43 7 CL 00 05 06 2 45 30 CV 53 GR Ac ON 09 -1 -1 .0 S 42 OS ti AZ 30 0- 2- 00 PH 92 S ve EP 83 20 20 AR LA AM 30 10 10 MA RR 1 1 CY Y # MG 05 TA 43 BL 7 ET CL 00 04 05 1 45 30 CV 52 GR Ac ON -1 -1 .0 S 78 OS ti AZ 30 2- 2- 00 PH 29 S ve EP 83 20 20 AR LA AM 30 10 10 MA RR 1 1 CY Y # MG 05 TA 43 BL 7 ET ZY 00 04 05 1 30 30 CV 52 GR Ac NH 00 -1 -1 .0 S 78 OS [...] 2- 2- 00 PH 31 S ve NH 08 20 20 AR LA AM 66 10 10 MA RR 1 CY Y HB # R 40 05 43 MG 7 TA BL ET ZY 00 04 04 1 30 30 CV 52 GR Ac NH 00 -1 -1 .0 S 78 OS [...] 2- 2- 00 PH 31 S ve NH 01 20 20 AR LA AM 10 [...] 43 BL 7 ET ZY 00 02 03 2 30 30 CV 52 GR Ac NH 00 -0 -1 .0 S 13 OS [...] 8- 1- 00 PH 16 S ve NH 01 20 20 AR LA AM 10 [...] 1- 6- 00 PH 78 Av ve NH 01 20 20 AR ai AM 10 [...] 00 30 30 CV 52 No Ac NH 00 -0 -2 .0 S 13 t ti EX 24 8 6- PH 27 Av ve A 11 20 20 AR ai 5 53 10 10 MA la MG 0 CY bl e TA #5 BL 43 ET 7 CL 00 01 01 00 60 30 CV 51 No Ac ON -2 .0 S 82 t ti AZ 30 1 8- PH 77 Av ve EP 83 20 20 AR ai AM 30 10 10 MA la 1 1 CY bl e MG #5 43 TA 7 BL ET CI 13 01 01 00 45 30 CV 51 No Ac TA 66 -1 -2 .0 S 82 t ti LO 80 1- 8- 00 PH 78 Av ve NH 01 20 20 AR ai AM 10 10 10 MA la 5 CY bl HB e R #5 40 43 7 MG TA BL ET CI 13 10 12 02 45 30 CV 50 No Ac TA 66 -1 -3 .0 S 89 t ti LO 80 3- 1- 00 PH 04 Av ve NH 01 20 20 AR ai AM 10 [...] CV 50 No Ac RT 09 -1 -1 .0 S 89 t ti [...] 3- 9- 00 PH 04 Av ve NH 01 20 20 AR ai AM 10 09 09 MA la 5 CY bl HB e R #5 40 43 7 MG TA BL ET NO 00 10 11 01 30 30 CV 50 No Ac RT 09 -1 -1 .0 S 89 t ti RI 30 3- 9- 00 PH 11 Av ve PT 81 20 20 AR ai YL 10 09 09 MA la IN 1 CY bl E e HC #5 L 43 25 7 MG CA P NO 00 10 10 00 30 30 CV 50 No Ac RT -1 -2 .0 S 89 t ti RI 30 3- 2- 00 PH 11 Av ve PT 81 20 20 AR ai YL 10 09 09 MA la IN 1 CY bl E e HC #5 L 43 25 7 MG CA P CI 13 10 10 00 45 30 CV 50 No Ac TA 66 -1 -2 .0 S 89 t ti LO 80 3- 2- 00 PH 04 Av ve NH 01 20 20 AR ai AM 10 09 09 MA la 5 CY bl HB e R #5 40 43 7 MG TA BL ET CL 00 10 10 00 60 30 CV 50 No Ac ON 1 -2 .0 S 89 t ti AZ [...] 6- 8- 00 PH 21 RY ve NH 01 20 20 AR AM 10 09 09 MA LI 5 CY ND HB A R #5 40 43 7 MG TA BL ET CL 00 09 09 00 60 30 CV 50 No Ac ON -1 -2 .0 S 56 t ti [...] 6- 0- 00 PH 21 RY ve NH 01 20 20 AR AM 10 09 09 MA LI 5 CY ND HB A R #5 40 43 7 MG TA BL ET CI 13 07 08 00 30 20 CV 50 GE Ac TA 66 -0 -2 .0 S 21 NT ti LO 80 6- 7- 00 PH 21 RY ve NH 01 20 20 AR AM 10 09 [...] CY S #5 43 7 CL 00 07 08 01 60 30 [...] 9- 6- 00 PH 07 RY ve NH 01 20 20 AR AM 10 09 [...] 5- 8- 00 PH 88 RY ve NH 01 20 20 AR AM 10 09 [...] 5- 1- 00 PH 52 RY ve NH 01 20 20 AR AM 10 09 [...] 8- 2- 00 S 73 Av ve NH 34 20 20 PH 0 ai AM [...] bl CY e MG TA BL ET SE 00 04 [...] 8- 2- 00 S 73 Av ve NH 34 20 20 PH 0 ai AM 40 08 08 AR la 1 MA bl HB CY e R 40 MG TA BL ET CE 00 03 [...] 52 0- 0- 00 89 Av ve NH 52 20 20 AI ai AM 00 [...] 52 0- 7- 00 89 Av ve NH 52 20 20 AI ai AM 00 08 08 D la 1 PH bl HB AR e R M 40 #3 92 MG 0 TA BL ET DI 00 01 03 00 90 23 DE 63 No Ac CY 59 -3 -2 .0 AN 60 t ti CL 10 1- 6- 00 S 55 Av ve OM 79 20 20 PH 4 ai IN 40 08 08 AR la E 1 MA bl 10 CY e MG CA PS UL E SE 00 10 03 01 64 32 RI 58 No Ac RO 31 -0 -2 .0 TE 12 t ti QU 00 4- 6- 00 28 Av ve EL 27 20 20 AI ai 51 07 08 D la 25 0 PH bl AR e MG M #3 TA 92 BL 0 ET CI 60 11 03 01 45 30 RI 58 No Ac TA 50 -1 -2 .0 TE 12 t ti LO 52 5- 5- 00 27 Av ve NH 52 20 20 AI ai AM 00 07 08 D la 1 PH bl HB AR e R M 40 #3 92 MG 0 TA BL ET DI 00 11 03 01 90 30 RI 57 No Ac CY 37 -0 -2 .0 TE 89 t ti CL 81 8- 4- 00 17 Av ve OM 61 20 20 AI ai IN 08 D la E 1 PH bl 10 AR e M MG #3 92 CA 0 PS UL E Results Labs Lab Lab Date Result Refere Interp Status Commen Order Detail nces retati t Range on Comprehensive metabolic panel (10-21-2017 09:25) Serum 11-25-2 = 1.0 1.1-1.8 complet or 017 ed plasma 09:25 albumin /globul in mass ra Serum 25-2 = 3.4 3.4-5.0 complet or 017 gm/dL ed plasma 09:25 albumin measure ment (mas Serum 10-21-2 = 163 46-116 complet or 017 U/L ed plasma 09:25 alkalin e phospha tase jones Serum 10-21-2 = 0.3 0.2-1.0 complet or 017 mg/dL ed plasma 09:25 total bilirub in measure m Serum 10-21-2 = 19 7-18 complet or 017 mg/dL ed plasma 09:25 urea nitroge n measure men Serum 10-21-2 = 9.0 8.5-10. complet or 017 mg/dL 1 ed plasma 09:25 calcium measure ment (mas Serum 10-21-2 = 103 98-107 complet or 017 mmoL/L ed plasma 09:25 chlorid e measure ment (mo Carbon 10-21-2 = 28 21.0-32 complet dioxide 017 mmoL/L .0 ed 09:25 measure ment Serum 25-2 = 0.8 0.55-1. complet or 017 mg/dL 02 ed plasma 09:25 creatin ine measure ment ( Estimat 10-21-2 = 123 50-200 complet ion of 017 ML/MIN ed creatin 09:25 ine renal clearan ce Estimat 10-21-2 = 73 59- complet ed 017 ML/MIN ed glomeru 09:25 lar filtrat ion rate (GF Serum 10-21-2 = 3.5 1.3-3.2 complet globuli 017 gm/dL ed n 09:25 measure ment (mass/v olume) Serum 10-21-2 = 124 74-106 complet or 017 mg/dL ed plasma 09:25 glucose measure ment (mas Serum 10-21-2 = 4.1 3.5-5.1 complet potassi 017 mmoL/L ed um 09:25 measure ment Serum = 141 136-145 complet sodium 017 mmoL/L ed measure 09:25 ment Serum = 15 15-37 complet or 017 U/L ed plasma 09:25 asparta te aminotr ansfera ALT = 24 12-78 complet (SGPT) 017 U/L ed ser/darrion 09:25 s Protein = 6.9 6.4-8.2 complet total 017 gm/dL ed ser/darrion 09:25 s CBC w auto diff (10-21-2017 09:25) Automat = 0.0 0-0.2 complet ed 017 K/MM3 ed blood 09:25 basophi l count (count/ vo Baso % = 0.2 % 0.1-2.0 complet 017 ed 09:25 Automat = 0.3 0.0-0.4 complet ed 017 K/mm3 ed blood 09:25 eosinop hil count Automat = 2.1 % 0.1-12. complet ed 017 0 ed blood 09:25 eosinop hils/10 0 leukocy t Blood = 12.6 1.8-7.8 complet granulo 017 K/mm3 ed cytes 09:25 automat ed count (numb Granulo = 79.5 37.0-80 complet cyte 017 % .0 ed percent 09:25 age Blood = 42.4 37.0-47 complet hematoc 017 % .0 ed rit 09:25 (volume fractio n) Blood = 13.6 12.2-16 complet hemoglo 017 g/dL .2 ed bin 09:25 measure ment (mass/v olum Absolut = 2.3 0.7-4.5 complet e 017 K/mm3 ed lymphoc 09:25 yte count Lymphoc = 14.6 10-50.0 complet yte 017 % ed count, 09:25 blood, automat ed Mean = 31.7 27-31.2 complet corpusc 017 pg ed ular 09:25 hemoglo bin (MCH) determ Automat = 32.0 31.8-35 complet ed 017 g/dl .4 ed erythro 09:25 cyte mean corpusc ular h Automat = 98.9 82.2-97 complet ed 017 fl .8 ed erythro 09:25 cyte mean corpusc ular v Absolut = 0.6 0.1-1.0 complet e 017 K/mm3 ed monocyt 09:25 e count Avery % = 3.6 % 1.7-9.3 complet 017 ed 09:25 Automat = 7.3 7.4-10. complet ed 017 fl 4 ed blood 09:25 platele t mean volume jones Blood = 389 142-424 complet platele 017 K/mm3 ed t count 09:25 Red = 4.28 4.2-5.4 complet blood 017 M/mm3 ed cell 09:25 count Automat = 15.7 11.5-17 complet ed 017 % .5 ed erythro 09:25 cyte distrib ution width Blood = 15.9 4.8-10. complet leukocy 017 K/MM3 8 ed reynold 09:25 count (number /volume ) Differential panel, method unspecified - (10-21-2017 09:25) Automat = 1 % 0-8 complet ed 017 ed blood 09:25 band neutrop hil percent a Manual = 5 % 0-3 complet blood 017 ed eosinop 09:25 hils/10 0 leukocy reynold Hyperse 1 + complet gmented 017 ed 09:25 neutrop hil count LYMPH 14 % 10-50 complet 017 ed 09:25 Macrocy 1+ 1+ L complet reynold 017 ed detecti 09:25 on Manual = 1 % 0-1 complet blood 017 ed metamye 09:25 locytes /100 leukocy t Monocyt = 2 % 2-9 complet e % 017 ed 09:25 Platele NORMAL complet t 017 NORMAL ed estimat 09:25 L e Neutrop = 77 % 42-76 complet hil 017 ed count 09:25 Blood = 100 complet total 017 #CELLS ed cell 09:25 count Target 1+ 1+ L complet cell 017 ed detecti 09:25 on Erythrocyte sedimentation rate by polo (10-21-2017 09:25) Erythro = 24 0-30 complet cyte 017 mm/hr ed sedimen 09:25 tation rate by polo Differential panel, method unspecified - (10-21-2017 09:25) LYMPH 14 % 10% - Normal complet 017 50% ed 09:25 Macrocy 1+ complet reynold 017 ed [Presen 09:25 ce] in Blood Platele NORMAL complet ts 017 ed [Presen 09:25 ce] in Blood by Light microsc opy Target 1+ complet cells 017 ed [Presen 09:25 ce] in Blood by Light microsc opy Urinalysis with microscopy (10-21-2017 09:05) Urine CLEAR CLEAR complet appeara 017 CLEAR L ed nce 09:05 determi nation Bacteri TRACE O complet a 017 TRACE L ed detecti 09:05 on in urine sedimen t by Urine NEGATIV NEG complet total 017 E ed bilirub 09:05 NEGATIV in E L detecti on by test Urine NEGATIV NEG complet blood 017 E ed detecti 09:05 NEGATIV on E L Urine YELLOW YELLOW complet color 017 YELLOW ed 09:05 L Glucose = NEG complet ur 017 NEGATIV ed test 09:05 E strip Urine NEGATIV NEG complet ketones 017 E ed 09:05 NEGATIV detecti E L on by mg/dL automat ed reynold Mucus NEGATIV NEG complet detecti 017 E ed on in 09:05 NEGATIV urine E L sedimen t by lig Urine NEGATIV NEG complet nitrite 017 E ed 09:05 NEGATIV detecti E L on by test strip Urine = 5.5 5.0-8.5 complet pH 017 ed 09:05 Urine = NEG complet protein 017 NEGATIV ed 09:05 E mg/dL measure ment by automat ed t Erythro NONE 0 complet cytes 017 NONE L ed detecti 09:05 rbc/hpf on in urine sedimen t Urine < = 1.005-1 complet specifi 017 1.005 .030 ed c 09:05 gravity measure ment [place] 10-21- 5-10 0-5 complet s 017 5-10 L ed epithel 09:05 #/hpf ial cells detecti on in u Urine 0.2 0.2 NEG complet urobili 017 L ed nogen 09:05 E.U./dL detecti on by test str Urine = NONE O complet leukocy 017 wbc/hpf ed reynold 09:05 count (number /volume ) Urinalysis with microscopy (09-13-2017 12:30) Erythro NONE 0 complet cytes 017 NONE L ed detecti 12:30 rbc/hpf on in urine sedimen t Urine CLEAR CLEAR complet appeara 017 CLEAR L ed nce 12:30 determi nation Bacteri NONE O complet a 017 NONE L ed detecti 12:30 on in urine sedimen t by Urine NEGATIV NEG complet total 017 E ed bilirub 12:30 NEGATIV in E L detecti on by test Urine NEGATIV NEG complet blood 017 E ed detecti 12:30 NEGATIV on E L Urine YELLOW YELLOW complet color 017 YELLOW ed 12:30 L Glucose = NEG complet ur 017 NEGATIV ed test 12:30 E strip Urine NEGATIV NEG complet ketones 017 E ed 12:30 NEGATIV detecti E L on by mg/dL automat ed reynold Mucus NEGATIV NEG complet detecti 017 E ed on in 12:30 NEGATIV urine E L sedimen t by lig Urine NEGATIV NEG complet nitrite 017 E ed 12:30 NEGATIV detecti E L on by test strip Urine = 7.0 5.0-8.5 complet pH 017 ed 12:30 Urine = NEG complet protein 017 NEGATIV ed 12:30 E mg/dL measure ment by automat ed t Urine < = 1.005-1 complet specifi 017 1.005 .030 ed c 12:30 gravity measure ment [place] OCC OCC 0-5 complet s 017 L ed epithel 12:30 #/hpf ial cells detecti on in u Urine 0.2 0.2 NEG complet urobili 017 L ed nogen 12:30 E.U./dL detecti on by test str Urine = NONE O complet leukocy 017 wbc/hpf ed reynold 12:30 count (number /volume ) CBC w auto diff (09-13-2017 11:50) Automat = 0.0 0-0.2 complet ed 017 K/MM3 ed blood 11:50 basophi l count (count/ vo Baso % = 0.2 % 0.1-2.0 complet 017 ed 11:50 Automat = 0.9 0.0-0.4 complet ed 017 K/mm3 ed blood 11:50 eosinop hil count Automat = 5.8 % 0.1-12. complet ed 017 0 ed blood 11:50 eosinop hils/10 0 leukocy t Blood = 11.0 1.8-7.8 complet granulo 017 K/mm3 ed cytes 11:50 automat ed count (numb Granulo = 74.6 37.0-80 complet cyte 017 % .0 ed percent 11:50 age Blood = 43.4 37.0-47 complet hematoc 017 % .0 ed rit 11:50 (volume fractio n) Blood = 13.9 12.2-16 complet hemoglo 017 g/dL .2 ed bin 11:50 measure ment (mass/v olum Absolut = 2.4 0.7-4.5 complet e 017 K/mm3 ed lymphoc 11:50 yte count Lymphoc = 16.1 10-50.0 complet yte 017 % ed count, 11:50 blood, automat ed Mean 10-18-2 = 31.4 27-31.2 complet corpusc 017 pg ed ular 11:50 hemoglo bin (MCH) determ Automat = 31.9 31.8-35 complet ed 017 g/dl .4 ed erythro 11:50 cyte mean corpusc ular h Automat = 98.3 82.2-97 complet ed 017 fl .8 ed erythro 11:50 cyte mean corpusc ular v Absolut = 0.5 0.1-1.0 complet e 017 K/mm3 ed monocyt 11:50 e count Automat = 7.5 7.4-10. complet ed 017 fl 4 ed blood 11:50 platele t mean volume jones Blood = 305 142-424 complet platele 017 K/mm3 ed t count 11:50 Red = 4.42 4.2-5.4 complet blood 017 M/mm3 ed cell 11:50 count Automat = 14.6 11.5-17 complet ed 017 % .5 ed erythro 11:50 cyte distrib ution width Blood = 14.7 4.8-10. complet leukocy 017 K/MM3 8 ed reynold 11:50 count (number /volume ) Avery % = 3.3 % 1.7-9.3 complet 017 ed 11:50 Lipase measurement (09-13-2017 11:50) Lipase = 133 73-393 complet measure 017 U/L ed ment 11:50 Comprehensive metabolic panel (09-13-2017 11:50) Serum 09-13-2 = 1.0 1.1-1.8 complet or 017 ed plasma 11:50 albumin /globul in mass ra Serum 09-13-2 = 3.3 3.4-5.0 complet or 017 gm/dL ed plasma 11:50 albumin measure ment (mas Serum 09-13- = 84 46-116 complet or 017 U/L ed plasma 11:50 alkalin e phospha tase jones Serum = 0.4 0.2-1.0 complet or 017 mg/dL ed plasma 11:50 total bilirub in measure m Serum = 14 7-18 complet or 017 mg/dL ed plasma 11:50 urea nitroge n measure men Serum = 8.7 8.5-10. complet or 017 mg/dL 1 ed plasma 11:50 calcium measure ment (mas Serum = 100 98-107 complet or 017 mmoL/L ed plasma 11:50 chlorid e measure ment (mo Carbon = 29 21.0-32 complet dioxide 017 mmoL/L .0 ed 11:50 measure ment Serum 09-13-2 = 0.8 0.55-1. complet or 017 mg/dL 02 ed plasma 11:50 creatin ine measure ment ( Estimat = 118 50-200 complet ion of 017 ML/MIN ed creatin 11:50 ine renal clearan ce Estimat = 73 59- complet ed 017 ML/MIN ed glomeru 11:50 lar filtrat ion rate (GF Serum = 3.4 1.3-3.2 complet globuli 017 gm/dL ed n 11:50 measure ment (mass/v olume) Serum = 91 74-106 complet or 017 mg/dL ed plasma 11:50 glucose measure ment (mas Serum = 3.7 3.5-5.1 complet potassi 017 mmoL/L ed um 11:50 measure ment Serum = 136 136-145 complet sodium 017 mmoL/L ed measure 11:50 ment Serum = 43 15-37 complet or 017 U/L ed plasma 11:50 asparta te aminotr ansfera ALT = 50 12-78 complet (SGPT) 017 U/L ed ser/darrion 11:50 s Protein = 6.7 6.4-8.2 complet total 017 gm/dL ed ser/darrion 11:50 s Differential panel, method unspecified - (08-26-2017 05:00) [...] panel in Arterial blood (08-25-2017 10:30) Arteria 09-29-2 ACCEPTA complet l 017 BLE ed patency 10:30 Wrist artery --pre arteria l punctur e SOURCE RIGHT complet 017 RADIAL ed 10:30 Encounters Encounter Start End Date Code Location Performer Type Date HOSPITAL [facility] - 7 7 [facility] - 7 7 [facility] - 7 7 [facility] - 7 7 [facility] - 7 7 [facility] - 7 7 [facility] - 6 6 [facility] - 2 2 [facility] - 2 2 [facility] - 2 2 [facility] - 2 2 [facility] - 2 2 [facility] - 2 2 [facility] - 2 2 [facility] - 2 2 [facility] - 2 2 [facility] - 2 2 [facility] - 1 1 [facility] [place] - 1 1 [facility] - [facility] 0 [facility] [address]
--- OUTSIDE RECORDS SUMMARY | 2017-10-27 19:28 | External Medical Summary Rpt | CCD ---
Author Author , ERNA UMANZOR Address Unknown Phone [email or web address] Care Team Providers Care Insurance Follow Up Representative Name Role Phone A Yobany FONG MD PSC, A Unavailable Unavailable Yobany FONG MD PSC MAKEDA OCAMPO AMB Unavailable Unavailable SERVICE, [facility] Unavailable Unavailable [facility] Unavailable Unavailable INC, [facility] COURTADE GAGE, Unavailable Unavailable COURTADE GAGE MACHO LORETTA, Unavailable Unavailable MACHO LORETTA [id number], Unavailable Unavailable [id number], Unavailable Unavailable [id number] Unavailable Unavailable 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 KIR, DOERGER Unavailable Unavailable KIR JAZ L.P., JAZ L.P. Unavailable Unavailable HEART EMMANUEL, HEART EMMANUEL Unavailable Unavailable ELLIOT, BRAXTON E, Unavailable Unavailable ELLIOT, BRAXTON E [facility] Un[facility] INC, [facility] Unavailable Unavailable HOSPITAL P, [facility], Unavailable Unavailable [facility] LILIBETH WELCH Unavailable Unavailable MICHELLE TAYLOR JONES, Unavailable Unavailable MICHELLE TABBY, YVONNE, Unavailable Unavailable TABBY, YVONNE [facility] Un[facility] Unavailable [facility], [facility] KUPER LENA, KUPER LENA Unavailable Unavailable KUSHMAN MARIVEL, KUSHMAN Unavailable Unavailable MARIVEL [facility] [employer], Unavailable Unavailable [facility] [employer] LAIB EMANI, LAIB EMANI Unavailable Unavailable [facility] Unavailable Unavailable [facility], [facility] Unavailable Unavailable 9, [facility] 9 [facility] Unavailable Unavailable SERVICES, [facility] JAYRO MCKENZIE, Unavailable Unavailable JAYRO MCKENZIE MILLER Unavailable Unavailable DAYANA MARSH ZAID, MARSH ZAID Unavailable Unavailable [facility] Unavailable [id number], Unavailable Unavailable [id number] CARMELINA SCHWARTZ JR, Unavailable Unavailable CARMELINA SCHWARTZ JR [facility] Unavailable Unavailable [facility] CYNTHIA JOLIE, CYNTHIA Unavailable Unavailable JOLIE SHARP GIOVANNA, SHARP GIOVANNA Unavailable Unavailable [facility] Unavailable [facility]available [facility], [facility] Unavailable Un[facility], [facility] Unavailable Unavailable PHYSICIANS, [facility] DAMIAN VIEIRA, Unavailable Unavailable DAMIAN VIEIRA DON, Unavailable Unavailable JEREZ DON WEHRMAN III SUZAN, Unavailable Unavailable WEHRMAN III SUZAN SU HEL, SU HEL Unavailable Unavailable ALYSSA DE LA TORRE, Unavailable Unavailable ALYSSA DE LA TORRE [facility], Unavailable Unavailable [facility] Purpose Continuity of Care Document - 12-27-2007 through 2016 Problems Code Diagnosis DOS Provider Status J90 PLEURAL 08-25-2017 [facility] NOT [facility]ING [facility] ELSEWHERE CLASSIFIED R05 COUGH 08-25-2017 [facility] R0602 SHORTNESS 08-25-2017 [facility] OF BREATH AMB SERVICE R0902 HYPOXEMIA 08-25-2017 [facility] AMB SERVICE R918 OTHER 08-25-2017 [facility] NONSPECIFIC MEDICAL ABNORMAL IMAGING ASS FINDING OF LUNG FIELD E669 OBESITY 08-16-2017 [facility] G4710 HYPERSOMNIA 08-16-2017 [facility] UNSPECIFIED INC G4733 OBSTRUCTIVE 08-16-2017 [facility] SLEEP [facility] APNEA ADULT INC PEDIATRIC R0683 SNORING 08-16-2017 [facility] 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 EQUIPME R69 ILLNESS 07-21-2017 [facility] 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 E538 DEFICIENCY 07-14-2017 A Yobany FONG OF TONI KRUGER PSC SPECIFIED B GROUP VITAMINS O05MBRO FALL FROM 07-14-2017 A Yobany FONG BED INITIAL PSC ENCOUNTER I2510 ASHD CURYUNG 07-05-2017 [facility] CORONARY PHYSICIANS ARTERY W/O GROUP ANGINA PECTORIS Y12552 ASHD CURYUNG 07-05-2017 [facility] W/UNS INC ANGINA PECTORIS I6502 OCCLUSION 07-05-2017 [facility] STENOSIS OF INC LEFT VERTEBRAL ARTERY I6521 OCCLUSION 07-05-2017 [facility] STENOSIS OF INC RIGHT CAROTID ARTERY I6529 OCCLUSION & 07-05-2017 [facility] STENOSIS PHYSICIANS UNSPECIFIED GROUP CAROTID ARTERY I700 ATHEROSCLER 07-05-2017 [facility] 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[facility] AORTA INC O36581 ATHEROSCLER 07-05-2017 [facility]G ART [facility] EXT INC INTERMIT ABDOUL BILAT R0989 OTH SPEC SX 07-05-2017 [facility] & SIGNS PHYSICIANS INVLV THE GROUP CIRC & RESP SYS R9439 ABNORMAL 07-05-2017 [facility] RESULT OT PHYSICIANS CARDIOVASCU GROUP LR FUNCTION STUDY Z720 TOBACCO USE 07-05-2017 [facility] INC E785 HYPERLIPIDE 06-29-2017 [facility] ELIER PHYSICIANS UNSPECIFIED GROUP I10 ESSENTIAL 06-29-2017 [facility] PRIMARY PHYSICIANS HYPERTENSIO GROUP N I208 OTHER FORMS 06-29-2017 [facility] OF ANGINA PHYSICIANS PECTORIS GROUP I209 ANGINA 06-29-2017 [facility] PECTORIS PHYSICIANS UNSPECIFIED GROUP I6523 OCCLUSION & 06-29-2017 [facility] STENOSIS [facility] BILATERAL INC CAROTID ARTERIES R002 PALPITATION 06-29-2017 [facility] S [facility] INC V73308 ENCOUNTER 06-29-2017 [facility] FOR OTHER [facility] PREPROCEDUR INC AL EXAMINATION E069 THYROIDITIS 06-15-2017 [facility] PHYSICIANS UNSPECIFIED GROUP R221 LOCALIZED 06-12-2017 [facility] SWELLING [facility]ICAL MASS AND IMAGING ASS LUMP NECK R609 EDEMA 06-12-2017 [facility] UNSPECIFIED PHYSICIANS GROUP L089 LOCAL INF 06-02-2017 A Yobany FONG THE SKIN & PSC SUBCUTANEOU S TISSUE UNS K24303 OTHER 06-02-2017 A Yobany FONG MUSCLE [facility] SPASM D649 ANEMIA 06-01-2017 [facility] UNSPECIFIED PHYSICIANS GROUP R1310 DYSPHAGIA 06-01-2017 [facility] UNSPECIFIED PHYSICIANS GROUP K439 VENTRAL 05-22-2017 [facility] HERNIA PHYSICIANS WITHOUT GROUP OBSTRUCTION OR GANGRENE K429 UMBILICAL 05-19-2017 [facility] HERNIA [facility]ICAL WITHOUT IMAGING ASS OBSTRUCTION OR GANGRENE K469 UNS 05-19-2017 [facility]BDOMINAL [facility] HERNIA W/O INC OBSTRUCTION OR GANGRENE K6389 OTHER 05-19-2017 [facility] SPECIFIED MEDICAL DISEASES OF IMAGING ASS INTESTINE K279 PEPTIC ULCR 04-27-2017 A Yobany FONG SITE ANAND KRUGER [facility] UNS AC/CHRN W/O HEM/PERF B370 CANDIDAL 04-13-2017 A Yobany FONG STOMATITIS PSC J029 ACUTE 04-13-2017 A Yobany FONG PHARYNGITIS PSC UNSPECIFIED M545 LOW BACK 04-13-2017 A Yobany FONG PAIN PSC M1612 UNILATERAL 03-31-2017 [facility] PRIMARY [facility]ICAL OSTEOARTHRI IMAGING ASS TIS LEFT HIP C40581 PRIMARY 03-31-2017 [facility] OSTEOARTHRI MEDICAL TIS RIGHT IMAGING ASS SHOULDER M84422 PAIN IN 03-31-2017 [facility] RIGHT MEDICAL SHOULDER IMAGING ASS K19350 PAIN IN 03-31-2017 [facility] LEFT MEDICAL SHOULDER IMAGING ASS S92601 PAIN IN 03-31-2017 [facility] RIGHT HIP [facility] INC Y33519 PAIN IN 03-31-2017 [facility] LEFT HIP MEDICAL IM[facility]ING ASS N28122 SPONDYLOSIS 03-31-2017 [facility] W/O MEDICAL MYELOPATH/R IMAGING ASS ADICULOPATH Y LUMB RGN H4948OV UNSPECIFIED 03-31-2017 [facility] INJURY MEDICAL LOWER BACK IMAGING ASS INITIAL ENCOUNTER V3612OB UNS INJURY 03-31-2017 [facility] RT SHOULDER MEM [...] 32.0-32.9 PHYSICIANS ADULT R0789 OTHER CHEST 09-23-2016 [facility] PAIN [facility]ICAL [facility] R079 CHEST PAIN 09-23-2016 [facility] UNSPECIFIED [facility] J441 CHRONIC 08-16-2016 [facility] P DZ W/EXACERBAT ION 496 CHRONIC 08-17-2015 [facility] NEC 72453 08-17-2015 [facility] 9 V061 NEED PROPH 04-30-2015 ST [facility] W/COMB ADA DIPHTH-TETA PHYSICIANS NUS-PERTUSS VAC 8564 OTHER AND 10-04-2013 CYN[place]IA JOLIE UNSPECIFIED HYPERLIPIDE [place]IER 23764 ESOPHAGEAL 10-04-2013 [facility] REFLUX 7851 PALPITATION 10-04-2013 [facility] S 32815 OBSTRUCTIVE 03-21-2013 SUSANABEAU ERIC CHRONIC BRONCHITIS WITH EXACERBATIO N 4659 ACUTE URIS 03-19-2013 SU HEL OF UNSPECIFIED SITE 486 PNEUMONIA, 03-19-2013 SU HEL ORGANISM UNSPECIFIED 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 7804 DIZZINESS 03-19-2013 [facility] GIDDINESS [facility] 45722 SHORTNESS 03-19-2013 DOERGER KIR OF BREATH 79178 OTHER 03-19-2013 SU HEL DYSPNEA AND RESPIRATORY ABNORMALITI ES V1259 PERS HX, 03-19-2013 LILIBETH ERIC OTHER DISEASES OF CIRCULATORY SYSTEM 7993 UNSPECIFIED 12-25-2012 [facility] 13214 CORONARY 12-18-2012 [facility] KATHLEEN MUSA CURYUNG CORONARY ARTERY 14312 UNSPECIFIED 12-18-2012 [facility] [place] UNSPECIFIED 7226 DEGENERATIO 12-17-2012 LAIB EMANI N INTERVERTEB RAL DISC SITE UNSPEC 11193 CHEST PAIN 12-17-2012 MCNULTY DAYANA UNSPECIFIED 13082 OTH 12-17-2012 LAIB EMANI NONSPECIFIC ABNORM CV SYSTEM FUNCTION STUDY 5225 PERIAPICAL 12-15-2012 KUPER LENA ABSCESS WITHOUT SINUS 36755 LEUKOCYTOSI 12-14-2012 SHARP GIOVANNA S UNSPECIFIED 5259 UNSPECIFIED 12-14-2012 SHARP GIOVANNA DISORDER TEETH&SUPPO RTING STRUCTURES 7212 THORACIC 08-10-2012 JEREZ SPONDYLOSIS DON WITHOUT MYELOPATHY 7242 LUMBAGO 08-10-2012 J[facility]Z DON 55847 DEGEN 08-03-2012 [facility]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 7245 UNSPECIFIED 08-03-2012 [facility] BACKACHE CO [facility] 17835 PATHOLOGIC 08-03-2012 WEHRMAN III FRACTURE OF SUZNA VERTEBRAE 68996 GASTR ULCR 07-23-2012 MARSH ZAID UNS ACUT/CHRN W/O HEMOR PERF/OBST 71731 ABDOMINAL 07-23-2012 MARSH ZAID PAIN RIGHT UPPER QUADRANT 20867 ABDOMINAL 07-23-2012 [facility] PAIN, LEFT [facility] UPPER INC QUADRANT 99237 ABDOMINAL 07-23-2012 MARSH ZAID PAIN, LEFT LOWER QUADRANT 2114 BENIGN 07-09-2012 [facility] 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 10406 ACUTE 07-09-2012 [facility] GASTRITIS WITHOUT MENTION OF HEMORRHAGE 33318 DUODENITIS 07-09-2012 [facility] WITHOUT MENTION OF HEMORRHAGE 5589 OTH&UNSPEC 07-09-2012 [facility] NONINFECTIO US GASTROENTER ITIS&COLITI S 73094 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 INC 5690 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 [facility] RECTAL POLYP 36689 ABDOMINAL 07-09-2012 [facility]ITY PAIN, ANESTH OF UNSPECIFIED THE BLUE SITE V160 FM HX 07-09-2012 [facility]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 V7651 SPECIAL 07-09-2012 [facility] SCREENING FOR MALIGNANT NEOPLASMS COLON 58196 OVERWEIGHT 06-05-2012 J[facility]Z DON 7823 EDEMA 06-05-2012 J[facility] DON V5869 LONG-TERM 06-05-2012 [facility] (CURRENT) [facility] USE OF INC OTHER MEDICATIONS 5758 OTHER 05-23-2012 [facility] SPECIFIED [facility] DISORDER OF INC GALLBLADDER 7934 NONSPECIFIC 05-21-2012 [facility] ABN FINDING RAD & OTH EXAM GI TRACT 4011 ESSENTIAL 03-30-2012 J[facility]Z HYPERTENSIO DON N, BENIGN 2768 HYPOPOTASSE 03-16-2012 [facility] INC 41666 OTHER CHEST 03-16-2012 J[facility] PAIN DON V7231 ROUTINE 02-28-2012 [facility] GYNECOLOGIC DON AL EXAMINATION V7612 OTHER 02-28-2012 [facility] SCREENING [facility]OS[facility] MAMMOGRAM INC V5832 ENCOUNTER 02-15-2012 J[facility]Z FOR REMOVAL DON OF SUTURES 37026 OTHER 02-14-2012 [facility] SPECIFIED [place] DISORDER OF INTESTINES 5920 CALCULUS OF 02-14-2012 [facility] KIDNEY [place] 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 UNSPECIFIED 81524 PAINFUL 07-07-2011 [facility] 49424 ABDOMINAL 07-07-2011 [facility] TENDERNESS, RESEARCH [facility] P 17953 ABNORMAL 08-20-2009 [facility] U SMEAR OF CERVIX 74734 PAP SMER 08-20-2009 [facility] [place] [facility] SQUAMOUS ER CELLS UNDET 2599 UNSPECIFIED 06-11-2009 [facility]INE [place] [facility] 96603 FLUSHING 05-14-2009 [facility] CTR 65860 HYPOXEMIA 10-22-2008 [facility] INC 4019 UNSPECIFIED 10-18-2008 HOSPITAL ESSENTIAL [facility] HYPERTENSIO INC N 27388 ACUTE 10-18-2008 [facility] RESPIRATORY [facility] FAILURE INC 89840 ATRIAL 10-15-2008 [facility] INC [...] NEC 5641 IRRITABLE 12-27-2007 [facility] SYNDROME 7291 UNSPECIFIED 12-27-2007 HEALTH MYALGIA [...] 3 30 30 CV 58 GR Ac MS 00 -0 -1 .0 S 03 OS [...] 8- 6- 00 PH 60 S ve MS 01 20 20 AR LA AM 10 [...] 3 30 30 CV 58 GR Ac MS 00 -0 -1 .0 S 03 OS [...] 8- 7- 00 PH 60 S ve MS 01 20 20 AR LA AM 10 11 11 MA RR 5 CY Y HB # R 40 05 43 MG 7 TA BL ET ZY 00 06 08 2 30 30 CV 57 GR Ac MS 00 -1 -1 .0 S 49 OS [...] 8- 8- 00 PH 60 S ve MS 01 20 20 AR LA AM 10 [...] 2 30 30 CV 57 GR Ac MS 00 -1 -1 .0 S 49 OS [...] 4- 7- 00 PH 38 S ve MS 01 20 20 AR LA AM 10 11 11 MA RR 5 CY Y HB # R 40 05 43 MG 7 TA BL ET ZY 00 06 06 2 30 30 CV 57 GR Ac MS 00 -1 -1 .0 S 49 OS [...] 4- 8- 00 PH 38 S ve MS 01 20 20 AR LA AM 10 [...] 3 30 30 CV 56 GR Ac MS 00 -1 -2 .0 S 51 OS [...] 4- 8- 00 PH 38 S ve MS 01 20 20 AR LA AM 10 11 11 MA RR 5 CY Y HB # R 40 05 43 MG 7 TA BL ET ZY 00 03 04 3 30 30 CV 56 GR Ac MS 00 -1 -1 .0 S 51 OS [...] 4- 8- 00 PH 38 S ve MS 01 20 20 AR LA AM 10 [...] 2 30 30 CV 55 GR Ac MS 00 -1 -2 .0 S 67 OS [...] 0- 0- 00 PH 76 S ve MS 01 20 20 AR LA AM 10 [...] 2 30 30 CV 55 GR Ac MS 00 -1 -1 .0 S 67 OS [...] 0- 9- 00 PH 76 S ve MS 01 20 20 AR LA AM 10 11 11 MA RR 5 CY Y HB # R 40 05 43 MG 7 TA BL ET ZY 00 11 01 2 30 30 CV 55 GR Ac MS 00 -0 -1 .0 S 12 OS [...] 0- 0- 00 PH 76 S ve MS 01 20 20 AR LA AM 10 11 11 MA RR 5 CY Y HB # R 40 05 43 MG 7 TA BL ET ZY 00 11 12 2 30 30 CV 55 GR Ac MS 00 -0 -1 .0 S 12 OS [...] 8- 7- 00 PH 49 S ve MS 01 20 20 AR LA AM 10 10 10 MA RR 5 CY Y HB # R 40 05 43 MG 7 TA BL ET ZY 00 11 11 2 30 30 CV 55 GR Ac MS 00 -0 -2 .0 S 12 OS [...] 8- 8- 00 PH 49 S ve MS 01 20 20 AR LA AM 10 10 10 MA RR 5 CY Y HB # R 40 05 43 MG 7 TA BL ET ZY 00 09 10 2 30 30 CV 54 GR Ac MS 00 -1 -1 .0 S 35 OS [...] 3- 1- 00 PH 71 S ve MS 01 20 20 AR LA AM 10 10 10 MA RR 5 CY Y HB # R 40 05 43 MG 7 TA BL ET CI 13 09 09 2 45 30 CV 54 GR Ac TA 66 -1 -1 .0 S 35 OS ti LO 80 3- 3- 00 PH 71 S ve MS 01 20 20 AR LA AM 10 10 10 MA RR 5 CY Y HB # R 40 05 43 MG 7 TA BL ET ZY 00 09 09 2 30 30 CV 54 GR Ac MS 00 -1 -1 .0 S 35 OS [...] 2- 2- 00 PH 96 S ve MS 01 20 20 AR LA AM 10 [...] 2 30 30 CV 53 GR Ac MS 00 -1 -1 .0 S 72 OS [...] 0- 2- 00 PH 90 S ve MS 01 20 20 AR LA AM 10 10 10 MA RR 5 CY Y HB # R 40 05 43 MG 7 TA BL ET ZY 00 05 07 2 30 30 CV 53 GR Ac MS 00 -1 -1 .0 S 42 OS [...] 0- 2- 00 PH 90 S ve MS 01 20 20 AR LA AM 10 10 10 MA RR 5 CY Y HB # R 40 05 43 MG 7 TA BL ET ZY 00 05 06 2 30 30 CV 53 GR Ac MS 00 -1 -1 .0 S 42 OS [...] 1 30 30 CV 52 GR Ac MS 00 -1 -1 .0 S 78 OS [...] 2- 2- 00 PH 31 S ve MS 08 20 20 AR LA AM 66 10 10 MA RR 1 CY Y HB # R 40 05 43 MG 7 TA BL ET ZY 00 04 04 1 30 30 CV 52 GR Ac MS 00 -1 -1 .0 S 78 OS [...] 2- 2- 00 PH 31 S ve MS 01 20 20 AR LA AM 10 [...] 2 30 30 CV 52 GR Ac MS 00 -0 -1 .0 S 13 OS [...] 8- 1- 00 PH 16 S ve MS 01 20 20 AR LA AM 10 [...] 1- 6- 00 PH 78 Av ve MS 01 20 20 AR ai AM 10 [...] 00 30 30 CV 52 No Ac MS 00 -0 -2 .0 S 13 t [...] 1- 8- 00 PH 78 Av ve MS 01 20 20 AR ai AM 10 10 10 MA la 5 CY bl HB e R #5 40 43 7 MG TA BL ET CI 13 10 12 02 45 30 CV 50 No Ac TA 66 -1 -3 .0 S 89 t ti LO 80 3- 1- 00 PH 04 Av ve MS 01 20 20 AR ai AM 10 [...] 3- 9- 00 PH 04 Av ve MS 01 20 20 AR ai AM 10 [...] 3- 2- 00 PH 04 Av ve MS 01 20 20 AR ai AM 10 [...] 6- 8- 00 PH 21 RY ve MS 01 20 20 AR AM 10 09 [...] 6- 0- 00 PH 21 RY ve MS 01 20 20 AR AM 10 09 09 MA LI 5 CY ND HB A R #5 40 43 7 MG TA BL ET CI 13 07 08 00 30 20 CV 50 GE Ac TA 66 -0 -2 .0 S 21 NT ti LO 80 6- 7- 00 PH 21 RY ve MS 01 20 20 AR AM 10 09 [...] 9- 6- 00 PH 07 RY ve MS 01 20 20 AR AM 10 09 [...] 5- 8- 00 PH 88 RY ve MS 01 20 20 AR AM 10 09 [...] 5- 1- 00 PH 52 RY ve MS 01 20 20 AR AM 10 09 [...] 8- 2- 00 S 73 Av ve MS 34 20 20 PH 0 ai AM [...] 8- 2- 00 S 73 Av ve MS 34 20 20 PH 0 ai AM [...] 52 0- 0- 00 89 Av ve MS 52 20 20 AI ai AM 00 [...] 52 0- 7- 00 89 Av ve MS 52 20 20 AI ai AM 00 [...] 52 5- 5- 00 27 Av ve MS 52 20 20 AI ai AM 00 [...] 017 K/mm3 ed monocyt 09:25 e count [place] % = 3.6 % 1.7-9.3 complet 017 [...] ed reynold 11:50 count (number /volume ) [place] % = 3.3 % 1.7-9.3 complet 017 [...] Type Date HOSPITAL [facility] - 7 7 [facility] - 7 7 [facility] - 7 7 [facility] - 7 7 [facility] - 7 7 [facility] - 7 7 [facility] - 6 6 [facility] - 2 2 [facility] - 2 2 [facility] - 2 2 [facility] - 2 2 [facility] - 2 2 [facility] - 2 2 [facility] - 2 2 [facility] - 2 2 [facility] - 2 2 [facility] - 2 2 [facility]IR[facility] - 1 1 [facility] MEADOWVIE - 1 1 [facility] HIREN - 0 0 [facility] LEOTIVIE - 0 0 [facility] [address]
--- OUTSIDE RECORDS SUMMARY | 2017-10-27 19:35 | External Medical Summary Rpt | CCD ---
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 Name Role Phone A Yobany FONG MD PSC, A Unavailable Unavailable Yobany FONG MD PSC MAKEDA OCAMPO AMB Unavailable Unavailable SERVICE, [facility] Unavailable Unavailable [employer], [facility] [employer] [facility] Unavailable Unavailable INC, [facility] COURTADE GAGE, Unavailable Unavailable COURTADE GAGE MACHO LORETTA, Unavailable Unavailable MACHO LORETTA [id number], Unavailable Unavailable [id number], Unavailable Unavailable [id number], JOHANN Unavailable Unavailable 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 KIR, DOERGER Unavailable Unavailable KIR JAZ L.P., JAZ L.P. Unavailable Unavailable HEART EMMANUEL, HEART EMMANUEL Unavailable Unavailable ELLIOT, BRAXTON E, Unavailable Unavailable ELLIOT, BRAXTON E [facility] Un[facility], [facility] Un[facility] P, [facility], Unavailable Unavailable [facility] LILIBETH WELCH Unavailable Unavailable MICHELLE TAYLOR JONES, Unavailable Unavailable MICHELLE TABBY, YVONNE, Unavailable Unavailable TABBY, YVONNE [facility], [facility] KUPER LENA, KUPER LENA Unavailable Unavailable KUSHMAN MARIVEL, KUSHMAN Unavailable Unavailable MARIVEL [facility], Unavailable Unavailable [facility] LAIB EMANI, LAIB EMANI Unavailable Unavailable [facility] Unavailable Un[facility], [facility] Unavailable Unavailable 9, [facility] 9 [facility] Unavailable Unavailable SERVICES, [facility] JAYRO MCKENZIE, Unavailable Unavailable JAYRO MCKENZIE, PRICILA Unavailable Unavailable DAYANA MARSH ZAID, MARSH ZAID Unavailable Unavailable [facility] Un[id number], Unavailable Unavailable [id number] CARMELINA SCHWARTZ JR, Unavailable Unavailable CARMELINA SCHWARTZ JR [facility] Unavailable Unavailable [facility] CYNTHIA JOLIE, CYNTHIA Unavailable Unavailable JOLIE SHARP GIOVANNA, SHARP GIOVANNA Unavailable Unavailable [facility] Un[facility] Unavailable [facility], [facility] Un[facility] Un[facility], [facility] Unavailable Unavailable PHYSICIANS, [facility] DAMIAN VIEIRA, Unavailable Unavailable DAMIAN VIEIRA, Unavailable Unavailable JEREZ DON WEHRMAN III SUZAN, Unavailable Unavailable WEHRMAN III SUZAN SU HEL, SU HEL Unavailable Unavailable ALYSSA DE LA TORRE, Unavailable Unavailable ALYSSA DE LA TORRE [facility], Unavailable Unavailable [facility] Purpose Continuity of Care Document - 12-27-2007 through 2016 Problems Code Diagnosis DOS Provider Status J90 PLEURAL 08-25-2017 [facility] ELSEWHERE CLASSIFIED R05 COUGH 08-25-2017 [facility] R0602 SHORTNESS 08-25-2017 [facility] BREATH AMB SERVICE R0902 HYPOXEMIA 08-25-2017 [facility] AMB SERVICE R918 OTHER 08-25-2017 [facility] NONSPECIFIC [facility]ICAL ABNORMAL IMAGING ASS FINDING OF LUNG FIELD E669 OBESITY 08-16-2017 [facility] G4710 HYPERSOMNIA 08-16-2017 [facility] UNSPECIFIED INC G4733 OBSTRUCTIVE 08-16-2017 [facility]EP [facility] APNEA ADULT INC PEDIATRIC R0683 SNORING 08-16-2017 [facility] J449 CHRONIC 07-31-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 UNS EQUIPME R69 ILLNESS 07-21-2017 [facility] 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 E538 DEFICIENCY 07-14-2017 A Yobany FONG OF OTHER PSC SPECIFIED B GROUP VITAMINS P55EHQM FALL FROM 07-14-2017 A Yobany FONG BED INITIAL PSC ENCOUNTER I2510 ASHD [place] 07-05-2017 [facility] CORONARY PHYSICIANS ARTERY W/O GROUP ANGINA PECTORIS M54067 ASHD [place] 07-05-2017 [facility] W/UNS INC ANGINA PECTORIS I6502 OCCLUSION 07-05-2017 [facility] STENOSIS OF INC LEFT VERTEBRAL ARTERY I6521 OCCLUSION 07-05-2017 [facility] STENOSIS OF INC RIGHT CAROTID ARTERY I6529 OCCLUSION & 07-05-2017 [facility] STENOSIS PHYSICIANS UNSPECIFIED GROUP CAROTID ARTERY I700 ATHEROSCLER 07-05-2017 [facility] OSIS OF [facility] AORTA INC L87859 ATHEROSCLER 07-05-2017 [facility] [place] ART [facility] EXT INC INTERMIT ABDOUL BILAT R0989 OTH SPEC SX 07-05-2017 [facility] & SIGNS PHYSICIANS INVLV THE GROUP CIRC & RESP SYS R9439 ABNORMAL 07-05-2017 [facility] RESULT OT PHYSICIANS CARDIOVASCU GROUP LR FUNCTION STUDY Z720 TOBACCO USE 07-05-2017 [facility] E785 HYPERLIPIDE 06-29-2017 [facility] ELIER PHYSICIANS UNSPECIFIED GROUP I10 ESSENTIAL 06-29-2017 [facility] PRIMARY PHYSICIANS HYPERTENSIO GROUP N I208 OTHER FORMS 06-29-2017 [facility] OF ANGINA PHYSICIANS PECTORIS GROUP I209 ANGINA 06-29-2017 [facility] PECTORIS PHYSICIANS UNSPECIFIED GROUP I6523 OCCLUSION & 06-29-2017 [facility] STENOSIS [facility] BILATERAL INC CAROTID ARTERIES R002 PALPITATION 06-29-2017 [facility] S [facility] INC N33050 ENCOUNTER 06-29-2017 [facility] FOR OTHER [facility] PREPROCEDUR INC AL EXAMINATION E069 THYROIDITIS 06-15-2017 [facility] PHYSICIANS UNSPECIFIED GROUP R221 LOCALIZED 06-12-2017 [facility] LUMP NECK R609 EDEMA 06-12-2017 [facility] UNSPECIFIED PHYSICIANS GROUP L089 LOCAL INF 06-02-2017 A Yobany FONG THE SKIN & PSC SUBCUTANEOU S TISSUE UNS X88320 OTHER 06-02-2017 A Yobany FONG MUSCLE [facility] SPASM D649 ANEMIA 06-01-2017 [facility] UNSPECIFIED PHYSICIANS GROUP R1310 DYSPHAGIA 06-01-2017 [facility] UNSPECIFIED PHYSICIANS GROUP K439 VENTRAL 05-22-2017 [facility] HERNIA PHYSICIANS WITHOUT GROUP OBSTRUCTION OR GANGRENE K429 UMBILICAL 05-19-2017 [facility]ICAL WITHOUT IMAGING ASS OBSTRUCTION OR GANGRENE K469 UNS 05-19-2017 [facility]BDOMINAL [facility] HERNIA W/O INC OBSTRUCTION OR GANGRENE K6389 OTHER 05-19-2017 [facility] SPECIFIED MEDICAL DISEASES OF IMAGING ASS INTESTINE K279 PEPTIC ULCR 04-27-2017 A Yobany FONG SITE ANAND KRUGER PSC UNS AC/CHRN W/O HEM/PERF B370 CANDIDAL 04-13-2017 A Yobany FONG STOMATITIS PSC J029 ACUTE 04-13-2017 A Yobany FONG PHARYNGITIS PSC UNSPECIFIED M545 LOW BACK 04-13-2017 A Yobany FONG PAIN PSC M1612 UNILATERAL 03-31-2017 [facility] OSTEOARTHRI IMAGING ASS TIS LEFT HIP A27774 PRIMARY 03-31-2017 [facility] OSTEOARTHRI [facility]ICAL TIS RIGHT IMAGING ASS SHOULDER J87028 PAIN IN 03-31-2017 [facility] RIGHT MEDICAL SHOULDER IMAGING ASS N69370 PAIN IN 03-31-2017 [facility] LEFT MEDICAL SHOULDER IMAGING ASS G22612 PAIN IN 03-31-2017 [facility]IP [facility] INC N49458 PAIN IN 03-31-2017 [facility] LEFT HIP [facility]ICAL [facility]ING ASS R59138 SPONDYLOSIS 03-31-2017 [facility] W/O MEDICAL MYELOPATH/R IMAGING ASS ADICULOPATH Y LUMB RGN V9560PG UNSPECIFIED 03-31-2017 [facility] INJURY [facility]ICAL LOWER BACK IMAGING ASS INITIAL ENCOUNTER S9805CM UNS INJURY 03-31-2017 [facility] RT SHOULDER [facility] UPPER ARM INC [...] 32.0-32.9 PHYSICIANS ADULT R0789 OTHER CHEST 09-23-2016 [facility]IN [facility] R079 CHEST PAIN 09-23-2016 [facility] UNSPECIFIED [facility] J441 CHRONIC 08-16-2016 [facility] P DZ W/EXACERBAT ION 496 CHRONIC 08-17-2015 [facility] NEC 43927 08-17-2015 [facility] REGION 9 V061 NEED PROPH 04-30-2015 ST [facility] W/COMB ADA DIPHTH-TETA PHYSICIANS NUS-PERTUSS VAC 2724 OTHER AND 10-04-2013 CYNTHIA JOLIE UNSPECIFIED HYPERLIPIDE ELIER 79667 ESOPHAGEAL 10-04-2013 CYNTHIA JOLIE REFLUX 7851 PALPITATION 10-04-2013 [facility] S 56444 OBSTRUCTIVE 03-21-2013 LILIBETH ERIC CHRONIC BRONCHITIS WITH EXACERBATIO N 4659 ACUTE URIS 03-19-2013 SU HEL OF UNSPECIFIED SITE 486 PNEUMONIA, 03-19-2013 SU HEL ORGANISM UNSPECIFIED 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 7804 DIZZINESS 03-19-2013 [facility] GIDDINESS [facility] 47174 SHORTNESS 03-19-2013 DOERGER KIR OF BREATH 93829 OTHER 03-19-2013 SU HEL DYSPNEA AND RESPIRATORY ABNORMALITI ES V1259 PERS HX, 03-19-2013 LILIBETH ERIC OTHER DISEASES OF CIRCULATORY SYSTEM 7993 UNSPECIFIED 12-25-2012 [facility] 54140 CORONARY 12-18-2012 [facility] KATHLEEN MUSA [place] CORONARY ARTERY 57294 UNSPECIFIED 12-18-2012 [facility] ARTHROPATHY [place] UNSPECIFIED 7226 DEGENERATIO 12-17-2012 LAIB EMANI N INTERVERTEB RAL DISC SITE UNSPEC 90993 CHEST PAIN 12-17-2012 MCNULTY DAYANA UNSPECIFIED 85823 OTH 12-17-2012 LAIB EMANI NONSPECIFIC ABNORM CV SYSTEM FUNCTION STUDY 5225 PERIAPICAL 12-15-2012 KUPER LENA ABSCESS WITHOUT SINUS 86772 LEUKOCYTOSI 12-14-2012 SHARP GIOVANNA S UNSPECIFIED 5259 UNSPECIFIED 12-14-2012 SHARP GIOVANNA DISORDER TEETH&SUPPO RTING STRUCTURES 7212 THORACIC 08-10-2012 J[facility] SPONDYLOSIS DON WITHOUT MYELOPATHY 7242 LUMBAGO 08-10-2012 J[facility] DON 39402 DEGEN 08-03-2012 M[facility]O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 7245 UNSPECIFIED 08-03-2012 [facility] BACKACHE CO [facility] 52378 PATHOLOGIC 08-03-2012 WEHRMAN III FRACTURE OF SUZAN VERTEBRAE 83522 GASTR ULCR 07-23-2012 MARSH ZAID UNS ACUT/CHRN W/O HEMOR PERF/OBST 50356 ABDOMINAL 07-23-2012 MARSH ZAID PAIN RIGHT UPPER QUADRANT 76603 ABDOMINAL 07-23-2012 [facility] PAIN, LEFT [facility] UPPER INC QUADRANT 33958 ABDOMINAL 07-23-2012 MARSH ZAID PAIN, LEFT LOWER QUADRANT 2114 BENIGN 07-09-2012 [facility] 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 14809 ACUTE 07-09-2012 [facility] GASTRITIS WITHOUT MENTION OF HEMORRHAGE 89398 DUODENITIS 07-09-2012 [facility] WITHOUT MENTION OF HEMORRHAGE 5589 OTH&UNSPEC 07-09-2012 [facility] NONINFECTIO US GASTROENTER ITIS&COLITI S 01485 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 INC 5690 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 [facility] RECTAL POLYP 10549 ABDOMINAL 07-09-2012 [facility] PAIN, ANESTH OF UNSPECIFIED THE BLUE SITE V160 FM HX 07-09-2012 [facility]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 V7651 SPECIAL 07-09-2012 [facility] SCREENING FOR MALIGNANT NEOPLASMS COLON 36027 OVERWEIGHT 06-05-2012 J[facility]Z DON 7823 EDEMA 06-05-2012 J[facility] DON V5869 LONG-TERM 06-05-2012 [facility] (CURRENT) [facility] USE OF INC OTHER MEDICATIONS 5758 OTHER 05-23-2012 [facility] SPECIFIED [facility] DISORDER OF INC GALLBLADDER 7934 NONSPECIFIC 05-21-2012 [facility] ABN FINDING RAD & OTH EXAM GI TRACT 4011 ESSENTIAL 03-30-2012 J[facility] HYPERTENSIO DON N, BENIGN 2768 HYPOPOTASSE 03-16-2012 [facility] INC 91212 OTHER CHEST 03-16-2012 J[facility] PAIN DON V7231 ROUTINE 02-28-2012 [facility] GYNECOLOGIC DON AL EXAMINATION V7612 OTHER 02-28-2012 [facility] SCREENING [facility] MAMMOGRAM INC V5832 ENCOUNTER 02-15-2012 JREEZ FOR REMOVAL DON OF SUTURES 98375 OTHER 02-14-2012 MACHO SPECIFIED [place] DISORDER OF INTESTINES 5920 CALCULUS OF 02-14-2012 [facility] KIDNEY [place] 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 UNSPECIFIED 08873 PAINFUL 07-07-2011 [facility] 75597 ABDOMINAL 07-07-2011 [facility] P 92724 ABNORMAL 08-20-2009 [facility] U SMEAR OF CERVIX 46306 PAP SMER 08-20-2009 [facility] W/ATYPICAL MEDICALCENT SQUAMOUS ER CELLS UNDET 2599 UNSPECIFIED 06-11-2009 [facility] 91622 FLUSHING 05-14-2009 [facility] CTR 54287 HYPOXEMIA 10-22-2008 [facility] INC 4019 UNSPECIFIED 10-18-2008 [facility]PITAL ESSENTIAL [facility] HYPERTENSIO INC N 68538 ACUTE 10-18-2008 [facility] RESPIRATORY [facility] FAILURE INC 41984 ATRIAL 10-15-2008 [facility] HEART & N VASCULAR CENTER [...] NEC 5641 IRRITABLE 12-27-2007 [facility] SYNDROME 7291 UNSPECIFIED 12-27-2007 [facility] MYAL[facility]IA POINT [...] s n re d RA 11 10 11 24 30 00 RI Ac 82 -0 -0 0. 00 TE ti AT 23 1- 3- 00 01 ve HE 17 20 20 0 19 AI NO 64 17 17 78 D L 0 05 PH 32 AR 5 MA MG CY TA #3 BL 93 ET 8 RA 11 10 24 30 00 RI [...] 3 30 30 CV 58 GR Ac WY 00 -0 -1 .0 S 03 OS [...] 8- 6- 00 PH 60 S ve WY 01 20 20 AR LA AM 10 [...] 3 30 30 CV 58 GR Ac WY 00 -0 -1 .0 S 03 OS [...] 8- 7- 00 PH 60 S ve WY 01 20 20 AR LA AM 10 11 11 MA RR 5 CY Y HB # R 40 05 43 MG 7 TA BL ET ZY 00 06 08 2 30 30 CV 57 GR Ac WY 00 -1 -1 .0 S 49 OS [...] 8- 8- 00 PH 60 S ve WY 01 20 20 AR LA AM 10 [...] 2 30 30 CV 57 GR Ac WY 00 -1 -1 .0 S 49 OS [...] 4- 7- 00 PH 38 S ve WY 01 20 20 AR LA AM 10 11 11 MA RR 5 CY Y HB # R 40 05 43 MG 7 TA BL ET ZY 00 06 06 2 30 30 CV 57 GR Ac WY 00 -1 -1 .0 S 49 OS [...] 4- 8- 00 PH 38 S ve WY 01 20 20 AR LA AM 10 [...] 3 30 30 CV 56 GR Ac WY 00 -1 -2 .0 S 51 OS [...] 4- 8- 00 PH 38 S ve WY 01 20 20 AR LA AM 10 11 11 MA RR 5 CY Y HB # R 40 05 43 MG 7 TA BL ET ZY 00 03 04 3 30 30 CV 56 GR Ac WY 00 -1 -1 .0 S 51 OS [...] 4- 8- 00 PH 38 S ve WY 01 20 20 AR LA AM 10 [...] 2 30 30 CV 55 GR Ac WY 00 -1 -2 .0 S 67 OS [...] 0- 0- 00 PH 76 S ve WY 01 20 20 AR LA AM 10 11 11 MA RR 5 CY Y HB # R 40 05 43 MG 7 TA BL ET ZY 00 01 02 2 30 30 CV 55 GR Ac WY 00 -1 -1 .0 S 67 OS [...] 0- 9- 00 PH 76 S ve WY 01 20 20 AR LA AM 10 [...] 2 30 30 CV 55 GR Ac WY 00 -0 -1 .0 S 12 OS [...] 0- 0- 00 PH 76 S ve WY 01 20 20 AR LA AM 10 [...] 2 30 30 CV 55 GR Ac WY 00 -0 -1 .0 S 12 OS [...] 8- 7- 00 PH 49 S ve WY 01 20 20 AR LA AM 10 [...] 2 30 30 CV 55 GR Ac WY 00 -0 -2 .0 S 12 OS [...] 8- 8- 00 PH 49 S ve WY 01 20 20 AR LA AM 10 10 10 MA RR 5 CY Y HB # R 40 05 43 MG 7 TA BL ET CI 13 09 10 2 45 30 CV 54 GR Ac TA 66 -1 -1 .0 S 35 OS ti LO 80 3- 1- 00 PH 71 S ve WY 01 20 20 AR LA AM 10 10 10 MA RR 5 CY Y HB # R 40 05 43 MG 7 TA BL ET ZY 00 09 10 2 30 30 CV 54 GR Ac WY 00 -1 -1 .0 S 35 OS [...] 3- 3- 00 PH 71 S ve WY 01 20 20 AR LA AM 10 10 10 MA RR 5 CY Y HB # R 40 05 43 MG 7 TA BL ET ZY 00 09 09 2 30 30 CV 54 GR Ac WY 00 -1 -1 .0 S 35 OS [...] 2- 2- 00 PH 96 S ve WY 01 20 20 AR LA AM 10 10 10 MA RR 5 CY Y HB # R 40 05 43 MG 7 TA BL ET ZY 00 07 08 2 30 30 CV 53 GR Ac WY 00 -1 -1 .0 S 72 OS [...] 0- 2- 00 PH 90 S ve WY 01 20 20 AR LA AM 10 10 10 MA RR 5 CY Y HB # R 40 05 43 MG 7 TA BL ET ZY 00 05 07 2 30 30 CV 53 GR Ac WY 00 -1 -1 .0 S 42 OS ti EX 24 0- 2- 00 PH 91 S ve A 11 20 20 AR LA 5 53 10 10 MA RR MG 0 CY Y # TA BL 05 ET 43 7 CL 00 07 07 2 30 30 CV 53 GR Ac ON 09 1 -1 .0 S 72 OS ti AZ [...] 0- 2- 00 PH 90 S ve WY 01 20 20 AR LA AM 10 10 10 MA RR 5 CY Y HB # R 40 05 43 MG 7 TA BL ET ZY 00 05 06 2 30 30 CV 53 GR Ac WY 00 -1 -1 .0 S 42 OS [...] 1 30 30 CV 52 GR Ac WY 00 -1 -1 .0 S 78 OS [...] 2- 2- 00 PH 31 S ve WY 08 20 20 AR LA AM 66 [...] 1 30 30 CV 52 GR Ac WY 00 -1 -1 .0 S 78 OS [...] 2- 2- 00 PH 31 S ve WY 01 20 20 AR LA AM 10 10 10 MA RR 5 CY Y HB # R 40 05 43 MG 7 TA BL ET ZY 00 02 03 2 30 30 CV 52 GR Ac WY 00 -0 -1 .0 S 13 OS [...] 8- 1- 00 PH 16 S ve WY 01 20 20 AR LA AM 10 [...] 00 30 30 CV 52 No Ac WY 00 -0 -2 .0 S 13 t [...] 1- 6- 00 PH 78 Av ve WY 01 20 20 AR ai AM 10 [...] 1- 8- 00 PH 78 Av ve WY 01 20 20 AR ai AM 10 [...] 3- 1- 00 PH 04 Av ve WY 01 20 20 AR ai AM 10 [...] CV 50 No Ac ON 09 -1 -1 .0 S 89 t ti AZ [...] 3- 9- 00 PH 04 Av ve WY 01 20 20 AR ai AM 10 09 09 MA la 5 CY bl HB e R #5 40 43 7 MG TA BL ET CI 13 10 10 00 45 30 CV 50 No Ac TA 66 -1 -2 .0 S 89 t ti LO 80 3- 2- 00 PH 04 Av ve WY 01 20 20 AR ai AM 10 [...] 6- 8- 00 PH 21 RY ve WY 01 20 20 AR AM 10 09 [...] 6- 0- 00 PH 21 RY ve WY 01 20 20 AR AM 10 09 09 MA LI 5 CY ND HB A R #5 40 43 7 MG TA BL ET CI 13 07 08 00 30 20 CV 50 GE Ac TA 66 -0 -2 .0 S 21 NT ti LO 80 6- 7- 00 PH 21 RY ve WY 01 20 20 AR AM 10 09 [...] 9- 6- 00 PH 07 RY ve WY 01 20 20 AR AM 10 09 [...] 5- 8- 00 PH 88 RY ve WY 01 20 20 AR AM 10 09 [...] 5- 1- 00 PH 52 RY ve WY 01 20 20 AR AM 10 09 [...] bl MG CY e TA BL ET BU 00 07 07 00 30 30 DE 63 No Ac SP 59 -0 -1 .0 AN 68 t ti IR 10 8- 7- 00 S 06 Av ve ON 65 20 20 PH 7 ai E 70 08 08 AR la HC 1 MA bl L CY e 5 MG TA BL ET SE 00 07 07 [...] 8- 2- 00 S 73 Av ve WY 34 20 20 PH 0 ai AM [...] 8- 2- 00 S 73 Av ve WY 34 20 20 PH 0 ai AM [...] 52 0- 0- 00 89 Av ve WY 52 20 20 AI ai AM 00 08 08 D la 1 PH bl HB AR e R M 40 #3 92 MG 0 TA BL ET CI 60 01 04 00 30 30 RI 59 No Ac TA 50 -1 -0 .0 TE 39 t ti LO 52 0- 7- 00 89 Av ve WY 52 20 20 AI ai AM 00 [...] 52 5- 5- 00 27 Av ve WY 52 20 20 AI ai AM 00 [...] #3 92 CA 0 PS UL E Encounters Encounter Start End Date Code Location Performer Type Date [facility] - [facility] 7 [facility] 2 [facility] 2 [facility] 2 [facility] 1 1 [facility] 1 1 [facility] - 0 0 [facility] - 0 0 [facility] [address]
--- OUTSIDE RECORDS SUMMARY | 2017-10-27 19:35 | External Medical Summary Rpt | CCD ---
Author Author , ERNA Organization ERNA Address Unknown Phone [email or web address] Team Providers Care Plumber'S Assistant Name Role Phone A Yobany FONG MD PSC, A Unavailable Unavailable Yobany FONG MD PSC MAKEDA OCAMPO AMB Unavailable Unavailable SERVICE, [facility] Unavailable Unavailable [facility], [facility] Unavailable Unavailable INC, [facility] COURTADE GAGE, Unavailable Unavailable COURTADE GAGE MACHO LORETTA, Unavailable Unavailable MACHO LORETTA [id number], Unavailable Unavailable [id number], Unavailable Unavailable [id number] Unavailable Unavailable 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 KIR, DOERGER Unavailable Unavailable KIR JAZ L.P., JAZ L.P. Unavailable Unavailable HEART EMMANUEL, HEART EMMANUEL Unavailable Unavailable ELLIOT, BRAXTON E, Unavailable Unavailable ELLIOT, BRAXTON E [facility] Un[facility] Un[facility] INC, [facility] Unavailable Unavailable HOSPITAL P, [facility] P [facility], Unavailable Unavailable [facility] LILIBETH WELCH Unavailable Unavailable MICHELLE TAYLOR JONES, Unavailable Unavailable MICHELLE TABBY, YVONNE, Unavailable Unavailable TABBY, YVONNE [facility], [facility] KUPER LENA, KUPER LENA Unavailable Unavailable KUSHMAN MARIVEL, KUSHMAN Unavailable Unavailable MARIVEL [facility], Unavailable Unavailable [facility] LAIB EMANI, LAIB EMANI Unavailable Unavailable [facility] Unavailable Unavailable [facility], [facility] Unavailable Unavailable 9, [facility] 9 [facility] Unavailable Unavailable SERVICES, [facility] JAYRO MCKENZIE, Unavailable Unavailable JAYRO MCKENZIE, PRICILA Unavailable Unavailable DAYANA MARSH ZAID, MARSH ZAID Unavailable Unavailable [facility] Un[id number], Unavailable Unavailable [id number] CARMELINA SCHWARTZ JR, Unavailable Unavailable CARMELINA SCHWARTZ JR [facility] Unavailable Unavailable [facility], [facility] CYNTHIA JOLIE, CYNTHIA Unavailable Unavailable JOLIE SHARP GIOVANNA, SHARP GIOVANNA Unavailable Unavailable [facility] Un[facility] Unavailable [facility], [facility] Unavailable Unavailable [facility]ENTER, [facility] Unavailable Unavailable PHYSICIANS, [facility] DAMIAN VIEIRA, Unavailable Unavailable DAMIAN VIEIRA, Unavailable Unavailable JEREZ DON WEHRMAN III SUZAN, Unavailable Unavailable WEHRMAN III SUZAN SU HEL, SU HEL Unavailable Unavailable ALYSSA DE LA TORRE, Unavailable Unavailable ALYSSA DE LA TORRE [facility], Unavailable Unavailable [facility] Purpose Continuity of Care Document - 12-27-2007 through 2016 Problems Code Diagnosis DOS Provider Status J90 PLEURAL 08-25-2017 [facility] NOT [facility] ELSEWHERE CLASSIFIED R05 COUGH 08-25-2017 [facility] R0602 SHORTNESS 08-25-2017 [facility] BREATH AMB SERVICE R0902 HYPOXEMIA 08-25-2017 [facility] AMB SERVICE R918 OTHER 08-25-2017 [facility] NONSPECIFIC MEDICAL ABNORMAL IMAGING ASS FINDING OF LUNG FIELD E669 OBESITY 08-16-2017 [facility] G4710 HYPERSOMNIA 08-16-2017 [facility] UNSPECIFIED INC G4733 OBSTRUCTIVE 08-16-2017 [facility]EP [facility]A ADULT INC PEDIATRIC R0683 SNORING 08-16-2017 [facility] J449 CHRONIC 07-31-2017 [facility] 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 UNS EQUIPME R69 ILLNESS 07-21-2017 [facility] 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 E538 DEFICIENCY 07-14-2017 A Yobany FONG OF OTHER PSC SPECIFIED B GROUP VITAMINS P92AOLS FALL FROM 07-14-2017 A Yobany FONG BED INITIAL PSC ENCOUNTER I2510 ASHD [place] 07-05-2017 [facility] CORONARY PHYSICIANS ARTERY W/O GROUP ANGINA PECTORIS U50242 ASHD [place] 07-05-2017 [facility] W/UNS INC ANGINA PECTORIS I6502 OCCLUSION 07-05-2017 [facility] STENOSIS OF INC LEFT VERTEBRAL ARTERY I6521 OCCLUSION 07-05-2017 [facility] STENOSIS OF INC RIGHT CAROTID ARTERY I6529 OCCLUSION & 07-05-2017 [facility] STENOSIS PHYSICIANS UNSPECIFIED GROUP CAROTID ARTERY I700 ATHEROSCLER 07-05-2017 [facility] OSIS OF [facility] AORTA INC B58444 ATHEROSCLER 07-05-2017 [facility] [place] ART [facility] EXT INC INTERMIT ABDOUL BILAT R0989 OTH SPEC SX 07-05-2017 [facility] & SIGNS PHYSICIANS INVLV THE GROUP CIRC & RESP SYS R9439 ABNORMAL 07-05-2017 [facility] RESULT OT PHYSICIANS CARDIOVASCU GROUP LR FUNCTION STUDY Z720 TOBACCO USE 07-05-2017 [facility] INC E785 HYPERLIPIDE 06-29-2017 [facility] ELIER PHYSICIANS UNSPECIFIED GROUP I10 ESSENTIAL 06-29-2017 [facility] PRIMARY PHYSICIANS HYPERTENSIO GROUP N I208 OTHER FORMS 06-29-2017 [facility] OF ANGINA PHYSICIANS PECTORIS GROUP I209 ANGINA 06-29-2017 [facility] PECTORIS PHYSICIANS UNSPECIFIED GROUP I6523 OCCLUSION & 06-29-2017 [facility] STENOSIS [facility] BILATERAL INC CAROTID ARTERIES R002 PALPITATION 06-29-2017 [facility] S [facility] INC W42135 ENCOUNTER 06-29-2017 [facility] FOR OTHER [facility] PREPROCEDUR INC AL EXAMINATION E069 THYROIDITIS 06-15-2017 [facility] PHYSICIANS UNSPECIFIED GROUP R221 LOCALIZED 06-12-2017 [facility] SWELLING MEDICAL MASS AND IMAGING ASS LUMP NECK R609 EDEMA 06-12-2017 [facility] UNSPECIFIED PHYSICIANS GROUP L089 LOCAL INF 06-02-2017 A Yobany OFNG THE SKIN & PSC SUBCUTANEOU S TISSUE UNS C50870 OTHER 06-02-2017 A Yobany FONG MUSCLE [facility] SPASM D649 ANEMIA 06-01-2017 [facility] UNSPECIFIED PHYSICIANS GROUP R1310 DYSPHAGIA 06-01-2017 [facility] UNSPECIFIED PHYSICIANS GROUP K439 VENTRAL 05-22-2017 [facility] HERNIA PHYSICIANS WITHOUT GROUP OBSTRUCTION OR GANGRENE K429 UMBILICAL 05-19-2017 [facility] HERNIA MEDICAL WITHOUT IMAGING ASS OBSTRUCTION OR GANGRENE K469 UNS 05-19-2017 [facility]BDOMINAL [facility] HERNIA W/O INC OBSTRUCTION OR GANGRENE K6389 OTHER 05-19-2017 [facility] SPECIFIED MEDICAL DISEASES OF IMAGING ASS INTESTINE K279 PEPTIC ULCR 04-27-2017 A Yobany FONG SITE ANAND KRUGER PSC UNS AC/CHRN W/O HEM/PERF B370 CANDIDAL 04-13-2017 A Yobany FONG STOMATITIS PSC J029 ACUTE 04-13-2017 A Yobany FONG PHARYNGITIS PSC UNSPECIFIED M545 LOW BACK 04-13-2017 A Yobany FONG PAIN PSC M1612 UNILATERAL 03-31-2017 [facility] PRIMARY MEDICAL OSTEOARTHRI IMAGING ASS TIS LEFT HIP U97535 PRIMARY 03-31-2017 [facility] OSTEOARTHRI MEDICAL TIS RIGHT IMAGING ASS SHOULDER M47951 PAIN IN 03-31-2017 [facility] RIGHT MEDICAL SHOULDER IMAGING ASS J02033 PAIN IN 03-31-2017 [facility] LEFT MEDICAL SHOULDER IMAGING ASS D74729 PAIN IN 03-31-2017 [facility] RIGHT [facility]IP [facility] INC P11920 PAIN IN 03-31-2017 [facility] LEFT HIP MEDICAL IMAGING ASS O60553 SPONDYLOSIS 03-31-2017 [facility] W/O MEDICAL MYELOPATH/R IMAGING ASS ADICULOPATH Y LUMB RGN T3479DL UNSPECIFIED 03-31-2017 [facility] INJURY MEDICAL LOWER BACK IMAGING ASS INITIAL ENCOUNTER N4694XG UNS INJURY 03-31-2017 [facility] RT SHOULDER [facility] UPPER ARM INC [...] 32.0-32.9 PHYSICIANS ADULT R0789 OTHER CHEST 09-23-2016 [facility] PAIN MEDICAL [facility]ING ASS R079 CHEST PAIN 09-23-2016 [facility]NSPECIF[facility] J441 CHRONIC 08-16-2016 [facility] P DZ W/EXACERBAT ION 496 CHRONIC 08-17-2015 [facility] NEC 05965 08-17-2015 [facility] REGION 9 V061 NEED PROPH 04-30-2015 ST VAC W/COMB ADA DIPHTH-TETA PHYSICIANS NUS-PERTUSS VAC 2724 OTHER AND 10-04-2013 [facility] JOLIE UNSPECIFIED HYPERLIPIDE [place]IER 82838 ESOPHAGEAL 10-04-2013 CYN[place] JOLIE REFLUX 7851 PALPITATION 10-04-2013 [facility] S 87472 OBSTRUCTIVE 03-21-2013 LILIBETH ERIC CHRONIC BRONCHITIS WITH EXACERBATIO N 4659 ACUTE URIS 03-19-2013 SU HEL OF UNSPECIFIED SITE 486 PNEUMONIA, 03-19-2013 [facility] ORGANISM UNSPECIFIED 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 7804 DIZZINESS 03-19-2013 [facility] GIDDINESS [facility] 97005 SHORTNESS 03-19-2013 DOER[facility] KIR OF BREATH 49056 OTHER 03-19-2013 SU HEL DYSPNEA AND RESPIRATORY ABNORMALITI ES V1259 PERS HX, 03-19-2013 LILIBETH ERIC OTHER DISEASES OF CIRCULATORY SYSTEM 7993 UNSPECIFIED 12-25-2012 [facility] 40603 CORONARY 12-18-2012 [facility] KATHLEEN MUSA [place] CORONARY ARTERY 81501 UNSPECIFIED 12-18-2012 [facility] [place] UNSPECIFIED 7226 DEGENERATIO 12-17-2012 LAIB EMANI N INTERVERTEB RAL DISC SITE UNSPEC 65803 CHEST PAIN 12-17-2012 MCNULTY DAYANA UNSPECIFIED 33270 OTH 12-17-2012 LAIB EMANI NONSPECIFIC ABNORM CV SYSTEM FUNCTION STUDY 5225 PERIAPICAL 12-15-2012 KUPER LENA ABSCESS WITHOUT SINUS 11942 LEUKOCYTOSI 12-14-2012 SHARP GIOVANNA S UNSPECIFIED 5259 UNSPECIFIED 12-14-2012 SHARP GIOVANNA DISORDER TEETH&SUPPO RTING STRUCTURES 7212 THORACIC 08-10-2012 [facility] SPONDYLOSIS DON WITHOUT MYELOPATHY 7242 LUMBAGO 08-10-2012 [facility] DON 44200 DEGEN 08-03-2012 MACHO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 7245 UNSPECIFIED 08-03-2012 [facility] BACKACHE [facility] 01432 PATHOLOGIC 08-03-2012 WEHRMAN III FRACTURE OF SUZAN VERTEBRAE 16769 GASTR ULCR 07-23-2012 [facility] UNS ACUT/CHRN W/O HEMOR PERF/OBST 53716 ABDOMINAL 07-23-2012 [facility] PAIN RIGHT UPPER QUADRANT 63579 ABDOMINAL 07-23-2012 [facility] PAIN, LEFT [facility] UPPER INC QUADRANT 63906 ABDOMINAL 07-23-2012 [facility] PAIN, LEFT LOWER QUADRANT 2114 BENIGN 07-09-2012 [facility] 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 14792 ACUTE 07-09-2012 [facility] GASTRITIS WITHOUT MENTION OF HEMORRHAGE 28277 DUODENITIS 07-09-2012 [facility] WITHOUT MENTION OF HEMORRHAGE 5589 OTH&UNSPEC 07-09-2012 [facility] NONINFECTIO US GASTROENTER ITIS&COLITI S 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 5690 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 [facility] RECTAL POLYP 40044 ABDOMINAL 07-09-2012 COMMUNITY PAIN, ANESTH OF UNSPECIFIED THE BLUE SITE V160 FM HX 07-09-2012 [facility]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 V7651 SPECIAL 07-09-2012 [facility] SCREENING FOR MALIGNANT NEOPLASMS COLON 78618 OVERWEIGHT 06-05-2012 J[facility] DON 7823 EDEMA 06-05-2012 [facility] DON V5869 LONG-TERM 06-05-2012 [facility] (CURRENT) [facility] USE OF INC OTHER MEDICATIONS 5758 OTHER 05-23-2012 [facility] SPECIFIED [facility] DISORDER OF INC GALLBLADDER 7934 NONSPECIFIC 05-21-2012 [facility] ABN FINDING RAD & OTH EXAM GI TRACT 4011 ESSENTIAL 03-30-2012 J[facility] HYPERTENSIO DON N, BENIGN 2768 HYPOPOTASSE 03-16-2012 [facility] INC 21339 OTHER CHEST 03-16-2012 [facility] PAIN DON V7231 ROUTINE 02-28-2012 [facility] GYNECOLOGIC DON AL EXAMINATION V7612 OTHER 02-28-2012 [facility] SCREENING [facility] MAMMOGRAM INC V5832 ENCOUNTER 02-15-2012 J[facility] FOR REMOVAL DON OF SUTURES 40995 OTHER 02-14-2012 MACHO SPECIFIED [place] DISORDER OF INTESTINES 5920 CALCULUS OF 02-14-2012 [facility] KIDNEY [place] 5932 ACQUIRED 02-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 UNSPECIFIED 63539 PAINFUL 07-07-2011 [facility] 58087 ABDOMINAL 07-07-2011 [facility] P 38113 ABNORMAL 08-20-2009 [facility] U SMEAR OF CERVIX 60875 PAP SMER 08-20-2009 [facility] [place] W/ATYPICAL [facility]ICALCENT SQUAMOUS ER CELLS UNDET 2599 UNSPECIFIED 06-11-2009 [facility]INE [place] [facility] 33310 FLUSHING 05-14-2009 [facility] CTR 66787 HYPOXEMIA 10-22-2008 [facility] INC 4019 UNSPECIFIED 10-18-2008 HOSPITAL ESSENTIAL [facility] HYPERTENSIO INC N 19555 ACUTE 10-18-2008 [facility] OF RESPIRATORY [facility] FAILURE INC 26954 ATRIAL 10-15-2008 [facility] [...] NEC 5641 IRRITABLE 12-27-2007 [facility] SYNDROME 7291 UNSPECIFIED 12-27-2007 HEALTH [...] 3 30 30 CV 58 GR Ac DE 00 -0 -1 .0 S 03 OS [...] 8- 6- 00 PH 60 S ve DE 01 20 20 AR LA AM 10 [...] 3 30 30 CV 58 GR Ac DE 00 -0 -1 .0 S 03 OS [...] 8- 7- 00 PH 60 S ve DE 01 20 20 AR LA AM 10 11 11 MA RR 5 CY Y HB # R 40 05 43 MG 7 TA BL ET ZY 00 06 08 2 30 30 CV 57 GR Ac DE 00 -1 -1 .0 S 49 OS [...] 8- 8- 00 PH 60 S ve DE 01 20 20 AR LA AM 10 [...] 2 30 30 CV 57 GR Ac DE 00 -1 -1 .0 S 49 OS [...] 4- 7- 00 PH 38 S ve DE 01 20 20 AR LA AM 10 11 11 MA RR 5 CY Y HB # R 40 05 43 MG 7 TA BL ET ZY 00 06 06 2 30 30 CV 57 GR Ac DE 00 -1 -1 .0 S 49 OS [...] 4- 8- 00 PH 38 S ve DE 01 20 20 AR LA AM 10 [...] 3 30 30 CV 56 GR Ac DE 00 -1 -2 .0 S 51 OS [...] 4- 8- 00 PH 38 S ve DE 01 20 20 AR LA AM 10 11 11 MA RR 5 CY Y HB # R 40 05 43 MG 7 TA BL ET ZY 00 03 04 3 30 30 CV 56 GR Ac DE 00 -1 -1 .0 S 51 OS [...] 4- 8- 00 PH 38 S ve DE 01 20 20 AR LA AM 10 [...] 2 30 30 CV 55 GR Ac DE 00 -1 -2 .0 S 67 OS [...] 0- 0- 00 PH 76 S ve DE 01 20 20 AR LA AM 10 11 11 MA RR 5 CY Y HB # R 40 05 43 MG 7 TA BL ET ZY 00 01 02 2 30 30 CV 55 GR Ac DE 00 -1 -1 .0 S 67 OS [...] 0- 9- 00 PH 76 S ve DE 01 20 20 AR LA AM 10 [...] 2 30 30 CV 55 GR Ac DE 00 -0 -1 .0 S 12 OS [...] 0- 0- 00 PH 76 S ve DE 01 20 20 AR LA AM 10 [...] 2 30 30 CV 55 GR Ac DE 00 -0 -1 .0 S 12 OS [...] 8- 7- 00 PH 49 S ve DE 01 20 20 AR LA AM 10 [...] 2 30 30 CV 55 GR Ac DE 00 -0 -2 .0 S 12 OS [...] 8- 8- 00 PH 49 S ve DE 01 20 20 AR LA AM 10 10 10 MA RR 5 CY Y HB # R 40 05 43 MG 7 TA BL ET CI 13 09 10 2 45 30 CV 54 GR Ac TA 66 -1 -1 .0 S 35 OS ti LO 80 3- 1- 00 PH 71 S ve DE 01 20 20 AR LA AM 10 10 10 MA RR 5 CY Y HB # R 40 05 43 MG 7 TA BL ET ZY 00 09 10 2 30 30 CV 54 GR Ac DE 00 -1 -1 .0 S 35 OS [...] 3- 3- 00 PH 71 S ve DE 01 20 20 AR LA AM 10 10 10 MA RR 5 CY Y HB # R 40 05 43 MG 7 TA BL ET ZY 00 09 09 2 30 30 CV 54 GR Ac DE 00 -1 -1 .0 S 35 OS [...] 2- 2- 00 PH 96 S ve DE 01 20 20 AR LA AM 10 10 10 MA RR 5 CY Y HB # R 40 05 43 MG 7 TA BL ET ZY 00 07 08 2 30 30 CV 53 GR Ac DE 00 -1 -1 .0 S 72 OS [...] 0- 2- 00 PH 90 S ve DE 01 20 20 AR LA AM 10 10 10 MA RR 5 CY Y HB # R 40 05 43 MG 7 TA BL ET ZY 00 05 07 2 30 30 CV 53 GR Ac DE 00 -1 -1 .0 S 42 OS [...] 0- 2- 00 PH 90 S ve DE 01 20 20 AR LA AM 10 10 10 MA RR 5 CY Y HB # R 40 05 43 MG 7 TA BL ET ZY 00 05 06 2 30 30 CV 53 GR Ac DE 00 -1 -1 .0 S 42 OS [...] 1 30 30 CV 52 GR Ac DE 00 -1 -1 .0 S 78 OS [...] 2- 2- 00 PH 31 S ve DE 08 20 20 AR LA AM 66 [...] 1 30 30 CV 52 GR Ac DE 00 -1 -1 .0 S 78 OS [...] 2- 2- 00 PH 31 S ve DE 01 20 20 AR LA AM 10 10 10 MA RR 5 CY Y HB # R 40 05 43 MG 7 TA BL ET ZY 00 02 03 2 30 30 CV 52 GR Ac DE 00 -0 -1 .0 S 13 OS [...] 8- 1- 00 PH 16 S ve DE 01 20 20 AR LA AM 10 [...] 00 30 30 CV 52 No Ac DE 00 -0 -2 .0 S 13 t [...] 1- 6- 00 PH 78 Av ve DE 01 20 20 AR ai AM 10 [...] 1- 8- 00 PH 78 Av ve DE 01 20 20 AR ai AM 10 [...] 3- 1- 00 PH 04 Av ve DE 01 20 20 AR ai AM 10 [...] 3- 9- 00 PH 04 Av ve DE 01 20 20 AR ai AM 10 09 09 MA la 5 CY bl HB e R #5 40 43 7 MG TA BL ET CI 13 10 10 00 45 30 CV 50 No Ac TA 66 -1 -2 .0 S 89 t ti LO 80 3- 2- 00 PH 04 Av ve DE 01 20 20 AR ai AM 10 [...] 6- 8- 00 PH 21 RY ve DE 01 20 20 AR AM 10 09 [...] 6- 0- 00 PH 21 RY ve DE 01 20 20 AR AM 10 09 09 MA LI 5 CY ND HB A R #5 40 43 7 MG TA BL ET CI 13 07 08 00 30 20 CV 50 GE Ac TA 66 -0 -2 .0 S 21 NT ti LO 80 6- 7- 00 PH 21 RY ve DE 01 20 20 AR AM 10 09 [...] 9- 6- 00 PH 07 RY ve DE 01 20 20 AR AM 10 09 [...] 5- 8- 00 PH 88 RY ve DE 01 20 20 AR AM 10 09 [...] 5- 1- 00 PH 52 RY ve DE 01 20 20 AR AM 10 09 [...] 8- 2- 00 S 73 Av ve DE 34 20 20 PH 0 ai AM [...] 8- 2- 00 S 73 Av ve DE 34 20 20 PH 0 ai AM [...] 52 0- 0- 00 89 Av ve DE 52 20 20 AI ai AM 00 08 08 D la 1 PH bl HB AR e R M 40 #3 92 MG 0 TA BL ET CI 60 01 04 00 30 30 RI 59 No Ac TA 50 -1 -0 .0 TE 39 t ti LO 52 0- 7- 00 89 Av ve DE 52 20 20 AI ai AM 00 [...] 52 5- 5- 00 27 Av ve DE 52 20 20 AI ai AM 00 [...] End Date Code Location Performer Type Date [facility] 1 1 [facility] - 0 0 [facility]ADOWVIE - 0 0 [facility] RUST [address] [facility] [address]
--- OUTSIDE RECORDS SUMMARY | 2017-10-27 19:36 | External Medical Summary Rpt | CCD ---
Author Author , ERNA UMANZOR Address Unknown Phone [email or web address] Immunization Name Date Rout CVX Reac Dose Comm Prov Is Faci e tion ent ider Refu lity Give sed n Tdap 06-0 115 999 Hist ME No ME , 4-20 oric Adso 15 al rbed Info rmat ion - Sour ce Unsp ecif ied PPV2 06-0 Intr 33 999 Hist ME No ME 3 4-20 amus oric 15 cula al r Info rmat ion - Sour ce Unsp ecif ied Td 08-1 Intr 9 999 Hist H149 No H149 (francis 2-19 amus oric lt), 99 cula al r Info adso rmat rbed ion - Sour ce Unsp ecif ied
--- OUTSIDE RECORDS SUMMARY | 2017-10-27 19:36 | External Medical Summary Rpt | CCD ---
Author Author , ERNA UMANZOR Address Unknown Phone [email or web address] Immunization Name Date Rout CVX Reac Dose Comm Prov Is Faci e tion ent ider Refu lity Give sed n Tdap 06-0 115 999 Hist MT No MT , 4-20 oric Adso 15 al rbed Info rmat ion - Sour ce Unsp ecif ied PPV2 06-0 Intr 33 999 Hist MT No MT 3 4-20 amus oric 15 cula al r Info rmat ion - Sour ce Unsp ecif ied Td 08-1 Intr 9 999 Hist H149 No H149 (francis 2-19 amus oric lt), 99 cula al r Info adso rmat rbed ion - Sour ce Unsp ecif ied
[2017-10-27 19:57] VITALS: BP 159/89
== END 2017-10-27 20:17 | disposition home or self-care (01) ==
LOC: ER 18:56
DX: M54.41 Lumbago with sciatica, right side (principal); I20.8 Other forms of angina pectoris; F17.210 Nicotine dependence, cigarettes, uncomplicated; R56.9 Unspecified convulsions; K21.9 Gastro-esophageal reflux disease without esophagitis; J44.9 Chronic obstructive pulmonary disease, unspecified; E78.5 Hyperlipidemia, unspecified; Z88.8 Allergy status to other drugs, medicaments and biological substances; Z88.6 Allergy status to analgesic agent